=== PATIENT | male | born 1960 | race Caucasian/White ===

== ENCOUNTER 2021-05-15 09:33 | Outpatient (CLI) | payer BC, SELFPAY ==
[2021-05-15 09:47] LABS: Hematocrit 48.8 % (40.0-54.0); Hemoglobin 16.2 g/dL (14.0-18.0); Mean Corpuscular HGB Conc 33.2 g/dL (32.0-36.0); Mean Corpuscular Hemoglobin 30.8 pg (27.0-31.0); Mean Corpuscular Volume 92.8 fL (78.0-102.0); Mean Platelet Volume 10.5 fl (8.7-11.0); Platelet Count Result 157 K/mm3 (150-420); Red Blood Count 5.26 M/mm3 (4.70-6.10); Red Cell Distribution Width 12.6 % (11.6-14.4); White Blood Count 7.4 K/mm3 (4.8-10.8)
[2021-05-15 10:13] LABS: Alanine Aminotransferase 34 U/L (16-63); Albumin Level 3.5 g/dL (3.4-5.0); Alkaline Phosphatase 63 U/L (46-116); Anion Gap 9 mmol/L (8-16); Aspartate Amino Transferase 13 U/L (15-37); Bilirubin,Total 0.5 mg/dL (0.00-1.00); Blood Urea Nitrogen 13 mg/dL (7-18); Calcium 8.9 mg/dL (8.5-10.1); Carbon Dioxide 29 mmol/L (21-32); Chloride 102 mmol/L (98-108); Cholesterol 172 mg/dL (0-200); Estimated Glomerular Filt Rate > 60; Glucose 116 mg/dL (70-99); HDL Direct 32 mg/dL (40-60); LDL Cholesterol Calculated 102 mg/dL (<130); Osmolality Calculated 291 mOsm/kg (285-295); Sodium 140 mmol/L (136-145); Total Protein 6.9 g/dL (6.4-8.2); Triglycerides 190 mg/dL (0-150)
== END 2021-05-15 09:34 | disposition home or self-care (01) ==
LOC: CHSLAB 09:38
PROVIDERS: PCP Family Medicine; Visit Provider Family Medicine
DX: Z00.00 Encounter for general adult medical examination without abnormal findings (principal); W54.0XXA Bitten by dog, initial encounter
CPT/HCPCS: 36415; 80053; 80061; 85027

== ENCOUNTER 2024-02-07 10:18 | Outpatient (CLI) | payer MEDICARE, SELFPAY ==
[2024-02-07 10:30] VITALS: BMI 25.9
[2024-02-07] MEDS: HEPARIN SODIUM LOCK FLUSH 500 UNITS/5 ML SYRINGE IV PUSH (10:44)
[2024-02-07 10:45] VITALS: BP 128/71; PULSE 78; RESP 14; TEMP 36.5; O2SAT 99
== END 2024-02-07 10:19 | disposition home or self-care (01) ==
PROVIDERS: PCP Family Medicine; Visit Provider Internal Medicine Hematology
DX: Z45.2 Encounter for adjustment and management of vascular access device (principal); C20 Malignant neoplasm of rectum
CPT/HCPCS: 96523

== ENCOUNTER 2024-02-22 10:11 | Outpatient (CLI) | payer MEDICARE, SELFPAY ==
[2024-02-22 10:36] LABS: Basophils Absolute Auto 0.03 K/mm3 (0.00-0.10); Basophils Percent Auto 0.6 % (0.0-1.0); Eosinophils Absolute Auto 0.12 K/mm3 (0.02-0.50); Eosinophils Percent Auto 2.4 % (1.0-6.0); Hematocrit 37.4 % (37.0-46.0); Immature Granulocyte Absolute 0.03 K/mm3 (0.00-0.00); Immature Granulocyte Percent A 0.6 % (0.0-0.0); Lymphocytes Absolute Auto 0.87 K/mm3 (1.10-4.50); Lymphocytes Percent Auto 17.8 % (18.0-42.0); Mean Corpuscular HGB Conc 34.8 g/dL (32-36); Mean Corpuscular Hemoglobin 30.7 pg (27.0-31.0); Mean Corpuscular Volume 88.2 fL (78.0-102.0); Mean Platelet Volume 9.1 fl (8.7-11.0); Monocytes Absolute Auto 0.48 K/mm3 (0.10-0.90); Monocytes Percent Auto 9.8 % (2.0-11.0); Neutrophils Absolute Auto 3.37 K/mm3 (1.70-7.20); Neutrophils Percent Auto 68.8 % (50.0-70.0); Platelet Count Result 201 K/mm3 (150-420); Red Blood Count 4.24 M/mm3 (4.70-6.10); Red Cell Distribution Width 13.4 % (11.6-14.4); White Blood Count 4.9 K/mm3 (4.8-10.8)
[2024-02-22 11:02] LABS: Alanine Aminotransferase 25 U/L (16-63); Albumin Level 3.4 g/dL (3.4-5.0); Alkaline Phosphatase 78 U/L (46-116); Anion Gap 8 mmol/L (4-12); Aspartate Amino Transferase 13 U/L (15-37); Bilirubin,Total 0.6 mg/dL (0.00-1.00); Blood Urea Nitrogen 13 mg/dL (7-18); Calcium 9.2 mg/dL (8.5-10.1); Carbon Dioxide 29 mmol/L (21-32); Chloride 98 mmol/L (98-108); Estimated Glomerular Filt Rate > 60; Glucose 88 mg/dL (70-99); Osmolality Calculated 279 mOsm/kg (285-295); Potassium 4.7 mmol/L (3.5-5.1); Sodium 135 mmol/L (136-145); Total Protein 6.7 g/dL (6.4-8.2)
[2024-02-23 06:54] LABS: Carcinoembryonic Antigen 5.4 ng/mL
== END 2024-02-22 10:12 | disposition home or self-care (01) ==
PROVIDERS: PCP Family Medicine; Visit Provider Internal Medicine Hematology
DX: C20 Malignant neoplasm of rectum (principal)
CPT/HCPCS: 36415; 80053; 82378; 85025

== ENCOUNTER 2024-02-28 08:36 | Outpatient (CLI) | payer MEDICARE, MEDICAID, SELFPAY ==
--- NOTE | ~2024-02-28 | CT_ITS ---
EXAMINATION: CT chest abdomen pelvis w con DATE: 02/28/2024 09:17 INDICATION: Colorectal cancer. Prostate cancer. TECHNIQUE: Computed tomography (CT) of the chest, abdomen, and pelvis was performed with 100 mL Omnip aque 350 intravenous contrast. Automated exposure control and iterative reconstruction technique were employed. The dose-length product was 515.42 mGy-cm. COMPARISON: None FINDINGS: CHEST CT: There is mild emphysema. A calcified right lung nodule and calcified right hilar lymph nodes are cons istent with old granulomatous disease. There is mild atelectasis bilaterally. There are mild groundgl ass opacities in left lower lobe with a 4 mm nodule, likely inflammation/infection. No pleural effusi on. There is a right subclavian port with tip at superior cavoatrial junction. The heart size is norm al. There is a small pericardial effusion. There is mild thoracic spondylosis. ABDOMEN/PELVIS CT: The liver and gallbladder are normal. Calcifications in the spleen are consistent with old granulomat ous disease. There are greater than 20 hypodense masses in the spleen measuring up to 9 mm, likely gr anulomatous disease. The pancreas, adrenal glands, and kidneys are normal. The bladder is distended. There is diffuse bladder wall thickening, likely secondary to chronic outlet obstruction from the mil dly enlarged prostate. There is wall thickening of the rectum. There is diverticulosis of the colon w ithout evidence of diverticulitis. The appendix is normal. There are no pathologically enlarged lymph nodes. There is no free intraperitoneal fluid. There is severe lumbar spondylosis. IMPRESSION: 1. Wall thickening of the rectum, consistent with primary malignancy and/or changes of radiation ther apy. Reviewed, dictated and finalized at location A. [employer] I ASSEMBLER IMPRESSION: 1. Wall thickening of the rectum, consistent with primary malignancy and/or mikey nges of radiation therapy.
== END 2024-02-28 08:37 | disposition home or self-care (01) ==
PROVIDERS: PCP Family Medicine; Visit Provider Internal Medicine Hematology
DX: C20 Malignant neoplasm of rectum (principal)
CPT/HCPCS: 71260; 74177; Q9967

== ENCOUNTER 2024-06-05 08:21 | Outpatient (CLI) | payer MEDICARE, MEDICAID, SELFPAY ==
[2024-06-05 08:29] VITALS: BMI 24.6
[2024-06-05 08:44] VITALS: BP 121/64; PULSE 68; RESP 14; TEMP 36.6; O2SAT 97
--- OUTSIDE RECORDS SUMMARY | 2024-06-05 08:46 | XMS_ITS | Encounter Summary ---
Author Organization [facility] Address [facility] [place] [address] Care Team Providers Care Recovery Operator Name Role Phone Flaco Kelly MD Primary Care Provider Encounter Details Date Type Department Care Team (Late st Contact Info) Description 05/29/2024 Orders Only [facility] [address], [place] [id number] Aretha Hubbard, RETREAD BUILDER [address] [place], [place] [id number] Social History Tobacco Use Types Packs/Day Years Used Date Smoking Tobacco: Unknown Sex and Gender Information Value Date Recorded Sex Assigned at Male 04/20/2024 8:37 AM LAN SUPPORT SPECIALIST Legal Sex Male 9:40 AM CDT Gender Identity Not on file Sexual Orientation Not on file documented as of this encounter Plan of Treatment Not on file documented as of this encounter Results * PROSTATE SPECIFIC ANTIGEN, DIAG (05/29/2024 11:11 AM LAN SUPPORT SPECIALIST) PSA <0.13 <4.00 NG/ML 05/29/2024 11:51 AM LAN SUPPORT SPECIALIST [facility] 05/29/2024 11:1 1 AM LAN SUPPORT SPECIALIST Aretha Hubbard NP LABORATORY Final Result [facility] [address] [place] [address], * (ABNORMAL) TESTOSTERONE, FREE & TOTAL (05/29/2024 11:11 AM LAN SUPPORT SPECIALIST) TESTOSTERONE TOTAL 88(L) 250 - 1,100 ng/dL 06/04/2024 3:31 PM LAN SUPPORT SPECIALIST [id number] PEDERSON Comment: Men with clinically significant hypogonadal symptoms and testosterone values repeatedly in the range of the 200-300 ng/dL or less, may benefit from testosterone treatment after adequate risk and benefits counseling. For additional information, please refer to http://education.[employer]/faq/ OmkouZehqubedtnuvMTMVHFIUT734 (This link is being provided for informational/ educational purposes only.) This test was developed and its analytical performance characteristics have been determined by [facility] [place], [place]. It has not been cleared or approved by the U.S. Food and Drug Administration. This assay has been validated pursuant to the CLIA regulations and is used for clinical purposes. TESTOSTERONE FREE 6.1(L) 35.0 - 155.0 pg/mL 06/04/2024 3:31 PM LAN SUPPORT SPECIALIST [employer] ANASTACIA PEDERSON Comment: This test was developed and its analytical performance characteristics have been determined by [employer] [facility] [place], [place]. It has not been cleared or approved by the U.S. Food and Drug Administration. This assay has been validated pursuant to the CLIA regulations and is used for clinical purposes. Test Performed by [facility], [facility] [place], [address] [place] [address] Jean Carlos Carter M.D., Ph.D., Director of Laboratories , CLIA [id number] 05/29/2024 11:1 1 AM LAN SUPPORT SPECIALIST us Aretha Hubbard NP LABORATORY Final Result [facility] [id number] [place], [place] , documented in this encounter Visit Diagnoses Diagnosis Malignant neoplasm of prostate ([facility]/HCC [facility])- Primary Malignant neoplasm of prostate documented in this encounter Care Teams Recovery Operator Relationship Specialty Start Date End Date Flaco Kelly MD [address] [place] [address] PCP - General FAMILY PRACTICE 01/03/23 documented as of this encounter
--- OUTSIDE RECORDS SUMMARY | 2024-06-05 08:46 | XMS_ITS | Encounter Summary ---
Author Organization [facility] Address [address] [place] [address] Care Team Providers Care Manager Cosmetics Name Role Phone Flaco Kelly MD Primary Care Provider [phone] Encounter Details Date Type Department Care Team (Late st Contact Info) Description 05/29/[address] [facility] [address] [place] [address] Ziggy Renee MD [facility] [address] [facility] [address] [facility] [place], [place] [id number] Social History Tobacco Use Types Packs/Day Years Used Date Smoking Tobacco: Unknown Sex and Gender Information Value Date Recorded Sex Assigned at Male 04/20/2024 8:37 AM AUTOMOTIVE PARTS COUNTER ASSOCIATE Legal Sex Male 9:40 AM CDT Gender Identity Not on file Sexual Orientation Not on file documented as of this encounter Plan of Treatment Not on file documented as of this encounter Results * (ABNORMAL) CARCINOEMBRYONIC ANTIGEN (05/29/2024 11:11 AM AUTOMOTIVE PARTS COUNTER ASSOCIATE) CEA 9.9(H) 0.0 - 5.0 NG/ML 05/29/2024 7:14 PM AUTOMOTIVE PARTS COUNTER ASSOCIATE [facility] Comment: ASSAY PERFORMED BY CHEMILUMINESCENCE METHODOLOGY USING [employer] [facility]ENT. PATIENT RESULTS DETERMINED BY ASSAYS USING DIFFERENT MANUFACTURERS FOR METHODS MAY NOT BE COMPARABLE. 05/29/2024 11:1 1 AM AUTOMOTIVE PARTS COUNTER ASSOCIATE Ziggy Renee MD LABORATORY Final Result [facility] [address] [place] [address], [id number] documented in this encounter Visit Diagnoses Diagnosis Prostate cancer (CMS/HCC HHS/HCC)- Primary Malignant neoplasm of prostate documented in this encounter Care Teams Manager Cosmetics Relationship Specialty Start Date End Date Flaco Kelly MD [facility] [facility] [place] [address] PCP - General FAMILY PRACTICE 01/03/23 documented as of this encounter
--- OUTSIDE RECORDS SUMMARY | 2024-06-05 08:46 | XMS_ITS ---
Author Organization Unknown Address [address] [place] [phone] Phone Care Team Providers Care Services Delivery Driver Name Role Phone ALBERT Pinedo Attending Unavailable [facility] Unavailable MANJIT Gould Primary Unavailable Immunization Immunization Date Status Additional Notes Code Code System Tdap 05/12/2021 Completed 115 CVX COVID-19, mRNA, LNP-S, PF, 3 0 mcg/0.3 mL dose 06/06/2020 Completed 208 CVX COVID-19, mRNA, LNP-S, PF, 3 0 mcg/0.3 mL dose 06/26/2020 Completed 208 CVX Social History Type Status Start Date End Date Code Code Syst em Smoking History Current every day smoker 806383936 SNOMED CT Sex Male Vital Signs Vital Sign Value Unit Collin Value Collin Unit Date/Time Recent/Initial? Code Code System Body Mass Index 27.69 kg/m2 03/04/2023 13:59 Initial 64945 -5 LOINC Systolic Blood Pressure 130 mm[Hg] 03/18/2023 07:41 Initial 8480- 6 LOINC Diastolic Blood Pressure 72 mm[Hg] 03/18/2023 07:41 Initial 8462- 4 LOINC Body Surface Area 2.08 m2 03/04/2023 13:59 Initial 3140- 1 LOINC Height 177.800 0 cm 70.00 in 03/04/2023 13:59 Initial 8302- 2 LOINC O2 Saturation 98 % 2022 07:41 Initial 99410 -5 LOINC Pulse 100.0 /min 03/18/2023 07:41 Initial 8867- 4 LOINC Respiration 20 /min 03/18/20 07:41 Initial 9279- 1 LOINC Temperature 36.4 Jenna 97.5 F 12/15/20 23 07:41 Initial 8310- 5 LOINC Weight 87.54 kg 193.00 lbs 03/04/2023 13:59 Initial 15324 -7 LOINC Medications No Active Medications Hospital Discharge Instructions Should you have any questions prior to discharge, please contact a member of your healthcare team. If you have left the hospital and have any questions, please contact your primary care physician. Reason For Referral No Data Found Procedures Procedure Name Date Status Code Code Syste m Inguinal hernia completed [id number] SNOMEDCT Anesthesia for lower intesti nal endoscopic procedures, endoscope introduce 03/18/2023 completed 69197 CPT Colonoscopy, flexible; with removal of tumor(s), polyp(s), or other lesion 03/18/2023 completed 84350 CPT Allergies and Adverse Reactions Allergy Substance Reaction Severity Start Date Concern Status Co de Code System CODEINE Active 4428 RxNorm Plan of Treatment US Prostate Needle Biopsy 04/13/2023 Encounters Encounter Diagnosis Start Date Code Code Sys tem Encounter for screening for malignant neoplasm of colo n 03/18/2023 SNOMED-CT Personal Care Team Section Performer Name Performer Role Active Date Inactive MIGUELANGEL Fuller PCP - Primary care physician 2023-01-12
--- OUTSIDE RECORDS SUMMARY | 2024-06-05 08:46 | XMS_ITS | Clinical Summary ---
Author Organization [facility] Address [facility] [place] [address] Care Team Providers Care Advertising Project Manager Name Role Phone Flaco Kelly MD Primary Care Provider Allergies Active Allergy Reactions Criticality Noted Date Comments Codeine Nausea Only 03/18/2023 Patient states it makes me sick as hell Medications No known medications Encounters Date Type Department Care Team Description 05/29/2024 10:55 AM INTAKE NURSE - 05/29/2024 11:59 PM INTAKE NURSE Hospital Encounter [facility] [address] [place] [address] [address] Travis Ratliff MD Discharge Disposition: Home or Self Care (Routine Discharge) 05/29/2024 10:45 AM INTAKE NURSE - 05/29/2024 10:54 AM INTAKE NURSE Hospital Encounter [facility] [address] [place] [address] [address] Flaco Kelly MD Fisher, Kelli C, JULIANNE Discharge Disposition: Home or Self Care (Routine Discharge) 05/29/2024 Orders Only [facility] [address] [place] [address] [address] Travis Ratliff MD 05/29/[address] [facility] [address] [place] [address] [address] Aretha Hubbard NP 05/29/2024 Travel 04/26/2024 6:33 AM INTAKE NURSE - 04/26/2024 11:59 PM [facility] Hospital Encounter [facility] [address] [place] [address] [address] Teddy Roman Sr., MD Discharge Disposition: Home or Self Care (Routine Discharge) 04/26/2024 Travel 04/20/2024 8:38 AM INTAKE NURSE - 04/20/2024 11:59 PM INTAKE NURSE Hospital Encounter [facility] [address] [place] [address] Teddy Roman Sr., MD Discharge Disposition: Home or Self Care (Routine Discharge) 04/20/2024 Travel 03/14/2024 8:35 AM INTAKE NURSE - 03/14/2024 11:59 PM INTAKE NURSE Hospital Encounter [facility] [address] [place] [address] Travis Raltiff MD Discharge Disposition: Home or Self Care (Routine Discharge) 03/14/2024 Travel from Last 3 Months Social History Tobacco Use Types Packs/Day Years Used Date Smoking Tobacco: Unknown Tobacco Cessation:Counseling Given: Not Answered Sex and Gender Information Value Date Recorded Sex Assigned at Male 04/20/2024 8:37 AM INTAKE NURSE Legal Sex Male 9:40 AM CDT Gender Identity Not on file Sexual Orientation Not on file Last Filed Vital Signs Vital Sign Reading Time Taken Comments Blood Pressure 129/98 03/18/2023 3:56 PM INTAKE NURSE Pulse 98 03/18/2023 3:56 PM INTAKE NURSE Temperature 36.6 C (97.8 F) 03/18/2023 12:49 PM INTAKE NURSE Respiratory Rate 14 03/18/2023 3:56 PM INTAKE NURSE Oxygen Saturation 96% 03/18/2023 3:56 PM INTAKE NURSE Inhaled Oxygen Concentration - - Weight 85 kg (187 lb 8 oz) 03/18/2023 12:[address] Height 180.3 cm (5' 11 ) 03/18/2023 12:49 PM INTAKE NURSE Body Mass Index 26.15 03/18/2023 12:49 PM INTAKE NURSE Plan of Treatment Health Maintenance Due Date Last Done Comments Hepatitis C 1977 Zoster Vaccines (1 of 2) 2009 RSV Immunization or 60+ Years (1 - Risk 60-74 years 1-dose series) 2019 COVID-19 Vaccine (3 - 2023-2 5 season) 2023 06/26/2020, 06/06/2020 Influenza Adult (#1) 2024 Pneumococcal Vaccine: 65+ Years (1 of 1 - PCV) 02/01/2024 DTaP, Tdap and Td Vaccines ( 2 - Td or Tdap) 05/12/2031 05/12/2021 Meningococcal B Vaccine Aged Out No l onger eligible based on patient's age to complete this topic Meningococcal Vaccine Aged Out No alexis michelle eligible based on patient's age to complete this topic Pneumococcal Vaccine: Pediatrics (0 to 5 Years) and At-Risk Patients (6 to 64 Years) Aged Out No longer eligible b ased on patient's age to complete this topic RSV Immunizations Under 20 Months Aged Out No longer eligible b ased on patient's age to complete this topic Procedures Procedure Name Priority Date/Time Associated Diagnosis Comments CARCINOEMBRYONIC ANTIGEN Routine 025 11:11 AM INTAKE NURSE Prostate cancer (CMS/HCC HHS/HCC) PROSTATE SPECIFIC ANTIGEN,TOTAL Routine 05/29/2024 11:11 AM INTAKE NURSE Malignant neoplasm of prostate (CMS/HCC HHS/HCC) HC TESTOSTERONE FREE-90 Routine 05/29/19 25 11:11 AM INTAKE NURSE Malignant neoplasm of prostate (CMS/HCC HHS/HCC) MRI ABD WWO CON STAT 04/26/2024 7:52 AM INTAKE NURSE Hepatic disease CT CHEST+ABD W CON Routine 04/20/2024 9: 15 AM INTAKE NURSE Rectal cancer (CMS/HCC HHS/HCC) MRI PEL WWO CON Routine 03/14/2024 9:56 AM INTAKE NURSE Rectal cancer (CMS/HCC HHS/HCC) from Last 3 Months Results * (ABNORMAL) TESTOSTERONE, FREE & TOTAL (05/29/2024 11:11 AM INTAKE NURSE) TESTOSTERONE TOTAL 88(L) 250 - 1,100 ng/dL 06/04/2024 3:31 PM INTAKE NURSE [employer] Comment: Men with clinically significant hypogonadal symptoms and testosterone values repeatedly in the range of the 200-300 ng/dL or less, may benefit from testosterone treatment after adequate risk and benefits counseling. For additional information, please refer to http://education.Fluther.THEMA/faq/ MflrvXghvvaatcsdaAHLWTQSBC910 (This link is being provided for informational/ educational purposes only.) This test was developed and its analytical performance characteristics have been determined by [facility] [place], [place]. It has not been cleared or approved by the U.S. Food and Drug Administration. This assay has been validated pursuant to the CLIA regulations and is used for clinical purposes. TESTOSTERONE FREE 6.1(L) 35.0 - 155.0 pg/mL 06/04/2024 3:31 PM INTAKE NURSE [facility] Comment: This test was developed and its analytical performance characteristics have been determined by [facility] [place], [place]. It has not been cleared or approved by the U.S. Food and Drug Administration. This assay has been validated pursuant to the CLIA regulations and is used for clinical purposes. Test Performed by [facility], [facility], [address] [place] [address] Jean Carlos Carter M.D., Ph.D., Director of Laboratories , CLIA [id number] 05/29/2024 11:1 1 AM INTAKE NURSE us Aretha Hubbard NP LABORATORY Final Result Performing Organization Address City/[facility]/ZIP Co de Phone Number [employer] [address] , * PROSTATE SPECIFIC ANTIGEN, DIAG (05/29/2024 11:11 AM INTAKE NURSE) PSA <0.13 <4.00 NG/ML 05/29/2024 11:51 AM INTAKE NURSE [facility] 05/29/2024 11:1 1 AM INTAKE NURSE us Aretha Hubbard NP LABORATORY Final Result [facility] [address] [place] [address], [place] [phone] * (ABNORMAL) CARCINOEMBRYONIC ANTIGEN (05/29/2024 11:11 AM INTAKE NURSE) CEA 9.9(H) 0.0 - 5.0 NG/ML 05/29/2024 7:14 PM INTAKE NURSE [facility] Comment: ASSAY PERFORMED BY CHEMILUMINESCENCE METHODOLOGY USING [employer] [facility]. PATIENT RESULTS DETERMINED BY ASSAYS USING DIFFERENT MANUFACTURERS FOR METHODS MAY NOT BE COMPARABLE. 05/29/2024 11:1 1 AM INTAKE NURSE Travis Ratliff MD LABORATORY Final Result [facility] [address] [place] [address], [place] [phone] [id number] * MRI ABD WWO CON (04/26/2024 7:52 AM INTAKE NURSE) Anatomical Region Laterality Modality Abdomen Magnetic Resonan ce 04/26/2024 1:22 PM INTAKE NURSE Impressions 04/26/2024 1:27 PM INTAKE NURSE IMPRESSION: 1. 19 MM IN DIAMETER FOCAL LESION POSTERIOR SEGMENT RIGHT LOBE OF LIVER CORRESPONDS WITH THE ABNORMALITY NOTED ON CT. THIS IS FELT TO BE SUSPICIOUS FOR METASTATIC DISEASE. NO OTHER SIGNIFICANT ABNORMALITY. Signed: Aristeo Plummer MD Referred By: TEDDY ROMAN SR Interpreted By: Aristeo Plummer MD, 04/26/2024 1:22 PM Narrative 04/26/2024 1:27 PM INTAKE NURSE [address] [place] [address] PATIENT NAME: ROBERTO GARCIA EXAM: MRI of the abdomen with and without contrast DATE OF EXAM: 04/26/2024 COMPARISON EXAM: CT abdomen/pelvis 04/20/2024, MRI abdomen 05/18/2023 INDICATION: History of rectal cancer, suspicious right lobe liver lesion noted on CT. TECHNIQUE: Multiplanar/multi sequence MRI abdomen performed with and without intravenous injection of 15 mL Dotarem gadolinium contrast. Electronic subtractions of the postcontrast images were then obtained. FINDINGS: The images are somewhat degraded by respiratory motion as patient had some difficulty with breath holding. The liver is normal in size. There is an approximately 19 mm in diameter lesion in the posterior segment of the right lobe of the liver which demonstrates mild abnormal strictured diffusion. This is of low T1 and intermediate T2 signal. This is seen as hypoenhancing on early postcontrast images becoming more isointense with liver parenchyma on delayed images. This was not present on a previous MRI and is felt to be worrisome for metastatic disease to liver. No other focal liver lesions are demonstrated. No evidence of cholelithiasis or gallbladder wall thickening. No biliary duct dilatation. The spleen is normal in size. There are multiple small splenic lesions demonstrating high T2 signal with delayed enhancement on postcontrast images. These are unchanged from previous studies with an appearance suggesting possible benign hemangiomas or hamartomas. The pancreas and adrenal glands are unremarkable. No focal renal lesions are demonstrated. No hydronephrosis. No acute inflammatory change, abscess or ascites. No significant lymphadenopathy. Procedure Note Aristeo Plummer MD - 04/26/[address] [place] [address] PATIENT NAME: ROBERTO GARCIA EXAM: MRI of the abdomen with and without contrast DATE OF EXAM: 04/26/2024 COMPARISON EXAM: CT abdomen/pelvis 04/20/2024, MRI abdomen 05/18/2023 INDICATION: History of rectal cancer, suspicious right lobe liver lesionnoted on CT. TECHNIQUE: Multiplanar/multi sequence MRI abdomen performed with andwithout intravenous injection of 15 mL Dotarem gadolinium contrast.Electronic subtractions of the postcontrast images were then obtained. FINDINGS: The images are somewhat degraded by respiratory motion aspatient had some difficulty with breath holding. The liver is normal in size. There is an approximately 19 mm in diameterlesion in the posterior segment of the right lobe of the liver whichdemonstrates mild abnormal strictured diffusion. This is of low T1 andintermediate T2 signal. This is seen as hypoenhancing on earlypostcontrast images becoming more isointense with liver parenchyma ondelayed images. This was not present on a previous MRI and is felt to beworrisome for metastatic disease to liver. No other focal liver lesionsare demonstrated. No evidence of cholelithiasis or gallbladder wallthickening. No biliary duct dilatation. The spleen is normal in size. There are multiple small splenic lesionsdemonstrating high T2 signal with delayed enhancement on postcontrastimages. These are unchanged from previous studies with an appearancesuggesting possible benign hemangiomas or hamartomas. The pancreas and adrenal glands are unremarkable. No focal renal lesionsare demonstrated. No hydronephrosis. No acute inflammatory change,abscess or ascites. No significant lymphadenopathy. IMPRESSION: 1. 19 MM IN DIAMETER FOCAL LESION POSTERIOR SEGMENT RIGHT LOBE OF LIVERCORRESPONDS WITH THE ABNORMALITY NOTED ON CT. THIS IS FELT TO BESUSPICIOUS FOR METASTATIC DISEASE. NO OTHER SIGNIFICANT ABNORMALITY. Signed: Aristeo Plummer MD Referred By: TEDDY ROMAN SR Interpreted By: Aristeo Plummer MD, 04/26/2024 1:22 PM us Teddy Roman Sr., MD MRI Final Re sult * CT CHEST+ABD W CON (04/20/2024 9:15 AM INTAKE NURSE) Anatomical Region Laterality Modality Chest, Abdomen Computed Tomogra phy 04/24/2024 5:53 AM INTAKE NURSE Impressions 04/24/2024 6:00 AM INTAKE NURSE Impression: A 15 mm low-density nodule in the right hepatic lobe on series 2 image 117 is new since MRI 05/18/2023. This is worrisome for a rectal cancer metastasis. No other lesion in the abdomen seen. No metastatic nodularity or adenopathy in the chest. Reticulonodular scarring in the left lower lobe is present since lung screening CT 01/11/2023. Attention on follow-up chest CT. Chronic thin to moderate pericardial effusion. Scattering of ill-defined low densities in the spleen is chronic, nonspecific. See the discussion from MRI 05/18/2023. Referred By: TEDDY ROMAN SR Interpreted By: Cleve Etienne MD, 04/24/2024 5:53 AM Narrative 04/24/2024 6:00 AM INTAKE NURSE [address] [place] [address] Examination: CT CHEST+ABD W CON Exam time: 04/20/2024 9:05 AM Clinical Information: Rectal cancer staging. Comparison:CT chest 05/25/2023 and 01/11/2023. MRI abdomen 05/18/2023. CT abdomen 04/21/2023. Technique: IV contrast: 90 mL Isovue 370. Technical comments: Standard technique. Dose reduction: This CT exam was performed using one or more of the following dose reduction techniques: Automated exposure control, adjustment of the mA and/or kV according to patient size, and/or use of iterative reconstruction technique. Findings: Smoking-related changes in the lung cardozo which includes mild COPD and scarring. Old calcified granulomata in the chest. Reticular-nodular scarring in the left lower lobe is present since 2022 without significant interval growth. Attention on follow-up. No suspicious lung nodule or mass. Airways patent. Right chest port catheter present. No aortic aneurysm or dissection in the chest. No PE on this nondedicated study. Thin to moderate pericardial effusion. No esophageal dilation. No thyroid or neck mass. There is a 15 mm low-density nodule in the right hepatic lobe, series 2 image 117 which is not present on the MRI 05/18/2023. This is worrisome for metastatic nodule given the history of rectal cancer. No other nodularity in the liver. Scattering of ill-defined low densities in the spleen is chronic, nonspecific. No mass in the adrenals or kidneys or pancreas. No cholecystitis or pancreatitis. No ductal dilatation. No hydronephrosis. No abdominal aortic aneurysm. No stomach dilation. No intestinal dilation. No active gastritis or enteritis or colitis. Tip of the appendix is normal. No ascites. No adenopathy in the abdomen. No pneumoperitoneum. Degenerative changes in the osseous structures. No destructive bone lesion. Procedure Note Cleve Etienne MD - 04/24/[address] [place] [address] Examination: CT CHEST+ABD W CON Exam time: 04/20/2024 9:05 AM Clinical Information: Rectal cancer staging. Comparison:CT chest 05/25/2023 and 01/11/2023. MRI abdomen 05/18/2023. CTabdomen 04/21/2023. Technique: IV contrast: 90 mL Isovue 370. Technical comments: Standard technique. Dose reduction: This CT exam was performed using one or more of thefollowing dose reduction techniques: Automated exposure control,adjustment of the mA and/or kV according to patient size, and/or use ofiterative reconstruction technique. Findings: Smoking-related changes in the lung cardozo which includes mild COPD andscarring. Old calcified granulomata in the chest. Reticular-nodularscarring in the left lower lobe is present since 2022 without significantinterval growth. Attention on follow- up. No suspicious lung nodule ormass. Airways patent. Right chest port catheter present. No aorticaneurysm or dissection in the chest. No PE on this nondedicated study.Thin to moderate pericardial effusion. No esophageal dilation. Nothyroid or neck mass. There is a 15 mm low-density nodule in the right hepatic lobe, series 2image 117 which is not present on the MRI 05/18/2023. This is worrisomefor metastatic nodule given the history of rectal cancer. No othernodularity in the liver. Scattering of ill-defined low densities in thespleen is chronic, nonspecific. No mass in the adrenals or kidneys orpancreas. No cholecystitis or pancreatitis. No ductal dilatation. Nohydronephrosis. No abdominal aortic aneurysm. No stomach dilation. Nointestinal dilation. No active gastritis or enteritis or colitis. Tip ofthe appendix is normal. No ascites. No adenopathy in the abdomen. Nopneumoperitoneum. Degenerative changes in the osseous structures. Nodestructive bone lesion. Impression: A 15 mm low-density nodule in the right hepatic lobe on series 2 image 117is new since MRI 05/18/2023. This is worrisome for a rectal cancermetastasis. No other lesion in the abdomen seen. No metastatic nodularity or adenopathy in the chest. Reticulonodular scarring in the left lower lobe is present since lungscreening CT 01/11/2023. Attention on follow-up chest CT. Chronic thin to moderate pericardial effusion. Scattering of ill-defined low densities in the spleen is chronic,nonspecific. See the discussion from MRI 05/18/2023. Referred By: TEDDY ROMAN SR Interpreted By: Cleve Etienne MD, 04/24/2024 5:53 AM us Teddy Roman Sr., CT Final Re sult * MRI PEL WWO CON (03/14/2024 9:56 AM INTAKE NURSE) Anatomical Region Laterality Modality Pelvis Magnetic Resonan ce 03/22/2024 10:4 8 AM INTAKE NURSE Impressions 03/22/2024 11:10 AM INTAKE NURSE Impression: 1. Rectal Cancer Staging, as detailed in the text of the report. 2. Persistent circumferential wall thickening of the rectum consistent with residual viable tumor. The multiple areas of tumor extension into the perirectal fat seen previously have improved. Spiculations are seen extending from the rectum into the perirectal fat, possibly representing a desmoplastic reaction and posttreatment changes. Residual viable tumor within the spiculations cannot be definitively excluded. 3. Improved perirectal lymphadenopathy since prior. A single enlarged 6 mm perirectal lymph node is identified, which may represent residual metastasis. 4. Presacral and perirectal fluid signal is favored to represent posttreatment changes. 5. Redemonstrated prostatomegaly. Mild bladder wall trabeculation may represent sequelae of outlet obstruction. Ordered By: TRAVIS RATLIFF Interpreted By: Luther Mathis MD, 03/22/2024 10:48 AM Narrative 03/22/2024 11:10 AM INTAKE NURSE [address] [place] [address] Examination: MR pelvis with/without contrast, per rectal cancer staging protocol. Clinical Information: Rectal cancer, post treatment. Restaging. Comparison: MRI and CT 04/21/2023.. Technique: Sequences: Multiplanar, multisequence magnetic resonance imaging of the pelvis was performed before and after the initiation of contrast. IV contrast: 15 mL dotarem. Findings: Extensive edema like signal throughout the presacral and perirectal regions favored to represent posttreatment changes. There is notable circumferential wall thickening redemonstrated involving the rectum that is presumed to represent residual viable tumor. TUMOR LOCATION Distance of the lowest extent of tumor from anal verge: Approximately approximately 7 cm Distance of lowest extent of tumor from ano-rectal junction: Approximately 3.5 cm. Relationship to anterior peritoneal reflection: The cranial most aspect of the tumor again terminates at the level of the peritoneal reflection (series 4 image 17). This appears similar to prior and again, involvement of the peritoneal reflection is not excluded. TUMOR CHARACTERISTICS Circumferential extent/location (clock face): Circumferential. Cranio-caudal extent (length of tumor): Approximately 5.5 cm. T-CATEGORY Radial extent of disease: The areas of perirectal fat involvement seen on the previous exam from April of this year have notably improved, with no distinct bulky tumor extension into the perirectal fat identified on this exam. There are ill-defined streak-like regions extending from the rectal wall into the perirectal fat, which may represent a desmoplastic reaction as well as posttreatment changes although residual tumor cannot be definitively excluded. The spiculations do not appear to restricted diffusion on DWI or ADC sequences. T-category: Favored T1/T2 DISTANCE TO THE MESORECTAL FACIA (MRF) AND EXTRAMURAL DEPTH OF INVASION (EMD) Shortest distance of the definitive tumor border to the MRF: Approximately 4 mm. Extramural depth of invasion (EMD) at this level: 0 mm. Tumor spiculations close to the MRF: Spiculations approach and a but the MRF, although these are favored to represent a desmoplastic reaction with tumor favored less likely but not excluded. EXTRAMURAL VASCULAR INVASION (EMVI): Absent. LYMPH NODES Mesorectal lymph nodes: There is been mild improvement of the perirectal lymphadenopathy since prior. A few persistently enlarged perirectal lymph nodes are identified, of note and approximately 6 mm lymph node at the 3:00 position (series 7 image 21). Extra-mesorectal lymph nodes: No suspicious lymph nodes. Shortest distance of any suspicious lymph node to the MRF: Approximately 5 mm. OTHER Peritoneum: No nodularity or thickening. Free Fluid: None. Genitourinary system: Redemonstrated prostatomegaly. The urinary bladder demonstrates mild wall trabeculation which could indicate a chronic outlet obstruction. Vasculature: Imaged vascular structures are patent. Bones: No suspicious osseous lesions. Linear peripherally enhancing tract identified extending from the posterior aspect of the anal sphincter towards the cutaneous surface of the right medial gluteal fold (series 12 image is 26 through 29), raising concern for perianal fissure. Procedure Note Luther Mathis MD - 03/22/2024 [facility] [address] [place] [address] Examination: MR pelvis with/without contrast, per rectal cancer stagingprotocol. Clinical Information: Rectal cancer, post treatment. Restaging. Comparison: MRI and CT 04/21/2023.. Technique: Sequences: Multiplanar, multisequence magnetic resonance imaging of thepelvis was performed before and after the initiation of contrast. IV contrast: 15 mL dotarem. Findings: Extensive edema like signal throughout the presacral and perirectalregions favored to represent posttreatment changes. There is notablecircumferential wall thickening redemonstrated involving the rectum thatis presumed to represent residual viable tumor. TUMOR LOCATION Distance of the lowest extent of tumor from anal verge: Approximatelyapproximately 7 cm Distance of lowest extent of tumor from ano-rectal junction: Approximately3.5 cm. Relationship to anterior peritoneal reflection: The cranial most aspect ofthe tumor again terminates at the level of the peritoneal reflection(series 4 image 17). This appears similar to prior and again, involvementof the peritoneal reflection is not excluded. TUMOR CHARACTERISTICS Circumferential extent/location (clock face): Circumferential. Cranio-caudal extent (length of tumor): Approximately 5.5 cm. T-CATEGORY Radial extent of disease: The areas of perirectal fat involvement seen onthe previous exam from April of this year have notably improved, with nodistinct bulky tumor extension into the perirectal fat identified on thisexam. There are ill-defined streak-like regions extending from the rectalwall into the perirectal fat, which may represent a desmoplastic reactionas well as posttreatment changes although residual tumor cannot bedefinitively excluded. The spiculations do not appear to restricteddiffusion on DWI or ADC sequences. T-category: Favored T1/T2 DISTANCE TO THE MESORECTAL FACIA (MRF) AND EXTRAMURAL DEPTH OF INVASION(EMD) Shortest distance of the definitive tumor border to the MRF: Approximately4 mm. Extramural depth of invasion (EMD) at this level: 0 mm. Tumor spiculations close to the MRF: Spiculations approach and a but theMRF, although these are favored to represent a desmoplastic reaction withtumor favored less likely but not excluded. EXTRAMURAL VASCULAR INVASION (EMVI): Absent. LYMPH NODES Mesorectal lymph nodes: There is been mild improvement of the perirectallymphadenopathy since prior. A few persistently enlarged perirectal lymphnodes are identified, of note and approximately 6 mm lymph node at the3:00 position (series 7 image 21). Extra-mesorectal lymph nodes: No suspicious lymph nodes. Shortest distance of any suspicious lymph node to the MRF: Approximately 5mm. OTHER Peritoneum: No nodularity or thickening. Free Fluid: None. Genitourinary system: Redemonstrated prostatomegaly. The urinary bladderdemonstrates mild wall trabeculation which could indicate a chronic outletobstruction. Vasculature: Imaged vascular structures are patent. Bones: No suspicious osseous lesions. Linear peripherally enhancing tract identified extending from theposterior aspect of the anal sphincter towards the cutaneous surface ofthe right medial gluteal fold (series 12 image is 26 through 29), raisingconcern for perianal fissure. Impression: 1. Rectal Cancer Staging, as detailed in the text of the report. 2. Persistent circumferential wall thickening of the rectum consistentwith residual viable tumor. The multiple areas of tumor extension into theperirectal fat seen previously have improved. Spiculations are seenextending from the rectum into the perirectal fat, possibly representing adesmoplastic reaction and posttreatment changes. Residual viable tumorwithin the spiculations cannot be definitively excluded. 3. Improved perirectal lymphadenopathy since prior. A single enlarged 6 mmperirectal lymph node is identified, which may represent residualmetastasis. 4. Presacral and perirectal fluid signal is favored to representposttreatment changes. 5. Redemonstrated prostatomegaly. Mild bladder wall trabeculation mayrepresent sequelae of outlet obstruction. Ordered By: TRAVIS RATLIFF Interpreted By: Luther Mathis MD, 03/22/2024 10:48 AM Travis Ratliff MD MRI Final Result from Last 3 Months Insurance MEDICARE MEDICAID [employer] Care Teams Advertising Project Manager Relationship Specialty Start Date End Date Flaco Kelly MD [address] [place] [id number] PCP - General FAMILY PRACTICE 01/03/23
--- OUTSIDE RECORDS SUMMARY | 2024-06-05 08:46 | XMS_ITS | Data Portability ---
Author Organization [facility], [address] [facility] Neurology (OR) Address [address] [place] [address] Care Team Providers Care Greens Or Grounds Superintendent Name Role Phone TRAVIS RATLIFF Medical Oncologist [phone] TEDDY ROMAN Colorectal Surgeon [phone] TRAVIS JUSTIN Urologist [phone] ABNER CHERRY Radiation Oncologist Assessment Encounter Date Assessment Date Assessment LastModified by Organization Details LastModified Time 11/17/2023 11/17/2023 A: Tolerating we ll P Continue with RT Skin care discussed [email or web address] Not available 11/17/2023 10:15:52 11/24/2023 11/24/2023 Tolerating RT. Continue bowel regimen. Continue RT as planned. [email or web address] Not available 11/24/2023 11:21:00 12/01/2023 12/01/2023 A: Tolerating we ll P: Continue with RT Skin care as discussed F/U form provided and instsructions. 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 Patient completed external beam radiation therapy, now returns for the consideration of boost using high dose rate brachytherapy. We recommend single fraction 12.5-15Gy high dose rate brachytherapy treatment as a boost for the prostate carcinoma. We discussed the procedure thoroughly with the patient. Patient will undergo general anesthesia for this procedure. Patient understands the rationale behind this recommendation and is in agreement. Plan: Patient to undergo MRI of the pelvis and then he is scheduled for his brachytherapy procedure which will be done in surgery under general anesthesia on February 15, 2024. Thanks for referring this patient to us. [email or web address] Education: Patient was provided education on prostate HDR brachytherapy including a timeline for treatment, expectations during procedure, and general side effects. Patient was provided an [facility] radiation therapy folder that includes general information on RT and skin care, contact information, a helpful links worksheet, [facility] Cancer Care support group information and a parking pass. Patient verbalizes understanding of the teaching and declines questions and/or concerns at this time. [email or web address] Not available 02/09/2024 08:57:38 03/13/2024 03/13/2024 Assessment Mr. Garcia has a history of two primary adenocarcinomas rectum and prostate. He returns today for a 4 week follow up upon completion of HDR prostate brachytherapy completed 02/15/2024. Patient completed external beam radiation therapy to the whole pelvis, including prostate and the rectum both Primaries on December 07, 2023. He is currently taking Finasteride. Plan: He will return for a 3 month F/U with Aretha WHITAKER. PSA in 3 months prior to F/U. He prefers to have labs drawn in [place]. Continue f/u with med/onc. I personally spent a total of 15 minutes on the phone with patient on this date of service having a direct medical discussion. [email or web address] Not available 03/26/2024 16:46:27 Plan of Treatment Reminders Order Date Submit Date Provider Last Modified By Organization Details Last Modified Time Details Appointments None record ed. Lab None record ed. Referral None record ed. Procedures None record ed. Surgeries None record ed. Imaging None record ed. Medication Orders None record ed. Patient TargetsNo targets recorded. Patient InstructionsNo instructions recorded. Reason for Referral None Reported. Results Created Date Observation Date Name Description Value Unit Range Abnormal Flag Note LastModifiedBy Organization Detail LastModifiedTime 10/17/19 24 10/14/2023 CT rad thera py pelvi s TP 3mm [facility] [address] [place] [address] [phone] Name: ROBERTO PALM RD Age: 63 : 1959 Exam Date: 2023 ACCESS ION: [id number] ORDERI DREAD MD: ROBIN FOSTER RADIAT ION THERAP Y SIMULA TION SCAN Radiat ion Therap y simula tion scan for treatm ent planni ng. No interp retati on render ed. Final Report Dictat ed: 11:00 Radiol ogist , Inquir y Signed : 15:25 Radiol ogist , Inquir y [email or web address] Ia Only - [facility] Rad [address] [place], [address], 10/20/2023 21:29:17 01/31/20 24 05/25/2023 imagi ng/di agnos tic resul t No observ ation record ed. [email or web address] Not Available 01:01:09 01/31/2006/21/2023 imagi ng/di agnos tic resul t No observ ation record ed. [email or web address] Not Available 01:01:17 02/14/20 24 02/14/2024 MRI, pelvi s, w/wo contr ast [facility] [address] [place] [address] Teleph one [phone] Name: Roberto Palm rd [id number] Exam Date: 2023 Age: 64 Physic kat: Hayden gil MD, [facility] ar : 1959 Examin ation: MRI PELVIS W AND WO CONTRA ST EXAM: Magnet ic Resona nce Imagin g (MRI) of the Pelvis (Prost ate) HISTOR Y: Hx of prosta te cancer 3 plus 4=7, S/p radiat ion done COMPAR ISMAEL: 05/06/23 TECHNI QUE: MRI of the prosta te gland was obtain ed by use of 3T magnet system , prior to and follow ing the uneven tful admini strati on of gadoli nium-b ased intrav enous contra st materi al, Dotare m, 15 mL, throug h the left antecu bital fossa withou t advers e reacti on accord ing to the prosta te protoc ol. The prosta te images were postpr ocesse d on an indepe ndent workst ation by the radiol ogist with 3D volume tric render ing and lesion target ing. FINDIN GS: The prosta te gland measur es 4.7 x 3.7 x 5.7 cm (Vol: 52 mL, PSA Densit y: 0.11 ng/mL/ cc). There are post radiat ion change s of the prosta te Transi tional Zone: The transi tional zone is enlarg ed with multip le T2 varyin g intens ity nodule s with periph eral hypoin tensit y consis tent with prosta tic hyperp lasia. There is a 2.2 x 1.3 cm T2 hypoin tense nodule is seen in the right basila r transi tional zone (07/17) . A 2.3 x 0.8 cm T2 hypoin tense nodule is seen in the anteri or left transi tional zone (07/21) . Periph eral Zone: The periph eral gland is diffus benji thinne d with diffus e hypoin tensit y. Semina l vesicl es: The semina l vesicl es are normal . Neurov ascula r Bundle : The neurov ascula r bundle s are intact . Urinar y Bladde r: The bladde r has an increa sed trabec ular patter n. Vascul ature and Lymph Nodes: No lympha denopa thy is identi fied. GI tract: Scatte red coloni c divert iculi are seen withou t eviden ce of divert iculit is. There is abnorm al wall thicke erlin of the mid rectum . Bones and soft tissue : Degene rative change s are seen in the visual ized lumbar spine. IMPRES VICKI: 1. Change s prosta tic hyperp lasia. PI-RAD S Catego ry 1: Very Low Risk 2. Post radiat ion change s throug hout the prosta te. The previo usly seen lesion s are no longer well-v isuali zed 3. Ill-de fined nodule in the right basila r transi tional zone. PI-RAD S Catego ry 2: Low Risk Electr onical ly signed in Brody cribe by: CARROLL Rueda MD on: 4 11:10 AM cc: Page PAGE 1 of NUMPAG ES 1 [email or web address] Sc Only - [facility] [address] [place] [address], [address], 02/14/2024 12:16:28 02/16/2002/15/2024 CT rad thera py pelvi s TP 3mm [facility] [address] [place] [address] Name: ROBERTO PALM RD Age: 64 : 1959 Exam Date: 2023 ACCESS ION: [id number] JALIL CANADA MD: ELDER TURK. RADIAT ION THERAP Y SIMULA TION SCAN Radiat ion Therap y simula tion scan for treatm ent planni ng. No interp retati on render ed. Final Report Dictat ed: 11:56 Radiol ogist , Inquir y Signed : 15:20 Radiol ogist , Inquir y INTERFACE Sc Only - [facility] [address] [place] [address], [address], 02/16/2024 17:28:27 Result Notes None recorded. Problems Name Problem SNOMED Code Status Onset Date Resolution Date Notes Provider Name and Address Organization Details Recorded Time Adenocarci noma of prostate 848762137 Active 2023 Willow Brown APRN, [facility] [address] [place] [address], [phone], [facility] 4 17:36:47 Carcinoma of prostate 962559543 Active 2023 Kavitha 3+4 BX 06/21/23 Willow Brown APRN, [facility] [address] [place] [address], [phone], [facility] 4 16:37:09 Malignant tumor of rectum 775362974 Active 2023 Oly Medrano [facility] 4 15:20:40 Lesion of spleen 058217616575 101 Active 2023 [facility] 15:20:53 Problem Notes None recorded. Procedures Surgical History Date Name Laterality Status Provider Name and Address Organization Details Recorded Time 09/12/2023 cystoscopy completed Joanne Harvey [facility] 10/14/2023 11:10:48 Imaging Results Imaging Date Name Status LastModified by Organiz ation Details LastModified Time 10/14/2023 CT rad therapy pelvis TP 3mm completed [email or web address] Ia Only - [facility] [address] [place] [address], [address], 10/20/2023 21:29:17 05/25/2023 imaging/diagn ostic result completed Information not available 2024 01:01:09 06/21/2023 imaging/diagn ostic result completed Information not available 2024 01:01:17 02/14/2024 MRI, pelvis, w/wo contrast completed [email or web address] [facility] Only - [facility] [address] [place] [address], [address], 02/14/2024 12:16:28 02/15/2024 CT rad therapy pelvis TP 3mm completed INTERFACE Sc Only - [facility] [address] [place] [address], [address], 02/16/2024 17:28:27 Procedure Notes None recorded. Medical Equipment None Reported. Allergies Allergen ID Allergen Name Allergen Category Reaction Reaction Severity Criticality Documentation Date Start Date Code Code System Note Provider Name and Address Organization Details Recorded Time [id number] codeine medicatio n Not available Not available Not available 10/14/2023 2670 RxNorm Not Available Not Available Not Available Medications Name Sig Start Date Stop Date Status Note LastModified by Organization Details LastModified Time bicalutamid e 50 mg tablet 02/07 completed Not Available Not Available Not Available metoprolol succinate ER 50 mg tablet,exte nded release 24 hr active Not Available Not Available Not Available ondansetron HCl 8 mg tablet active Not Available Not Available Not Available phenazopyri dine 200 mg tablet Take one tablet by mouth every 8 hours for 2 days then as needed for urinary burning and frequency active Not Available Not Available No t Available prochlorper azine maleate 10 mg tablet active Not Available Not Available No t Available ciprofloxac in 500 mg tablet Take 1 tablet every 12 hours by oral route for 3 days. active Not Available Not Available No t Available tamsulosin 0.4 mg capsule active Not Available Not Available Not Available metoprolol succinate ER 25 mg tablet,exte nded release 24 hr 10/13 completed Not Available Not Available Not Available finasteride 5 mg tablet active Not Available Not Available Not Available nitrofurant oin monohydrate /macrocryst als 100 mg capsule 10/13 completed Not Available Not Available Not Available solifenacin 5 mg tablet active Not Available Not Available Not Available Eliquis 5 mg tablet 10/13 completed Not Available Not Available Not Available Vitals Date Recorded Body height Body mass index (BMI) Body weight Body temperature Heart rate Respiratory rate Oxygen saturation Oxygen saturation in Arterial blood by Pulse oximetry Systolic blood pressure Diastolic blood pressure Provider Name and Address Organization Details Last Updated DateTime 4 180.34 cm 25.2 kg/m2 16307.2 2 g 96.7 [degF] 82 /min 20 /min 95 % 95 % 113 mm[Hg] 74 mm[Hg] [facility] 4 10:05:54 Date Recorded Body height Body mass index (BMI) Body weight Body temperature Heart rate Respiratory rate Oxygen saturation Oxygen saturation in Arterial blood by Pulse oximetry Systolic blood pressure Diastolic blood pressure Provider Name and Address Organization Details Last Updated DateTime 4 180.34 cm 25 kg/m2 27571.0 3 g 97 [degF] 98 /min 20 /min 97 % 97 % 117 mm[Hg] 85 mm[Hg] [facility] 4 10:13:17 Date Recorded Body height Body mass index (BMI) Body weight Body temperature Heart rate Oxygen saturation Oxygen saturation in Arterial blood by Pulse oximetry Systolic blood pressure Diastolic blood pressure Provider Name and Address Organization Details Last Updated DateTime 4 180.34 cm 25 kg/m2 66638.6 7 g 97.7 [degF] 63 /min 99 % 99 % 112 mm[Hg] 71 mm[Hg] Elver Calixto [facility] 09:57:56 Date Recorded Body height Body mass index (BMI) Body weight Body temperature Heart rate Respiratory rate Oxygen saturation Oxygen saturation in Arterial blood by Pulse oximetry Systolic blood pressure Diastolic blood pressure Provider Name and Address Organization Details Last Updated DateTime 4 180.34 cm 23.4 kg/m2 80700.5 2 g 97.6 [degF] 66 /min 18 /min 97 % 97 % 104 mm[Hg] 70 mm[Hg] Sallie Holden [facility] 09:56:39 Social History Question Answer Notes LastModified by Organizat ion Details LastModified Time Tobacco Smoking Status Current Every Day Smoker [facility] 02/08/2024 09:57:19 How Many Packs Per Day (PPD)? 1 Information not available 10/14/2023 How Long Have You Smoked? 50 [email or web address] Information not available 10/14/2023 Sex: Unknown Functional Status None recorded. Mental Status None recorded. Family History Nothing Reported. Medical History No medical history recorded. Past Encounters Encounter ID Performer Location Encounter Start Date Encounter Closed Date Diagnosis/Indication Diagnosis SNOMED-CT Code Diagnosis ICD10 Code Diagnosis Note [id number] [facility] [address] [place] [phone] 1 10/14/2023 10:29:35 11/02/2023 09:10:53 Carcinoma of prostate 408367615 C61 Malignant tumor of rectum [id number] [facility] [id number] Eddie reynolds MD [facility] ([place]) [address] [place] [address] 1 11/02/2023 11:55:49 11/02/2023 14:08:15 [id number] MD Sherita Monzontigre [facility] ([place]) [address] [place] [address] 1 11/10/2023 09:36:35 11/10/2023 10:32:15 [id number] MD Sherita Monzontigre [facility] ([place]) [address] [place] [address] 1 11/17/2023 09:29:55 11/17/2023 10:28:06 [id number] MD Sherita Monzontigre [facility] ([place]) [address] [place] [phone] 1 11/24/2023 09:23:05 11/24/2023 12:11:38 [id number] MD Sherita Monzontigre [facility] ([place]) [address] [place] [address] 1 12/01/2023 09:16:20 12/01/2023 10:20:01 [id number] MD Sherita Moscosotigre [facility] ([place]) [address] [place] [phone] 1 02/08/2024 09:21:44 02/09/2024 12:00:56 [id number] MD Sherita Moscosotigre [facility] ([place]) [address] [place] [phone] 1 03/13/2024 15:37:27 03/13/2024 16:06:16 Adenocarcinoma of prostate 885548084 C61 Health Concerns Section Related Observation LastModified by Organization Detai ls LastModified Time None Recorded Concern Status LastModified by Organization Details LastModified Time None Recorded Advance Directives Directive None Recorded Payers Encounter Date Sequence Insurance Name Policy Number Policy Singletary Covered Member ID Singletary Member ID Guarantor Name 11/17/2023 1 [facility] (MEDICAID REPLACEMENT - HMO) [id number] Roberto E Onslow [id number] Roberto E Jose 11/17/2023 3 [place] Roberto Chun Onslow [id number] Roberto E Onslow 11/24/2023 1 [facility] (MEDICAID REPLACEMENT - HMO) [id number] Roberto E Onslow [id number] Roberto E Jose 11/24/2023 3 [place] Roberto E Jose [id number] Roberto Tigre Garcia 12/01/2023 1 [facility] (MEDICAID REPLACEMENT - HMO) [id number] Roberto Garcia [id number] Roberto Garcia 12/01/2023 3 [place] [facility] [facility] Roberto Garcia [id number] Roberto Garcia 02/08/2024 3 [place] [facility] [facility] Roberto Garcia [id number] Roberto Garcia 03/13/2024 1 [place] Roberto Garcia [id number] Roberto Garcia 03/13/2024 2 [facility] (MEDICARE SUPPLEMENT) Roberto Garcia [id number] Roberto Garcia Notes Date Note Type Note Provider Name and Address Organization Details Recorded Time 4 text/html [facility]ifying 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 He initially had a history of adenocarcinoma arising from tubular adenoma in the sigmoid colon, managed with endoscopic resection. For his management of his rectal cancer, he began total neoadjuvant therapy with neoadjuvant FOLFOX and completed 8 cycles. 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 The patient is seen at Dr. Ratliff's request for discussion of radiation therapy in his management. Oncologic HistoryMr. Garcia reports an approximately 2-week long history of obstructive-type urinary symptoms in the fall of 2022. He was seen by his primary care physician for the first time in many years, and a visit with Urology as well as preventative medicine studies were obtained. 01/11/2023. CT chest lung screening protocol at [facility] was performed with radiology interpretation of small pulmonary nodules, likely benign, for which annual screening was recommended. There is scarring in the left lung base and underlying chronic lung changes. There are coronary artery calcifications noted. Lung RADS category 2. 01/12/2023: The patient was seen by Dr. Nails. He noted elevated PSA 19.6 with obstructive voiding symptoms. He recommended a prostate biopsy. 03/18/2023: Colonoscopy at [facility] was performed. Specimen [id number] associated with colon descending polyp biopsy, tubular adenoma. Colon sigmoid polyp biopsy resulted in invasive adenocarcinoma, moderately differentiated, arising from tubular adenoma. Rectal mass biopsy resulted invasive adenocarcinoma moderately differentiated. Mismatch repair protein analysis by immunohistochemistry indicates preserved DNA mismatch repair function. 04/12/2023: The patient was seen by Dr. Roman. He noted imaging findings inclusive of sigmoid biopsy as well as rectal biopsy indicating adenocarcinoma. He recommended staging studies and radiation oncology and medical oncology referral. 04/12/2023: CEA 5.7 ng/mL. 04/21/2023: CT abdomen and pelvis at [facility] resulted circumferential wall thickening of rectum, likely representing known neoplasm. There is prominent rounded perirectal lymph nodes identified raising concern for local metastasis. There are numerous small ill-defined hypodensity seen scattered throughout the spleen, nonspecific, would be unusual for metastatic disease. Further assessment with contrast enhanced MRI may be beneficial. There is a cluster of small nodular densities along with linear band line, atelectasis, or scarring identified in the left lower lobe. Findings my represent sequelae of prior infectious or inflammatory processes. There is mild prostatomegaly. 04/21/2023: MRI pelvis at [facility] was performed with radiology interpretation of a circumferential extent/location of wall thickening in the rectum, most notable involving the 11th of 5:00 positions in the rectum. Cranial caudal extent was approximately 7.5 cm, no definite signal characteristics of mucinous tumor. The radial extent of disease was of multiple areas of enhancing tumor spiculation extending into the rectal fat, appear to extend up to 7 mm into the perirectal fat, T category T3c. Shortest distance of definitive tumor to the MRF was approximately 6 mm. Lymph nodes, mesorectal lymph nodes multiple prominent, rounded, enhancing mesorectal lymph nodes were identified measuring up to 6 mm, favored to represent focal metastatic disease, clinical stage TN2. There is no extra mesorectal lymph nodes. 05/06/2023: MRI pelvis at [facility] was performed with radiology interpretation of PI-RADS 5, 1.9 cm lesion in the anterior left transition zone in the mid prostate. PI-RADS 4, 1.1 cm mild diffusion restriction lesion in the peripheral zone of the prostatic apex with associated enhancement. PI-RADS 4, 9 mm diffusion restriction lesion in the left peripheral zone of the prostatic apex with associated enhancement. There is redemonstrated rectal cancer. Of note, there is rectal cancer in between the prostate and the rectum at the site of PI-RADS 5 lesion, with high risk seeding the prostate with rectal cancer if biopsy attempted. There is indeterminant punctate foci of enhancement in the left seminal vesicle for which follow up surveillance with PSMA PET was recommended. 05/09/2023: Visit with Dr. Smith, assessed clinical stage T3cN2 rectal adenocarcinoma, MSI intact with elevated PSA, PI-RADS 5 lesion concerning for prostate cancer. He recommended additional imaging for staging.05/25/2023: CT chest at [facility] was performed with radiology interpretation of no CT evidence of metastatic disease in the chest, no mediastinal or hilar lymphadenopathy. There is a prominent 8 mm portal caval lymph node, for which continued attention on follow up was recommended.06/21/2023: PSA 15.51 ng/mL.06/21/2023: Truss biopsy with Dr. Nails, specimen [id number] resulted prostate adenocarcinoma, [place] grade 3+4=7, corresponding with grade group 2, involving up to 40% of the prostate, involving the left mid prostate biopsy.06/04/2023: CEA 5.1 ng/mL.06/27/2023: The patient began FOLFOX Chemotherapy.07/08/2023: Cami Shine in genetics visit. No pathogenetic variants detected in the genes analyzed.07/25/2023: The patient was seen by Dr. Ratliff. He was noted to be tolerated FOLFOX chemotherapy, recommended to continue. The patient established care with Dr. Justin in Urology.08/26/2023: PSMA PET CT at [facility] was performed with radiology interpretation of moderate multifocal radiotracer uptake throughout the prostate gland in keeping with prostatic adenocarcinoma. The radiotracer does extend to abut the anterior lower rectal wall. There is extra prostatic disease extension to involve the left more so than right seminal vesicles. There is no other evidence of radiotracer avid metastatic disease. There are prominent perirectal lymph nodes that do not demonstrate radiotracer activit.10/03/2023: The patient was seen by Dr. Ratliff with a plan to proceed with cycle 8 of M-FOLFOX therapy, followed by concurrent chemoradiation and total neoadjuvant therapy after this.At our visit, Mr. Garcia reports bowel function has been improving with the course of neoadjuvant therapy and now having more formed stool. His bladder function has also improved, now with nocturia of 2-3, no hesitancy, incontinence, or dysuria. He has had no blood in rectum or stool. He reports no appreciable sexual function and no interest in activity. He has no hip pain. His last FOLOX was delivered 10/03/2023. He has not begun androgen deprivation therapy. He would like to avoid surgery for both rectal and prostate cancer if possible. He has not previously received radiation therapy, does not have an implanted electronic device, and no history of connective tissue disorder. Interval History Fx: 03/28Dose: 2400 cGy I saw Mr. Garcia for an OTV. My visit was in collaboration with JULIANNE Hubbard. Mr. Garcia reports he is doing well. Tolerating chemo. Eating and drinking well. Bowel movements soft but no diarrhea. Denies any blood in stool . Denies any n/v or cramping. Pj Cherry MD [facility], [address], [facility] 11/17/2023 10:21:48 4 text/html Identifying InformationPark City HospitalMr. 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 He initially had a history of adenocarcinoma arising from tubular adenoma in the sigmoid colon, managed with endoscopic resection. For his management of his rectal cancer, he began total neoadjuvant therapy with neoadjuvant FOLFOX and completed 8 cycles. 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 The patient is seen at Dr. Ratliff's request for discussion of radiation therapy in his management. Oncologic HistoryMr. Garcia reports an approximately 2-week long history of obstructive-type urinary symptoms in the fall of 2022. He was seen by his primary care physician for the first time in many years, and a visit with Urology as well as preventative medicine studies were obtained. 01/11/2023. CT chest lung screening protocol at [facility] was performed with radiology interpretation of small pulmonary nodules, likely benign, for which annual screening was recommended. There is scarring in the left lung base and underlying chronic lung changes. There are coronary artery calcifications noted. Lung RADS category 2. 01/12/2023: The patient was seen by Dr. Nails. He noted elevated PSA 19.6 with obstructive voiding symptoms. He recommended a prostate biopsy. 03/18/2023: Colonoscopy at [facility] was performed. Specimen [id number] associated with colon descending polyp biopsy, tubular adenoma. Colon sigmoid polyp biopsy resulted in invasive adenocarcinoma, moderately differentiated, arising from tubular adenoma. Rectal mass biopsy resulted invasive adenocarcinoma moderately differentiated. Mismatch repair protein analysis by immunohistochemistry indicates preserved DNA mismatch repair function. 04/12/2023: The patient was seen by Dr. Roman. He noted imaging findings inclusive of sigmoid biopsy as well as rectal biopsy indicating adenocarcinoma. He recommended staging studies and radiation oncology and medical oncology referral. 04/12/2023: CEA 5.7 ng/mL. 04/21/2023: CT abdomen and pelvis at [facility] resulted circumferential wall thickening of rectum, likely representing known neoplasm. There is prominent rounded perirectal lymph nodes identified raising concern for local metastasis. There are numerous small ill-defined hypodensity seen scattered throughout the spleen, nonspecific, would be unusual for metastatic disease. Further assessment with contrast enhanced MRI may be beneficial. There is a cluster of small nodular densities along with linear band line, atelectasis, or scarring identified in the left lower lobe. Findings my represent sequelae of prior infectious or inflammatory processes. There is mild prostatomegaly. 04/21/2023: MRI pelvis at [facility] was performed with radiology interpretation of a circumferential extent/location of wall thickening in the rectum, most notable involving the 11th of 5:00 positions in the rectum. Cranial caudal extent was approximately 7.5 cm, no definite signal characteristics of mucinous tumor. The radial extent of disease was of multiple areas of enhancing tumor spiculation extending into the rectal fat, appear to extend up to 7 mm into the perirectal fat, T category T3c. Shortest distance of definitive tumor to the MRF was approximately 6 mm. Lymph nodes, mesorectal lymph nodes multiple prominent, rounded, enhancing mesorectal lymph nodes were identified measuring up to 6 mm, favored to represent focal metastatic disease, clinical stage TN2. There is no extra mesorectal lymph nodes. 05/06/2023: MRI pelvis at [facility] was performed with radiology interpretation of PI-RADS 5, 1.9 cm lesion in the anterior left transition zone in the mid prostate. PI-RADS 4, 1.1 cm mild diffusion restriction lesion in the peripheral zone of the prostatic apex with associated enhancement. PI-RADS 4, 9 mm diffusion restriction lesion in the left peripheral zone of the prostatic apex with associated enhancement. There is redemonstrated rectal cancer. Of note, there is rectal cancer in between the prostate and the rectum at the site of PI-RADS 5 lesion, with high risk seeding the prostate with rectal cancer if biopsy attempted. There is indeterminant punctate foci of enhancement in the left seminal vesicle for which follow up surveillance with PSMA PET was recommended. 05/09/2023: Visit with Dr. Smith, assessed clinical stage T3cN2 rectal adenocarcinoma, MSI intact with elevated PSA, PI-RADS 5 lesion concerning for prostate cancer. He recommended additional imaging for staging.05/25/2023: CT chest at [facility] was performed with radiology interpretation of no CT evidence of metastatic disease in the chest, no mediastinal or hilar lymphadenopathy. There is a prominent 8 mm portal caval lymph node, for which continued attention on follow up was recommended.06/21/2023: PSA 15.51 ng/mL.06/21/2023: Truss biopsy with Dr. Nails, specimen [id number] resulted prostate adenocarcinoma, Kavitha grade 3+4=7, corresponding with grade group 2, involving up to 40% of the prostate, involving the left mid prostate biopsy.06/04/2023: CEA 5.1 ng/mL.06/27/2023: The patient began FOLFOX Chemotherapy.07/08/2023: Cami Shine in genetics visit. No pathogenetic variants detected in the genes analyzed.07/25/2023: The patient was seen by Dr. Ratliff. He was noted to be tolerated FOLFOX chemotherapy, recommended to continue. The patient established care with Dr. Justin in Urology.08/26/2023: PSMA PET CT at [facility] was performed with radiology interpretation of moderate multifocal radiotracer uptake throughout the prostate gland in keeping with prostatic adenocarcinoma. The radiotracer does extend to abut the anterior lower rectal wall. There is extra prostatic disease extension to involve the left more so than right seminal vesicles. There is no other evidence of radiotracer avid metastatic disease. There are prominent perirectal lymph nodes that do not demonstrate radiotracer activit.10/03/2023: The patient was seen by Dr. Ratliff with a plan to proceed with cycle 8 of M-FOLFOX therapy, followed by concurrent chemoradiation and total neoadjuvant therapy after this. Interval History Fx: Dose: 3400 I saw Mr. Garcia for an OTV. He reports no change in bowel or bladder habits. He does not use Imodium regularly. Pj Cherry MD [facility], [phone], [facility] 11/24/2023 11:22:25 4 text/html Identifying [facility] Mr. 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 He initially had a history of adenocarcinoma arising from tubular adenoma in the sigmoid colon, managed with endoscopic resection. For his management of his rectal cancer, he began total neoadjuvant therapy with neoadjuvant FOLFOX and completed 8 cycles. 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 The patient is seen at Dr. Ratliff's request for discussion of radiation therapy in his management. Oncologic HistoryMr. Garcia reports an approximately 2-week long history of obstructive-type urinary symptoms in the fall of 2022. He was seen by his primary care physician for the first time in many years, and a visit with Urology as well as preventative medicine studies were obtained. 01/11/2023. CT chest lung screening protocol at [facility] was performed with radiology interpretation of small pulmonary nodules, likely benign, for which annual screening was recommended. There is scarring in the left lung base and underlying chronic lung changes. There are coronary artery calcifications noted. Lung RADS category 2. 01/12/2023: The patient was seen by Dr. Nails. He noted elevated PSA 19.6 with obstructive voiding symptoms. He recommended a prostate biopsy. 03/18/2023: Colonoscopy at [facility] was performed. Specimen [id number] associated with colon descending polyp biopsy, tubular adenoma. Colon sigmoid polyp biopsy resulted in invasive adenocarcinoma, moderately differentiated, arising from tubular adenoma. Rectal mass biopsy resulted invasive adenocarcinoma moderately differentiated. Mismatch repair protein analysis by immunohistochemistry indicates preserved DNA mismatch repair function. 04/12/2023: The patient was seen by Dr. Roman. He noted imaging findings inclusive of sigmoid biopsy as well as rectal biopsy indicating adenocarcinoma. He recommended staging studies and radiation oncology and medical oncology referral. 04/12/2023: CEA 5.7 ng/mL. 04/21/2023: CT abdomen and pelvis at [facility] resulted circumferential wall thickening of rectum, likely representing known neoplasm. There is prominent rounded perirectal lymph nodes identified raising concern for local metastasis. There are numerous small ill-defined hypodensity seen scattered throughout the spleen, nonspecific, would be unusual for metastatic disease. Further assessment with contrast enhanced MRI may be beneficial. There is a cluster of small nodular densities along with linear band line, atelectasis, or scarring identified in the left lower lobe. Findings my represent sequelae of prior infectious or inflammatory processes. There is mild prostatomegaly. 04/21/2023: MRI pelvis at [facility] was performed with radiology interpretation of a circumferential extent/location of wall thickening in the rectum, most notable involving the 11th of 5:00 positions in the rectum. Cranial caudal extent was approximately 7.5 cm, no definite signal characteristics of mucinous tumor. The radial extent of disease was of multiple areas of enhancing tumor spiculation extending into the rectal fat, appear to extend up to 7 mm into the perirectal fat, T category T3c. Shortest distance of definitive tumor to the MRF was approximately 6 mm. Lymph nodes, mesorectal lymph nodes multiple prominent, rounded, enhancing mesorectal lymph nodes were identified measuring up to 6 mm, favored to represent focal metastatic disease, clinical stage TN2. There is no extra mesorectal lymph nodes. 05/06/2023: MRI pelvis at [facility] was performed with radiology interpretation of PI-RADS 5, 1.9 cm lesion in the anterior left transition zone in the mid prostate. PI-RADS 4, 1.1 cm mild diffusion restriction lesion in the peripheral zone of the prostatic apex with associated enhancement. PI-RADS 4, 9 mm diffusion restriction lesion in the left peripheral zone of the prostatic apex with associated enhancement. There is redemonstrated rectal cancer. Of note, there is rectal cancer in between the prostate and the rectum at the site of PI-RADS 5 lesion, with high risk seeding the prostate with rectal cancer if biopsy attempted. There is indeterminant punctate foci of enhancement in the left seminal vesicle for which follow up surveillance with PSMA PET was recommended. 05/09/2023: Visit with Dr. Smith, assessed clinical stage T3cN2 rectal adenocarcinoma, MSI intact with elevated PSA, PI-RADS 5 lesion concerning for prostate cancer. He recommended additional imaging for staging.05/25/2023: CT chest at [facility] was performed with radiology interpretation of no CT evidence of metastatic disease in the chest, no mediastinal or hilar lymphadenopathy. There is a prominent 8 mm portal caval lymph node, for which continued attention on follow up was recommended.06/21/2023: PSA 15.51 ng/mL.06/21/2023: Truss biopsy with Dr. Nails, specimen [id number] resulted prostate adenocarcinoma, Plains grade 3+4=7, corresponding with grade group 2, involving up to 40% of the prostate, involving the left mid prostate biopsy.06/04/2023: CEA 5.1 ng/mL.06/27/2023: The patient began FOLFOX Chemotherapy.07/08/2023: Cami Shine in genetics visit. No pathogenetic variants detected in the genes analyzed.07/25/2023: The patient was seen by Dr. Ratliff. He was noted to be tolerated FOLFOX chemotherapy, recommended to continue. The patient established care with Dr. Justin in Urology.08/26/2023: PSMA PET CT at [facility] was performed with radiology interpretation of moderate multifocal radiotracer uptake throughout the prostate gland in keeping with prostatic adenocarcinoma. The radiotracer does extend to abut the anterior lower rectal wall. There is extra prostatic disease extension to involve the left more so than right seminal vesicles. There is no other evidence of radiotracer avid metastatic disease. There are prominent perirectal lymph nodes that do not demonstrate radiotracer activit.10/03/2023: The patient was seen by Dr. Ratliff with a plan to proceed with cycle 8 of M-FOLFOX therapy, followed by concurrent chemoradiation and total neoadjuvant therapy after this. Interval History Fx: Dose: 4400 I saw Mr. Garcia for an OTV. My visit was in collaboration with JULIANNE Hubbard. Patient reports his last chemo tuesday12/07/2023 . Eating and drinking well. No N/V. Stools altered with soft/ loose and constipation- no need for immodium. Using RT creams for some moderate irritation to anal region. He recieved ADT this week. 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 Patient completed external beam radiation therapy to the whole pelvis, including prostate and the rectum both Primaries on December 07, 2023. INTERVAL HISTORY:Mr. Garcia returns today for further evaluation and further treatment for his prostate carcinoma. Patient received 4500 cGy in 25 treatments over five week to the prostate, rectum and pelvic lymph nodes followed by boost to the rectal primary with total dose of 5,000 cGy in 25 fractions. He completed this external beam radiation therapy along with chemotherapy on December 07, 2023. Prior to this, patient had received FOLFOX chemotherapy eight cycles. Patient, at that time, was recommended to undergo high dose rate brachytherapy boost for his prostate carcinoma. Patient today is overall doing well. He had a recent PSA which was below 0.13. Patient is on androgen depravation therapy. Patient today has an AUA score of 9.jcb Patients Name: Roberto GarciaDOB: [id number]: 64 Oncologic History: Oncology Radiation History: Prior history of chemotherapy: {{yes* no}} Prior radiation therapy: {{yes* no}} If yes, answer the questions below. [facility]Site: Rectum and Prostate Prior history of connective tissue disorder (i.e. Lupus, Scleroderma) {{yes no*}} Implanted Devices: {{yes no*}} Comments: Can Ge MD [address] [place] [address], [phone], [facility] 02/09/2024 08:58:03 text/html Synchronize primary #1 adenocarcinoma of the prostate clinical stage T3b, N0, M0 with seminal vesicle invasion, Lakshmi 3+4=7, grade group 2, PSA of 19.6. 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 Patient completed external beam radiation therapy to the whole pelvis, including prostate and the rectum both Primaries on December 07, 2023. INTERVAL HISTORY:Mr. Garcia returns today for a 4 week follow up upon completion of HDR prostate brachytherapy completed 02/15/2024. Patient received 4500 cGy in 25 treatments over five week to the prostate, rectum and pelvic lymph nodes followed by boost to the rectal primary with total dose of 5,000 cGy in 25 fractions. He completed this external beam radiation therapy along with chemotherapy on December 07, 2023. Prior to this, patient had received FOLFOX chemotherapy eight cycles. He is currently on Finasteride. Patient today reports he is overall doing well. He had a recent PSA which was below 0.13. He has no significant complaints regarding his urinary function. he feels his bladder is emptying well. He denies dysuria and hematuria. He does not urinate during the day as often and urinates more in the evenings due to increase fluid intake in afternoons and evenings. he gets up about 3 times a night to urinate. He is taking Tamsulosin once daily. He overall is still dealing with fatigue. He has had no changes in bowel function since treatment but does still have some pain in his bottom he says. He has no further concerns today. Willow Brown, POWER PLANT OPERATOR APPRENTICE, SECOND CUTTER [address] [place] [address], [phone], [facility] 03/26/2024 16:47:10
[2024-06-05] MEDS: LEUPROLIDE ACETATE (ELIGARD) 45 MG SYRINGE SUB-Q (08:56)
[2024-06-05] MEDS: HEPARIN SODIUM LOCK FLUSH 500 UNITS/5 ML SYRINGE IV PUSH (08:56)
[2024-06-05 09:05] VITALS: BP 120/64; PULSE 68; RESP 14; O2SAT 97
--- NOTE | 2024-06-05 09:12 | PC.NURSE ---
Patient tolerated Eligard injection and port flush well. See MAR/patient care notes.
== END 2024-06-05 08:22 | disposition home or self-care (01) ==
PROVIDERS: PCP Family Medicine; Visit Provider Internal Medicine Hematology
DX: Z51.11 Encounter for antineoplastic chemotherapy (principal); C61 Malignant neoplasm of prostate
CPT/HCPCS: 96402; 96523; J9217

== ENCOUNTER 2024-06-26 11:16 | Outpatient (CLI) | payer MEDICARE, MEDICAID, SELFPAY ==
[2024-06-26 11:31] VITALS: BMI 25.9
[2024-06-26 11:34] LABS: Basophils Absolute Auto 0.03 K/mm3 (0.00-0.10); Basophils Percent Auto 0.5 % (0.0-1.0); Eosinophils Percent Auto 1.7 % (1.0-6.0); Hematocrit 37.3 % (37.0-46.0); Hemoglobin 12.5 g/dL (12.4-15.3); Immature Granulocyte Absolute 0.03 K/mm3 (0.00-0.00); Immature Granulocyte Percent A 0.5 % (0.0-0.0); Lymphocytes Absolute Auto 0.87 K/mm3 (1.10-4.50); Lymphocytes Percent Auto 14.9 % (18.0-42.0); Mean Corpuscular HGB Conc 33.5 g/dL (32-36); Mean Corpuscular Hemoglobin 29.9 pg (27.0-31.0); Mean Corpuscular Volume 89.2 fL (78.0-102.0); Mean Platelet Volume 9.4 fl (8.7-11.0); Monocytes Absolute Auto 0.49 K/mm3 (0.10-0.90); Monocytes Percent Auto 8.4 % (2.0-11.0); Neutrophils Absolute Auto 4.32 K/mm3 (1.70-7.20); Platelet Count Result 201 K/mm3 (150-420); Red Blood Count 4.18 M/mm3 (4.70-6.10); Red Cell Distribution Width 13.5 % (11.6-14.4); White Blood Count 5.8 K/mm3 (4.8-10.8)
[2024-06-26 11:54] LABS: Alanine Aminotransferase 37 U/L (16-63); Albumin Level 3.2 g/dL (3.4-5.0); Alkaline Phosphatase 253 U/L (46-116); Anion Gap 9 mmol/L (4-12); Aspartate Amino Transferase 22 U/L (15-37); Bilirubin,Total 0.5 mg/dL (0.00-1.00); Blood Urea Nitrogen 11 mg/dL (7-18); Carbon Dioxide 28 mmol/L (21-32); Chloride 96 mmol/L (98-108); Estimated CRCL calculation 78 ml/min; Estimated Glomerular Filt Rate > 60; Glucose 132 mg/dL (70-99); Osmolality Calculated 277 mOsm/kg (285-295); Potassium 3.7 mmol/L (3.5-5.1); Sodium 133 mmol/L (136-145); Total Protein 7.3 g/dL (6.4-8.2)
[2024-06-26 12:00] VITALS: BP 116/70; PULSE 60; RESP 14; TEMP 36.4; O2SAT 97
[2024-06-26] MEDS: SODIUM CHLORIDE 0.9% IV 250 ML 10 ML IVPB (12:05)
[2024-06-26] MEDS: diphenhydrAMINE HCl INJ 50 MG/ML VIAL IV PUSH (12:10)
[2024-06-26] MEDS: FAMOTIDINE 20 MG/2 ML VIAL IV PUSH (12:10)
[2024-06-26] MEDS: ONDANSETRON INJ 16 MG, dexAMETHasone SOD 4 MG/ML INJ 12 MG in SODIUM CHLORIDE 0.9% IV 1... 300 MG IVPB (12:25)
[2024-06-26] MEDS: ATROPINE SULFATE 1 MG/ML VIAL 0.4 MG IV PUSH (13:05)
[2024-06-26] MEDS: LEUCOVORIN CALCIUM IVPB (13:10)
[2024-06-26] MEDS: SODIUM CHLORIDE 0.9% IVPB ×2 (13:10→14:44)
--- OUTSIDE RECORDS SUMMARY | 2024-06-26 13:32 | XMS_ITS ---
Author Organization Unknown Address [address] [place] [phone] Phone Care Team Providers Care Production Control Technologist Name Role Phone ALBERT Pinedo Attending Unavailable [facility]OSPITALD[facility] FREELANCE TRANSLATOR Unavailable MANJIT Gould Primary Unavailable Immunization Immunization Date Status Additional Notes Code Code System Tdap 05/12/2021 Completed 115 CVX COVID-19, mRNA, LNP-S, PF, 3 0 mcg/0.3 mL dose 06/06/2020 Completed 208 CVX COVID-19, mRNA, LNP-S, PF, 3 0 mcg/0.3 mL dose 06/26/2020 Completed 208 CVX Social History Type Status Start Date End Date Code Code Syst em Smoking History Current every day smoker 443010416 SNOMED CT Sex Male Vital Signs Vital Sign Value Unit Grassflat Value Grassflat Unit Date/Time Recent/Initial? Code Code System Body Mass Index 27.69 kg/m2 03/04/2023 13:59 Initial 18541 -5 LOINC Systolic Blood Pressure 130 mm[Hg] 03/18/2023 07:41 Initial 8480- 6 LOINC Diastolic Blood Pressure 72 mm[Hg] 03/18/2023 07:41 Initial 8462- 4 LOINC Body Surface Area 2.08 m2 03/04/2023 13:59 Initial 3140- 1 LOINC Height 177.800 0 cm 70.00 in 03/04/2023 13:59 Initial 8302- 2 LOINC O2 Saturation 98 % 2022 07:41 Initial 17597 -5 LOINC Pulse 100.0 /min 03/18/2023 07:41 Initial 8867- 4 LOINC Respiration 20 /min 03/18/20 07:41 Initial 9279- 1 LOINC Temperature 36.4 Jenna 97.5 F 12/15/20 23 07:41 Initial 8310- 5 LOINC Weight 87.54 kg 193.00 lbs 03/04/2023 13:59 Initial 75025 -7 LOINC Medications No Active Medications Hospital Discharge Instructions Should you have any questions prior to discharge, please contact a member of your healthcare team. If you have left the hospital and have any questions, please contact your primary care physician. Reason For Referral No Data Found Procedures Procedure Name Date Status Code Code Syste m Inguinal hernia completed 862725442 SNOMEDCT Anesthesia for lower intesti nal endoscopic procedures, endoscope introduce 03/18/2023 completed 43246 CPT Colonoscopy, flexible; with removal of tumor(s), polyp(s), or other lesion 03/18/2023 completed 49736 CPT Allergies and Adverse Reactions Allergy Substance Reaction Severity Start Date Concern Status Co de Code System CODEINE Active 2998 RxNorm Plan of Treatment US Prostate Needle Biopsy 04/13/2023 Encounters Encounter Diagnosis Start Date Code Code Sys tem Encounter for screening for malignant neoplasm of colo n 03/18/2023 SNOMED-CT Personal Care Team Section Performer Name Performer Role Active Date Inactive MIGUELANGEL Fuller PCP - Primary care physician 2023-01-12
--- OUTSIDE RECORDS SUMMARY | 2024-06-26 13:32 | XMS_ITS | Clinical Summary ---
Author Organization [facility] Address [facility] [place] [address] Care Team Providers Care Director Operating Name Role Phone Flaco Kelly MD Primary Care Provider [phone] Allergies Active Allergy Reactions Criticality Noted Date Comments Codeine Nausea Only 03/18/2023 Patient states it makes me sick as hell Medications No known medications Encounters Date Type Department Care Team Description 05/29/2024 10:55 AM FLATWORK FINISHER - 05/29/2024 11:59 PM FLATWORK FINISHER Hospital Encounter [facility] [address] [place] [address] [address] Ziggy Renee MD Discharge Disposition: Home or Self Care (Routine Discharge) 05/29/2024 10:45 AM FLATWORK FINISHER - 05/29/2024 10:54 AM FLATWORK FINISHER Hospital Encounter [facility] [address] [place] [address] [address] Flaco Kelly MD Fisher, Kelli C, JULIANNE Discharge Disposition: Home or Self Care (Routine Discharge) 05/29/2024 Orders Only [facility] [address] [place] [address] [address] Ziggy Renee MD 05/29/[address] [facility] [address] [place] [address] [address] Aretha Hubbard NP 05/29/2024 Travel 04/26/2024 6:33 AM FLATWORK FINISHER - 04/26/2024 11:59 PM [facility] Hospital Encounter [facility] [address] [place] [address] [address] Teddy Roman Sr., MD Discharge Disposition: Home or Self Care (Routine Discharge) 04/26/2024 Travel 04/20/2024 8:38 AM FLATWORK FINISHER - 04/20/2024 11:59 PM FLATWORK FINISHER Hospital Encounter [facility] [address] [place] [address] Teddy Roman Sr., MD Discharge Disposition: Home or Self Care (Routine Discharge) 04/20/2024 Travel from Last 3 Months Social History Tobacco Use Types Packs/Day Years Used Date Smoking Tobacco: Unknown Tobacco Cessation:Counseling Given: Not Answered Sex and Gender Information Value Date Recorded Sex Assigned at Male 04/20/2024 8:37 AM FLATWORK FINISHER Legal Sex Male 9:40 AM CDT Gender Identity Not on file Sexual Orientation Not on file Last Filed Vital Signs Vital Sign Reading Time Taken Comments Blood Pressure 129/98 03/18/2023 3:56 PM FLATWORK FINISHER Pulse 98 03/18/2023 3:56 PM FLATWORK FINISHER Temperature 36.6 C (97.8 F) 03/18/2023 12:49 PM FLATWORK FINISHER Respiratory Rate 14 03/18/2023 3:56 PM FLATWORK FINISHER Oxygen Saturation 96% 03/18/2023 3:56 PM FLATWORK FINISHER Inhaled Oxygen Concentration - - Weight 85 kg (187 lb 8 oz) 03/18/2023 12:[address] Height 180.3 cm (5' 11 ) 03/18/2023 12:49 PM FLATWORK FINISHER Body Mass Index 26.15 03/18/2023 12:49 PM FLATWORK FINISHER Plan of Treatment Health Maintenance Due Date [...] Comments CARCINOEMBRYONIC ANTIGEN Routine 025 11:11 AM FLATWORK FINISHER Prostate cancer (CMS/HCC HHS/HCC) PROSTATE SPECIFIC ANTIGEN,TOTAL Routine 05/29/2024 11:11 AM FLATWORK FINISHER Malignant neoplasm of prostate (CMS/HCC HHS/HCC) HC TESTOSTERONE FREE-90 Routine 05/29/19 11:11 AM FLATWORK FINISHER Malignant neoplasm of prostate (CMS/HCC HHS/HCC) MRI ABD WWO CON STAT 04/26/2024 7:52 AM FLATWORK FINISHER Hepatic disease CT CHEST+ABD W CON Routine 04/20/2024 9: 15 AM FLATWORK FINISHER Rectal cancer (CMS/HCC HHS/HCC) from Last 3 Months Results * (ABNORMAL) TESTOSTERONE, FREE & TOTAL (05/29/2024 11:11 AM FLATWORK FINISHER) TESTOSTERONE TOTAL 88(L) 250 - 1,100 ng/dL 06/04/2024 3:31 PM FLATWORK FINISHER [employer] [facility] KONGPAULY PEDERSON Comment: Men with clinically significant hypogonadal symptoms and testosterone values repeatedly in the range of the 200-300 ng/dL or less, may benefit from testosterone treatment after adequate risk and benefits counseling. For additional information, please refer to http://education.[employer].com/faq/ UyewoIqaalcuqglayYDVBXJRHK845 (This link is being provided for informational/ educational purposes only.) This test was developed and its analytical performance characteristics have been determined by [employer], [place]. It has not been cleared or approved by the U.S. Food and Drug Administration. This assay has been validated pursuant to the CLIA regulations and is used for clinical purposes. TESTOSTERONE FREE 6.1(L) 35.0 - 155.0 pg/mL 06/04/2024 3:31 PM FLATWORK FINISHER [employer] Comment: This test was developed and its analytical performance characteristics have been determined by [employer] [place], [place]. It has not been cleared or approved by the U.S. Food and Drug Administration. This assay has been validated pursuant to the CLIA regulations and is used for clinical purposes. Test Performed by [facility], [employer] [facility], [address] [place], [place] Jean Carlos Carter M.D., Ph.D., Director of Laboratories , CLIA [id number] 05/29/2024 11:1 1 AM FLATWORK FINISHER us Aretha Hubbard NP LABORATORY Final Result Performing Organization Address City/[facility]/ZIP Co de Phone Number [employer] [place] [id number] [place], [place] , [place] [phone] * PROSTATE SPECIFIC ANTIGEN, DIAG (05/29/2024 11:11 AM FLATWORK FINISHER) PSA <0.13 <4.00 NG/ML 05/29/2024 11:[address] [facility] 05/29/2024 11:1 1 AM FLATWORK FINISHER us Aretha Hubbard NP LABORATORY Final Result [facility] [address] [place] [address], [place] [phone] * (ABNORMAL) CARCINOEMBRYONIC ANTIGEN (05/29/2024 11:11 AM FLATWORK FINISHER) CEA 9.9(H) 0.0 - 5.0 NG/ML 05/29/2024 7:14 PM FLATWORK FINISHER [facility] Comment: ASSAY PERFORMED BY CHEMILUMINESCENCE METHODOLOGY USING [employer]. PATIENT RESULTS DETERMINED BY ASSAYS USING DIFFERENT MANUFACTURERS FOR METHODS MAY NOT BE COMPARABLE. 05/29/2024 11:1 1 AM FLATWORK FINISHER Ziggy Renee MD LABORATORY Final Result [facility] [address] [place] [address], [id number] * MRI ABD WWO CON (04/26/2024 7:52 AM FLATWORK FINISHER) Anatomical Region Laterality Modality Abdomen Magnetic Resonan ce 04/26/2024 1:22 PM FLATWORK FINISHER Impressions 04/26/2024 1:27 PM FLATWORK FINISHER IMPRESSION: 1. 19 MM IN DIAMETER FOCAL LESION POSTERIOR SEGMENT RIGHT LOBE OF LIVER CORRESPONDS WITH THE ABNORMALITY NOTED ON CT. THIS IS FELT TO BE SUSPICIOUS FOR METASTATIC DISEASE. NO OTHER SIGNIFICANT ABNORMALITY. Signed: Aristeo Plummer MD Referred By: TEDDY ROAMN SR Interpreted By: Aristeo Plummer MD, 04/26/2024 1:22 PM Narrative 04/26/2024 1:27 PM FLATWORK FINISHER [address] [place] [address] PATIENT NAME: ROBERTO GARCIA EXAM: MRI of [...] Procedure Note Aristeo Plummer MD - 04/26/2024 [place] [address] [facility] [place] [address] PATIENT NAME: ROBERTO GARCIA EXAM: MRI of [...] 04/26/2024 1:22 PM us Teddy Roman Sr., MRI Final Re sult * CT CHEST+ABD W CON (04/20/2024 9:15 AM FLATWORK FINISHER) Anatomical Region Laterality Modality Chest, Abdomen Computed Tomogra phy 04/24/2024 5:53 AM FLATWORK FINISHER Impressions 04/24/2024 6:00 AM FLATWORK FINISHER Impression: A 15 mm low-density nodule in [...] 04/24/2024 5:53 AM Narrative 04/24/2024 6:00 AM FLATWORK FINISHER [address] [place] [address] Examination: CT CHEST+ABD W CON Exam time: [...] Procedure Note Cleve Etienne MD - 04/24/2024 [place] [address] [facility] [place] [address] Examination: CT CHEST+ABD W CON Exam time: [...] 04/24/2024 5:53 AM us Teddy Roman Sr., MD CT Final Re sult from Last 3 Months Insurance MEDICARE [place] Care Teams Director Operating Relationship Specialty Start Date End Date Flaco Kelly MD [address] [place] [place] [address] PCP - General FAMILY PRACTICE 01/03/23
--- OUTSIDE RECORDS SUMMARY | 2024-06-26 13:33 | XMS_ITS | Data Portability ---
Author Organization [facility], [address] [facility] ([place]) Address [address] [place] [address] Care Team Providers Care Simonizer Name Role Phone TRAVIS RATLIFF Medical Oncologist [phone] TEDDY ROMAN Colorectal Surgeon TRAVIS JUSTIN Urologist ABNER CHERRY Radiation Oncologist Assessment Encounter Date Assessment Date Assessment LastModified by Organization Details LastModified Time 11/24/2023 11/24/2023 Tolerating RT. Continue bowel regimen. Continue RT as planned. [email or web address] Not available 11/24/2023 11:21:00 12/01/2023 12/01/2023 A: Tolerating we ll P: Continue with RT Skin care as discussed F/U form provided and instsructions. [email or web address] Not available 12/01/2023 10:06:08 02/08/2024 02/08/2024 Impressions: [...] general side effects. Patient was provided an [facility] radiation therapy folder that includes general information on RT and skin care, contact information, a helpful links worksheet, [facility] Cancer Care support group information and [...] He prefers to have labs drawn in [place]. Continue f/u with med/onc. I personally spent [...] Abnormal Flag Note LastModifiedBy Organization Detail LastModifiedTime 01/31/20 24 05/25/2023 imagi ng/di agnos tic resul t No observ ation record ed. [email or web address] Not Available 01:01:09 01/31/20 24 06/21/2023 imagi ng/di agnos tic resul t No observ ation record ed. [email or web address] Not Available 01:01:17 02/14/20 24 02/14/2024 MRI, pelrylan s, w/wo contr ast [address] [address] Teleph one Name: Roberto Palm rd [address] Exam Date: 2023 Age: 64 Physic kat: Hayden gil MD, Elder ar : 1959 Examin ation: MRI PELVIS [...] images were postpr ocesse d on an [email or web address] workst ation by the radiol ogist with [...] Brody cribe by: CARROLL Rueda MD on: 11:10 AM cc: Page PAGE 1 of [facility] 1 [email or web address] Sc Only - [facility] [address] [place] [address], [id number], 02/14/2024 12:16:28 02/16/2002/15/2024 CT rad thera py pelvi s TP 3mm [facility] [address] [place] [address] Name: ROBERTO PALM RD Age: 64 : 1959 Exam Date: 2023 ACCESS ION: [id number] JALIL CANADA MD: ELDER TURK RADIAT ION THERAP Y SIMULA TION SCAN Radiat ion Therap y simula tion scan for treatm ent planni ng. No interp retati on render ed. Final Report Dictat ed: 11:56 Radiol ogist , Inquir y Signed : 15:20 Radiol ogist , Inquir y INTERFACE Sc Only - [facility] Rad [address] [place] [address], [address], 02/16/2024 17:28:27 Result Notes None recorded. Problems Name Problem SNOMED Code Status Onset Date Resolution Date Notes Provider Name and Address Organization Details Recorded Time Adenocarci noma of prostate 691492323 Active 2023 [facility] 5 10:09:16 Adenocarci noma of rectum 862500430 Active 2024 [facility] 5 10:09:50 Carcinoma of prostate 889540372 Active 2023 [place] 3+4 BX 06/21/23 Willow Brown, HEATING TECHNICIAN, TERRAZZO FINISHER HELPER [address] [place] [address], [phone], [facility] 4 16:37:09 Malignant tumor of rectum 594554457 Active 2023 Oly Medrano [facility] 4 15:20:40 Lesion of spleen 271523954359 101 Active 2023 Oly Medrano [facility] 4 15:20:53 Problem Notes None recorded. Procedures Surgical History Date Name Laterality Status Provider Name and Address Organization Details Recorded Time 09/12/2023 cystoscopy completed Joanne Harvey [facility] 10/14/2023 11:10:48 Imaging Results Imaging Date Name Status [facility]Modified by [facility] Details LastModified Time 05/25/2023 imaging/diagn ostic result completed Information not available 2024 01:01:09 06/21/2023 imaging/diagn ostic result completed Information not available 2024 01:01:17 02/14/2024 MRI, pelvis, w/wo contrast completed [email or web address] Sc Only - [facility] [address] [place], [address], 02/14/2024 12:16:28 02/15/2024 CT rad therapy pelvis TP 3mm completed INTERFACE [facility] Only - [facility] [address] [place], [address], 02/16/2024 17:28:27 Procedure Notes None recorded. Medical Equipment None Reported. Allergies Allergen ID Allergen Name Allergen Category Reaction Reaction Severity Criticality Documentation Date Start Date Code Code System Note Provider Name and Address Organization Details Recorded Time [id number] codeine medicatio n Not available Not available [...] Updated DateTime 4 180.34 cm 25 kg/m2 28512.0 3 g 97 [degF] 98 /min 20 /min 97 % 97 % 117 mm[Hg] 85 mm[Hg] Joanne Harvey [facility] 4 10:13:17 Date Recorded Body height Body mass index (BMI) Body weight Body temperature Heart rate Oxygen saturation Oxygen saturation in Arterial blood by Pulse oximetry Systolic blood pressure Diastolic blood pressure Provider Name and Address Organization Details Last Updated DateTime 4 180.34 cm 25 kg/m2 28899.6 7 g 97.7 [degF] 63 /min 99 % 99 % 112 mm[Hg] 71 mm[Hg] Elver Calixto [facility] 4 09:57:56 Date Recorded Body height Body mass index (BMI) Body weight Body temperature Heart rate Respiratory rate Oxygen saturation Oxygen saturation in Arterial blood by Pulse oximetry Systolic blood pressure Diastolic blood pressure Provider Name and Address Organization Details Last Updated DateTime 4 180.34 cm 23.4 kg/m2 91387.5 2 g 97.6 [degF] 66 /min 18 /min 97 % 97 % 104 mm[Hg] 70 mm[Hg] Sallie Holden [facility] 4 09:56:39 Social History Question Answer Notes LastModified by Organizat ion Details LastModified Time Tobacco Smoking Status Current Every Day Smoker Sallie Holden [facility] 02/08/2024 09:57:19 How Many Packs Per Day (PPD)? 1 [email or web address] Information not available 10/14/2023 How Long Have You Smoked? 50 [email or web address] Information not available 10/14/2023 Sex: Unknown Functional Status None recorded. Mental Status None recorded. Family History Nothing Reported. Medical History No medical history recorded. Past Encounters Encounter ID Performer Location Encounter Start Date Encounter Closed Date Diagnosis/Indication Diagnosis SNOMED-CT Code Diagnosis ICD10 Code Diagnosis Note [id number] MD Karissa Monzon [facility] ([place]) [address] [place] [phone] 10/14/2023 10:29:35 11/02/2023 09:10:53 Carcinoma of prostate 499640339 C61 Malignant tumor of rectum [id number] [facility] [id number] MD Karissa Hassan [facility] [place] [address] [place] [phone] 11/02/2023 11:55:49 11/02/2023 14:08:15 [id number] MD Karissa Monzon [facility] [place] [address] [place] [phone] 11/10/2023 09:36:35 11/10/2023 10:32:15 [id number] Pj Cherry MD [facility] ([place]) [address] [place] [address], [place] [address] 11/17/2023 09:29:55 11/17/2023 10:28:06 [id number] MD Sherita Monzontigre [facility] [place] [address] [place] [id number] 11/24/2023 09:23:05 11/24/2023 12:11:38 [id number] MD Sherita Monzontigre [facility] [place] [address] [place] [phone] 1 12/01/2023 09:16:20 12/01/2023 10:20:01 [id number] MD Sherita Moscosotigre [facility] [place] [address] [place] [phone] 02/08/2024 09:21:44 02/09/2024 12:00:[id number] [facility] [place] [address] [place] [phone] 1 03/13/2024 15:37:27 03/13/2024 16:06:16 Adenocarcinoma of prostate 273138253 C61 Health Concerns Section Related Observation LastModified by Organization Detai ls LastModified Time None Recorded Concern Status LastModified by Organization Details LastModified Time None Recorded Advance Directives Directive None Recorded Payers Encounter Date Sequence Insurance Name Policy Number Policy Singletary Covered Member ID Singletary Member ID Guarantor Name 11/24/2023 1 [facility] (MEDICAID REPLACEMENT - HMO) [id number] Roberto Garcia [id number] Roberto Garcia 11/24/2023 3 [place] Roberto Garcia [id number] Roberto Garcia 12/01/2023 1 [facility] (MEDICAID REPLACEMENT - HMO) [id number] Roberto Garcia [id number] Roberto Garcia 12/01/2023 3 [place] Roberto Garcia [id number] Roberto Garcia 02/08/2024 3 [place] [facility] Roberto Garcia [id number] Roberto Garcia 03/13/2024 1 [place] Roberto Garcia [id number] Roberto Garcia 03/13/2024 2 [facility] (MEDICARE SUPPLEMENT) Roberto Garcia [id number] Roberto Garcia Notes Date Note Type Note Provider Name and Address Organization Details Recorded Time 4 text/html Identifying [facility] SSDMr. Garcia is a 63-year-old male with adenocarcinoma [...] adenocarcinoma with seminal vesicle invasion, clinical stage E3oA9V6, [place] 3+4=7, grade group 2, highest PSA 19.6. [...] well as preventative medicine studies were obtained. [address] chest lung screening protocol at [facility] was performed with radiology interpretation of small pulmonary nodules, likely benign, for which annual screening was recommended. There is scarring in the left lung base and underlying chronic lung changes. There are coronary artery calcifications noted. Lung RADS category 2. 1 : The patient was seen by Dr. Nails. He noted elevated PSA 19.6 with obstructive voiding symptoms. He recommended a prostate biopsy. 1 05/19/2022: Colonoscopy at [facility] was performed. Specimen [id number] associated with colon descending polyp biopsy, tubular adenoma. Colon sigmoid polyp biopsy resulted in invasive adenocarcinoma, moderately differentiated, arising from tubular adenoma. Rectal mass biopsy resulted invasive adenocarcinoma moderately differentiated. Mismatch repair protein analysis by immunohistochemistry indicates preserved DNA mismatch repair function. : The patient was seen by Dr. Roman. He noted imaging findings inclusive of sigmoid biopsy as well as rectal biopsy indicating adenocarcinoma. He recommended staging studies and radiation oncology and medical oncology referral. : CEA 5.7 ng/mL. : [facility] [...] or inflammatory processes. There is mild prostatomegaly. : [facility] [...] There is no extra mesorectal lymph nodes. : MRI pelvis at [facility] was performed with radiology interpretation of [...] up surveillance with PSMA PET was recommended. : Visit with Dr. Smith, assessed clinical stage T3cN2 rectal adenocarcinoma, MSI intact with elevated PSA, PI-RADS 5 lesion concerning for prostate cancer. He recommended additional imaging for staging.05/25/2023: CT chest at [facility] was performed with radiology interpretation of no CT evidence of metastatic disease in the chest, no mediastinal or hilar lymphadenopathy. There is a prominent 8 mm portal caval lymph node, for which continued attention on follow up was recommended.06/21/2023: PSA 15.51 ng/mL.06/21/2023: Truss biopsy with Dr. Nails, specimen [id number] resulted prostate adenocarcinoma, Kavitha grade 3+4=7, corresponding [...] Justin in Urology.08/26/2023: PSMA PET CT at [facility] was performed with radiology interpretation of [...] not use Imodium regularly. Pj Cherry MD [address] [place] [address], [phone], [place] [facility] 11/24/2023 11:22:25 4 text/html Identifying [facility] Mr. Garcia is a 63-year-old male with [...] adenocarcinoma with seminal vesicle invasion, clinical stage A9nG0Y4, Kavitha 3+4=7, grade group 2, highest PSA [...] well as preventative medicine studies were obtained. [address] chest lung screening protocol at [facility] was performed with radiology interpretation of small pulmonary nodules, likely benign, for which annual screening was recommended. There is scarring in the left lung base and underlying chronic lung changes. There are coronary artery calcifications noted. Lung RADS category 2. 1 : The patient was seen by Dr. Nails. He noted elevated PSA 19.6 with obstructive voiding symptoms. He recommended a prostate biopsy. 1 05/19/2022: Colonoscopy at [facility] was performed. Specimen [id number] associated with colon descending polyp biopsy, tubular adenoma. Colon sigmoid polyp biopsy resulted in invasive adenocarcinoma, moderately differentiated, arising from tubular adenoma. Rectal mass biopsy resulted invasive adenocarcinoma moderately differentiated. Mismatch repair protein analysis by immunohistochemistry indicates preserved DNA mismatch repair function. : The patient was seen by Dr. Roman. He noted imaging findings inclusive of sigmoid biopsy as well as rectal biopsy indicating adenocarcinoma. He recommended staging studies and radiation oncology and medical oncology referral. : CEA 5.7 ng/mL. : [facility] [...] or inflammatory processes. There is mild prostatomegaly. : [facility] [...] There is no extra mesorectal lymph nodes. : MRI pelvis at [facility] was performed with radiology interpretation of [...] up surveillance with PSMA PET was recommended. : Visit with Dr. Smith, assessed clinical stage T3cN2 rectal adenocarcinoma, MSI intact with elevated PSA, PI-RADS 5 lesion concerning for prostate cancer. He recommended additional imaging for staging.05/25/2023: CT chest at [facility] was performed with radiology interpretation of no CT evidence of metastatic disease in the chest, no mediastinal or hilar lymphadenopathy. There is a prominent 8 mm portal caval lymph node, for which continued attention on follow up was recommended.06/21/2023: PSA 15.51 ng/mL.06/21/2023: Truss biopsy with Dr. Nails, specimen [id number] resulted prostate adenocarcinoma, Monroe grade 3+4=7, corresponding with grade group 2, [...] Justin in Urology.08/26/2023: PSMA PET CT at [facility] was performed with radiology interpretation of [...] recieved ADT this week. Pj Cherry MD [address] [place] [address], [phone], [facility] 12/01/2023 11:01:07 4 text/html Identifying Information:Synchronize primary #1 adenocarcinoma of [...] Patient today has an AUA score of 9.[facility] Patients Name: Roberto GarciaDOB: [id number]: 64 Oncologic History: Oncology Radiation History: Prior history of chemotherapy: {{yes* no}} Prior radiation therapy: {{yes* no}} If yes, answer the questions below. [facility]Site: Rectum and Prostate Prior history of connective tissue disorder (i.e. Lupus, Scleroderma) {{yes no*}} Implanted Devices: {{yes no*}} Comments: Can Ge MD [address] [place] [address], [phone], [facility] 02/09/2024 08:58:03 4 text/html Synchronize primary #1 adenocarcinoma of the [...] has no further concerns today. Willow Brown, HEATING TECHNICIAN, TERRAZZO FINISHER HELPER [address] [place] [address], [phone], [facility] 03/26/2024 16:47:10
[2024-06-26] MEDS: FLUOROURACIL 2,500 MG/50 ML VIAL 800 MG IV PUSH (14:44)
[2024-06-26] MEDS: FLUOROURACIL IVPB (14:44)
[2024-06-26 15:05] VITALS: BP 129/79; PULSE 60; RESP 14; TEMP 36.6; O2SAT 97
--- NOTE | 2024-06-26 15:06 | PC.NURSE ---
Patient here for FOLFIRI cycle 1 treatment. Ongoing education given. All questions answered. Premeds/chemo medication administered SEE MAR/patient care notes. Tolerated well. Patient dc with 5 FU med in Elastomeric infusion pump--education on it given. Spill kit education given and sent home also with patient. Will return 06/28/24 at 1530 pm for removal.
[2024-06-28 15:08] VITALS: BP 128/71; PULSE 62; RESP 16; TEMP 36.6; O2SAT 95
== END 2024-06-26 11:17 | disposition home or self-care (01) ==
PROVIDERS: PCP Family Medicine; Visit Provider Internal Medicine Hematology
DX: Z51.11 Encounter for antineoplastic chemotherapy (principal); C20 Malignant neoplasm of rectum
CPT/HCPCS: 36415; 36591; 80053; 85025; 96367; 96368; 96375; 96411; 96413; 96416; J0461; J1100; J1200; J2405; J7050; J9190; J9206

== ENCOUNTER 2024-07-09 10:55 | Outpatient (CLI) | payer MEDICARE, SELFPAY ==
[2024-07-09 11:16] LABS: Basophils Absolute Auto 0.02 K/mm3 (0.00-0.10); Basophils Percent Auto 0.4 % (0.0-1.0); Eosinophils Absolute Auto 0.13 K/mm3 (0.02-0.50); Eosinophils Percent Auto 2.5 % (1.0-6.0); Hematocrit 38.1 % (37.0-46.0); Hemoglobin 12.7 g/dL (12.4-15.3); Immature Granulocyte Absolute 0.02 K/mm3 (0.00-0.00); Immature Granulocyte Percent A 0.4 % (0.0-0.0); Lymphocytes Absolute Auto 0.98 K/mm3 (1.10-4.50); Lymphocytes Percent Auto 18.7 % (18.0-42.0); Mean Corpuscular HGB Conc 33.3 g/dL (32-36); Mean Corpuscular Hemoglobin 29.7 pg (27.0-31.0); Mean Corpuscular Volume 89.2 fL (78.0-102.0); Mean Platelet Volume 9.4 fl (8.7-11.0); Monocytes Absolute Auto 0.39 K/mm3 (0.10-0.90); Monocytes Percent Auto 7.5 % (2.0-11.0); Neutrophils Absolute Auto 3.69 K/mm3 (1.70-7.20); Neutrophils Percent Auto 70.5 % (50.0-70.0); Platelet Count Result 233 K/mm3 (150-420); Red Blood Count 4.27 M/mm3 (4.70-6.10); Red Cell Distribution Width 13.6 % (11.6-14.4); White Blood Count 5.2 K/mm3 (4.8-10.8)
[2024-07-09 11:55] LABS: Alanine Aminotransferase 38 U/L (16-63); Albumin Level 3.3 g/dL (3.4-5.0); Alkaline Phosphatase 252 U/L (46-116); Anion Gap 4 mmol/L (4-12); Aspartate Amino Transferase 17 U/L (15-37); Bilirubin,Total 0.4 mg/dL (0.00-1.00); Blood Urea Nitrogen 10 mg/dL (7-18); Calcium 8.8 mg/dL (8.5-10.1); Carbon Dioxide 33 mmol/L (21-32); Chloride 100 mmol/L (98-108); Estimated Glomerular Filt Rate > 60; Glucose 118 mg/dL (70-99); Osmolality Calculated 284 mOsm/kg (285-295); Potassium 4.5 mmol/L (3.5-5.1); Sodium 137 mmol/L (136-145); Total Protein 6.7 g/dL (6.4-8.2)
--- OUTSIDE RECORDS SUMMARY | 2024-07-09 12:39 | XMS_ITS | Clinical Summary ---
Author Organization [facility] Address Formerly [facility], [facility] [place] [address] Care Team Providers Care Vehicle Delivery Worker Name Role Phone Flaco Kelly MD Primary Care Provider Allergies Active Allergy Reactions Criticality Noted Date Comments Codeine Nausea Only 03/18/2023 Patient states it makes me sick as hell Medications No known medications Encounters Date Type Department Care Team Description 07/05/2024 Transcribe Orders [facility] Pre Access Team [address] [place] [address] Sabrina Mujica FNP- 07/03/2024 10:52 AM CDT - 07/03/2024 11:59 PM CDT Hospital Encounter [facility] [address] [place] [address] Eder Busby, PA Discharge Disposition: Home or Self Care (Routine Discharge) 07/03/2024 10:52 AM CDT - 07/03/2024 11:59 PM CDT Hospital Encounter [facility] [address] Eder Busby PA Discharge Disposition: Home or Self Care (Routine Discharge) 07/03/2024 10:50 AM CDT - 07/03/2024 10:51 AM CDT Hospital Encounter [facility] [place] [address] Eder Busby PA Discharge Disposition: Home or Self Care (Routine Discharge) 07/03/[address] [place] [place] [address] Eder Busby PA 07/03/2024 Travel 05/29/2024 10:55 AM OTOLARYNGOLOGY REP - 05/29/2024 11:59 PM OTOLARYNGOLOGY REP Hospital Encounter [facility] [address] [place] [address] Ziggy Renee MD Discharge Disposition: Home or Self Care (Routine Discharge) 05/29/2024 10:45 AM OTOLARYNGOLOGY REP - 05/29/2024 10:54 AM OTOLARYNGOLOGY REP Hospital Encounter [facility] [place] [address] Flaco Kelly MD Fisher, Kelli C, JULIANNE Discharge Disposition: Home or Self Care (Routine Discharge) 05/29/2024 Orders Only [facility] [address] [place], [place] [address] [address] Ziggy Renee MD 05/29/2024 Orders Only [facility] [address] [place], [place] [address] [address] Aretha Hubbard NP 05/29/2024 Travel 04/26/2024 6:33 AM OTOLARYNGOLOGY REP - 04/26/2024 11:59 PM OTOLARYNGOLOGY REP Hospital Encounter [facility] [place] [address] Teddy Roman Sr., MD Discharge Disposition: Home or Self Care (Routine Discharge) 04/26/2024 Travel 04/20/2024 8:38 AM OTOLARYNGOLOGY REP - 04/20/2024 11:59 PM OTOLARYNGOLOGY REP Hospital Encounter [facility] [place] [address] Teddy Roman Sr., MD Discharge Disposition: Home or Self Care (Routine Discharge) 04/20/2024 Travel from Last 3 Months Social History Tobacco Use Types Packs/Day Years Used Date Smoking Tobacco: Unknown Tobacco Cessation:Counseling Given: Not Answered Sex and Gender Information Value Date Recorded Sex Assigned at Male 04/20/2024 8:37 AM OTOLARYNGOLOGY REP Legal Sex Male 9:40 AM CDT Gender Identity Not on file Sexual Orientation Not on file Last Filed Vital Signs Vital Sign Reading Time Taken Comments Blood Pressure 129/98 03/18/2023 3:56 PM OTOLARYNGOLOGY REP Pulse 98 03/18/2023 3:56 PM OTOLARYNGOLOGY REP Temperature 36.6 C (97.8 F) 03/18/2023 12:49 PM OTOLARYNGOLOGY REP Respiratory Rate 14 03/18/2023 3:56 PM OTOLARYNGOLOGY REP Oxygen Saturation 96% 03/18/2023 3:56 PM OTOLARYNGOLOGY REP Inhaled Oxygen Concentration - - Weight 85 kg (187 lb 8 oz) 03/18/2023 12:[address] Height 180.3 cm (5' 11 ) 03/18/2023 12:49 PM OTOLARYNGOLOGY REP Body Mass Index 26.15 03/18/2023 12:49 PM OTOLARYNGOLOGY REP Plan of Treatment Upcoming Encounters Date Type Department Care Team (Late st Contact Info) Description 09/03/2024 1:[address] [facility] [address] [address] Sabrina Mujica FNP- [address] [place] [address] Health Maintenance Due Date Last Done Comments Hepatitis C 1977 Zoster Vaccines (1 of 2) 2009 RSV Immunization or 60+ Years (1 - Risk 60-74 years 1-dose series) 2019 COVID-19 Vaccine (3 - 2023-2 5 season) 2023 06/26/2020, 06/06/2020 Pneumococcal Vaccine: 65+ Years (1 of 1 [...] Procedure Name Priority Date/Time Associated Diagnosis Comments ECG 12-LEAD Routine 07/03/2024 11:20 AM CDT Pre-op testing COMPREHENSIVE METABOLIC PANEL Routine 07/03/2024 11:11 AM CDT Pre-op testing CBC W/DIFF AUTOMATED Routine 07/03/2024 11:11 AM CDT Pre-op testing XR CHEST PA+LAT Routine 07/03/2024 11:00 AM CDT Pre-op testing CARCINOEMBRYONIC ANTIGEN Routine 025 11:11 AM OTOLARYNGOLOGY REP Prostate cancer (CMS/HCC HHS/HCC) PROSTATE SPECIFIC ANTIGEN,TOTAL Routine 05/29/2024 11:11 AM OTOLARYNGOLOGY REP Malignant neoplasm of prostate (CMS/HCC HHS/HCC) HC TESTOSTERONE FREE-90 Routine 05/29/19 11:11 AM OTOLARYNGOLOGY REP Malignant neoplasm of prostate (CMS/HCC HHS/HCC) MRI ABD WWO CON STAT 04/26/2024 7:52 AM OTOLARYNGOLOGY REP Hepatic disease CT CHEST+ABD W CON Routine 04/20/2024 9: 15 AM OTOLARYNGOLOGY REP Rectal cancer (CMS/HCC HHS/HCC) from Last 3 Months Results * ECG 12 lead (07/03/2024 11:20 AM CDT) 07/03/2024 11:2 0 AM CDT Narrative [facility] - 07/04/2024 3:28 PM [address]T [address] [place] [address] Test Date: 2024-07-03 Pat Name: ROBERTO GARCIA Department: 3 Room: Gender: Male Mis Manager: : 1960 Requested By: EDER UBSBY Order Number: [id number] Reading MD: Obdulio Cooper Measurements Intervals [place] Rate: 63 P: 64 GA: 160 QRS: 85 QRSD: 103 T: 64 QT: 427 QTc: 439 Interpretive Statements SINUS RHYTHM Poor R Wave Progression Procedure Note Obdulio Cooper MD - 07/04/[address] [place] [address] Test Date: 2024-07-03 Pat Name: ROBERTO GARCIA Department: 3 Room: Gender: Male Mis Manager: : 1960 Requested By: EDER BUSBY Order Number: [id number] Reading MD: Obdulio Cooper Measurements Intervals [place] Rate: 63 P: 64 GA: 160 QRS: 85 QRSD: 103 T: 64 QT: 427 QTc: 439 Interpretive Statements SINUS RHYTHM Poor R Wave Progression us Eder MORIRSON ECG ORDERABLES Final Result [facility] * (ABNORMAL) COMPREHENSIVE METABOLIC PANEL (07/03/2024 11:11 AM CDT) SODIUM S/P/B 137 136 - 145 MMOL/L 07/03/2024 11:52 AM CDT [facility] POTASSIUM S/P/B 3.4(L) 3.5 - 5.1 MMOL/L 07/03/2024 11:52 AM CDT [facility] CHLORIDE S/P/B 98 98 - 107 MMOL/L 07/03/2024 11:52 AM CDT [facility] CO2 33.9(H) 21.0 - 32.0 MMOL/L 07/03/2024 11:52 AM CDT [facility] GLUCOSE 111(H) 70 - 99 MG/DL 07/03/2024 11:52 AM CDT [facility] Comment: FASTING GLUCOSE 100 TO 125 MG/DL IS CONSISTENT WITH IMPAIRED FASTING GLUCOSE. FASTING GLUCOSE >125 MG/DL IS CONSISTENT WITH DIABETES. RANDOM GLUCOSE >200 MG/DL WITH HYPERGLYCEMIC SYMPTOMS IS CONSISTENT WITH DIABETES. PER ADA GUIDELINES BUN 11 6 - 24 MG/DL 07/03/2024 11:[facility] CREATININE S/P/B 0.69(L) 0.70 - 1.30 MG/DL 07/03/2024 11:52 AM [facility] CALCIUM S/P/B 8.6 8.4 - 10.5 MG/DL 07/03/2024 11:52 AM [facility] BILIRUBIN TOTAL S/P/B 0.3 0.2 - 1.0 MG/DL 07/03/2024 11:52 AM [facility] Comment: THIS ASSAY IS NOT RECOMMENDED FOR PATIENTS UNDERGOING TREATMENT WITH ELTROMBOPAG DUE TO THE POTENTIAL FOR FALSELY ELEVATED RESULTS. ALKALINE PHOSPHATASE S/P/B 246(H) 45 - 115 U/L 07/03/2024 11:52 AM [facility] AST 20 15 - 37 U/L 07/03/2024 11:52 AM [facility] ALT 42 16 - 63 U/L 07/03/2024 11:52 AM [facility] TOTAL PROTEIN S/P/B 7.2 6.4 - 8.2 G/DL 07/03/2024 11:52 AM [facility] ALBUMIN S/P/B 3.4 3.4 - 5.0 G/DL 07/03/2024 11:52 AM [facility] ANION GAP 5.1 5.0 - 15.0 MMOL/L 07/03/2024 11:52 AM [facility] OSMOLALITY (CALC) 284 MOSM/KG 025 11:52 AM [facility] Comment:REFERENCE RANGE NOT ESTABLISHED GFR ESTIMATE >90 >89 ML/MIN/1. 73 M2 07/03/2024 11:52 AM [facility] GFR NOTES GFR REFERENCE S: 07/03/2024 11:52 AM [facility] Comment: THE ESTIMATED GFR IS CALCULATED USING THE 2020 CKD-EPI EQUATION. THE FOLLOWING CATEGORIES FOR GRADING RENAL FUNCTION ARE RECOMMENDED BY THE INTERNATIONAL SOCIETY OF NEPHROLOGY (KDIGO 2012 CLINICAL PRACTICE GUIDELINE). G1,NORMAL OR HIGH: >89 ml/min/1.73 m2 G2,MILDLY DECREASED: 60-89 ml/min/1.73 m2 G3A,MILDLY TO MODERATELY DECREASED: 45-59 ml/min/1.73 m2 G3B,MODERATELY TO SEVERELY DECREASED: 30-44 ml/min/1.73 m2 G4,SEVERELY DECREASED: 15-29 ml/min/1.73 m2 G5,KIDNEY FAILURE: <15 ml/min/1.73 m2 07/03/2024 11:1 1 AM CDT [facility] Final Result [facility] [address] [place] [address], * (ABNORMAL) CBC W/DIFF AUTOMATED (07/03/2024 11:11 AM CDT) WBC 4.29 4.00 - 10.80 x10'3/uL 07/03/2024 11:38 AM CDT [facility] RBC 4.18(L) 4.50 - 6.10 x10'6/uL 07/03/2024 11:38 AM CDT [facility] HGB 12.5(L) 13.0 - 18.0 G/DL 07/03/2024 11:38 AM CDT [facility] HCT 36.8(L) 37.0 - 52.0 % 07/03/2024 11:38 AM CDT [facility] MCV 88.0 78.0 - 100.0 FL 07/03/2024 11:38 AM CDT [facility] MCH 29.9 27.0 - 31.0 PG 07/03/2024 11:38 AM CDT [facility] MCHC 34.0 33.0 - 36.0 G/DL 07/03/2024 11:38 AM CDT [facility] RDW 13.1 11.5 - 14.5 % 07/03/2024 11:38 AM CDT [facility] PLT 247 150 - 350 x10'3/uL 07/03/2024 11:38 AM CDT [facility] MPV 9.4 7.4 - 10.4 FL 07/03/2024 11:38 AM CDT [facility] CBC COMMENT NORMAL REFERENCE RANGE NOT ESTABLISHED FOR THE PROPORTIONAL LEUKOCYTE DIFFERENTIAL. 07/03/2024 11:38 AM CDT [facility] NEUTROPHILS % 73.0 % 07/03/2024 11:38 AM CDT [facility] LYMPHOCYTES % 17.2 % 07/03/2024 11:38 AM CDT [facility] MONOCYTES % 6.5 % 07/03/2024 11:38 AM CDT [facility] EOSINOPHILS % 2.1 % 07/03/2024 11:38 AM CDT [facility] BASOPHILS % 0.5 % 07/03/2024 11:38 AM CDT [facility] IMMATURE GRANS % 0.7 % 07/04/19 11:38 AM CDT [facility] NRBC % 0.0 % 07/03/2024 11:38 AM CDT [facility] ABS. NEUTROPHILS 3.13 1.60 - 8.30 x10'3/uL 07/03/2024 11:38 AM CDT [facility] ABS. LYMPHOCYTES 0.74(L) 0.80 - 4.70 x10'3/uL 07/03/2024 11:38 AM CDT [facility] ABS. MONOCYTES 0.28 0.00 - 1.50 x10'3/uL 07/03/2024 11:38 AM CDT [facility] ABS. EOSINOPHILS 0.09 0.00 - 0.40 x10'3/uL 07/03/2024 11:38 AM CDT [facility] ABS. BASOPHILS 0.02 0.00 - 0.20 x10'3/uL 07/03/2024 11:38 AM CDT [facility] ABS. IMMATURE GRANULOCYTES 0.03 0.00 - 0.03 x10'3/uL 07/03/2024 11:38 AM CDT [facility] ABS. NUCLEATED RBC'S 0.00 0.00 - 0.01 x10'3/uL 07/03/2024 11:38 AM CDT [facility] 07/03/2024 11:1 1 AM CDT [facility] Final Result [facility] [address] [place] [address], * XR CHEST PA+LAT (07/03/2024 11:00 AM CDT) Anatomical Region Laterality Modality Chest Radiographic Cyndi ging 07/03/2024 11:2 4 AM CDT Impressions 07/03/2024 11:26 AM CDT IMPRESSION: No significant change. No acute disease. Ordered By: EDER BUSBY Interpreted By: Unruly Allan MD, 07/03/2024 11:24 AM Narrative 07/03/2024 11:26 AM CDT [address] [place] [address] Examination: Two-view chest Exam time: 1038 hours. Clinical history: Metastatic rectal cancer. Pretesting. Comparison: 09/07/2023. Technique: PA and lateral views Findings: The cardiomediastinal silhouette is stable. The heart remains within normal limits for size. Pulmonary vascularity is within normal limits. Right jugular port catheter remains in place with the tip terminating in the SVC. No acute infiltrates or effusions are identified. Granulomatous scarring is noted. The bony thorax is stable. Procedure Note Unruly Allan MD - 07/03/[address] [place] [address] Examination: Two-view chest Exam time: 1038 hours. Clinical history: Metastatic rectal cancer. Pretesting. Comparison: 09/07/2023. Technique: PA and lateral views Findings: The cardiomediastinal silhouette is stable. The heart remainswithin normal limits for size. Pulmonary vascularity is within normallimits. Right jugular port catheter remains in place with the tipterminating in the SVC. No acute infiltrates or effusions are identified.Granulomatous scarring is noted. The bony thorax is stable. IMPRESSION: No significant change. No acute disease. Ordered By: EDER BUSBY Interpreted By: Unruly Allan MD, 07/03/2024 11:24 AM Eder Busby [place] [facility] Final Result * (ABNORMAL) TESTOSTERONE, FREE & TOTAL (05/29/2024 11:11 AM OTOLARYNGOLOGY REP) TESTOSTERONE TOTAL 88(L) 250 - 1,100 ng/dL 06/04/2024 3:31 PM OTOLARYNGOLOGY REP [facility] Comment: Men with clinically significant hypogonadal symptoms and testosterone values repeatedly in the range of the 200-300 ng/dL or less, may benefit from testosterone treatment after adequate risk and benefits counseling. For additional information, please refer to http://education.Vivino/faq/ NtdqjSicoyncrsuluCATBDMKJG938 (This link is being provided for informational/ educational purposes only.) This test was developed and its analytical performance characteristics have been determined by [facility] [place], [place]. It has not been cleared or approved by the U.S. Food and Drug Administration. This assay has been validated pursuant to the CLIA regulations and is used for clinical purposes. TESTOSTERONE FREE 6.1(L) 35.0 - 155.0 pg/mL 06/04/2024 3:31 PM [facility]ARYNGOLOGY REP [facility] Comment: This test was developed and its analytical performance characteristics have been determined by [employer] [place], [place]. It has not been cleared or approved by the U.S. Food and Drug Administration. This assay has been validated pursuant to the CLIA regulations and is used for clinical purposes. Test Performed by [facility], [facility] [place], [address] [place] [address] Jean Carlos Carter M.D., Ph.D., Director of Laboratories , CLIA [id number] 05/29/2024 11:1 1 AM OTOLARYNGOLOGY REP us Aretha Hubbard NP LABORATORY Final Result [facility] [address] [place], [place] , [place] [phone] * PROSTATE SPECIFIC ANTIGEN, DIAG (05/29/2024 11:11 AM OTOLARYNGOLOGY REP) PSA <0.13 <4.00 NG/ML 05/29/2024 11:51 AM OTOLARYNGOLOGY REP [facility] 05/29/2024 11:1 1 AM OTOLARYNGOLOGY REP us Aretha Hubbard NP LABORATORY Final Result Performing Organization Address City/[facility]/ZIP Co de Phone Number [facility] [address] [place] [address], [place] [phone] * (ABNORMAL) CARCINOEMBRYONIC ANTIGEN (05/29/2024 11:11 AM OTOLARYNGOLOGY REP) CEA 9.9(H) 0.0 - 5.0 NG/ML 05/29/2024 7:14 PM OTOLARYNGOLOGY REP [facility] Comment: ASSAY PERFORMED BY CHEMILUMINESCENCE METHODOLOGY USING SIEMENS DIMENSION VISTA REAGENT. PATIENT RESULTS DETERMINED BY ASSAYS USING DIFFERENT MANUFACTURERS FOR METHODS MAY NOT BE COMPARABLE. 05/29/2024 11:1 1 AM OTOLARYNGOLOGY REP us Ziggy Renee MD LABORATORY Final Result [facility] [address] [place] [address], [place] [phone] [id number] * MRI ABD WWO CON (04/26/2024 7:52 AM OTOLARYNGOLOGY REP) Anatomical Region Laterality Modality Abdomen Magnetic Resonan ce 04/26/2024 1:22 PM OTOLARYNGOLOGY REP Impressions 04/26/2024 1:27 PM OTOLARYNGOLOGY REP IMPRESSION: 1. 19 MM IN DIAMETER FOCAL LESION POSTERIOR SEGMENT RIGHT LOBE OF LIVER CORRESPONDS WITH THE ABNORMALITY NOTED ON CT. THIS IS FELT TO BE SUSPICIOUS FOR METASTATIC DISEASE. NO OTHER SIGNIFICANT ABNORMALITY. Signed: Aristeo Plummer MD Referred By: TEDDY ROMAN SR Interpreted By: Aristeo Plummer MD, 04/26/2024 1:22 PM Narrative 04/26/2024 1:27 PM OTOLARYNGOLOGY REP [place] [id number] [facility] [place] [address] PATIENT NAME: ROBERTO GARCIA EXAM: MRI of [...] Procedure Note Aristeo Plummer MD - 04/26/2024 [facility] [address] [facility] [place] [address] PATIENT NAME: ROBERTO GARCIA EXAM: MRI of [...] CT CHEST+ABD W CON (04/20/2024 9:15 AM OTOLARYNGOLOGY REP) Anatomical Region Laterality Modality Chest, Abdomen Computed Tomogra phy 04/24/2024 5:53 AM OTOLARYNGOLOGY REP Impressions 04/24/2024 6:00 AM OTOLARYNGOLOGY REP Impression: A 15 mm low-density nodule in [...] 04/24/2024 5:53 AM Narrative 04/24/2024 6:00 AM OTOLARYNGOLOGY REP [address] [place] [address] Examination: CT CHEST+ABD W [facility] Exam time: 04/20/2024 9:05 AM Clinical Information: [...] Procedure Note Cleve Etienne MD - 04/24/[address] [place] [address] Examination: CT CHEST+ABD W CON Exam time: [...] By: Cleve Etienne MD, 04/24/2024 5:53 AM Teddy Roman Sr., MD CT Final Re sult from Last 3 Months Insurance MEDICARE MEDICAID [place] Care Teams Vehicle Delivery Worker Relationship Specialty Start Date End Date Flaco Kelly MD [facility] [address] PCP - General FAMILY PRACTICE 01/03/23
--- OUTSIDE RECORDS SUMMARY | 2024-07-09 12:39 | XMS_ITS ---
Author Organization Unknown Address [address] [place] [phone] Phone Care Team Providers Care [employer] Instructor Name Role Phone ALBERT Pinedo Attending Unavailable [facility] PROFESSOR OF RELIGIOUS STUDIES Unavailable MANJIT Gould Primary Unavailable Immunization Immunization Date Status Additional Notes Code Code System Tdap 05/12/2021 Completed 115 CVX COVID-19, mRNA, LNP-S, PF, 3 0 mcg/0.3 mL dose 06/06/2020 Completed 208 CVX COVID-19, mRNA, LNP-S, PF, 3 0 mcg/0.3 mL dose 06/26/2020 Completed 208 CVX Social History Type Status Start Date End Date Code Code Syst em Smoking History Current every day smoker [id number] SNOMED CT Sex Male Vital Signs Vital Sign Value Unit Frio Value Frio Unit Date/Time Recent/Initial? Code Code System Body Mass Index 27.69 kg/m2 03/04/2023 13:59 Initial 05972 -5 LOINC Systolic Blood Pressure 130 mm[Hg] 03/18/2023 07:41 Initial 8480- 6 LOINC Diastolic Blood Pressure 72 mm[Hg] 03/18/2023 07:41 Initial 8462- 4 LOINC Body Surface Area 2.08 m2 03/04/2023 13:59 Initial 3140- 1 LOINC Height 177.800 0 cm 70.00 in 03/04/2023 13:59 Initial 8302- 2 LOINC O2 Saturation 98 % 2022 07:41 Initial 45740 -5 LOINC Pulse 100.0 /min 03/18/2023 07:41 Initial 8867- 4 LOINC Respiration 20 /min 03/18/20 07:41 Initial 9279- 1 LOINC Temperature 36.4 Jenna 97.5 F 12/15/20 23 07:41 Initial 8310- 5 LOINC Weight 87.54 kg 193.00 lbs 03/04/2023 13:59 Initial 72820 -7 LOINC Medications No Active Medications Hospital Discharge Instructions Should you have any questions prior to discharge, please contact a member of your healthcare team. If you have left the hospital and have any questions, please contact your primary care physician. Reason For Referral No Data Found Procedures Procedure Name Date Status Code Code Syste m Inguinal hernia completed [id number] SNOMEDCT Anesthesia for lower intesti nal endoscopic procedures, endoscope introduce 03/18/2023 completed 25724 CPT Colonoscopy, flexible; with removal of tumor(s), polyp(s), or other lesion 03/18/2023 completed 01579 CPT Allergies and Adverse Reactions Allergy Substance Reaction Severity Start Date Concern Status Co de Code System CODEINE Active 8690 RxNorm Plan of Treatment US Prostate Needle Biopsy 04/13/2023 Encounters Encounter Diagnosis Start Date Code Code Sys tem Encounter for screening for malignant neoplasm of colo n 03/18/2023 SNOMED-CT Personal Care Team Section Performer Name Performer Role Active Date Inactive MIGUELANGEL Fuller PCP - Primary care physician 2023-01-12
--- OUTSIDE RECORDS SUMMARY | 2024-07-09 12:40 | XMS_ITS | Data Portability ---
Author Organization [facility] [employer], [facility] ([place]) Address [address] [place] [address] Care Team Providers Care Industrial Sales Representative Name Role Phone TRAVIS RATLIFF Medical Oncologist [phone] TEDDY ROMAN Colorectal Surgeon TRAVIS JUSTIN Urologist [phone] ABNER CHERRY Radiation Oncologist Assessment Encounter Date Assessment Date Assessment LastModified by Organization Details LastModified Time 11/17/2023 11/17/2023 A: Tolerating we ll P Continue with RT Skin care discussed [email or web address] Not available 11/17/2023 10:15:52 11/24/2023 11/24/2023 Tolerating RT. Continue bowel regimen. Continue RT as planned. [email or web address] Not available 11/24/2023 11:21:00 12/01/2023 12/01/2023 A: Tolerating we ll P: Continue with RT Skin care as discussed F/U form provided and instsructions. Not available 12/01/2023 10:06:08 02/08/2024 02/08/2024 Impressions: [...] general side effects. Patient was provided an [facility] radiation therapy folder that includes general information on RT and skin care, contact information, a helpful links worksheet, [facility] Cancer Care support group information and a [...] He prefers to have labs drawn in [place]. Continue f/u with med/onc. I personally spent [...] rad thera py pelvi s TP 3mm [facility] [address] [place] [address] Name: ROBERTO PALM RD Age: 63 : 1959 Exam Date: 2023 ACCESS ION: [id number] ORDERI DREAD MD: ROBIN FOSTER RADIAT ION THERAP Y SIMULA TION SCAN Radiat ion Therap y simula tion scan for treatm ent planni ng. No interp retati on render ed. Final Report Dictat ed: 11:00 Radiol ogist , Inquir y Signed : 15:25 Radiol ogist , Inquir y [email or web address] Ny Only - [facility] Rad [address] [place], [address], 10/20/2023 21:29:17 01/31/20 24 05/25/2023 imagi ng/di agnos tic resul t No observ ation record ed. [email or web address] Not Available 01:01:09 01/31/2006/21/2023 imagi ng/di agnos tic resul t No observ ation record ed. [email or web address] Not Available 01:01:17 02/14/20 24 02/14/2024 MRI, pelvi s, w/wo contr ast [facility] [address] [place] [address] Teleph one [phone] Name: Roberto Palm rd [address] Exam Date: 2023 Age: 64 Physic kat: Hayden gil MD, [facility] ar : 1959 Examin ation: MRI PELVIS [...] Sc Only - [facility] [address] [place] [address], [id number], 02/14/2024 12:16:28 02/16/2002/15/2024 CT rad thera py pelvi s TP 3mm [facility] [address] [place] [address] Name: ROBERTO PALM RD Age: 64 : 1959 Exam Date: 2023 ACCESS ION: [id number] JALIL CANADA MD: ELDER TURK. RADIAT ION THERAP Y SIMULA TION SCAN Radiat ion Therap y simula tion scan for treatm ent planni ng. No interp retati on render ed. Final Report Dictat ed: 11:56 Radiol ogist , Inquir y Signed : 15:20 Radiol ogist , Inquir y INTERFACE Sc Only - [facility] Rad [address] [place] [address], [id number], 02/16/2024 17:28:27 06/30/19 25 06/28/2024 ir clini c visit [facility] [address] [place] [address] Name: ROBERTO PALM [address] Age: 64 : 1959 Exam Date: 2024 ACCESS ION: [id number] JALIL CANADA MD: KRISTEN GARCIA Please refer to [facility] for result s. Final Report Dictat ed: 09:25 Radiol ogist , Inquir y Signed : 14:48 Radiol ogist , Inquir y INTERFACE Sc Only - [facility] Rad [address] [place] [address], [id number], 06/29/2024 15:59:52 Result Notes None recorded. Problems Name Problem SNOMED Code Status Onset Date Resolution Date Notes Provider Name and Address Organization Details Recorded Time Adenocarci noma of prostate 467381732 Active 2023 [facility] 5 10:09:16 Adenocarci noma of rectum 538067191 Active 2024 [facility] 5 10:09:50 Carcinoma of prostate 977474432 Active 2023 Kavitha 3+4 BX 06/21/23 Willow Brown, ELECTROMECHANICAL INSPECTOR, SENIOR DATA ANALYST [address] [place] [address], [phone], [facility] 4 16:37:09 Malignant tumor of rectum 754621299 Active 2023 Oly Medrano [facility] 4 15:20:40 Lesion of spleen 304582231679 101 Active 2023 Oly Medrano [facility] 4 15:20:53 Problem Notes None recorded. Procedures Surgical History Date Name Laterality Status Provider Name and Address Organization Details Recorded Time 09/12/2023 cystoscopy completed Joanne Harvey [facility] 10/14/2023 11:10:48 Imaging Results Imaging Date Name Status LastModified by [facility] Details LastModified Time 10/14/2023 CT rad therapy pelvis TP 3mm completed [email or web address] Ny Only - [facility] Rad [address] [place] [address], [id number], 10/20/2023 21:29:17 05/25/2023 imaging/diagn ostic result completed Information not available 2024 01:01:09 06/21/2023 imaging/diagn ostic result completed Information not available 2024 01:01:17 02/14/2024 MRI, pelvis, w/wo contrast completed [email or web address] Ny Only - [facility] [address] [place] [address], [address], 02/14/2024 12:16:28 02/15/2024 CT rad therapy pelvis TP 3mm completed INTERFACE Sc Only - [facility] Rad [address] [place] [address], [id number], 02/16/2024 17:28:27 06/28/2024 ir clinic visit completed INTERFACE Sc Only - [facility] Rad [address] [place] [address], [address], 06/29/2024 15:59:52 Procedure Notes None recorded. Medical Equipment None Reported. Allergies Allergen ID Allergen Name Allergen Category Reaction Reaction Severity Criticality Documentation Date Start Date Code Code System Note Provider Name and Address Organization Details Recorded Time 8631311 codeine medicatio n Not available Not available [...] and Address Organization Details Last Updated DateTime 180.34 cm 25.2 kg/m2 70801.2 2 g 96.7 [degF] 82 /min 20 /min 95 % 95 % 113 mm[Hg] 74 mm[Hg] Joanne Harvey [facility] 4 10:05:54 Date Recorded Body height Body mass index (BMI) Body weight Body temperature Heart rate Respiratory rate Oxygen saturation Oxygen saturation in Arterial blood by Pulse oximetry Systolic blood pressure Diastolic blood pressure Provider Name and Address Organization Details Last Updated DateTime 4 180.34 cm 25 kg/m2 03723.0 3 g 97 [degF] 98 /min 20 /min 97 % 97 % 117 mm[Hg] 85 mm[Hg] Joanne Harvey [facility] 4 10:13:17 Date Recorded Body height Body mass index (BMI) Body weight Body temperature Heart rate Oxygen saturation Oxygen saturation in Arterial blood by Pulse oximetry Systolic blood pressure Diastolic blood pressure Provider Name and Address Organization Details Last Updated DateTime 4 180.34 cm 25 kg/m2 76888.6 7 g 97.7 [degF] 63 /min 99 % 99 % 112 mm[Hg] 71 mm[Hg] Elver Calixto [facility] 4 09:57:56 Date Recorded Body height Body mass index (BMI) Body weight Body temperature Heart rate Respiratory rate Oxygen saturation Oxygen saturation in Arterial blood by Pulse oximetry Systolic blood pressure Diastolic blood pressure Provider Name and Address Organization Details Last Updated DateTime 4 180.34 cm 23.4 kg/m2 23922.5 2 g 97.6 [degF] 66 /min 18 /min 97 % 97 % 104 mm[Hg] 70 mm[Hg] Sallie Patelie [facility] 4 09:56:39 Social History Question Answer Notes LastModified by Organizat ion Details LastModified Time Tobacco Smoking Status Current Every Day Smoker Sallie Patelie [facility] 02/08/2024 09:57:19 How Many Packs Per Day (PPD)? 1 [email or web address] Information not available 10/14/2023 How Long Have You Smoked? 50 [email or web address] Information not available 10/14/2023 Sex: Unknown Functional Status None recorded. Mental Status None recorded. Family History Nothing Reported. Medical History No medical history recorded. Past Encounters Encounter ID Performer Location Encounter Start Date Encounter Closed Date Diagnosis/Indication Diagnosis SNOMED-CT Code Diagnosis ICD10 Code Diagnosis Note [id number] MD Sherita Monzontigre [facility] [place] [address] [place] [address] 1 10/14/2023 10:29:35 11/02/2023 09:10:53 Carcinoma of prostate 382028966 C61 Malignant tumor of rectum 236589513 C20 [id number] Eddie reynolds MD [facility] ([place] [address] [place] [address] 1 11/02/2023 11:55:49 11/02/2023 14:08:15 [id number] Pj Cherry MD [facility] [place] [address] [place] [address] 1 11/10/2023 09:36:35 11/10/2023 10:32:15 [id number] [facility] [address] [place] [address] 1 11/17/2023 09:29:55 11/17/2023 10:28:06 [id number] Pj Cherry MD [facility] [place] [address] [place] [address] 1 11/24/2023 09:23:05 11/24/2023 12:11:38 [id number] [facility] [address] [place] [address] 1 12/01/2023 09:16:20 12/01/2023 10:20:01 [id number] [facility] [address] [place] [address] 1 02/08/2024 09:21:44 02/09/2024 12:00:56 [id number] MD [facility] [address] [place] [address] 03/13/2024 15:37:27 03/13/2024 16:06:16 Adenocarcinoma of prostate 007377512 C61 Health Concerns Section Related Observation LastModified by Organization Detai ls LastModified Time None Recorded Concern Status LastModified by Organization Details LastModified Time None Recorded Advance Directives Directive None Recorded Payers Encounter Date Sequence Insurance Name Policy Number Policy Singletary Covered Member ID Singletary Member ID Guarantor Name 11/17/2023 1 [facility] (MEDICAID REPLACEMENT - HMO) [id number] Roberto E [place] [id number] Roberto E [place] 11/17/2023 3 [place] [facility] [place] Roberot E Jose [id number] Roberto E [place] 11/24/2023 1 [facility] (MEDICAID REPLACEMENT - HMO) [id number] Roberto E Jose [id number] Roberto E Jose 11/24/2023 3 [place] [facility] [place] Roberto E Jose [id number] Roberto E Jose 12/01/2023 1 [facility] (MEDICAID REPLACEMENT - HMO) [id number] Roberto E [place] [id number] Roberto E [place] 12/01/2023 3 [place] [facility] [place] Roberto E Jose [id number] Roberto E [place] 02/08/2024 3 [place] [place] [facility] [place] Roberto E [place] [id number] Roberto E [place] 03/13/2024 1 [place] Roberto Garcia [id number] Roberto Chun [place] 03/13/2024 2 [facility] (MEDICARE SUPPLEMENT) Roberto Garcia [id number] Roberto Garcia Notes Date Note Type Note Provider Name and Address Organization Details Recorded Time 4 text/html Identifying InformationCastleview HospitalMr. 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 [...] 01/11/2023. CT chest lung screening protocol at [facility] was performed with radiology interpretation of small [...] recommended a prostate biopsy. 03/18/2023: Colonoscopy at [facility] was performed. Specimen [id number] associated with colon descending polyp biopsy, tubular [...] ng/mL. 04/21/2023: CT abdomen and pelvis at [facility] resulted circumferential wall thickening of rectum, likely [...] is mild prostatomegaly. 04/21/2023: MRI pelvis at [facility] was performed with radiology interpretation of a [...] mesorectal lymph nodes. 05/06/2023: MRI pelvis at [facility] was performed with radiology interpretation of PI-RADS [...] additional imaging for staging.05/25/2023: CT chest at [facility] was performed with radiology interpretation of no CT evidence of metastatic disease in the chest, no mediastinal or hilar lymphadenopathy. There is a prominent 8 mm portal caval lymph node, for which continued attention on follow up was recommended.06/21/2023: PSA 15.51 ng/mL.06/21/2023: Truss biopsy with Dr. Nails, specimen [id number] resulted prostate adenocarcinoma, Kavitha grade 3+4=7, corresponding [...] Justin in Urology.08/26/2023: PSMA PET [facility] at [facility] was performed with radiology interpretation of [...] any n/v or cramping. Pj Cherry MD [address] [place] [address], [phone], [place] [facility] 11/17/2023 10:21:48 4 text/html Identifying InformationCastleview HospitalMr. Garcia is a 63-year-old male with [...] adenocarcinoma with seminal vesicle invasion, clinical stage [id number], K[place]ith[place] 3+4=7, grade group 2, highest PSA [...] 01/11/2023. CT chest lung screening protocol at [facility] was performed with radiology interpretation of small [...] recommended a prostate biopsy. 03/18/2023: Colonoscopy at [facility] was performed. Specimen [id number] associated with colon descending polyp biopsy, tubular [...] ng/mL. 04/21/2023: CT abdomen and pelvis at [facility] resulted circumferential wall thickening of rectum, likely [...] is mild prostatomegaly. 04/21/2023: MRI pelvis at [facility] was performed with radiology interpretation of a [...] mesorectal lymph nodes. 05/06/2023: MRI pelvis at [facility] was performed with radiology interpretation of PI-RADS [...] additional imaging for staging.05/25/2023: CT chest at [facility] was performed with radiology interpretation of no CT evidence of metastatic disease in the chest, no mediastinal or hilar lymphadenopathy. There is a prominent 8 mm portal caval lymph node, for which continued attention on follow up was recommended.06/21/2023: PSA 15.51 ng/mL.06/21/2023: Truss biopsy with Dr. Nails, specimen [id number] resulted prostate adenocarcinoma, [place] grade 3+4=7, corresponding with grade group 2, [...] [facility] in Urology.08/26/2023: PSMA PET [facility] at [facility] was performed with radiology interpretation of [...] Imodium regularly. Pj Cherry MD [address] [facility], [place], [address], [place] [facility] 11/24/2023 11:22:25 4 text/html [facility] Mr[facility] Garcia is a 63-year-old [...] adenocarcinoma with seminal vesicle invasion, clinical stage E2nJ5A4, Kavith[place] 3+4=7, grade group 2, highest PSA [...] 01/11/2023. CT chest lung screening protocol at [facility] was performed with radiology interpretation of small [...] recommended a prostate biopsy. 03/18/2023: Colonoscopy at [facility] was performed. Specimen [id number] associated with colon descending polyp biopsy, tubular [...] ng/mL. 04/21/2023: CT abdomen and pelvis at [facility] resulted circumferential wall thickening of rectum, likely [...] is mild prostatomegaly. 04/21/2023: MRI pelvis at [facility] was performed with radiology interpretation of a [...] mesorectal lymph nodes. 05/06/2023: MRI pelvis at [facility] was performed with radiology interpretation of PI-RADS [...] additional imaging for staging.05/25/2023: CT chest at [facility] was performed with radiology interpretation of no CT evidence of metastatic disease in the chest, no mediastinal or hilar lymphadenopathy. There is a prominent 8 mm portal caval lymph node, for which continued attention on follow up was recommended.06/21/2023: PSA 15.51 ng/mL.06/21/2023: Truss biopsy with Dr. Nails, specimen [id number] resulted prostate adenocarcinoma, [place] grade 3+4=7, corresponding with grade group 2, [...] [facility] in Urology.08/26/2023: PSMA PET [facility] at [facility] was performed with radiology interpretation of [...] this week. Pj Cherry MD [address] [facility], [place], [address], [place] [facility] 12/01/2023 11:01:07 4 text/html Identifying Information:Synchronize primary [...] score of 9.jcb Patients Name: Roberto GarciaDOB: 79-10-2051Lyn: 64 Oncologic History: Oncology Radiation History: Prior history of chemotherapy: {{yes* no}} Prior radiation therapy: {{yes* no}} If yes, answer the questions below. [facility]23-12/07/23Site: Rectum and Prostate Prior history of connective tissue disorder (i.e. Lupus, Scleroderma) {{yes no*}} Implanted Devices: {{yes no*}} Comments: Can Ge MD [address] [place] [address], [phone], [place] [facility] 02/09/2024 08:58:03 4 text/html Synchronize primary #1 [...] has no further concerns today. Willow Brown, ELECTROMECHANICAL INSPECTOR, SENIOR DATA ANALYST [address] [place] [address], [phone], [facility] 03/26/2024 16:47:10
--- OUTSIDE RECORDS SUMMARY | 2024-07-09 12:40 | XMS_ITS | Encounter Summary ---
Author Organization [facility] Address [facility] [place] [address] Care Team Providers Care Director Institution Name Role Phone Flaco Kelly MD Primary Care Provider [phone] Encounter Details Date Type Department Care Team (Late st Contact Info) Description 07/03/[address] [facility] [address] [place] [address] Eder Busby, PA [address] [place] [address] Social History Tobacco Use Types Packs/Day Years Used Date Smoking Tobacco: Unknown Sex and Gender Information Value Date Recorded Sex Assigned at Male 04/20/2024 8:37 AM ME[employer] Legal Sex Male 9:40 AM CDT Gender Identity Not on file Sexual Orientation Not on file documented as of this encounter Plan of Treatment Upcoming Encounters Date Type Department Care Team (Late st Contact Info) Description 09/03/2024 1:[address] [facility] [address] [place] [address] Sabrina Mujica FNP-BC [address] [place] [address] documented as of this encounter Results * (ABNORMAL) COMPREHENSIVE METABOLIC PANEL (07/03/2024 11:11 AM CDT) SODIUM S/P/B 137 136 - 145 MMOL/L 07/03/2024 11:52 AM CDT [facility] POTASSIUM S/P/B 3.4(L) 3.5 - 5.1 MMOL/L 07/03/2024 11:52 AM CDT [facility] CHLORIDE S/P/B 98 98 - 107 MMOL/L 07/03/2024 11:52 AM T [facility] CO2 33.9(H) 21.0 - 32.0 MMOL/L 07/03/2024 11:52 AM CDT [facility] GLUCOSE 111(H) 70 - 99 MG/DL 07/03/2024 11:52 AM T [facility] Comment: FASTING GLUCOSE 100 TO 125 MG/DL IS CONSISTENT WITH IMPAIRED FASTING GLUCOSE. FASTING GLUCOSE >125 MG/DL IS CONSISTENT WITH DIABETES. RANDOM GLUCOSE >200 MG/DL WITH HYPERGLYCEMIC SYMPTOMS IS CONSISTENT WITH DIABETES. PER ADA GUIDELINES BUN 11 6 - 24 MG/DL 07/03/2024 11:52 AM T [facility] CREATININE S/P/B 0.69(L) 0.70 - 1.30 MG/DL 07/03/2024 11:52 AM T [facility] CALCIUM S/P/B 8.6 8.4 - 10.5 MG/DL 07/03/2024 11:52 AM T [facility] BILIRUBIN TOTAL S/P/B 0.3 0.2 - 1.0 MG/DL 07/03/2024 11:52 AM T [facility] Comment: THIS ASSAY IS NOT RECOMMENDED FOR PATIENTS UNDERGOING TREATMENT WITH ELTROMBOPAG DUE TO THE POTENTIAL FOR FALSELY ELEVATED RESULTS. ALKALINE PHOSPHATASE S/P/B 246(H) 45 - 115 U/L 07/03/2024 11:52 AM T [facility] AST 20 15 - 37 U/L 07/03/2024 11:52 AM T [facility] ALT 42 16 - 63 U/L 07/03/2024 11:52 AM T [facility] TOTAL PROTEIN S/P/B 7.2 6.4 - 8.2 G/DL 07/03/2024 11:52 AM T [facility] ALBUMIN S/P/B 3.4 3.4 - 5.0 G/DL 07/03/2024 11:52 AM CDT [facility] ANION GAP 5.1 5.0 - 15.0 MMOL/L 07/03/2024 11:52 AM CDT [facility] OSMOLALITY (CALC) 284 MOSM/KG 025 11:52 AM CDT [facility] Comment:REFERENCE RANGE NOT ESTABLISHED GFR ESTIMATE >90 >89 ML/MIN/1. 73 M2 07/03/2024 11:52 AM CDT [facility] GFR NOTES GFR REFERENCE S: 07/03/2024 11:52 AM CDT [facility] Comment: THE ESTIMATED GFR IS CALCULATED [...] AM CDT [facility] Final Result [facility] [address] [place] [address], * (ABNORMAL) CBC W/DIFF AUTOMATED (07/03/2024 11:11 AM CDT) WBC 4.29 4.00 - 10.80 x10'3/uL 07/03/2024 11:38 AM CDT [facility] RBC 4.18(L) 4.50 - 6.10 x10'6/uL 07/03/2024 11:38 AM CDT [facility] HGB 12.5(L) 13.0 - 18.0 G/DL 07/03/2024 11:38 AM CDT [facility] HCT 36.8(L) 37.0 - 52.0 % 07/03/2024 11:38 AM CDT [facility] MCV 88.0 78.0 - 100.0 FL 07/03/2024 11:38 AM CDT [facility] MCH 29.9 27.0 - 31.0 PG 07/03/2024 11:38 AM CDT [facility] MCHC 34.0 33.0 - 36.0 G/DL 07/03/2024 11:38 AM CDT [facility] RDW 13.1 11.5 - 14.5 % 07/03/2024 11:38 AM CDT [facility] PLT 247 150 - 350 x10'3/uL 07/03/2024 11:38 AM CDT [facility] MPV 9.4 7.4 - 10.4 FL 07/03/2024 11:38 AM CDT [facility] CBC COMMENT NORMAL REFERENCE RANGE NOT ESTABLISHED FOR THE PROPORTIONAL LEUKOCYTE DIFFERENTIAL. 07/03/2024 11:38 AM CDT [facility] NEUTROPHILS % 73.0 % 07/03/2024 11:38 AM CDT [facility] LYMPHOCYTES % 17.2 % 07/03/2024 11:38 AM CDT [facility] MONOCYTES % 6.5 % 07/03/2024 11:38 AM CDT [facility] EOSINOPHILS % 2.1 % 07/03/2024 11:38 AM CDT [facility] BASOPHILS % 0.5 % 07/03/2024 11:38 AM CDT [facility] IMMATURE GRANS % 0.7 % 07/04/19 11:38 AM CDT [facility] NRBC % 0.0 % 07/03/2024 11:38 AM CDT [facility] ABS. NEUTROPHILS 3.13 1.60 - 8.30 x10'3/uL 07/03/2024 11:38 AM CDT [facility] ABS. LYMPHOCYTES 0.74(L) 0.80 - 4.70 x10'3/uL 07/03/2024 11:38 AM CDT [facility] ABS. MONOCYTES 0.28 0.00 - 1.50 x10'3/uL 07/03/2024 11:38 AM CDT [facility] ABS. EOSINOPHILS 0.09 0.00 - 0.40 x10'3/uL 07/03/2024 11:38 AM CDT [facility] ABS. BASOPHILS 0.02 0.00 - 0.20 x10'3/uL 07/03/2024 11:38 AM CDT [facility] ABS. IMMATURE GRANULOCYTES 0.03 0.00 - 0.03 x10'3/uL 07/03/2024 11:38 AM CDT [facility] ABS. NUCLEATED RBC'S 0.00 0.00 - 0.01 x10'3/uL 07/03/2024 11:38 AM CDT [facility] 07/03/2024 11:1 1 AM CDT [facility] Final Result [place] [id number] [place] [address], documented in this encounter Visit Diagnoses Diagnosis Pre-op testing- Primary Preoperative examination, unspecified documented in this encounter Care Teams Director Institution Relationship Specialty Start Date End Date Flaco Kelly MD [address] [place] [address] [place] [address] PCP - General FAMILY PRACTICE 01/03/23 documented as of this encounter
== END 2024-07-09 10:56 | disposition home or self-care (01) ==
LOC: CHSLAB 10:56
PROVIDERS: PCP Family Medicine; Visit Provider Internal Medicine Hematology
DX: C20 Malignant neoplasm of rectum (principal)
CPT/HCPCS: 36415; 80053; 85025

== ENCOUNTER 2024-07-10 08:53 | Outpatient (CLI) | payer MEDICARE, MEDICAID, SELFPAY ==
[2024-07-10] MEDS: SODIUM CHLORIDE 0.9% IV 250 ML 10 ML IVPB (09:10)
[2024-07-10] MEDS: diphenhydrAMINE HCl INJ 50 MG/ML VIAL 25 MG IV PUSH (09:15)
[2024-07-10] MEDS: FAMOTIDINE 20 MG/2 ML VIAL IV PUSH (09:18)
[2024-07-10 09:19] VITALS: BMI 26.6
[2024-07-10] MEDS: ONDANSETRON INJ 16 MG, dexAMETHasone SOD 4 MG/ML INJ 12 MG in SODIUM CHLORIDE 0.9% IV 8... 300 MG IVPB (09:20)
--- OUTSIDE RECORDS SUMMARY | 2024-07-10 09:20 | XMS_ITS ---
Author Organization Unknown Address [address] [place] [address] [phone] Phone Care Team Providers Care Camera Tuning Engineer Name Role Phone ALBERT Pinedo Attending Unavailable [facility]RECEIVING CLERK Unavailable MANJIT Gould Primary Unavailable Immunization Immunization Date Status Additional Notes Code Code System Tdap 05/12/2021 Completed 115 CVX COVID-19, mRNA, LNP-S, PF, 3 0 mcg/0.3 mL dose 06/06/2020 Completed 208 CVX COVID-19, mRNA, LNP-S, PF, 3 0 mcg/0.3 mL dose 06/26/2020 Completed 208 CVX Social History Type Status Start Date End Date Code Code Syst em Smoking History Current every day smoker [id number] SNOMED CT Sex Male Vital Signs Vital Sign Value Unit [place] Value [place] Unit Date/Time Recent/Initial? Code Code System Body Mass Index 27.69 kg/m2 03/04/2023 13:59 Initial 68339 -5 LOINC Systolic Blood Pressure 130 mm[Hg] 03/18/2023 07:41 Initial 8480- 6 LOINC Diastolic Blood Pressure 72 mm[Hg] 03/18/2023 07:41 Initial 8462- 4 LOINC Body Surface Area 2.08 m2 03/04/2023 13:59 Initial 3140- 1 LOINC Height 177.800 0 cm 70.00 in 03/04/2023 13:59 Initial 8302- 2 LOINC O2 Saturation 98 % 2022 07:41 Initial 62854 -5 LOINC Pulse 100.0 /min 03/18/2023 07:41 Initial 8867- 4 LOINC Respiration 20 /min 03/18/20 07:41 Initial 9279- 1 LOINC Temperature 36.4 Jenna 97.5 F 12/15/20 23 07:41 Initial 8310- 5 LOINC Weight 87.54 kg 193.00 lbs 03/04/2023 13:59 Initial 25108 -7 LOINC Medications No Active Medications Hospital Discharge Instructions Should you have any questions prior to discharge, please contact a member of your healthcare team. If you have left the hospital and have any questions, please contact your primary care physician. Reason For Referral No Data Found Procedures Procedure Name Date Status Code Code Syste m Inguinal hernia completed [id number] SNOMEDCT Anesthesia for lower intesti nal endoscopic procedures, endoscope introduce 03/18/2023 completed 20636 CPT Colonoscopy, flexible; with removal of tumor(s), polyp(s), or other lesion 03/18/2023 completed 62405 CPT Allergies and Adverse Reactions Allergy Substance Reaction Severity Start Date Concern Status Co de Code System CODEINE Active 4869 RxNorm Plan of Treatment US Prostate Needle Biopsy 04/13/2023 Encounters Encounter Diagnosis Start Date Code Code Sys tem Encounter for screening for malignant neoplasm of colo n 03/18/2023 SNOMED-CT Personal Care Team Section Performer Name Performer Role Active Date Inactive MIGUELANGEL Fuller PCP - Primary care physician 2023-01-12
--- OUTSIDE RECORDS SUMMARY | 2024-07-10 09:20 | XMS_ITS | Clinical Summary ---
Author Organization [facility] Address [facility] [place] [address] Care Team Providers Care Radio Antenna Installer Name Role Phone Flaco Kelly MD Primary Care Provider Allergies Active Allergy Reactions Criticality Noted Date Comments Codeine Nausea Only 03/18/2023 Patient states it makes me sick as hell Medications No known medications Encounters Date Type Department Care Team Description 07/05/2024 Transcribe Orders [facility] Pre Access Team [address] [place] [address] Sabrina Mujica FNP- 07/03/2024 10:52 AM CDT - 07/03/2024 11:59 PM CDT Hospital Encounter [facility] [address] [place] [address] Eder Busby, PA Discharge Disposition: Home or Self Care (Routine Discharge) 07/03/2024 10:52 AM CDT - 07/03/2024 11:59 PM CDT Hospital Encounter [facility] [place] [address] Eder Busby PA Discharge Disposition: Home or Self Care (Routine Discharge) 07/03/2024 10:50 AM CDT - 07/03/2024 10:51 AM CDT Hospital Encounter [facility] [place] [address] Eder Busby PA Discharge Disposition: Home or Self Care (Routine Discharge) 07/03/[address] [facility] [place] [address] Eder Busby PA 07/03/2024 Travel 05/29/2024 10:55 AM BUSINESS MANAGEMENT SPECIALIST - 05/29/2024 11:59 PM BUSINESS MANAGEMENT SPECIALIST Hospital Encounter [facility] [address] [place] [address] Ziggy Renee MD Discharge Disposition: Home or Self Care (Routine Discharge) 05/29/2024 10:45 AM BUSINESS MANAGEMENT SPECIALIST - 05/29/2024 10:54 AM BUSINESS MANAGEMENT SPECIALIST Hospital Encounter [facility] [facility] [facility] [place] [address] Flaco Kelly MD Fisher, Kelli C, JULIANNE Discharge Disposition: Home or Self Care (Routine Discharge) 05/29/2024 Orders Only [facility] [address] [place], [place] [address] [address] Ziggy Renee MD 05/29/2024 Orders Only [facility] [address] [place] [address] [address] Aretha Hubbard NP 05/29/2024 Travel 04/26/2024 6:33 AM BUSINESS MANAGEMENT SPECIALIST - 04/26/2024 11:59 PM BUSINESS MANAGEMENT SPECIALIST Hospital Encounter [facility] [place] [address] Teddy Roman Sr., MD Discharge Disposition: Home or Self Care (Routine Discharge) 04/26/2024 Travel 04/20/2024 8:38 AM BUSINESS MANAGEMENT SPECIALIST - 04/20/2024 11:59 PM BUSINESS MANAGEMENT SPECIALIST Hospital Encounter [facility] [place] [address] Teddy Roman Sr., MD Discharge Disposition: Home or Self Care (Routine Discharge) 04/20/2024 Travel from Last 3 Months Social History Tobacco Use Types Packs/Day Years Used Date Smoking Tobacco: Unknown Tobacco Cessation:Counseling Given: Not Answered Sex and Gender Information Value Date Recorded Sex Assigned at Male 04/20/2024 8:37 AM BUSINESS MANAGEMENT SPECIALIST Legal Sex Male 9:40 AM CDT Gender Identity Not on file Sexual Orientation Not on file Last Filed Vital Signs Vital Sign Reading Time Taken Comments Blood Pressure 129/98 03/18/2023 3:56 PM BUSINESS MANAGEMENT SPECIALIST Pulse 98 03/18/2023 3:56 PM BUSINESS MANAGEMENT SPECIALIST Temperature 36.6 C (97.8 F) 03/18/2023 12:49 PM BUSINESS MANAGEMENT SPECIALIST Respiratory Rate 14 03/18/2023 3:56 PM BUSINESS MANAGEMENT SPECIALIST Oxygen Saturation 96% 03/18/2023 3:56 PM BUSINESS MANAGEMENT SPECIALIST Inhaled Oxygen Concentration - - Weight 85 kg (187 lb 8 oz) 03/18/2023 12:[address] Height 180.3 cm (5' 11 ) 03/18/2023 12:49 PM BUSINESS MANAGEMENT SPECIALIST Body Mass Index 26.15 03/18/2023 12:49 PM BUSINESS MANAGEMENT SPECIALIST Plan of Treatment Upcoming Encounters Date Type Department Care Team (Late st Contact Info) Description 09/03/2024 1:[address] [facility] [address] [place] [address] Sabrina Mujica FNP- [address] [place] [address] Health Maintenance Due Date Last [...] testing CARCINOEMBRYONIC ANTIGEN Routine 025 11:11 AM BUSINESS MANAGEMENT SPECIALIST Prostate cancer (CMS/HCC HHS/HCC) PROSTATE SPECIFIC ANTIGEN,TOTAL Routine 05/29/2024 11:11 AM BUSINESS MANAGEMENT SPECIALIST Malignant neoplasm of prostate (CMS/HCC HHS/HCC) HC TESTOSTERONE FREE-90 Routine 05/29/19 11:11 AM BUSINESS MANAGEMENT SPECIALIST Malignant neoplasm of prostate (CMS/HCC HHS/HCC) MRI ABD WWO CON STAT 04/26/2024 7:52 AM BUSINESS MANAGEMENT SPECIALIST Hepatic disease CT CHEST+ABD W CON Routine 04/20/2024 9: 15 AM BUSINESS MANAGEMENT SPECIALIST Rectal cancer (CMS/HCC HHS/HCC) from Last 3 Months Results * ECG 12 lead (07/03/2024 11:20 AM CDT) 07/03/2024 11:2 0 AM CDT Narrative [facility] - 07/04/2024 3:28 PM CDT [address] [place] [address] Test Date: 2024-07-03 Pat Name: ROBERTO GARCIA Department: 3 Room: Gender: Male Hand I Blocker: : 1960 Requested By: EDER BUSBY Order Number: [id number] Reading MD: Obdulio Cooper Measurements Intervals Leonard Rate: 63 P: 64 DE: 160 QRS: 85 QRSD: 103 T: 64 QT: 427 QTc: 439 Interpretive Statements SINUS RHYTHM Poor R Wave Progression Procedure Note Obdulio Cooper MD - 07/04/[address] [place] [address] Test Date: 2024-07-03 Pat Name: ROBERTO GARCIA Department: 3 Room: Gender: Male Hand I Blocker: : 1960 Requested By: EDER BUSBY Order Number: [id number] Reading MD: Obdulio Cooper Measurements Intervals Leonard Rate: 63 P: 64 DE: 160 QRS: 85 QRSD: 103 T: 64 QT: 427 QTc: 439 Interpretive Statements SINUS RHYTHM Poor R Wave Progression us Eder MORRISON ECG ORDERABLES Final Result [facility] * (ABNORMAL) COMPREHENSIVE METABOLIC PANEL (07/03/2024 11:11 AM CDT) SODIUM S/P/B 137 136 - 145 MMOL/L 07/03/2024 11:52 AM CDT [facility] POTASSIUM S/P/B 3.4(L) 3.5 - 5.1 MMOL/L 07/03/2024 11:52 AM CDT [facility] CHLORIDE S/P/B 98 98 - 107 MMOL/L 07/03/2024 11:52 AM CDT [facility] CO2 33.9(H) 21.0 - 32.0 MMOL/L 07/03/2024 11:52 AM CDT [facility] GLUCOSE 111(H) 70 - 99 MG/DL 07/03/2024 11:52 AM CDT [facility] Comment: FASTING GLUCOSE 100 TO 125 MG/DL IS CONSISTENT WITH IMPAIRED FASTING GLUCOSE. FASTING GLUCOSE >125 MG/DL IS CONSISTENT WITH DIABETES. RANDOM GLUCOSE >200 MG/DL WITH HYPERGLYCEMIC SYMPTOMS IS CONSISTENT WITH DIABETES. PER ADA GUIDELINES BUN 11 6 - 24 MG/DL 07/03/2024 11:[facility]AT[facility] S/P/B 0.69(L) 0.70 - 1.30 MG/DL 07/03/2024 11:52 AM [facility] CALCIUM S/P/B 8.6 8.4 - 10.5 MG/DL 07/03/2024 11:52 AM [facility] BILIRUBIN TOTAL S/P/B 0.3 0.2 - 1.0 MG/DL 07/03/2024 11:52 AM [facility] Comment: THIS ASSAY IS NOT RECOMMENDED FOR PATIENTS UNDERGOING TREATMENT WITH ELTROMBOPAG DUE TO THE POTENTIAL FOR FALSELY ELEVATED RESULTS. ALKALINE PHOSPHATASE S/P/B 246(H) 45 - 115 U/L 07/03/2024 11:52 AM [facility] AST 20 15 - 37 U/L 07/03/2024 11:52 AM [facility] ALT 42 16 - 63 U/L 07/03/2024 11:52 AM [facility] TOTAL PROTEIN S/P/B 7.2 6.4 - 8.2 G/DL 07/03/2024 11:52 AM [facility] ALBUMIN S/P/B 3.4 3.4 - 5.0 G/DL 07/03/2024 11:52 AM [facility] ANION GAP 5.1 5.0 - 15.0 MMOL/L 07/03/2024 11:52 AM [facility] OSMOLALITY (CALC) 284 MOSM/KG 025 11:52 AM [facility] Comment:REFERENCE RANGE NOT ESTABLISHED GFR ESTIMATE >90 >89 ML/MIN/1. 73 M2 07/03/2024 11:52 AM [facility] GFR NOTES GFR REFERENCE S: 07/03/2024 11:52 AM [facility] Comment: THE ESTIMATED GFR IS [...] AM CDT Eder MORRISON LABORATORY Final Result [facility] [address] [place] [address], * (ABNORMAL) CBC W/DIFF AUTOMATED (07/03/2024 11:11 AM CDT) WBC 4.29 4.00 - 10.80 x10'3/uL 07/03/2024 11:38 AM CDT [facility] RBC 4.18(L) 4.50 - 6.10 x10'6/uL 07/03/2024 11:38 AM CDT [facility] HGB 12.5(L) 13.0 - 18.0 G/DL 07/03/2024 11:38 AM CDT [facility] HCT 36.8(L) 37.0 - 52.0 % 07/03/2024 11:38 AM CDT [facility] MCV 88.0 78.0 - 100.0 FL 07/03/2024 11:38 AM CDT [facility] MCH 29.9 27.0 - 31.0 PG 07/03/2024 11:38 AM CDT [facility] MCHC 34.0 33.0 - 36.0 G/DL 07/03/2024 11:38 AM CDT [facility] RDW 13.1 11.5 - 14.5 % 07/03/2024 11:38 AM CDT [facility] PLT 247 150 - 350 x10'3/uL 07/03/2024 11:38 AM CDT [facility] MPV 9.4 7.4 - 10.4 FL 07/03/2024 11:38 AM CDT [facility] CBC COMMENT NORMAL REFERENCE RANGE NOT ESTABLISHED FOR THE PROPORTIONAL LEUKOCYTE DIFFERENTIAL. 07/03/2024 11:38 AM CDT [facility] NEUTROPHILS % 73.0 % 07/03/2024 11:38 AM CDT [facility] LYMPHOCYTES % 17.2 % 07/03/2024 11:38 AM CDT [facility] MONOCYTES % 6.5 % 07/03/2024 11:38 AM CDT [facility] EOSINOPHILS % 2.1 % 07/03/2024 11:38 AM CDT [facility] BASOPHILS % 0.5 % 07/03/2024 11:38 AM CDT [facility] IMMATURE GRANS % 0.7 % 07/04/19 11:38 AM CDT [facility] NRBC % 0.0 % 07/03/2024 11:38 AM CDT [facility] ABS. NEUTROPHILS 3.13 1.60 - 8.30 x10'3/uL 07/03/2024 11:38 AM CDT [facility] ABS. LYMPHOCYTES 0.74(L) 0.80 - 4.70 x10'3/uL 07/03/2024 11:38 AM CDT [facility] ABS. MONOCYTES 0.28 0.00 - 1.50 x10'3/uL 07/03/2024 11:38 AM CDT [facility] ABS. EOSINOPHILS 0.09 0.00 - 0.40 x10'3/uL 07/03/2024 11:38 AM CDT [facility] ABS. BASOPHILS 0.02 0.00 - 0.20 x10'3/uL 07/03/2024 11:38 AM CDT [facility] ABS. IMMATURE GRANULOCYTES 0.03 0.00 - 0.03 x10'3/uL 07/03/2024 11:38 AM CDT [facility] ABS. NUCLEATED RBC'S 0.00 0.00 - 0.01 x10'3/uL 07/03/2024 11:38 AM CDT [facility] 07/03/2024 11:1 1 AM CDT Eder MORRISON LABORATORY Final Result [facility] [address] [place] [address], * XR CHEST PA+LAT (07/03/2024 11:00 AM CDT) Anatomical Region Laterality Modality Chest Radiographic Cyndi ging 07/03/2024 11:2 4 AM CDT Impressions 07/03/2024 11:26 AM CDT IMPRESSION: No significant change. No acute disease. Ordered By: EDER BUSBY Interpreted By: Unruly Allan MD, 07/03/2024 11:24 AM Narrative 07/03/2024 11:26 AM CDT [address] [place] [address] Examination: Two-view chest Exam time: 1038 hours. [...] Procedure Note Unruly Allan MD - 07/03/[address] [place] [address] Examination: Two-view chest Exam time: 1038 hours. [...] Allan MD, 07/03/2024 11:24 AM Eder Busby [place] [facility]AL IM[facility] Final Result * (ABNORMAL) TESTOSTERONE, FREE & TOTAL (05/29/2024 11:11 AM BUSINESS MANAGEMENT SPECIALIST) TESTOSTERONE TOTAL 88(L) 250 - 1,100 ng/dL 06/04/2024 3:31 PM BUSINESS MANAGEMENT SPECIALIST [employer] Comment: Men with clinically significant hypogonadal symptoms and testosterone values repeatedly in the range of the 200-300 ng/dL or less, may benefit from testosterone treatment after adequate risk and benefits counseling. For additional information, please refer to http://education.Ameristream/faq/ DvvysDtmehjcvgimlUTWYNCKIR832 (This link is being provided for informational/ educational purposes only.) This test was developed and its analytical performance characteristics have been determined by [employer] [place], [place]. It has not been cleared or approved by the U.S. Food and Drug Administration. This assay has been validated pursuant to the CLIA regulations and is used for clinical purposes. TESTOSTERONE FREE 6.1(L) 35.0 - 155.0 pg/mL 06/04/2024 3:31 PM BUSINESS MANAGEMENT SPECIALIST [facility] Comment: This test was developed and its analytical performance characteristics have been determined by [employer] [place], [place]. It has not been cleared or approved by the U.S. Food and Drug Administration. This assay has been validated pursuant to the CLIA regulations and is used for clinical purposes. Test Performed by [facility], [facility] [place], [address] [place] [address] Jean Carlos Carter M.D., Ph.D., Director of Laboratories , CLIA [id number] 05/29/2024 11:1 1 AM BUSINESS MANAGEMENT SPECIALIST us Aretha Hubbard NP LABORATORY Final Result [facility] [address] [place], [place] , [place] [phone] * PROSTATE SPECIFIC ANTIGEN, DIAG (05/29/2024 11:11 AM BUSINESS MANAGEMENT SPECIALIST) PSA <0.13 <4.00 NG/ML 05/29/2024 11:51 AM BUSINESS MANAGEMENT SPECIALIST [facility] 05/29/2024 11:1 1 AM BUSINESS MANAGEMENT SPECIALIST us Aretha Hubbard NP LABORATORY Final Result Performing Organization Address City/[facility]/ZIP Co de Phone Number [facility] [address] [place] [address], [place] [phone] * (ABNORMAL) CARCINOEMBRYONIC ANTIGEN (05/29/2024 11:11 AM BUSINESS MANAGEMENT SPECIALIST) CEA 9.9(H) 0.0 - 5.0 NG/ML 05/29/2024 7:14 PM BUSINESS MANAGEMENT SPECIALIST [facility] Comment: ASSAY PERFORMED BY CHEMILUMINESCENCE METHODOLOGY USING SIEMENS DIM[employer]ION VISTA REAGENT. PATIENT RESULTS DETERMINED BY ASSAYS USING DIFFERENT MANUFACTURERS FOR METHODS MAY NOT BE COMPARABLE. 05/29/2024 11:1 1 AM BUSINESS MANAGEMENT SPECIALIST us Ziggy Renee MD LABORATORY Final Result [facility] [address] [place] [address], [place] [phone] [id number] * MRI ABD WWO CON (04/26/2024 7:52 AM BUSINESS MANAGEMENT SPECIALIST) Anatomical Region Laterality Modality Abdomen Magnetic Resonan ce 04/26/2024 1:22 PM BUSINESS MANAGEMENT SPECIALIST Impressions 04/26/2024 1:27 PM BUSINESS MANAGEMENT SPECIALIST IMPRESSION: 1. 19 MM IN DIAMETER FOCAL LESION POSTERIOR SEGMENT RIGHT LOBE OF LIVER CORRESPONDS WITH THE ABNORMALITY NOTED ON CT. THIS IS FELT TO BE SUSPICIOUS FOR METASTATIC DISEASE. NO OTHER SIGNIFICANT ABNORMALITY. Signed: Aristeo Plummer MD Referred By: TEDDY ROMAN SR Interpreted By: Aristeo Plummer MD, 04/26/2024 1:22 PM Narrative 04/26/2024 1:27 PM BUSINESS MANAGEMENT SPECIALIST [place] [address] [facility] [place] [address] PATIENT NAME: ROBERTO GARCIA EXAM: MRI of [...] Procedure Note Aristeo Plummer MD - 04/26/2024 [facility] [address] [place] [address] PATIENT NAME: ROBERTO GARCIA EXAM: MRI of [...] CT CHEST+ABD W CON (04/20/2024 9:15 AM BUSINESS MANAGEMENT SPECIALIST) Anatomical Region Laterality Modality Chest, Abdomen Computed Tomogra phy 04/24/2024 5:53 AM BUSINESS MANAGEMENT SPECIALIST Impressions 04/24/2024 6:00 AM BUSINESS MANAGEMENT SPECIALIST Impression: A 15 mm low-density nodule in [...] 04/24/2024 5:53 AM Narrative 04/24/2024 6:00 AM BUSINESS MANAGEMENT SPECIALIST [address] [place] [address] Examination: CT CHEST+ABD W [facility] Exam time: 04/20/2024 9:05 AM Clinical Information: [...] Procedure Note Cleve Etienne MD - 04/24/[address] [place] [address] Examination: CT CHEST+ABD W CON Exam time: [...] Months Insurance MEDICARE MEDICAID ROGERIO Care Teams Radio Antenna Installer Relationship Specialty Start Date End Date Flaco Kelly MD [facility] [place] [address] PCP - General FAMILY PRACTICE 01/03/23
--- OUTSIDE RECORDS SUMMARY | 2024-07-10 09:20 | XMS_ITS | Encounter Summary ---
Author Organization [facility] Address [facility] [place] [address] Care Team Providers Care Business Analyst Manager Name Role Phone Flaco Kelly MD Primary Care Provider Encounter Details Date Type Department Care Team (Late st Contact Info) Description 07/03/[address] [facility] [address] [place] [address] Eder Busby, PA [address] [place] [id number] Social History Tobacco Use Types Packs/Day Years Used Date Smoking Tobacco: Unknown Sex and Gender Information Value Date Recorded Sex Assigned at Male 04/20/2024 8:37 AM [employer] Legal Sex Male 9:40 AM CDT Gender Identity Not on file Sexual Orientation Not on file documented as of this encounter Plan of Treatment Upcoming Encounters Date Type Department Care Team (Late st Contact Info) Description 09/03/2024 1:[address] [facility] [address] [place] [address] Sabrina Mujica FNP-BC [address] [place] [address] documented as of this encounter Results * (ABNORMAL) COMPREHENSIVE METABOLIC PANEL (07/03/2024 11:11 AM CDT) SODIUM S/P/B 137 136 - 145 MMOL/L 07/03/2024 11:52 AM CDT [facility] POTASSIUM S/P/B 3.4(L) 3.5 - 5.1 MMOL/L 07/03/2024 11:52 AM CDT [facility] CHLORIDE S/P/B 98 98 - 107 MMOL/L 07/03/2024 11:52 AM T [facility] CO2 33.9(H) 21.0 - 32.0 MMOL/L 07/03/2024 11:52 AM CDT [facility] GLUCOSE 111(H) 70 - 99 MG/DL 07/03/2024 11:52 AM T [facility] Comment: FASTING GLUCOSE 100 TO 125 MG/DL IS CONSISTENT WITH IMPAIRED FASTING GLUCOSE. FASTING GLUCOSE >125 MG/DL IS CONSISTENT WITH DIABETES. RANDOM GLUCOSE >200 MG/DL WITH HYPERGLYCEMIC SYMPTOMS IS CONSISTENT WITH DIABETES. PER ADA GUIDELINES BUN 11 6 - 24 MG/DL 07/03/2024 11:52 AM T [facility] CREATININE S/P/B 0.69(L) 0.70 - 1.30 MG/DL 07/03/2024 11:52 AM T [facility] CALCIUM S/P/B 8.6 8.4 - 10.5 MG/DL 07/03/2024 11:52 AM T [facility] BILIRUBIN TOTAL S/P/B 0.3 0.2 - 1.0 MG/DL 07/03/2024 11:52 AM T [facility] Comment: THIS ASSAY IS NOT RECOMMENDED FOR PATIENTS UNDERGOING TREATMENT WITH ELTROMBOPAG DUE TO THE POTENTIAL FOR FALSELY ELEVATED RESULTS. ALKALINE PHOSPHATASE S/P/B 246(H) 45 - 115 U/L 07/03/2024 11:52 AM T [facility] AST 20 15 - 37 U/L 07/03/2024 11:52 AM T [facility] ALT 42 16 - 63 U/L 07/03/2024 11:52 AM T [facility] TOTAL PROTEIN S/P/B 7.2 6.4 - 8.2 G/DL 07/03/2024 11:52 AM T [facility] ALBUMIN S/P/B 3.4 3.4 - 5.0 G/DL 07/03/2024 11:52 AM CDT [facility] ANION GAP 5.1 5.0 - 15.0 MMOL/L 07/03/2024 11:52 AM CDT [facility] OSMOLALITY (CALC) 284 MOSM/KG 025 11:52 AM CDT [facility] Comment:REFERENCE RANGE NOT ESTABLISHED GFR ESTIMATE >90 >89 ML/MIN/1. 73 M2 07/03/2024 11:52 AM CDT [facility] GFR NOTES GFR REFERENCE S: 07/03/2024 11:52 AM CDT [facility] Comment: THE ESTIMATED GFR IS CALCULATED [...] AM CDT [facility] Final Result [facility] [address] [employer] [place] [address], * (ABNORMAL) CBC W/DIFF AUTOMATED (07/03/2024 11:11 AM CDT) WBC 4.29 4.00 - 10.80 x10'3/uL 07/03/2024 11:38 AM CDT [facility] RBC 4.18(L) 4.50 - 6.10 x10'6/uL 07/03/2024 11:38 AM CDT [facility] HGB 12.5(L) 13.0 - 18.0 G/DL 07/03/2024 11:38 AM CDT [facility] HCT 36.8(L) 37.0 - 52.0 % 07/03/2024 11:38 AM CDT [facility] MCV 88.0 78.0 - 100.0 FL 07/03/2024 11:38 AM CDT [facility] MCH 29.9 27.0 - 31.0 PG 07/03/2024 11:38 AM CDT [facility] MCHC 34.0 33.0 - 36.0 G/DL 07/03/2024 11:38 AM CDT [facility] RDW 13.1 11.5 - 14.5 % 07/03/2024 11:38 AM CDT [facility] PLT 247 150 - 350 x10'3/uL 07/03/2024 11:38 AM CDT [facility] MPV 9.4 7.4 - 10.4 FL 07/03/2024 11:38 AM CDT [facility] CBC COMMENT NORMAL REFERENCE RANGE NOT ESTABLISHED FOR THE PROPORTIONAL LEUKOCYTE DIFFERENTIAL. 07/03/2024 11:38 AM CDT [facility] NEUTROPHILS % 73.0 % 07/03/2024 11:38 AM CDT [facility] LYMPHOCYTES % 17.2 % 07/03/2024 11:38 AM CDT [facility] MONOCYTES % 6.5 % 07/03/2024 11:38 AM CDT [facility] EOSINOPHILS % 2.1 % 07/03/2024 11:38 AM CDT [facility] BASOPHILS % 0.5 % 07/03/2024 11:38 AM CDT [facility] IMMATURE GRANS % 0.7 % 07/04/19 11:38 AM CDT [facility] NRBC % 0.0 % 07/03/2024 11:38 AM CDT [facility] ABS. NEUTROPHILS 3.13 1.60 - 8.30 x10'3/uL 07/03/2024 11:38 AM CDT [facility] ABS. LYMPHOCYTES 0.74(L) 0.80 - 4.70 x10'3/uL 07/03/2024 11:38 AM CDT [facility] ABS. MONOCYTES 0.28 0.00 - 1.50 x10'3/uL 07/03/2024 11:38 AM CDT [facility] ABS. EOSINOPHILS 0.09 0.00 - 0.40 x10'3/uL 07/03/2024 11:38 AM CDT [facility] ABS. BASOPHILS 0.02 0.00 - 0.20 x10'3/uL 07/03/2024 11:38 AM CDT [facility] ABS. IMMATURE GRANULOCYTES 0.03 0.00 - 0.03 x10'3/uL 07/03/2024 11:38 AM CDT [facility] ABS. NUCLEATED RBC'S 0.00 0.00 - 0.01 x10'3/uL 07/03/2024 11:38 AM CDT [facility] 07/03/2024 11:1 1 AM CDT [facility] Final Result [place] [id number] [place] [address], documented in this encounter Visit Diagnoses Diagnosis Pre-op testing- Primary Preoperative examination, unspecified documented in this encounter Care Teams Business Analyst Manager Relationship Specialty Start Date End Date Flaco Kelly MD [address] [place] [address] [place] [address] PCP - General [facility] 01/03/23 documented as of this encounter
[2024-07-10 09:41] VITALS: BP 120/75; PULSE 70; RESP 14; TEMP 36.6; O2SAT 97
[2024-07-10] MEDS: ATROPINE SULFATE 0.4 MG/ML VIAL IV PUSH (09:50)
[2024-07-10] MEDS: IRINOTECAN HCL IVPB (09:55)
[2024-07-10] MEDS: SODIUM CHLORIDE 0.9% IVPB ×2 (09:55→11:27)
[2024-07-10] MEDS: LEUCOVORIN CALCIUM 800 MG in SODIUM CHLORIDE 0.9% IV 210 ML 166.67 MG IVPB (09:56)
[2024-07-10] MEDS: FLUOROURACIL 2,500 MG/50 ML VIAL 800 MG IV PUSH (11:26)
[2024-07-10] MEDS: FLUOROURACIL IVPB (11:27)
[2024-07-10 12:14] VITALS: BP 120/66; PULSE 78; RESP 14; O2SAT 97
--- NOTE | 2024-07-10 12:16 | PC.NURSE ---
Patient tolerated chemo treatment well. Will go home with 5 Fu infusion pump for next 48 hours. Education given. Chemo spill kit and explained. All concerns voiced answered. SEE MAR and patient care notes.
[2024-07-12] MEDS: HEPARIN SODIUM LOCK FLUSH 500 UNITS/5 ML SYRINGE IV PUSH (11:39)
--- NOTE | 2024-07-12 11:40 | PC.NURSE ---
Back for chemo pump removal. Education given. Tolerated chemo pump removal well.
[2024-07-12 11:41] VITALS: BP 111/63; PULSE 60; RESP 16; O2SAT 97
== END 2024-07-10 08:54 | disposition home or self-care (01) ==
PROVIDERS: PCP Family Medicine; Visit Provider Internal Medicine Hematology
DX: Z51.11 Encounter for antineoplastic chemotherapy (principal); C20 Malignant neoplasm of rectum
CPT/HCPCS: 96367; 96375; 96411; 96413; 96416; 96417; J0461; J1100; J1200; J2405; J7050; J9190; J9206

== ENCOUNTER 2024-08-09 10:56 | Outpatient (CLI) | payer MEDICARE, SELFPAY ==
--- OUTSIDE RECORDS SUMMARY | 2024-08-09 11:14 | XMS_ITS | Data Portability ---
Author Organization [facility], [address] [facility] ([place]) Address [address] [address] Care Team Providers Care Brazer Induction Name Role Phone TRAVIS RATLIFF Medical Oncologist TEDDY ROMAN Colorectal Surgeon TRAVIS JUSTIN Urologist [phone] ABNER CHERRY Radiation Oncologist Assessment Encounter Date Assessment Date Assessment LastModified by Organization Details LastModified Time 12/01/2023 12/01/2023 A: Tolerating we ll P: Continue with RT Skin care as discussed F/U form provided and instsructions. [email or web address] Not available 12/01/2023 10:06:08 02/08/2024 02/08/2024 Impressions: [...] general side effects. Patient was provided an [facility] radiation therapy folder that includes general information on RT and skin care, contact information, a helpful links worksheet, [facility] support group information and a [...] He prefers to have labs drawn in [place]. Continue f/u with med/onc. I personally spent a total of 15 minutes on the phone with patient on this date of service having a direct medical discussion. [email or web address] Not available 03/26/2024 16:46:27 06/12/2024 06/12/2024 Impressions: This is a 64-year-old gentleman with synchronous primary. 1. 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 His PSA now is 0.013. he had been on 6 months Lupron, which he did recently receive again and abiraterone and prednisone which are being held at this time. 2. 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 Plan: 1. Follow up with Radiation Oncology in 3 months. 2. Follow up with Dr. Ratliff as coordinated and directed. 3. Follow up with Dr. Roman. 4. Continue with appointment with Dr. Machado in July. 5. Continue with health lifestyle, proper nutrition and exercise as able. I personally spent a total of 20 minutes on the phone on the patient on this date of service including both zjmw-sz-cndh and rko-xebm-az-face time, excluding any separately reportable services. ADDENDUM: I did talk with Dr. Ratliff who notes that he will present patient on Colorectal Tumor Board on 06/14/2024. Patient is aware. [facility] Education: Not available 06/12/2024 19:10:33 08/06/2024 08/06/2024 ASSESSMENT/PLAN: 1. Stage IV rectal cancer, ARMEN stable. It is KRAS mutated and even the PIK3CA mutation is positive. Patient was originally diagnosed as a stage III (T3N2) ARMEN stable distal rectal cancer. He has been treated with total neoadjuvant chemotherapy followed by long chemoradiation that he completed on December 07, 2023. Followup imaging studies, MRI on April 26, 2024 showed a 19 mm lesion in the right lobe. This was biopsied and this was found to be metastatic rectal cancer. This was done on June 01, 2024. CEA level at that time was 9.9. He was treated with ablative treatment to the liver lesion in July 2024. He has had 2 cycles of FOLFIRI, which he has tolerated rather poorly. We will get a baseline idea of the status of his rectal cancer. We will check CBC, CMP, and CEA. We will check an MRI of the liver as well as MRI of the pelvis. We will refer him to Colorectal Surgery to get a flexible sigmoidoscopy and get an assessment of the rectal cancer. If patient s systemic disease is under control, I would suggest that he would get an LAR for his rectal cancer. Meanwhile, I have suggested giving him FOLFIRI for 2 more cycles until his workup has been completed. Patient at this point expressed an opinion to change his colorectal surgeon. I talked to Dr. Acevedo, and Dr. Acevedo will see him. We will also review this case at the Colorectal Conference. 2. Ripley 7 prostate cancer, PSA 24, grade group 2. His PSMA PET scan did not show any metastatic disease. He was treated with radiation treatment for prostate cancer and has been on androgen deprivation treatment with Zytiga. I would suggest continuing the treatment. Currently Zytiga is on hold. Good discussion with patient and his ex-. I have set him up with Dr. Acevedo. He is going to follow up with Dr. Ratliff as well as his oncologist for continuation of his chemotherapy. I have also talked to Dr. Acevedo today. We will also review this case at the Colorectal Conference. Thank you very much for the consultation. CC: Travis Ratliff MD rja [email or web address] Not available 08/07/2024 17:08:33 Plan of Treatment Reminders Order Date Submit Date Provider Last Modified By Organization Details Last Modified Time Details Appointments New Cancer Patient 30.NEW 2024 08:30A M Dr. Myles Acevedo Not available Not available Not available Lab None recorded . Referral None recorded . Procedures None recorded . Surgeries None recorded . Imaging None recorded . Medication Orders None recorded . Patient TargetsNo targets recorded. Patient InstructionsNo instructions recorded. Reason for Referral None Reported. Results Created Date Observation Date Name Description Value Unit Range Abnormal Flag Note LastModifiedBy Organization Detail LastModifiedTime 08/07/19 25 08/06/2024 CBC w/ auto diff CBC with differential Not Available [facility] [address] [place] [address], [id number], 08/06/2024 13:43:40 08/07/19 25 08/06/2024 CBC w/ auto diff WBC 6.8 K/uL 4.8- 10.8 Not Available [facility] [address] [place] [address], [id number], 08/06/2024 13:43:40 08/07/19 25 08/06/2024 CBC w/ auto diff RBC 4.21 M/uL 4.70-6 .10 low Not Available [facility] [address] [place] [address], 10719, 08/06/2024 13:43:40 08/07/19 25 08/06/2024 CBC w/ auto diff HGB 12.8 g/dL 14.0-1 8.0 low Not Available [facility] [address] [place] [address], [id number], 08/06/2024 13:43:40 08/07/19 25 08/06/2024 CBC w/ auto diff HCT 37.0 % 42.0-5 2.0 low Not Available [facility] [address] [place] [address], 91756, 08/06/2024 13:43:40 08/07/19 25 08/06/2024 CBC w/ auto diff MCV 87.9 fL 80.0-9 4.0 Not Available [facility] [address] [place] [address], [id number], 08/06/2024 13:43:40 08/07/19 25 08/06/2024 CBC w/ auto diff MCH 30.4 pg 27.0- 31.0 Not Available [facility] [address] [place] [address], [id number], 08/06/2024 13:43:40 08/07/19 25 08/06/2024 CBC w/ auto diff MCHC 34.6 g/dL 32.0-3 6.0 Not Available [facility] [address] [place] [address], [id number], 08/06/2024 13:43:40 08/07/19 25 08/06/2024 CBC w/ auto diff RDW-SD 45.4 fL 35.1 - 46.3 Not Available [facility] [address] [place] [address], [id number], 08/06/2024 13:43:40 08/07/19 25 08/06/2024 CBC w/ auto diff plt 215 K/uL 130-40 0 Not Available [facility] [address] [place] [address], 76155, 08/06/2024 13:43:40 08/07/19 25 08/06/2024 CBC w/ auto diff MPV 9.4 fL 7.5- 11.8 Not Available [facility] [address] [place] [address], 77507, 08/06/2024 13:43:40 08/07/19 25 08/06/2024 CBC w/ auto diff stanislaw% 74.7 % not estab Not Available [facility] [address] [place] [address], 71838, 08/06/2024 13:43:40 08/07/19 25 08/06/2024 CBC w/ auto diff lym% 13.9 % not estab Not Available [facility] [address] [place] [address], 08654, 08/06/2024 13:43:40 08/07/19 25 08/06/2024 CBC w/ auto diff mono% 8.9 % not estab Not Available [facility] [address] [place] [address], 12102, 08/06/2024 13:43:40 08/07/19 25 08/06/2024 CBC w/ auto diff eos% 1.8 % not estab Not Available [facility] [address] [place] [address], 09029, 08/06/2024 13:43:40 08/07/19 25 08/06/2024 CBC w/ auto diff baso% 0.4 % not estab Not Available [facility] [address] [place] [address], 68773, 08/06/2024 13:43:40 08/07/19 25 08/06/2024 CBC w/ auto diff abs stanislaw 5.1 K/uL 1.5-7. 5 Not Available [facility] [address] [place] [address], 17382, 08/06/2024 13:43:40 08/07/19 25 08/06/2024 CBC w/ auto diff abs lym 0.9 K/uL 1.2-3. 4 low Not Available [facility] [address] [place] [address], 13194, 08/06/2024 13:43:40 08/07/19 25 08/06/2024 CBC w/ auto diff abs mono 0.6 K/uL 0.1-1. 0 Not Available [facility] [address] [place] [address], 80001, 08/06/2024 13:43:40 08/07/19 25 08/06/2024 CBC w/ auto diff abs eos 0.1 K/uL 0.0-0. 7 Not Available [facility] [address] [place] [address], 55981, 08/06/2024 13:43:40 08/07/19 25 08/06/2024 CBC w/ auto diff abs baso 0.0 K/uL 0.0-0. 2 Not Available [facility] [address] [place] [address], 87367, 08/06/2024 13:43:40 08/07/19 25 08/06/2024 CBC w/ auto diff imm. gran % 0.3 % 0-5 Not Available [facility] [address] [place] [address], [id number], 08/06/2024 13:43:40 08/07/19 25 08/06/2024 CBC w/ auto diff NRBC % 0.0 % 0.0-0. 2 Not Available [facility] [address] [place] [address], [id number], 08/06/2024 13:43:40 08/07/19 25 08/06/2024 carci noemb ryoni c Ag, quant , serum or plasm a cea 7.4 NG/mL <0.5-3 .0 high This test is perfo rmed on a [employer] gino zer. Since there are not exist ing stand maria alejandra refer ence units , users shoul d not make ashly rison s betwe en metho ds. Not Available [facility] [address] [place] [address], 94528, 08/06/2024 16:14:48 08/07/19 25 08/06/2024 CMP, serum or plasm a comp. met. panel Not Available [facility] [address] [place] [address], [id number], 08/06/2024 16:24:03 08/07/19 25 08/06/2024 CMP, serum or plasm a sodium 133 mmol/ L 136-14 6 low Not Available [facility] [address] [place] [address], 86261, 08/06/2024 16:24:03 08/07/19 25 08/06/2024 CMP, serum or plasm a potassium 4.0 mmol/ L 3.5-5. 1 Not Available [facility] [address] [place] [address], 23057, 08/06/2024 16:24:03 08/07/19 25 08/06/2024 CMP, serum or plasm a chloride 100 mmol/ L 98-110 Not Available [facility] [address] [place] [address], 91813, 08/06/2024 16:24:03 08/07/19 25 08/06/2024 CMP, serum or plasm a CO2 29 mEq/L 20-32 Not Available [facility] [address] [place] [address], 45380, 08/06/2024 16:24:03 08/07/19 25 08/06/2024 CMP, serum or plasm a anion gap 8 mmol/ L 10-22 low Not Available [facility] [address] [place] [address], 89124, 08/06/2024 16:24:03 08/07/19 25 08/06/2024 CMP, serum or plasm a glucose 119 mg/dL 70-100 high Not Available [facility] [address] [place] [address], 54969, 08/06/2024 16:24:03 08/07/19 25 08/06/2024 CMP, serum or plasm a calcium 9.2 mg/dL 8.4-10 .4 Not Available [facility] [address] [place] [address], 22234, 08/06/2024 16:24:03 08/07/19 25 08/06/2024 CMP, serum or plasm a total protein 7.0 g/dL 6.4-8. 3 Not Available [facility] [address] [place] [address], 22437, 08/06/2024 16:24:03 08/07/19 25 08/06/2024 CMP, serum or plasm a albumin 4.3 g/dL 3.5-5. 3 Not Available [facility] [address] [place] [address], 78852, 08/06/2024 16:24:03 08/07/19 25 08/06/2024 CMP, serum or plasm a ALP 292 U/L 44 - 127 high Not Available [facility] [address] [place] [address], 23623, 08/06/2024 16:24:03 08/07/19 25 08/06/2024 CMP, serum or plasm a AST (SGOT) 52 U/L 10-40 high Not Available [facility] [address] [place] [address], 91660, 08/06/2024 16:24:03 08/07/19 25 08/06/2024 CMP, serum or plasm a total bilirubin 0.5 mg/dL 0.2-1. 2 Not Available [facility] [address] [place] [address], 50962, 08/06/2024 16:24:03 08/07/19 25 08/06/2024 CMP, serum or plasm a ALT (SGPT) 112 U/L 8-35 high Not Available [facility] [address] [place] [address], 37918, 08/06/2024 16:24:03 08/07/19 25 08/06/2024 CMP, serum or plasm a BUN 11 mg/dL 7-21 Not Available [facility] [address] [place] [address], 93599, 08/06/2024 16:24:03 08/07/19 25 08/06/2024 CMP, serum or plasm a creatinine 0.8 mg/dL 0.7-1. 3 Not Available [facility] [address], [address], 08/06/2024 16:24:03 08/07/19 25 08/06/2024 CMP, serum or plasm a CKD-epi GFR 98 eGFR was calcu lated using the 2020 CKD-E PI equat ion. (Bread Dumper nicolasa Kidne y Disea se has an eGFR less than 60 mL/mi n/1.7 3mm for a perio d of three month s or more. ) This calcu latio n has not been valid ated for patie nt ages <18 or >90 years old. Not Available [facility] [address], [address], 08/06/2024 16:24:03 08/07/19 25 08/06/2024 PSA, serum or plasm a PSA <0.04 NG/mL 0.04-4 .900 This test is perfo rmed on a [employer] gino zer. Since there are not exist ing stand maria alejandra refer ence units , users shoul d not make ashly rison s betwe en metho ds. Not Available [facility] [address] [place] [address], 17948, 08/06/2024 16:55:19 01/31/20 24 05/25/2023 imagi ng/di agnos tic resul t No observ ation record ed. [email or web address] Not Available 01:01:09 01/31/20 24 06/21/2023 imagi ng/di agnos tic resul t No observ ation record ed. [email or web address] Not Available 01:01:17 02/14/20 24 02/14/2024 DARRYL, porter dyer/chai contr ast [facility] [address] [place] [address] Teleph [phone] Name: Roberto [address] Exam Date: 11/12/ 2024 Age: 64 Physic kat: Hayden gil MD, [...] images were postpr ocesse d on an [employer] workst ation by the radiol ogist with [...] 11:10 AM cc: Page PAGE [facility] 1 [email or web address] [facility] [address] [place] [address], [address], 02/14/2024 12:16:28 02/16/20 24 02/15/2024 CT rad thera py pelvi s TP 3mm [facility] [address] [place] [address] Name: ROBERTO PALM RD Age: 64 : 1959 Exam Date: 2023 ACCESS ION: [id number] JALIL CANADA MD: ELDER TURK. RADIAT ION THERAP Y SIMULA TION SCAN Radiat ion Therap y simula tion scan for treatm ent planni ng. No interp retati on render ed. Final Report Dictat ed: 11:56 Radiol ogist , Inquir y Signed : 15:20 Radiol ogist , Inquir y INTERFACE [facility] - [facility] [address] [place] [address], [address], 02/16/2024 17:28:27 06/30/19 25 06/28/2024 ir clini c visit [facility] [address] [place] [address] [phone] Name: ROBERTO PALM RD Age: 64 : 1959 Exam Date: 2024 ACCESS ION: [id number] JALIL CANADA MD: ULISES GARCIA Please refer to [facility] for result s. Final Report Dictat ed: 09:25 Radiol ogist , Inquir y Signed : 14:48 Radiol ogist , Inquir y INTERFACE [facility] - [facility] [address] [place] [address], [address], 06/29/2024 15:59:52 07/21/1907/20/2024 CT ablat ion liver micro wave [facility] [address] [place] [address] [phone] Name: ROBERTO PALM RD Age: 64 : 1959 Exam Date: 2024 ACCESS ION: [id number] JALIL CANADA MD: ULISES GARCIA EXAMIN ATION: CT Guided microw ave ablati on of the right hepati c mass DATE: HISTOR Y: Colon cancer with biopsy proven liver metast ases COMPAR ISMAEL: MRI abdome n TECHNI QUE: The risks and benefi ts of microw ave ablati on were descri bed to patien t and explic it permis vicki was obtain ed to [employer] steril e vanesa r techni que was utiliz ed includ ing the use of a large steril e sheet, the wearin g of caps and masks by all partic ipants , the wearin g of steril e gowns and gloves as well as strict hand hygien e by the physic kat and scrub assist ant. A time out review of the patien t's medica l histor y and the aims and risks of the proced ure was perfor med prior to beginn ing the proced ure. The skin overly ing right lower quadra nt was carefu lly scrubb ed and anesth etized with 1% lidoca ine. With the patien t in the left latera l decubi tus positi on limite d pre-pr ocedur al scan perfor med demons trated right hepati c lesion . This is consis tent with mass seen on prior imagin g. Two 17 G NuWave NM probes were advanc ed throug h the renal lesion which measur ed approx imatel y 2.7 cm under ultras ound and CT fluoro scopic guidan ce. Probe positi on was furthe r confir med with noncon trast CT. Once needle positi on and ablati on zone were confir med, procee ded to microw ave ablati on of the right hepati c lobe lesion using interm ittent ultras ound and CT. Images were obtain ed to confir m positi on and were saved in PACS. Finall y the probe was slowly pulled back to allow cauter izatio n of the intrah epatic probe tract, in order to achiev e hemost asis. Probe was then comple tely withdr awn from the subcut aneous tissue s. Steril e dressi ng applmami d. Compli cation s: None Contra st dose: -No Value- DLP in mGy-cm : 2118 Face to face Modera te sedati on protoc ol was utiliz ed. Patien t was monito red throug hout the case by tahira coleman er. Sedati on meds: see anesth esia notes Sedati on meds 2: see anesth esia notes Sedati on start time: Sedati on start time: see anesth esia notes Sedati on stop time: Sedati on stop time: see anesth esia notes IMPRES VICKI: Succes sful CT guided microw ave ablati on of the right hepati c mass. PLAN: - Bedres t with 4 hours. - Follow -up in IR clinic with MRI scan in 1 month. . Attest ation I, Ulises Garcia MD, attest that I was presen t for the entire proced ure. Final Report Dictat ed: 15:47 Ulises Garcia MD Signed : 15:47 Ulises Garcia MD INTERFACE [facility] - [facility] [address] [place] [address], [address], 07/20/2024 16:50:43 Result Notes None recorded. Problems Name Problem SNOMED Code Status Onset Date Resolution Date Notes Provider Name and Address Organization Details Recorded Time Adenocarci noma of prostate 256088516 Active 2023 [facility] 5 10:09:16 Adenocarci noma of rectum 729591176 Active 2024 [facility] 5 10:09:50 Carcinoma of prostate 187778405 Active 2023 Kavitha 3+4 BX 06/21/23 Willow Brown, DIVING INSTRUCTOR, [employer] [address] [place] [address], [phone] [place] [address] 4 16:37:09 Malignant neoplasm of rectum 459709122 Active 2023 [facility] 5 17:07:58 Lesion of spleen 466888061514 101 Active 2023 Oly Medrano [facility] 4 15:20:53 Malignant neoplasm of prostate 814351779 Active 2024 [facility] 5 17:09:05 Problem Notes None recorded. Procedures Surgical History Date Name Laterality Status Provider Name and Address Organization Details Recorded Time 09/12/19 24 cystoscopy completed Joanne Harvey [facility] 10/14/2023 11:10:48 Colonoscopy with biopsy completed Not Available Health Note 07/30/2024 13:03:42 Imaging Results Imaging Date Name Status LastModified by Organiz ation Details LastModified Time 05/25/2023 imaging/diagno stic result completed Information not available 2024 01:01:09 06/21/2023 imaging/diagno stic result completed Information not available 2024 01:01:17 02/14/2024 MRI, pelvis, w/wo contrast completed [email or web address] [facility] [address] [facility], [address], 02/14/2024 12:16:28 02/15/2024 CT rad therapy pelvis TP 3mm completed INTERFACE [facility] Only - [facility] [address] [place] [address], [address], 02/16/2024 17:28:27 06/28/2024 ir clinic visit completed INTERFACE [facility] Only - [facility] [address] [place] [address], [address], 06/29/2024 15:59:52 07/20/2024 CT ablation liver microwave completed INTERFACE [facility] Only - [facility] [address] [place] [address], [address], 07/20/2024 16:50:43 Procedure Notes None recorded. Medical Equipment None Reported. Allergies Allergen ID Allergen Name Allergen Category Reaction Reaction Severity Criticality Documentation Date Start Date Code Code System Note Provider Name and Address Organization Details Recorded Time [id number] codeine medicatio n vomiting Not available Not available 10/14/2023 2670 RxNorm Joanne Harvey [place], [place] - [facility] 11:08:52 Medications Name Sig Start Date Stop Date [...] hours by oral route for 3 days. 08/06 completed Not Available Not Available Not Available tamsulosin 0.4 mg capsule active Not [...] Updated DateTime 4 180.34 cm 25 kg/m2 63797.6 7 g 97.7 [degF] 63 /min 99 % 99 % 112 mm[Hg] 71 mm[Hg] Elver Calixto [facility] 4 09:57:56 Date Recorded Body height Body mass index (BMI) Body weight Body temperature Heart rate Respiratory rate Oxygen saturation Oxygen saturation in Arterial blood by Pulse oximetry Systolic blood pressure Diastolic blood pressure Provider Name and Address Organization Details Last Updated DateTime 4 180.34 cm 23.4 kg/m2 64730.5 2 g 97.6 [degF] 66 /min 18 /min 97 % 97 % 104 mm[Hg] 70 mm[Hg] Sallie Holden [facility] 4 09:56:39 Date Recorded Body height Oxygen saturation Oxygen saturation in Arterial blood by Pulse oximetry Heart rate Body temperature Body mass index (BMI) Body weight Systolic blood pressure Diastolic blood pressure Provider Name and Address Organization Details Last Updated DateTime 5 176.53 cm 96 % 96 % 72 /min 97.8 [degF] 25 kg/m2 26803.1 7 g 120 mm[Hg] 60 mm[Hg] Corrine Adairley [facility] 5 12:40:47 Social History Question Answer Notes LastModified by Organizat ion Details LastModified Time Tobacco Smoking Status Current Every Day Smoker Not Available Health Note 07/30/2024 13:03:43 Do You Have An Advance Directive? No [email or web address] Information not available 07/30/2024 What Is Your Level Of Alcohol Consumption? Occasional [email or web address] Information not available 07/30/2024 How Many Times Per Week Do You Consume Alcohol? Less Than 1 Time Per Week [email or web address] Information not available 07/30/2024 What Is Your Level Of Caffeine Consumption? Occasional [email or web address] Information not available 07/30/2024 Are You Currently Employed? No [email or web address] Information not available 07/30/2024 Which Illicit Or Recreational Drugs Have You Used? Marijuana [email or web address] Information not available 07/30/2024 What Is Your Occupation? Retired [email or web address] Information not available 07/30/2024 How Many Times Per Week Do You Exercise? 3-4 Times Per Week [email or web address] Information not available 07/30/2024 How Many Packs Per Day (PPD)? 1 [email or web address] Information not available 10/14/2023 How Long Have You Smoked? 50 [email or web address] Information not available 10/14/2023 What Was The Date Of Your Most Recent Tobacco Screening? 08/06/2024 [email or web address] Information not available 07/30/2024 What Is Your Current Pack Years? [email or web address] Information not available 07/30/2024 What Is Your Relationship Status? [email or web address] Information not available 07/30/2024 How Much Tobacco Do You Smoke? 1 PPD [email or web address] Information not available 07/30/2024 Do You Use Any Illicit Or Recreational Drugs? Yes [email or web address] Information not available 07/30/2024 How Many Years Have You Smoked Tobacco? 45 [email or web address] Information not available 07/30/2024 Do You Or Have You Ever Used Any Other Forms Of Tobacco Or Nicotine? No [email or web address] Information not available 07/30/2024 Sex: Unknown Functional Status Question Answer Note LastModified by Organization D etails LastModified Time What is your exercise level? Moderate [email or web address] Information not available 07/30/2024 Mental Status None recorded. Family History Relationship Description Onset Age of this Age Resolved Age Notes LastModified by Organization Details LastModified Time Mother Family history of malignant neoplasm [email or web address] Not available 2024 13:03:42 Father Family history of malignant neoplasm [email or web address] Not available 2024 13:03:42 Medical History Condition Response Anxiety Disorder N Diabetes N Bleeding Disorder N Attention-deficit Hyperactivity Disorder N High Blood Pressure N Arthritis N Hyperlipidemia N Cancer Y Thyroid Problems N Stroke N COPD N Depression N Asthma N Seizures N Anemia N Heart Disease N Fibromyalgia N Osteoporosis N Kidney Disease N Past Encounters Encounter ID Performer Location Encounter Start Date Encounter Closed Date Diagnosis/Indication Diagnosis SNOMED-CT Code Diagnosis ICD10 Code Diagnosis Note [id number] [facility] [address] [place] [address] [id number] 1 10/14/2023 10:29:35 11/02/2023 09:10:53 Carcinoma of prostate [id number] C61 Malignant neoplasm of rectum [id number] [facility] [id number] Eddie reynolds MD [facility] [place] [address] [place] [address] [id number] 1 11/02/2023 11:55:49 11/02/2023 14:08:15 [id number] Pj Cherry MD [facility] [place] [address] [place] [address] [id number] 1 11/10/2023 09:36:35 11/10/2023 10:32:15 [id number] [facility] [address] [place] [address] [id number] 1 11/17/2023 09:29:55 11/17/2023 10:28:06 [id number] Pj Cherry MD [facility] [place] [address] [place] [address] [id number] 1 11/24/2023 09:23:05 11/24/2023 12:11:38 [id number] Pj Chrery MD [facility] [place] [address] [place] [address] [id number] 1 12/01/2023 09:16:20 12/01/2023 10:20:01 [id number] Can Ge MD [facility] [place] [address] [place] [address] [id number] 1 02/08/2024 09:21:44 02/09/2024 12:00:56 [id number] Willow Brown, DIVING INSTRUCTOR, [facility] [place] [address] [place] [address] [id number] 1 03/13/2024 15:37:27 03/13/2024 16:06:16 Adenocarcinoma of prostate [id number] C61 [id number] Aretha Hubbard APRN, [facility] [place] [address] [place] [address] [id number] 1 06/12/2024 17:32:28 06/12/2024 17:57:29 Adenocarcinoma of prostate [id number] C61 Adenocarci noma of rectum [id number] C20 [id number] Angel Vargas MD [address] [facility] ([place]) [address] [place] [address] [id number] 3 08/06/2024 12:16:05 08/07/2024 16:50:42 Malignant neoplasm of rectum [id number] C20 Malignant neoplasm of prostate [id number] C61 Health Concerns Section Related Observation LastModified by Organization Detai ls LastModified Time None Recorded Concern Status LastModified by Organization Details LastModified Time None Recorded Advance Directives Directive N: Payers Insurance Date Sequence Insurance Name Policy Number Policy Singletary Covered Member ID Singletary Member ID Guarantor Name 02/06/2024 1 [facility] (MEDICAID REPLACEMENT - HMO) [id number] Roberto Garcia [id number] Roberto Garcia 08/07/2024 3 [place] [employer] Roberto Garcia [id number] Roberto Garcia 02/14/2024 3 [employer] (MEDICARE SUPPLEMENT) Roberto Garcia [id number] Roberto Garcia 07/30/2024 2 [facility] (MEDICARE SUPPLEMENT) PLAN N Roberto Garcia [id number] Roberto Garcia 08/02/2024 1 [place] Roberto Garcia [id number] Roberto Garcia Notes Date Note Type Note Provider Name and Address Organization Details Recorded Time 4 text[facility]html [facility] is a 63-year-old male with [...] adenocarcinoma with seminal vesicle invasion, clinical stage [id number], Ripley 3+4=7, grade group 2, highest PSA 19.6. [...] CT chest lung screening protocol at [facility] was performed with radiology interpretation [...] recommended a prostate biopsy. 03/18/2023: Colonoscopy at [facility] was performed. Specimen [id number] associated with colon descending polyp biopsy, tubular [...] 04/21/2023: CT abdomen and pelvis at [facility] resulted circumferential wall thickening of [...] mild prostatomegaly. 04/21/2023: MRI pelvis at [facility] was performed with radiology interpretation [...] mesorectal lymph nodes. 05/06/2023: MRI pelvis at [facility] was performed with radiology interpretation of [...] additional imaging for staging.05/25/2023: CT chest at [facility] was performed with radiology interpretation of no CT evidence of metastatic disease in the chest, no mediastinal or hilar lymphadenopathy. There is a prominent 8 mm portal caval lymph node, for which continued attention on follow up was recommended.06/21/2023: PSA 15.51 ng/mL.06/21/2023: Truss biopsy with Dr. Nails, specimen [id number] resulted prostate adenocarcinoma, Ripley grade 3+4=7, corresponding with grade group 2, [...] Justin in Urology.08/26/2023: PSMA PET CT at [facility] was performed with radiology interpretation of [...] this week. Pj Cherry MD [address] [facility], [place], [phone], [place] [facility] 12/01/2023 11:01:07 4 text/html Identifying [...] Patient today has an AUA score of 9.b Patients Name: Roberto GarciaDOB: [id number]: 64 Oncologic History: Oncology Radiation History: Prior history of chemotherapy: {{yes* no}} Prior radiation therapy: {{yes* no}} If yes, answer the questions below. [facility]Site: Rectum and Prostate Prior history of connective tissue disorder (i.e. Lupus, Scleroderma) {{yes no*}} Implanted Devices: {{yes no*}} Comments: Can Ge MD [address] [place] [address], [phone], [place] [facility] 02/09/2024 08:58:03 4 text/html Synchronize [...] has no further concerns today. 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 On 12/07/2023, Mr. Garcia completed external beam radiation therapy to pelvis, encompassing rectum and prostate, with plan for brachytherapy boost to prostate to folow.Oncologic HistoryMr. Garcia reports an approximately 2-week long history of obstructive-type urinary symptoms in the fall of 2022. He was seen by his primary care physician for the first time in many years, and a visit with Urology as well as preventative medicine studies were obtained. 01/11/2023. CT chest lung screening protocol at [facility] was performed with radiology interpretation [...] recommended a prostate biopsy. 03/18/2023: Colonoscopy at [facility] was performed. Specimen [id number] associated with colon descending polyp biopsy, tubular [...] 04/21/2023: CT abdomen and pelvis at [facility] resulted circumferential wall thickening of [...] mild prostatomegaly. 04/21/2023: MRI pelvis at [facility] was performed with radiology interpretation [...] mesorectal lymph nodes. 05/06/2023: MRI pelvis at [facility] was performed with radiology interpretation of [...] additional imaging for staging.05/25/2023: CT chest at [facility] was performed with radiology interpretation of no CT evidence of metastatic disease in the chest, no mediastinal or hilar lymphadenopathy. There is a prominent 8 mm portal caval lymph node, for which continued attention on follow up was recommended.06/21/2023: PSA 15.51 ng/mL.06/21/2023: Truss biopsy with Dr. Nails, specimen [id number] resulted prostate adenocarcinoma, Kavitha grade 3+4=7, corresponding [...] Justin in Urology.08/26/2023: PSMA PET [facility] at [facility] was performed with radiology interpretation of [...] concurrent chemoradiation and total neoadjuvant therapy after this.10/14/2023: The patient was seen by Radiation Oncology11/02/2023: The patient started radiation treatment12/07/2023: The patient completed definitive radiation, 50 Gy over 25 fractions to the rectum and bzrkwoiq77/2024: CT of chest1. No CT evidence of metastatic disease within the chest.2. Prominent 8 mm portacaval lymph node. Continued attention on follow-up is yilpbnrybsz21/2024: CT of pelvis/ abdomenIMPRESSION:Changes prostatic hyperplasia. PI-RADS Category 1: Very LowRisk2. Post radiation changes throughout the prostate. The previouslyseen lesions are no longer well-visualized3. Ill-defined nodule in the right basilar transitional zone.PI-RADS Category 2: Low Risk Per Oncology note:[facility]: MRI pelvis with/without contrast showed persistent circumferential thickening of the rectum consistent with residual viable tumor. Distance of the lowest extent of tumor from anal verge: approximately 7 cm .Distance of lowest extent of tumor from ano-rectal junction: Approximately 3.5 cm. Relationship to anterior peritoneal reflection: The cranial most aspect of the tumor again terminates at the level of the peritoneal reflection . This appears similar to prior and again, involvement of the peritoneal reflection is not excluded. Mesorectal lymph nodes: There is been mild improvement of the perirectal lymphadenopathy since prior. A few persistently enlarged perirectal lymph nodes are identified, of note and approximately 6 mm lymph node at the 3:00 position. Extra-mesorectal lymph nodes: No suspicious lymph nodes. The multiple areas of tumor extension into the perirectal fat seen previously have improved. Spiculations are seen extending from the rectum into the perirectal fat, possibly representing a desmoplastic reaction and posttreatment changes. Residual viable tumor within the spiculations cannot be definitively excluded. Improved perirectal lymphadenopathy since prior. A single enlarged 6 mm perirectal lymph node is identified, which may represent residual metastasis. Presacral and perirectal fluid signal is favored to represent posttreatment changes. Redemonstrated prostatomegaly. Mild bladder wall trabeculation may represent sequelae of outlet obstruction. 04/20/2024: CT chest, abdomen pelvis with contrast showed COPD/scarring. Calcified granulomas in the chest. No suspicious lung nodules or masses. 15 mm low-density nodule in the right hepatic lobe not seen on MRI from 05/18/2023 , worrisome for metastatic disease. no masses in the adrenals, kidneys no ductal dilatation. No pathologic intra-abdominal retroperitoneal adenopathy otherwise no suspicious osseous lesions. 04/26/2024: MRI abdomen with/ without contrast showed normal liver size, approximately 19 mm lesion in the posterior segment of the right hepatic lobe ( hypoenhancing on early post contrast images becoming more intense with liver parenchyma or delayed images ). This was not seen on previous MRI and is felt to be worrisome for hepatic metastasis with history of rectal cancer. Unremarkable spleen with possible benign hemangioma /hamartomas. No pathologic intra-abdominal adenopathy ascites. 05/23/24: Proceed with 6 month Lupron injection . Patient would like to hold off on consideration of abiraterone for now. 06/01/2024; Liver Bx : Liver, needle biopsy: Metastatic adenocarcinoma immunohistochemically consistent with colorectal primary, 06/2024: PSA <0.13 INTERVAL HISTORY:06/12/24: Mr. Garica is a pleasant 64-year-old gentleman who completed definitive radiation 50 Gy over 25 fractions to both the rectum and prostate since he had a synchronized diagnosis of adenocarcinoma of the prostate as well as adenocarcinoma of the mid rectum. Today he does audio telehealth only. He is alert and oriented, pleasant. Speech was clear. He is knowledgeable of his health. He is able to verbalize any concerns and we were able to communicate via audio without any interruptions. In regards to his prostate adenocarcinoma and post radiation, he denies having any changes in his urination. He reports his stream he feels is within normal limits and he does not have to force any urine out. He denies any dysuria, burning or hematuria. He denies having any dribbling or incontinence. Nocturia is 1-2 times a night, depending on how much fluid he drinks. His urgency and frequency is based on fluid, but again, he feels that his frequency and urgency is usually related to fluid or he waits too long to urinate. He is on tamsulosin once a day which is managing his symptoms. Again, he has no concerns. In regards to his adenocarcinoma of the rectum, he since feels that he is back to his baseline. His stools are soft. He does still feel like he has some soreness, tenderness and pressure in the low rectum, but manageable. He denies having any blood in his stool. He denies having any ability or need to force any stool out. He is eating and drinking well. He did have a scan that showed concerns for a lesion on the liver. Therefore, he had a liver biopsy done on 06/01/2024 that noted metastatic adenocarcinoma, immunohistochemically consistent with colorectal primary. Patient verbalized he is not yet sure what the plan is. He has seen Dr. Roman who discussed surgery and then possibly chemo, so patient verbalized feeling very fragmented in his plan. He feels like he has recovered from his previous chemo and radiation and that he is strong enough to undergo surgery and there is discussion that they would be able to do both the liver and the rectum at the same time, but he has not yet heard. I explained to him I would follow up with Dr. Ratliff to determine if I could help coordinate for him and also informed him that there are times when complicated cases are discussed at [facility], but I would follow up to try and give him more information before he meets with Dr. Ratliff next week. But again, he feels that he is having regular bowel movements. He feels like he is managing his bowels without any challenges. His skin he notes is within normal limits. He denies having any irritation or burning sensation at anal or rectal or buttocks region. He notes that he is active and feeling strong. Aretha Hubbard, DIVING INSTRUCTOR, [employer] [address] [place] [address], [phone], [facility] 06/30/2024 19:32:29 5 text/html REASON FOR CONSULTATION:Second opinion regarding metastatic rectal cancer. REFERRING PHYSICIAN:Travis Ratliff MD HISTORY OF PRESENT ILLNESS:Patient is a 64-year-old male who was diagnosed with stage III (T3N2) ARMEN stable rectal adenocarcinoma in June 2023. He was treated with total neoadjuvant treatment. He was treated with 8 cycles of modified FOLFOX-6 from June until October 2023. This was followed by a long course chemoradiation from November 01 until December 06. After that, patient had followup imaging studies done and that unfortunately showed a new 2 cm liver metastasis that has been treated with ablation. He has now been given 2 cycles of FOLFIRI. A followup MRI has shown possibly a new lesion in the liver. His surgery has been placed on hold. Patient is not happy about the delay in surgery and has come here for a second opinion. Patient also has a Kavitha 7 (3+4) grade group 2 prostate cancer with a PSA of 24. He was treated with brachytherapy and also on Zytiga and prednisone, androgen deprivation treatment. The Zytiga and prednisone have been on hold for now. In the interim, patient is doing good. He feels frustrated that his surgery has been delayed and has requested a second opinion. Patient himself is relatively asymptomatic. For past medical history, family history, social history, allergies, and review of systems, please see the attached questionnaire that I have reviewed and signed. PAST MEDICAL HISTORY:1. Hypertension.2. BPH.3. Prostate cancer.4. Rectal cancer. SOCIAL HISTORY/HABITS:Smokes a pack a day. Also smokes marijuana. He is retired. FAMILY HISTORY:Both parents had cancer. Angel Vargas MD [address] [place] [address], [phone], [place] [facility] 08/09/2024 11:38:44
--- OUTSIDE RECORDS SUMMARY | 2024-08-09 11:14 | XMS_ITS | Clinical Summary ---
Author Organization [facility] Address [address] [place] [address] Care Team Providers Care It Audit Manager Name Role Phone Flaco Kelly MD Primary Care Provider [phone] Allergies Active Allergy Reactions Criticality Noted Date Comments Codeine Nausea Only 03/18/2023 Patient states it makes me sick as hell Medications No known medications Encounters Date Type Department Care Team Description 07/24/2024 8:37 AM CDT - 07/24/2024 11:59 PM CDT Hospital Encounter [facility] [address] [place] [address] Teddy Roman Sr., Discharge Disposition: Home or Self Care (Routine Discharge) 07/24/2024 Travel 07/05/2024 Transcribe Orders [facility] Pre Access Team [address] [place] [address] Sabrina uMjica FNP-BC 07/03/2024 10:52 AM CDT - 07/03/2024 11:59 PM CDT Hospital Encounter [facility] [address] [place] [address] Eder Busby PA Discharge Disposition: Home or Self Care (Routine Discharge) 07/03/2024 10:52 AM CDT - 07/03/2024 11:59 PM CDT Hospital Encounter [facility] [address] [place] [address] Eder Busby PA Discharge Disposition: Home or Self Care (Routine Discharge) 07/03/2024 10:50 AM CDT - 07/03/2024 10:51 AM CDT Hospital Encounter [facility] [address] [place] [address] Eder Busby PA Discharge Disposition: Home or Self Care (Routine Discharge) 07/03/2024 Orders Only [place] [address] [place] [address] Eder Busby PA 07/03/2024 Travel 05/29/2024 10:55 AM EMERGENCY MEDICAL TECHNICIAN - 05/29/2024 11:59 PM EMERGENCY MEDICAL TECHNICIAN Hospital Encounter [address] [place] [address] Ziggy Renee MD Discharge Disposition: Home or Self Care (Routine Discharge) 05/29/2024 10:45 AM EMERGENCY MEDICAL TECHNICIAN - 05/29/2024 10:54 AM EMERGENCY MEDICAL TECHNICIAN Hospital Encounter [address] [place] [address] Flaco Kelly MD Fisher, Kelli C, JULIANNE Discharge Disposition: Home or Self Care (Routine Discharge) 05/29/2024 Orders Only [place] [address] [place] [address] Ziggy Renee MD 05/29/2024 Orders Only [place] [address] [place] [address] Aretha Hubbard NP 05/29/2024 Travel from Last 3 Months Social History Tobacco Use Types Packs/Day Years Used Date Smoking Tobacco: Unknown Tobacco Cessation:Counseling Given: Not Answered Sex and Gender Information Value Date Recorded Sex Assigned at Male 04/20/2024 8:37 AM EMERGENCY MEDICAL TECHNICIAN Legal Sex Male 9:40 AM CDT Gender Identity Not on file Sexual Orientation Not on file Last Filed Vital Signs Vital Sign Reading Time Taken Comments Blood Pressure 129/98 03/18/2023 3:56 PM EMERGENCY MEDICAL TECHNICIAN Pulse 98 03/18/2023 3:56 PM EMERGENCY MEDICAL TECHNICIAN Temperature 36.6 C (97.8 F) 03/18/2023 12:49 PM EMERGENCY MEDICAL TECHNICIAN Respiratory Rate 14 03/18/2023 3:56 PM EMERGENCY MEDICAL TECHNICIAN Oxygen Saturation 96% 03/18/2023 3:56 PM EMERGENCY MEDICAL TECHNICIAN Inhaled Oxygen Concentration - - Weight 85 kg (187 lb 8 oz) 03/18/2023 12:[address] Height 180.3 cm (5' 11 ) 03/18/2023 12:49 PM EMERGENCY MEDICAL TECHNICIAN Body Mass Index 26.15 03/18/2023 12:49 PM EMERGENCY MEDICAL TECHNICIAN Plan of Treatment Upcoming Encounters Date Type Department Care Team (Late st Contact Info) Description 08/23/2024 9:[address] [facility] [address] [place] [address] Ulises Moscoso MD [address] [place] [id number] 09/03/2024 1:[address] [facility] [address] [place] [address] Sabrina Mujica FNP-BC [address] [place] [address] Health Maintenance Due Date Last Done Comments Hepatitis C 1977 Pneumococcal Vaccine: 50+ Years (1 of 1 - PCV) 2009 Zoster Vaccines (1 of 2) 2009 RSV Immunization or 60+ Years (1 - Risk 60-74 years 1-dose series) 2019 COVID-19 Vaccine (3 - 2023-2 5 season) 2023 06/26/2020, 06/06/2020 DTaP, Tdap and Td Vaccines ( 2 [...] Procedure Name Priority Date/Time Associated Diagnosis Comments MRI PEL WWO CON Routine 07/24/2024 10:45 AM CDT Rectal cancer ([facility] CT CHEST+ABD W CON VERO 07/24/2024 9: 00 AM CDT Rectal cancer (CMS/HCC HHS/HCC) ECG 12-LEAD Routine 07/03/2024 11:20 AM CDT Pre-op testing COMPREHENSIVE METABOLIC PANEL Routine 07/03/2024 11:11 AM CDT Pre-op testing CBC W/DIFF AUTOMATED Routine 07/03/2024 11:11 AM CDT Pre-op testing XR CHEST PA+LAT Routine 07/03/2024 11:00 AM CDT Pre-op testing CARCINOEMBRYONIC ANTIGEN Routine 025 11:11 AM EMERGENCY MEDICAL TECHNICIAN Prostate cancer (CMS/HCC HHS/HCC) PROSTATE SPECIFIC ANTIGEN,TOTAL Routine 05/29/2024 11:11 AM EMERGENCY MEDICAL TECHNICIAN Malignant neoplasm of prostate (CMS/HCC HHS/HCC) HC TESTOSTERONE FREE-90 Routine 05/29/19 25 11:11 AM EMERGENCY MEDICAL TECHNICIAN Malignant neoplasm of prostate (CMS/HCC HHS/HCC) from Last 3 Months Results * MRI PEL WWO CON (07/24/2024 10:45 AM CDT) Anatomical Region Laterality Modality Pelvis Magnetic Resonan ce 07/25/2024 2:19 PM CDT Impressions 07/25/2024 2:33 PM CDT Impression: 1. Slight interval decrease in size of the mid rectal tumor as described in the report. 2. Further interval improvement in the perirectal lymph nodes, now with no suspicious mesorectal lymphadenopathy noted on this exam. 3. Redemonstrated ill-defined streak-like/spiculated regions extending from the rectal wall into the perirectal fat. As stated previously, findings could represent a desmoplastic reaction and posttreatment changes although residual viable tumor is not definitively excluded. 4. Redemonstrated probable perianal fissure extending to the right gluteal fold, partially imaged on this exam. The tract appears more prominent and fluid-filled on this exam compared to the previous study from March 2024. Ordered By: TEDDY ROMAN SR Interpreted By: Luther Mathis MD, 07/25/2024 2:19 PM Narrative 07/25/2024 2:33 PM CDT [facility] [address] [place] [address] Examination: MR pelvis with/without contrast, per rectal cancer staging protocol. Clinical Information: Rectal cancer restaging. Comparison: MRI 03/14/2024 and 02/20/2024. Technique: Sequences: Multiplanar, multisequence magnetic resonance imaging of the pelvis was performed before and after the initiation of contrast. IV contrast: 15 mL dotarem. Findings: Redemonstrated edema like signal throughout the presacral and perirectal regions, slightly improved from prior and again favored to be sequelae of prior treatment. Mild circumferential wall thickening of the mid rectum is again noted and favored to represent residual tumor. This has slightly decreased in size since the previous exam. TUMOR LOCATION Distance of the lowest extent of tumor from anal verge: Approximately 7.5 cm. Distance of lowest extent of tumor from ano-rectal junction: Approximately 3.6 cm. Relationship to anterior peritoneal reflection: At the level of the peritoneal reflection, similar to prior. No distinct identifiable involvement of the peritoneal reflection is seen. TUMOR CHARACTERISTICS Circumferential extent/location (clock face): Circumferential. Cranio-caudal extent (length of tumor): Approximately 4.4 cm. T-CATEGORY Radial extent of disease: No distinct bulky tumor extension is seen involving the perirectal fat on this exam. Redemonstrated ill-defined streak-like/spiculated regions extending from the rectal wall into the perirectal fat. As stated previously, findings could represent a desmoplastic reaction and posttreatment changes although residual viable tumor is not definitively excluded. No definite abnormal enhancement is seen involving these regions. T-category: T1/T2 DISTANCE TO THE MESORECTAL FACIA (MRF) AND EXTRAMURAL DEPTH OF INVASION (EMD) Shortest distance of the definitive tumor border to the MRF: Approximately 7 mm. EXTRAMURAL VASCULAR INVASION (EMVI): Absent. LYMPH NODES Mesorectal lymph nodes: Further interval improvement in the perirectal lymph nodes, now with no suspicious mesorectal lymphadenopathy noted on this exam. Extra-mesorectal lymph nodes: None. Shortest distance of any suspicious lymph node to the MRF: N/A. OTHER Peritoneum: No nodularity or thickening. Free Fluid: None. Genitourinary system: Normal. Vasculature: Imaged vascular structures are patent. Bones: No suspicious osseous lesions. Redemonstrated probable perianal fissure extending to the right gluteal fold, partially imaged on this exam (series 4 image 18 and series 5 image 39). The tract appears more prominent and fluid-filled on this exam compared to the previous study from March 2024. Procedure Note Luther Mathis MD - 07/25/2024 [place] [id number] [facility] [place] [address] Examination: MR pelvis with/without contrast, per rectal cancer stagingprotocol. Clinical Information: Rectal cancer restaging. Comparison: MRI 03/14/2024 and 02/20/2024. Technique: Sequences: Multiplanar, multisequence magnetic resonance imaging of thepelvis was performed before and after the initiation of contrast. IV contrast: 15 mL dotarem. Findings: Redemonstrated edema like signal throughout the presacral and perirectalregions, slightly improved from prior and again favored to be sequelae ofprior treatment. Mild circumferential wall thickening of the mid rectum isagain noted and favored to represent residual tumor. This has slightlydecreased in size since the previous exam. TUMOR LOCATION Distance of the lowest extent of tumor from anal verge: Approximately 7.5cm. Distance of lowest extent of tumor from ano-rectal junction: Approximately3.6 cm. Relationship to anterior peritoneal reflection: At the level of theperitoneal reflection, similar to prior. No distinct identifiableinvolvement of the peritoneal reflection is seen. TUMOR CHARACTERISTICS Circumferential extent/location (clock face): Circumferential. Cranio-caudal extent (length of tumor): Approximately 4.4 cm. T-CATEGORY Radial extent of disease: No distinct bulky tumor extension is seeninvolving the perirectal fat on this exam. Redemonstrated jdp-yohjlvbndyrnk-sxad/spiculated regions extending from the rectal wall into theperirectal fat. As stated previously, findings could represent adesmoplastic reaction and posttreatment changes although residual viabletumor is not definitively excluded. No definite abnormal enhancement isseen involving these regions. T-category: T1/T2 DISTANCE TO THE MESORECTAL FACIA (MRF) AND EXTRAMURAL DEPTH OF INVASION(EMD) Shortest distance of the definitive tumor border to the MRF: Approximately7 mm. EXTRAMURAL VASCULAR INVASION (EMVI): Absent. LYMPH NODES Mesorectal lymph nodes: Further interval improvement in the perirectallymph nodes, now with no suspicious mesorectal lymphadenopathy noted onthis exam. Extra-mesorectal lymph nodes: None. Shortest distance of any suspicious lymph node to the MRF: N/A. OTHER Peritoneum: No nodularity or thickening. Free Fluid: None. Genitourinary system: Normal. Vasculature: Imaged vascular structures are patent. Bones: No suspicious osseous lesions. Redemonstrated probable perianal fissure extending to the right glutealfold, partially imaged on this exam (series 4 image 18 and series 5 image39). The tract appears more prominent and fluid-filled on this examcompared to the previous study from March 2024. Impression: 1. Slight interval decrease in size of the mid rectal tumor as describedin the report. 2. Further interval improvement in the perirectal lymph nodes, now withno suspicious mesorectal lymphadenopathy noted on this exam. 3. Redemonstrated ill-defined streak-like/spiculated regions extendingfrom the rectal wall into the perirectal fat. As stated previously,findings could represent a desmoplastic reaction and posttreatment changesalthough residual viable tumor is not definitively excluded. 4. Redemonstrated probable perianal fissure extending to the rightgluteal fold, partially imaged on this exam. The tract appears moreprominent and fluid-filled on this exam compared to the previous studyfrom March 2024. Ordered By: TEDDY ROMAN SR Interpreted By: Luther Mathis MD, 07/25/2024 2:19 PM us Teddy Roman Sr., MD MRI Final Re sult * CT CHEST+ABD W CON (07/24/2024 9:00 AM CDT) Anatomical Region Laterality Modality Chest, Abdomen Computed Tomogra phy 07/26/2024 10:1 1 AM CDT Impressions 07/26/2024 10:49 AM CDT IMPRESSION: 1. No acute intrathoracic or intra-abdominal process identified. 2. No evidence of metastatic disease in the chest. 3. Posttreatment changes of the liver as described. 4. New 12 mm hypoenhancing focus near the junction of the right and left lobes of the liver suspicious for metastasis. 5. Coronary artery disease. 6. Centrilobular emphysema. 7. Additional chronic/nonurgent findings as described. Ordered By: TEDDY ROMAN SR Interpreted By: Unruly Allan MD, 07/26/2024 10:11 AM Narrative 07/26/2024 10:49 AM CDT [place] [id number] [facility] [place] [address] Examination: CT of the chest and abdomen with contrast. Exam time: 0859 hours. Clinical history: Restaging of metastatic rectal cancer. Status post microwave ablation of right lobe hepatic metastasis, 07/20/2024. History of prostate cancer. History of smoking. Comparison: 04/20/2024, low-dose screening chest CT, 01/12/2023; MRI of the abdomen, 05/18/2023. Technique: Following the administration of intravenous contrast, spiral scanning was performed through the chest and abdomen. Sagittal and coronal reconstructions were performed from the data set. A dose lowering technique was used for this procedure, which may include, but is not limited to, dose reduction techniques, automated exposure control, the use of iterative reconstruction and ALARA/Image Gently techniques. Findings: CT CHEST: Right jugular port catheter remains in place with the tip terminating in the SVC. Calcific coronary artery disease is again evident. Small pericardial effusion is similar to 04/20/2024. The heart and great vessels are otherwise unremarkable. Calcified right hilar lymph nodes are again evident, compatible with old granulomatous disease. No hilar or mediastinal adenopathy is identified. No endobronchial abnormality is identified. Changes of centrilobular emphysema are again evident. There is redemonstrated left lower lobe scarring. Calcified granuloma in the right lower lobe is again evident. Stable sub-4 mm noncalcified nodules in either upper lobe are considered benign based on current Fleischner Society guidelines, presumably granulomas. These are annotated on the lung window series images. Allowing for minor respiratory motion, the lungs are otherwise clear. There is no pleural effusion. The chest wall structures are unchanged. No suspicious bony lesion is identified. CT ABDOMEN: Incidental splenules are again evident. The gallbladder, pancreas, adrenals and kidneys appear unremarkable. Calcified splenic granulomas are again evident. Scattered splenic hypodensities are similar to previous and are favored benign on MRI, likely hemangiomas or hamartomas. The spleen is otherwise unremarkable. There is now an approximately 3.3 cm ill-defined hypoenhancing focus in the right lobe of the liver at the site of previously demonstrated metastasis compatible with early posttreatment change. Linear zone of hypoenhancement extending from the treatment bed laterally to the capsule reflects the probe tract. Thrombosis of some of the portal veins caudal to the treatment bed is noted. There is a new 12 mm hypoenhancing focus near the junction of the right and left lobes (image 93 for example) suspicious for metastasis. The liver is otherwise unremarkable. There is no ascites, lymphadenopathy or bowel distention. The caliber of the abdominal aorta is normal. No suspicious bony lesion is identified. Procedure Note Unruly Allan MD - 07/26/2024 [place] [id number] [facility] [place] [address] Examination: CT of the chest and abdomen with contrast. Exam time: 0859 hours. Clinical history: Restaging of metastatic rectal cancer. Status postmicrowave ablation of right lobe hepatic metastasis, 07/20/2024. History ofprostate cancer. History of smoking. Comparison: 04/20/2024, low-dose screening chest CT, 01/12/2023; MRI of theabdomen, 05/18/2023. Technique: Following the administration of intravenous contrast, spiralscanning was performed through the chest and abdomen. Sagittal and coronalreconstructions were performed from the data set. A dose loweringtechnique was used for this procedure, which may include, but is notlimited to, dose reduction techniques, automated exposure control, the useof iterative reconstruction and ALARA/Image Gently techniques. Findings: CT CHEST: Right jugular port catheter remains in place with the tipterminating in the SVC. Calcific coronary artery disease is again evident.Small pericardial effusion is similar to 04/20/2024. The heart and greatvessels are otherwise unremarkable. Calcified right hilar lymph nodes areagain evident, compatible with old granulomatous disease. No hilar ormediastinal adenopathy is identified. No endobronchial abnormality isidentified. Changes of centrilobular emphysema are again evident. There isredemonstrated left lower lobe scarring. Calcified granuloma in the rightlower lobe is again evident. Stable sub-4 mm noncalcified nodules ineither upper lobe are considered benign based on current [facility] guidelines, presumably granulomas. These are annotated on the lungwindow series images. Allowing for minor respiratory motion, the lungs areotherwise clear. There is no pleural effusion. The chest wall structuresare unchanged. No suspicious bony lesion is identified. CT ABDOMEN: Incidental splenules are again evident. The gallbladder,pancreas, adrenals and kidneys appear unremarkable. Calcified splenicgranulomas are again evident. Scattered splenic hypodensities are similarto previous and are favored benign on MRI, likely hemangiomas orhamartomas. The spleen is otherwise unremarkable. There is now anapproximately 3.3 cm ill-defined hypoenhancing focus in the right lobe ofthe liver at the site of previously demonstrated metastasis compatiblewith early posttreatment change. Linear zone of hypoenhancement extendingfrom the treatment bed laterally to the capsule reflects the probe tract.Thrombosis of some of the portal veins caudal to the treatment bed isnoted. There is a new 12 mm hypoenhancing focus near the junction of theright and left lobes (image 93 for example) suspicious for metastasis. Theliver is otherwise unremarkable. There is no ascites, lymphadenopathy orbowel distention. The caliber of the abdominal aorta is normal. Nosuspicious bony lesion is identified. IMPRESSION: 1. No acute intrathoracic or intra-abdominal process identified. 2. No evidence of metastatic disease in the chest. 3. Posttreatment changes of the liver as described. 4. New 12 mm hypoenhancing focus near the junction of the right and leftlobes of the liver suspicious for metastasis. 5. Coronary artery disease. 6. Centrilobular emphysema. 7. Additional chronic/nonurgent findings as described. Ordered By: TEDDY ROMAN SR Interpreted By: Unruly Allan MD, 07/26/2024 10:11 AM us Teddy Roman Sr., MD CT Final Re sult * ECG 12 lead (07/03/2024 11:20 AM CDT) 07/03/2024 11:2 0 AM CDT Narrative [facility] - 07/04/2024 3:28 PM CDT [address] [place] [address] Test Date: 2024-07-03 Pat Name: ROBERTO GARCIA Department: 3 Room: Gender: Male Supervisor Nutritional Ye[employer]: : 1960 Requested By: EDER BUSBY Order Number: [id number] Reading MD: Obdulio Cooper Measurements Intervals [place]er Rate: 63 P: 64 NJ: 160 QRS: 85 QRSD: 103 T: 64 QT: 427 QTc: 439 Interpretive Statements SINUS RHYTHM Poor R Wave Progression Procedure Note Obdulio Cooper MD - 07/04/[address] [place] [address] Test Date: 2024-07-03 Pat Name: ROBERTO SAUK CENTRE Department: 3 Room: Gender: Male Supervisor Nutritional Yeast: : 1960 Requested By: EDER BUSBY Order Number: [id number] Reading : Obdulio Cooper Measurements Intervals [place]er Rate: 63 P: 64 NJ: 160 QRS: 85 QRSD: 103 T: 64 QT: 427 QTc: 439 Interpretive Statements SINUS RHYTHM Poor R Wave Progression us Eder [facility] ECG ORDERABLES Final Result [facility] * (ABNORMAL) COMPREHENSIVE METABOLIC PANEL (07/03/2024 11:11 AM CDT) SODIUM S/P/B 137 136 - 145 MMOL/L 07/03/2024 11:52 AM CDT [facility] POTASSIUM S/P/B 3.4(L) 3.5 - 5.1 MMOL/L 07/03/2024 11:52 AM T [facility] CHLORIDE S/P/B 98 98 - 107 MMOL/L 07/03/2024 11:52 AM T [facility] CO2 33.9(H) 21.0 - 32.0 MMOL/L 07/03/2024 11:52 AM CDT [facility] GLUCOSE 111(H) 70 - 99 MG/DL 07/03/2024 11:52 AM T [facility] Comment: FASTING GLUCOSE 100 TO 125 MG/DL IS CONSISTENT WITH IMPAIRED FASTING GLUCOSE. FASTING GLUCOSE >125 MG/DL IS CONSISTENT WITH DIABETES. RANDOM GLUCOSE >200 MG/DL WITH HYPERGLYCEMIC SYMPTOMS IS CONSISTENT WITH DIABETES. PER ADA GUIDELINES BUN 11 6 - 24 MG/DL 07/03/2024 11:52 AM T [facility] CREATININE S/P/B 0.69(L) 0.70 - 1.30 MG/DL 07/03/2024 11:52 AM T [facility] CALCIUM S/P/B 8.6 8.4 - 10.5 MG/DL 07/03/2024 11:52 AM T [facility] BILIRUBIN TOTAL S/P/B 0.3 0.2 - 1.0 MG/DL 07/03/2024 11:52 AM T [facility] Comment: THIS ASSAY IS NOT RECOMMENDED FOR PATIENTS UNDERGOING TREATMENT WITH ELTROMBOPAG DUE TO THE POTENTIAL FOR FALSELY ELEVATED RESULTS. ALKALINE PHOSPHATASE S/P/B 246(H) 45 - 115 U/L 07/03/2024 11:52 AM T [facility] AST 20 15 - 37 U/L 07/03/2024 11:52 AM T [facility] ALT 42 16 - 63 U/L 07/03/2024 11:52 AM CDT [facility] TOTAL PROTEIN S/P/B 7.2 6.4 - 8.2 G/DL 07/03/2024 11:52 AM CDT [facility] ALBUMIN S/P/B 3.4 3.4 - 5.0 G/DL 07/03/2024 11:52 AM CDT [facility] ANION GAP 5.1 5.0 - 15.0 MMOL/L 07/03/2024 11:52 AM CDT [facility] OSMOLALITY (CALC) 284 MOSM/KG 025 11:52 AM CDT [facility] Comment:REFERENCE RANGE NOT ESTABLISHED GFR ESTIMATE >90 >89 ML/MIN/1. 73 M2 07/03/2024 11:52 AM CDT [facility] GFR NOTES GFR REFERENCE S: 07/03/2024 11:52 AM CDT [facility] Comment: THE ESTIMATED GFR IS [...] AM CDT [facility] Final Result [facility] [address] [facility] [place] [address], * (ABNORMAL) CBC W/DIFF AUTOMATED (07/03/2024 11:11 AM CDT) WBC 4.29 4.00 - 10.80 x10'3/uL 07/03/2024 11:38 AM CDT [facility] RBC 4.18(L) 4.50 - 6.10 x10'6/uL 07/03/2024 11:38 AM CDT [facility] HGB 12.5(L) 13.0 - 18.0 G/DL 07/03/2024 11:38 AM CDT [facility] HCT 36.8(L) 37.0 - 52.0 % 07/03/2024 11:38 AM CDT [facility] MCV 88.0 78.0 - 100.0 FL 07/03/2024 11:38 AM CDT [facility] MCH 29.9 27.0 - 31.0 PG 07/03/2024 11:38 AM CDT [facility] MCHC 34.0 33.0 - 36.0 G/DL 07/03/2024 11:38 AM CDT [facility] RDW 13.1 11.5 - 14.5 % 07/03/2024 11:38 AM CDT [facility] PLT 247 150 - 350 x10'3/uL 07/03/2024 11:38 AM CDT [facility] MPV 9.4 7.4 - 10.4 FL 07/03/2024 11:38 AM CDT [facility] CBC COMMENT NORMAL REFERENCE RANGE NOT ESTABLISHED FOR THE PROPORTIONAL LEUKOCYTE DIFFERENTIAL. 07/03/2024 11:38 AM CDT [facility] NEUTROPHILS % 73.0 % 07/03/2024 11:38 AM CDT [facility] LYMPHOCYTES % 17.2 % 07/03/2024 11:38 AM CDT [facility] MONOCYTES % 6.5 % 07/03/2024 11:38 AM CDT [facility] EOSINOPHILS % 2.1 % 07/03/2024 11:38 AM CDT [facility] BASOPHILS % 0.5 % 07/03/2024 11:38 AM CDT [facility] IMMATURE GRANS % 0.7 % 07/04/19 11:38 AM CDT [facility] NRBC % 0.0 % 07/03/2024 11:38 AM CDT [facility] ABS. NEUTROPHILS 3.13 1.60 - 8.30 x10'3/uL 07/03/2024 11:38 AM CDT [facility] ABS. LYMPHOCYTES 0.74(L) 0.80 - 4.70 x10'3/uL 07/03/2024 11:38 AM CDT [facility] ABS. MONOCYTES 0.28 0.00 - 1.50 x10'3/uL 07/03/2024 11:38 AM CDT [facility] ABS. EOSINOPHILS 0.09 0.00 - 0.40 x10'3/uL 07/03/2024 11:38 AM CDT [facility] ABS. BASOPHILS 0.02 0.00 - 0.20 x10'3/uL 07/03/2024 11:38 AM CDT [facility] ABS. IMMATURE GRANULOCYTES 0.03 0.00 - 0.03 x10'3/uL 07/03/2024 11:38 AM CDT [facility] ABS. NUCLEATED RBC'S 0.00 0.00 - 0.01 x10'3/uL 07/03/2024 11:38 AM CDT [facility] 07/03/2024 11:1 1 AM CDT [facility] Final Result [facility] [place] [address], * XR CHEST PA+LAT (07/03/2024 11:00 AM CDT) Anatomical Region Laterality Modality Chest Radiographic Cyndi ging 07/03/2024 11:2 4 AM CDT Impressions 07/03/2024 11:26 AM CDT IMPRESSION: No significant change. No acute disease. Ordered By: EDER BUSBY Interpreted By: Unruly Allan MD, 07/03/2024 11:24 AM Narrative 07/03/2024 11:26 AM CDT [address] [place] [address] Examination: Two-view chest Exam time: 1038 hours. [...] Procedure Note Unruly Allan MD - 07/03/2024 [facility] [address] [place] [address] Examination: Two-view chest Exam time: 1038 hours. [...] Allan MD, 07/03/2024 11:24 AM Eder Busby [facility] Final Result * (ABNORMAL) TESTOSTERONE, FREE & TOTAL (05/29/2024 11:11 AM EMERGENCY MEDICAL TECHNICIAN) TESTOSTERONE TOTAL 88(L) 250 - 1,100 ng/dL 06/04/2024 3:31 PM EMERGENCY MEDICAL TECHNICIAN [email or web address] ANASTACIA PEDERSON Comment: Men with clinically significant hypogonadal symptoms and testosterone values repeatedly in the range of the 200-300 ng/dL or less, may benefit from testosterone treatment after adequate risk and benefits counseling. For additional information, please refer to http://education.eReceipts.[employer]/faq/ HraouZaxemwlzyeizGWTNTZKRZ576 (This link is being provided for informational/ educational purposes only.) This test was developed and its analytical performance characteristics have been determined by [place], [place]. It has not been cleared or approved by the U.S. Food and Drug Administration. This assay has been validated pursuant to the CLIA regulations and is used for clinical purposes. TESTOSTERONE FREE 6.1(L) 35.0 - 155.0 pg/mL 06/04/2024 3:31 PM EMERGENCY MEDICAL TECHNICIAN [email or web address] Comment: This test was developed and its analytical performance characteristics have been determined by [place] [place]. It has not been cleared or approved by the U.S. Food and Drug Administration. This assay has been validated pursuant to the CLIA regulations and is used for clinical purposes. Test Performed by [facility], [facility], [address] [place] [address] Jean Carlos Carter M.D., Ph.D., Director of Laboratories , CLIA [id number] 05/29/2024 11:1 1 AM EMERGENCY MEDICAL TECHNICIAN Aretha Hubbard NP LABORATORY Final Result [email or web address] [address] , [place] [phone] * PROSTATE SPECIFIC ANTIGEN, DIAG (05/29/2024 11:11 AM EMERGENCY MEDICAL TECHNICIAN) PSA <0.13 <4.00 NG/ML 05/29/2024 11:51 AM EMERGENCY MEDICAL TECHNICIAN [facility] 05/29/2024 11:1 1 AM EMERGENCY MEDICAL TECHNICIAN us Aretha Hubbard NP LABORATORY Final Result [facility] [address] [place] [address], [place] [phone] * (ABNORMAL) CARCINOEMBRYONIC ANTIGEN (05/29/2024 11:11 AM EMERGENCY MEDICAL TECHNICIAN) CEA 9.9(H) 0.0 - 5.0 NG/ML 05/29/2024 7:14 PM EMERGENCY MEDICAL TECHNICIAN [facility] Comment: ASSAY PERFORMED BY CHEMILUMINESCENCE METHODOLOGY USING SIEMENS D[employer] [facility]IST[employer] RE[employer]ENT. PATIENT RESULTS DETERMINED BY ASSAYS USING DIFFERENT MANUFACTURERS FOR METHODS MAY NOT BE COMPARABLE. 05/29/2024 11:1 1 AM EMERGENCY MEDICAL TECHNICIAN Ziggy Renee MD LABORATORY Final Result [facility] [address] [place] [address], [id number] from Last 3 Months Insurance MEDICARE MEDICAID [place] Care Teams It Audit Manager Relationship Specialty Start Date End Date Flaco Kelly MD [address] [place] [address] PCP - General FAMILY PRACTICE 01/03/23
--- OUTSIDE RECORDS SUMMARY | 2024-08-09 11:14 | XMS_ITS ---
Author Organization Unknown Address [address] [place] [address] [phone] Phone Care Team Providers Care Dumper Mold Cleaner Name Role Phone ALBERT Pinedo Attending Unavailable [facility] Unavailable MANJIT Gould Primary Unavailable Immunization Immunization Date Status Additional Notes Code Code System Tdap 05/12/2021 Completed 115 CVX COVID-19, mRNA, LNP-S, PF, 3 0 mcg/0.3 mL dose 06/06/2020 Completed 208 CVX COVID-19, mRNA, LNP-S, PF, 3 0 mcg/0.3 mL dose 06/26/2020 Completed 208 CVX Social History Type Status Start Date End Date Code Code Syst em Smoking History Current every day smoker 566556570 SNOMED CT Sex Male Vital Signs Vital Sign Value Unit [place] Value [place] Unit Date/Time Recent/Initial? Code Code System Body Mass Index 27.69 kg/m2 03/04/2023 13:59 Initial 78086 -5 LOINC Systolic Blood Pressure 130 mm[Hg] 03/18/2023 07:41 Initial 8480- 6 LOINC Diastolic Blood Pressure 72 mm[Hg] 03/18/2023 07:41 Initial 8462- 4 LOINC Body Surface Area 2.08 m2 03/04/2023 13:59 Initial 3140- 1 LOINC Height 177.800 0 cm 70.00 in 03/04/2023 13:59 Initial 8302- 2 LOINC O2 Saturation 98 % 2022 07:41 Initial 86771 -5 LOINC Pulse 100.0 /min 03/18/2023 07:41 Initial 8867- 4 LOINC Respiration 20 /min 03/18/20 07:41 Initial 9279- 1 LOINC Temperature 36.4 Jenna 97.5 F 12/15/20 23 07:41 Initial 8310- 5 LOINC Weight 87.54 kg 193.00 lbs 03/04/2023 13:59 Initial 10019 -7 LOINC Medications No Active Medications Hospital Discharge Instructions Should you have any questions prior to discharge, please contact a member of your healthcare team. If you have left the hospital and have any questions, please contact your primary care physician. Reason For Referral No Data Found Procedures Procedure Name Date Status Code Code Syste m Inguinal hernia completed 780326162 SNOMEDCT Anesthesia for lower intesti nal endoscopic procedures, endoscope introduce 03/18/2023 completed 70643 CPT Colonoscopy, flexible; with removal of tumor(s), polyp(s), or other lesion 03/18/2023 completed 79991 CPT Allergies and Adverse Reactions Allergy Substance Reaction Severity Start Date Concern Status Co de Code System CODEINE Active 7139 RxNorm Plan of Treatment US Prostate Needle Biopsy 04/13/2023 Encounters Encounter Diagnosis Start Date Code Code Sys tem Encounter for screening for malignant neoplasm of colo n 03/18/2023 SNOMED-CT Personal Care Team Section Performer Name Performer Role Active Date Inactive MIGUELANGEL Fuller PCP - Primary care physician 2023-01-12
[2024-08-09 11:25] LABS: Basophils Absolute Auto 0.02 K/mm3 (0.00-0.10); Basophils Percent Auto 0.4 % (0.0-1.0); Eosinophils Percent Auto 1.9 % (1.0-6.0); Immature Granulocyte Absolute 0.03 K/mm3 (0.00-0.00); Immature Granulocyte Percent A 0.6 % (0.0-0.0); Lymphocytes Absolute Auto 0.88 K/mm3 (1.10-4.50); Mean Corpuscular HGB Conc 32.4 g/dL (32-36); Mean Corpuscular Hemoglobin 29.3 pg (27.0-31.0); Mean Corpuscular Volume 90.2 fL (78.0-102.0); Mean Platelet Volume 9.4 fl (8.7-11.0); Monocytes Absolute Auto 0.49 K/mm3 (0.10-0.90); Monocytes Percent Auto 9.5 % (2.0-11.0); Neutrophils Absolute Auto 3.66 K/mm3 (1.70-7.20); Neutrophils Percent Auto 70.6 % (50.0-70.0); Platelet Count Result 210 K/mm3 (150-420); Red Cell Distribution Width 13.9 % (11.6-14.4); White Blood Count 5.2 K/mm3 (4.8-10.8)
[2024-08-09 15:42] LABS: Alanine Aminotransferase 83 U/L (6-50); Albumin Level 3.7 g/dL (3.5-5.1); Alkaline Phosphatase 218 U/L (38-126); Anion Gap 5 mmol/L (4-12); Aspartate Amino Transferase 44 U/L (17-59); Bilirubin,Total 0.5 mg/dL (0.2-1.3); Blood Urea Nitrogen 11 mg/dL (9-20); Calcium 8.5 mg/dL (8.4-10.2); Carbon Dioxide 27 mmol/L (22-30); Chloride 100 mmol/L (98-107); Estimated Glomerular Filt Rate > 60; Glucose 123 mg/dL (65-110); Osmolality Calculated 274 mOsm/kg (285-295); Potassium 3.9 mmol/L (3.4-5.0); Sodium 132 mmol/L (137-145); Total Protein 6.3 g/dL (6.3-8.2)
== END 2024-08-09 10:57 | disposition home or self-care (01) ==
LOC: CHSLAB 11:00
PROVIDERS: PCP Family Medicine; Visit Provider Internal Medicine Hematology
DX: C20 Malignant neoplasm of rectum (principal)
CPT/HCPCS: 36415; 80053; 85025

== ENCOUNTER 2024-08-13 08:56 | Outpatient (CLI) | payer MEDICARE, MEDICAID, SELFPAY ==
--- OUTSIDE RECORDS SUMMARY | 2024-08-13 09:07 | XMS_ITS | Clinical Summary ---
Author Organization [facility] System Address [facility] [place] [address] Care Team Providers Care Batting Machine Operator Insulation Name Role Phone Flaco Kelly MD Primary Care Provider Allergies Active Allergy Reactions Criticality Noted Date Comments Codeine Nausea Only 03/18/2023 Patient states it makes me sick as hell Medications No known medications Encounters Date Type Department Care Team Description 07/24/2024 8:37 AM CDT - 07/24/2024 11:59 PM CDT Hospital En[facility] [address] [place] [address] Teddy Roman Sr., Discharge Disposition: Home or Self Care (Routine Discharge) 07/24/2024 Travel 07/05/2024 Transcribe Orders [facility] Pre Access Team [address] [place] [address] Sabrina Mujica FNP-BC 07/03/2024 10:52 AM CDT - 07/03/2024 11:59 PM CDT Hospital Encounter [facility] [address] [place] [address] Eder Busby PA Discharge Disposition: Home or Self Care (Routine Discharge) 07/03/2024 10:52 AM CDT - 07/03/2024 11:59 PM CDT Hospital Encounter [facility] [address] [place] [address] Eder Busby PA Discharge Disposition: Home or Self Care (Routine Discharge) 07/03/2024 10:50 AM CDT - 07/03/2024 10:51 AM CDT Hospital Encounter [facility] [address] [place] [address] Eder Busby PA Discharge Disposition: Home or Self Care (Routine Discharge) 07/03/2024 Orders Only [place] [id number] [place] [address] Eder Busby PA 07/03/2024 Travel 05/29/2024 10:55 AM RN INTERNSHIP - 05/29/2024 11:59 PM RN INTERNSHIP Hospital Encounter [facility] On license of [facility] [facility] [address] [place] [place] [address] Travis Ratliff MD Discharge Disposition: Home or Self Care (Routine Discharge) 05/29/2024 10:45 AM RN INTERNSHIP - 05/29/2024 10:54 AM RN INTERNSHIP Hospital Encounter [place] [id number] [place] [address] Flaco Kelly MD Fisher, Kelli C, JULIANNE Discharge Disposition: Home or Self Care (Routine Discharge) 05/29/2024 Orders Only [place] [id number] [place] [address] Travis Ratliff MD 05/29/2024 Orders Only [place] [id number] [place] [address] Aretha Hubbard NP 05/29/2024 Travel from Last 3 Months Social History Tobacco Use Types Packs/Day Years Used Date Smoking Tobacco: Unknown Tobacco Cessation:Counseling Given: Not Answered Sex and Gender Information Value Date Recorded Sex Assigned at Male 04/20/2024 8:37 AM RN INTERNSHIP Legal Sex Male 9:40 AM CDT Gender Identity Not on file Sexual Orientation Not on file Last Filed Vital Signs Vital Sign Reading Time Taken Comments Blood Pressure 129/98 03/18/2023 3:56 PM RN INTERNSHIP Pulse 98 03/18/2023 3:56 PM RN INTERNSHIP Temperature 36.6 C (97.8 F) 03/18/2023 12:49 PM RN INTERNSHIP Respiratory Rate 14 03/18/2023 3:56 PM RN INTERNSHIP Oxygen Saturation 96% 03/18/2023 3:56 PM RN INTERNSHIP Inhaled Oxygen Concentration - - Weight 85 kg (187 lb 8 oz) 03/18/2023 12:49 PM C Height 180.3 cm (5' 11 ) 03/18/2023 12:49 PM RN INTERNSHIP Body Mass Index 26.15 03/18/2023 12:49 PM RN INTERNSHIP Plan of Treatment Upcoming Encounters Date Type Department Care Team (Late st Contact Info) Description 08/23/2024 9:[address] [facility] [address] [place] [address] Ulises Garcia MD [address] [place] [address] 09/03/2024 1:[address] [facility] [address] [place] [address] Sabrina Mujica FNP-BC [address] [place] [address] Health Maintenance Due Date Last [...] Routine 07/24/2024 10:45 AM CDT Rectal cancer ([facility] CT CHEST+ABD W CON VERO 07/24/2024 9: 00 AM CDT Rectal cancer (CMS/HCC HHS/HCC) ECG 12-LEAD Routine 07/03/2024 11:20 AM CDT Pre-op testing COMPREHENSIVE METABOLIC PANEL Routine 07/03/2024 11:11 AM CDT Pre-op testing CBC W/DIFF AUTOMATED Routine 07/03/2024 11:11 AM CDT Pre-op testing XR CHEST PA+LAT Routine 07/03/2024 11:00 AM CDT Pre-op testing CARCINOEMBRYONIC ANTIGEN Routine 025 11:11 AM RN INTERNSHIP Prostate cancer (CMS/HCC HHS/HCC) PROSTATE SPECIFIC ANTIGEN,TOTAL Routine 05/29/2024 11:11 AM RN INTERNSHIP Malignant neoplasm of prostate (CMS/HCC HHS/HCC) HC TESTOSTERONE FREE-90 Routine 05/29/19 25 11:11 AM RN INTERNSHIP Malignant neoplasm of prostate (CMS/HCC HHS/HCC) from [...] 2:19 PM Narrative 07/25/2024 2:33 PM CDT [facility] [address] [place] [address] Examination: MR pelvis with/without contrast, per rectal [...] Procedure Note Luther Mathis MD - 07/25/2024 [place] [id number] [place] [address] Examination: MR pelvis with/without contrast, per rectal [...] the perirectal fat on this exam. Redemonstrated xuk-clcfvjktwuity-opub/spiculated regions extending from the rectal wall into [...] 10:11 AM Narrative 07/26/2024 10:49 AM CDT [place] [address] [place] [address] Examination: CT of the chest and abdomen [...] Procedure Note Unruly Allan MD - 07/26/[address] [place] [address] Examination: CT of the chest and abdomen [...] lobe are considered benign based on current [facility] guidelines, presumably granulomas. These are annotated [...] CDT) 07/03/2024 11:2 0 AM CDT Narrative [facility] - 07/04/2024 3:[address] PM [address]T [address] 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1960 Requested By: EDER BUSBY Order Number: [id number] Reading : Obdulio Cooper Measurements Intervals [place] Rate: 63 P: 64 AR: 160 QRS: 85 QRSD: 103 T: 64 QT: 427 QTc: 439 Interpretive Statements SINUS RHYTHM Poor R Wave Progression us Eder MORRISON ECG ORDERABLES Final Result [facility] * (ABNORMAL) COMPREHENSIVE METABOLIC PANEL (07/03/2024 11:11 AM CDT) SODIUM S/P/B 137 136 - 145 MMOL/L 07/03/2024 11:52 AM CDT [facility] POTASSIUM S/P/B 3.4(L) 3.5 - 5.1 MMOL/L 07/03/2024 11:52 AM CDT [facility] CHLORIDE S/P/B 98 98 - 107 MMOL/L 07/03/2024 11:52 AM T [facility] CO2 33.9(H) 21.0 - 32.0 MMOL/L 07/03/2024 11:52 AM CDT [facility] GLUCOSE 111(H) 70 - 99 MG/DL 07/03/2024 11:52 AM T [facility] Comment: FASTING GLUCOSE 100 TO 125 MG/DL IS CONSISTENT WITH IMPAIRED FASTING GLUCOSE. FASTING GLUCOSE >125 MG/DL IS CONSISTENT WITH DIABETES. RANDOM GLUCOSE >200 MG/DL WITH HYPERGLYCEMIC SYMPTOMS IS CONSISTENT WITH DIABETES. PER ADA GUIDELINES BUN 11 6 - 24 MG/DL 07/03/2024 11:52 AM T [facility] CREATININE S/P/B 0.69(L) 0.70 - 1.30 MG/DL 07/03/2024 11:52 AM T [facility] CALCIUM S/P/B 8.6 8.4 - 10.5 MG/DL 07/03/2024 11:52 AM T [facility] BILIRUBIN TOTAL S/P/B 0.3 0.2 - 1.0 MG/DL 07/03/2024 11:52 AM T [facility] Comment: THIS ASSAY IS NOT RECOMMENDED FOR PATIENTS UNDERGOING TREATMENT WITH ELTROMBOPAG DUE TO THE POTENTIAL FOR FALSELY ELEVATED RESULTS. ALKALINE PHOSPHATASE S/P/B 246(H) 45 - 115 U/L 07/03/2024 11:52 AM T [facility] AST 20 15 - 37 U/L 07/03/2024 11:52 AM T [facility] ALT 42 16 - 63 U/L 07/03/2024 11:52 AM T [facility] TOTAL PROTEIN S/P/B 7.2 6.4 - 8.2 G/DL 07/03/2024 11:52 AM T [facility] ALBUMIN S/P/B 3.4 3.4 - 5.0 G/DL 07/03/2024 11:52 AM CDT [facility] ANION GAP 5.1 5.0 - 15.0 MMOL/L 07/03/2024 11:52 AM CDT [facility] OSMOLALITY (CALC) 284 MOSM/KG 025 11:52 AM CDT [facility] Comment:REFERENCE RANGE NOT ESTABLISHED GFR ESTIMATE >90 >89 ML/MIN/1. 73 M2 07/03/2024 11:52 AM CDT [facility] GFR NOTES GFR REFERENCE S: 07/03/2024 11:52 AM CDT [facility] Comment: THE ESTIMATED GFR IS CALCULATED [...] AM CDT Eder MORRISON LABORATORY Final Result [facility] [address] [place] [address], * (ABNORMAL) CBC W/DIFF AUTOMATED (07/03/2024 11:11 AM CDT) WBC 4.29 4.00 - 10.80 x10'3/uL 07/03/2024 11:38 AM CDT [facility] RBC 4.18(L) 4.50 - 6.10 x10'6/uL 07/03/2024 11:38 AM CDT [facility] HGB 12.5(L) 13.0 - 18.0 G/DL 07/03/2024 11:38 AM CDT [facility] HCT 36.8(L) 37.0 - 52.0 % 07/03/2024 11:38 AM CDT [facility] MCV 88.0 78.0 - 100.0 FL 07/03/2024 11:38 AM CDT [facility] MCH 29.9 27.0 - 31.0 PG 07/03/2024 11:38 AM CDT [facility] MCHC 34.0 33.0 - 36.0 G/DL 07/03/2024 11:38 AM CDT [facility] RDW 13.1 11.5 - 14.5 % 07/03/2024 11:38 AM CDT [facility] PLT 247 150 - 350 x10'3/uL 07/03/2024 11:38 AM CDT [facility] MPV 9.4 7.4 - 10.4 FL 07/03/2024 11:38 AM CDT [facility] CBC COMMENT NORMAL REFERENCE RANGE NOT ESTABLISHED FOR THE PROPORTIONAL LEUKOCYTE DIFFERENTIAL. 07/03/2024 11:38 AM CDT [facility] NEUTROPHILS % 73.0 % 07/03/2024 11:38 AM CDT [facility] LYMPHOCYTES % 17.2 % 07/03/2024 11:38 AM CDT [facility] MONOCYTES % 6.5 % 07/03/2024 11:38 AM CDT [facility] EOSINOPHILS % 2.1 % 07/03/2024 11:38 AM CDT [facility] BASOPHILS % 0.5 % 07/03/2024 11:38 AM CDT [facility] IMMATURE GRANS % 0.7 % 07/04/19 11:38 AM CDT [facility] NRBC % 0.0 % 07/03/2024 11:38 AM CDT [facility] ABS. NEUTROPHILS 3.13 1.60 - 8.30 x10'3/uL 07/03/2024 11:38 AM CDT [facility] ABS. LYMPHOCYTES 0.74(L) 0.80 - 4.70 x10'3/uL 07/03/2024 11:38 AM CDT [facility] ABS. MONOCYTES 0.28 0.00 - 1.50 x10'3/uL 07/03/2024 11:38 AM CDT [facility] ABS. EOSINOPHILS 0.09 0.00 - 0.40 x10'3/uL 07/03/2024 11:38 AM CDT [facility] ABS. BASOPHILS 0.02 0.00 - 0.20 x10'3/uL 07/03/2024 11:38 AM CDT [facility] ABS. IMMATURE GRANULOCYTES 0.03 0.00 - 0.03 x10'3/uL 07/03/2024 11:38 AM CDT [facility] ABS. NUCLEATED RBC'S 0.00 0.00 - 0.01 x10'3/uL 07/03/2024 11:38 AM CDT [facility] 07/03/2024 11:1 1 AM CDT Eder MORRISON LABORATORY Final Result Performing Organization Address City/State/[facility] Co de Phone Number [facility] [place]24[place] [address], * XR CHEST PA+LAT (07/03/2024 11:00 AM CDT) Anatomical Region Laterality Modality Chest Radiographic Cyndi ging 07/03/2024 11:2 4 AM CDT Impressions 07/03/2024 11:26 AM CDT IMPRESSION: No significant change. No acute disease. Ordered By: EDER BUSBY Interpreted By: Unruly Allan MD, 07/03/2024 11:24 AM Narrative 07/03/2024 11:26 AM CDT [address] [place] [address] Examination: Two-view chest Exam time: 1038 hours. [...] Procedure Note Unruly Allan MD - 07/03/2024 [place] [id number] [place] [address] Examination: Two-view chest Exam time: 1038 hours. [...] Allan MD, 07/03/2024 11:24 AM Eder Busby [facility] Final Result * (ABNORMAL) TESTOSTERONE, FREE & TOTAL (05/29/2024 11:11 AM RN INTERNSHIP) TESTOSTERONE TOTAL 88(L) 250 - 1,100 ng/dL 06/04/2024 3:31 PM RN INTERNSHIP [employer] ANASTACIA PEDERSON Comment: Men with clinically significant hypogonadal symptoms and testosterone values repeatedly in the range of the 200-300 ng/dL or less, may benefit from testosterone treatment after adequate risk and benefits counseling. For additional information, please refer to http://education.[employer] [employer]/faq/ [email or web address] (This link is being provided for informational/ educational purposes only.) This test was developed and its analytical performance characteristics have been determined by [employer] [place], [place]. It has not been cleared or approved by the U.S. Food and Drug Administration. This assay has been validated pursuant to the CLIA regulations and is used for clinical purposes. TESTOSTERONE FREE 6.1(L) 35.0 - 155.0 pg/mL 06/04/2024 3:31 PM RN INTERNSHIP [employer] [facility] Comment: This test was developed and its analytical performance characteristics have been determined by [employer] [place], [place]. It has not been cleared or approved by the U.S. Food and Drug Administration. This assay has been validated pursuant to the CLIA regulations and is used for clinical purposes. Test Performed by [facility], [employer] [facility], [address] [place] [address] Jean Carlos Carter M.D., Ph.D., Director of Laboratories , CLIA [id number] 05/29/2024 11:1 1 AM RN INTERNSHIP Aretha Hubbard NP LABORATORY Final Result [employer] [address] , [place] [phone] * PROSTATE SPECIFIC ANTIGEN, DIAG (05/29/2024 11:11 AM RN INTERNSHIP) PSA <0.13 <4.00 NG/ML 05/29/2024 11:51 AM RN INTERNSHIP [facility] 05/29/2024 11:1 1 AM RN INTERNSHIP us Aretha Hubbard NP LABORATORY Final Result [facility] [address] [place] [address], [place] [phone] * (ABNORMAL) CARCINOEMBRYONIC ANTIGEN (05/29/2024 11:11 AM RN INTERNSHIP) CEA 9.9(H) 0.0 - 5.0 NG/ML 05/29/2024 7:14 PM RN INTERNSHIP [facility] Comment: ASSAY PERFORMED BY CHEMILUMINESCENCE METHODOLOGY USING [employer]. PATIENT RESULTS DETERMINED BY ASSAYS USING DIFFERENT MANUFACTURERS FOR METHODS MAY NOT BE COMPARABLE. 05/29/2024 11:1 1 AM RN INTERNSHIP Travis Ratliff MD LABORATORY Final Result [facility] [address] [place] [address], [id number] from Last 3 Months Insurance MEDICARE MEDICAID ROGERIO |[id number]|2024-08-13 09:07:00|2024-08-13 09:06:00|XMS_ITS|LESLIE MONZON|External Medical Summaries|[id number]|" Data Portability Created on: August 13, 2024 Roberto Garcia .[id number] : 1960 Sex: Male Author Organization [facility], [address] [place] [address] ([place]) Address [address] [place] [id number] Care Team Providers Care Batting Machine Operator Insulation Name Role Phone TRAVIS RATLIFF Medical Oncologist [phone] TEDDY ROMAN Colorectal Surgeon TRAVIS ZAMAN Urologist ABNER CHERRY Radiation Oncologist Assessment Encounter Date Assessment Date Assessment LastModified by Organization Details LastModified Time 02/08/2024 02/08/2024 Impressions: Two synchronized primary adenocarcinoma [...] general side effects. Patient was provided an [facility] radiation therapy folder that includes general information on RT and skin care, contact information, a helpful links worksheet, [facility] Cancer Care support group information and [...] He prefers to have labs drawn in [place]. Continue f/u with med/onc. I personally spent a total of 15 minutes on the phone with patient on this date of service having a direct medical discussion. [email or web address] Not available 03/26/2024 16:46:27 06/12/2024 06/12/2024 Impressions: This is a 64-year-old gentleman with synchronous primary. 1. 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 ADDENDUM: I did talk with Dr. Ratliff who notes that he will present patient on Colorectal Tumor Board on 06/14/2024. Patient is aware. [email or web address] Education: Not available 06/12/2024 19:10:33 08/06/2024 [...] this case at the Colorectal Conference. 2. [place] 7 prostate cancer, PSA 24, grade group [...] the consultation. CC: Travis Ratliff MD rja [email or web address] Not available 08/07/2024 17:08:33 Plan of Treatment Reminders Order Date Submit Date Provider Last Modified By Organization Details Last Modified Time Details Appointments Nurse Surge ry Block 30.DAVE RG 2024 11:00A M Dr. Myles Acevedo Not available Not available Not available [facility] Surge ry.DA[facility] 2024 11:00A M Gastroenterol ogy Not available Not available Not available [facility] Surge ry.DAVE RG 2024 11:00A M Dr. Myles Acevedo Not available Not available Not available Lab None recor ded. Referral None recor ded. Procedures None recor ded. Surgeries None recor ded. Imaging None recor ded. Medication Orders None recor ded. Patient TargetsNo targets recorded. Patient InstructionsNo instructions recorded. Reason for Referral None Reported. Results Created Date Observation Date Name Description Value Unit Range Abnormal Flag Note LastModifiedBy Organization Detail LastModifiedTime 08/07/19 25 08/06/2024 CBC w/ auto diff CBC with differential Not Available [facility] [address] [place] [address], [id number], 08/06/2024 13:43:40 08/07/19 25 08/06/2024 CBC w/ auto diff WBC 6.8 K/uL 4.8- 10.8 Not Available [facility] [address] [place] [address], [id number], 08/06/2024 13:43:40 08/07/19 25 08/06/2024 CBC w/ auto diff RBC 4.21 M/uL 4.70-6 .10 low Not Available [facility] [address] [place] [address], [id number], 08/06/2024 13:43:40 08/07/19 25 08/06/2024 CBC w/ auto diff HGB 12.8 g/dL 14.0-1 8.0 low Not Available [facility] [address] [place] [address], [id number], 08/06/2024 13:43:40 08/07/19 25 08/06/2024 CBC w/ auto diff HCT 37.0 % 42.0-5 2.0 low Not Available [facility] [address] [place] [address], [id number], 08/06/2024 13:43:40 08/07/19 25 08/06/2024 CBC w/ auto diff MCV 87.9 fL 80.0-9 4.0 Not Available [facility] [address] [place] [address], [id number], 08/06/2024 13:43:40 08/07/19 25 08/06/2024 CBC w/ auto diff MCH 30.4 pg 27.0- 31.0 Not Available [facility] [address] [place] [address], [id number], 08/06/2024 13:43:40 08/07/19 25 08/06/2024 CBC w/ auto diff MCHC 34.6 g/dL 32.0-3 6.0 Not Available [facility] [address] [place] [address], [id number], 08/06/2024 13:43:40 08/07/19 25 08/06/2024 CBC w/ auto diff RDW-SD 45.4 fL 35.1 - 46.3 Not Available [facility] [address] [place] [address], [address], 08/06/2024 13:43:40 08/07/19 25 08/06/2024 CBC w/ auto diff plt 215 K/uL 130-40 0 Not Available [facility] [address] [place] [address], [id number], 08/06/2024 13:43:40 08/07/19 25 08/06/2024 CBC w/ auto diff MPV 9.4 fL 7.5- 11.8 Not Available [facility] [address] [place] [address], [address], 08/06/2024 13:43:40 08/07/19 25 08/06/2024 CBC w/ auto diff stanislaw% 74.7 % not estab Not Available [facility] [address] [place] [address], [id number], 08/06/2024 13:43:40 08/07/19 25 08/06/2024 CBC w/ auto diff lym% 13.9 % not estab Not Available [facility] [address] [place] [address], [id number], 08/06/2024 13:43:40 08/07/19 25 08/06/2024 CBC w/ auto diff mono% 8.9 % not estab Not Available [facility] [address] [place] [address], [id number], 08/06/2024 13:43:40 08/07/19 25 08/06/2024 CBC w/ auto diff eos% 1.8 % not estab Not Available [facility] [address] [place] [address], [id number], 08/06/2024 13:43:40 08/07/19 25 08/06/2024 CBC w/ auto diff baso% 0.4 % not estab Not Available [facility] [address] [place] [address], [address], 08/06/2024 13:43:40 08/07/19 25 08/06/2024 CBC w/ auto diff abs stanislaw 5.1 K/uL 1.5-7. 5 Not Available [facility] [address] [place] [address], [id number], 08/06/2024 13:43:40 08/07/19 25 08/06/2024 CBC w/ auto diff abs lym 0.9 K/uL 1.2-3. 4 low Not Available [facility] [address] [place] [address], [id number], 08/06/2024 13:43:40 08/07/19 25 08/06/2024 CBC w/ auto diff abs mono 0.6 K/uL 0.1-1. 0 Not Available [facility] [address] [place] [address], [id number], 08/06/2024 13:43:40 08/07/19 25 08/06/2024 CBC w/ auto diff abs eos 0.1 K/uL 0.0-0. 7 Not Available [facility] [address] [place] [address], [id number], 08/06/2024 13:43:40 08/07/19 25 08/06/2024 CBC w/ auto diff abs baso 0.0 K/uL 0.0-0. 2 Not Available [facility] [address] [place] [address], [id number], 08/06/2024 13:43:40 08/07/19 25 08/06/2024 CBC w/ auto diff imm. gran % 0.3 % 0-5 Not Available [facility] [address] [place] [address], [address], 08/06/2024 13:43:40 08/07/19 25 08/06/2024 CBC w/ auto diff NRBC % 0.0 % 0.0-0. 2 Not Available [facility] [address] [place] [address], [id number], 08/06/2024 13:43:40 08/07/19 25 08/06/2024 carci noemb ryoni c Ag, quant , serum or plasm a cea 7.4 NG/mL <0.5-3 .0 high This test is perfo rmed on a [employer] gino zer. Since there are not exist ing stand maria alejandra refer ence units , users shoul d not make ashly rison s betwe en metho ds. Not Available [facility] [address] [place] [address], [id number], 08/06/2024 16:14:48 08/07/19 25 08/06/2024 CMP, serum or plasm a comp. met. panel Not Available [facility] [address] [place] [address], [id number], 08/06/2024 16:24:03 08/07/19 25 08/06/2024 CMP, serum or plasm a sodium 133 mmol/ L 136-14 6 low Not Available [facility] [address] [place] [address], [id number], 08/06/2024 16:24:03 08/07/19 25 08/06/2024 CMP, serum or plasm a potassium 4.0 mmol/ L 3.5-5. 1 Not Available [facility] [address] [place] [address], [id number], 08/06/2024 16:24:03 08/07/19 25 08/06/2024 CMP, serum or plasm a chloride 100 mmol/ L 98-110 Not Available [facility] [address] [place] [address], 115[address], 08/06/2024 16:24:03 08/07/19 25 08/06/2024 CMP, serum or plasm a CO2 29 mEq/L 20-32 Not Available [facility] [address] [place] [address], [id number], 08/06/2024 16:24:03 08/07/19 25 08/06/2024 CMP, serum or plasm a anion gap 8 mmol/ L 10-22 low Not Available [facility] [address] [place] [address], [address], 08/06/2024 16:24:03 08/07/19 25 08/06/2024 CMP, serum or plasm a glucose 119 mg/dL 70-100 high Not Available [facility] [address] [place] [address], [address], 08/06/2024 16:24:03 08/07/19 25 08/06/2024 CMP, serum or plasm a calcium 9.2 mg/dL 8.4-10 .4 Not Available [facility] [address] [place] [address], [id number], 08/06/2024 16:24:03 08/07/19 25 08/06/2024 CMP, serum or plasm a total protein 7.0 g/dL 6.4-8. 3 Not Available [facility] [address] [place] [address], [id number], 08/06/2024 16:24:03 08/07/19 25 08/06/2024 CMP, serum or plasm a albumin 4.3 g/dL 3.5-5. 3 Not Available [facility] [address] [place] [address], [id number], 08/06/2024 16:24:03 08/07/19 25 08/06/2024 CMP, serum or plasm a ALP 292 U/L 44 - 127 high Not Available [facility] [address] [place] [address], [id number], 08/06/2024 16:24:03 08/07/19 25 08/06/2024 CMP, serum or plasm a AST (SGOT) 52 U/L 10-40 high Not Available [facility] [address] [place] [address], [id number], 08/06/2024 16:24:03 08/07/19 25 08/06/2024 CMP, serum or plasm a total bilirubin 0.5 mg/dL 0.2-1. 2 Not Available [facility] [address] [place] [address], [id number], 08/06/2024 16:24:03 08/07/19 25 08/06/2024 CMP, serum or plasm a ALT (SGPT) 112 U/L 8-35 high Not Available [facility] [address] [place] [address], [id number], 08/06/2024 16:24:03 08/07/19 25 08/06/2024 CMP, serum or plasm a BUN 11 mg/dL 7-21 Not Available [facility] [address] [place] [address], [id number], 08/06/2024 16:24:03 08/07/19 25 08/06/2024 CMP, serum or plasm a creatinine 0.8 mg/dL 0.7-1. 3 Not Available [facility] [address] [place] [address], [id number], 08/06/2024 16:24:03 08/07/19 25 08/06/2024 CMP, serum or plasm a CKD-epi GFR 98 eGFR was calcu lated using the 2020 CKD-E PI equat ion. (Bath Attendant nicolasa Kidne y Disea se has an eGFR less than 60 mL/mi n/1.7 3mm for a perio d of three month s or more. ) This calcu latio n has not been valid ated for patie nt ages <18 or >90 years old. Not Available [facility] [address] [place] [address], [id number], 08/06/2024 16:24:03 08/07/19 25 08/06/2024 PSA, serum or plasm a PSA <0.04 NG/mL 0.04-4 .900 This test is perfo rmed on a Sieme ns Atell ica gino zer. Since there are not exist ing stand maria alejandra refer ence units , users shoul d not make ashly rison s betwe en metho ds. Not Available [facility] [address] [place] [address], [id number], 08/06/2024 16:55:19 01/31/20 24 05/25/2023 imagi ng/di agnos tic resul t No observ ation record ed. [email or web address] Not Available 01:01:09 01/31/20 24 06/21/2023 imagi ng/di agnos tic resul t No observ ation record ed. [email or web address] Not Available 01:01:17 02/14/20 24 02/14/2024 MRI, pelvi s, w/wo contr ast [facility] [address] [place] [address] Teleph one [phone] Name: Roberto [address]45 Exam Date: 2023 Age: 64 Physic kat: [...] images were postpr ocesse d on an [facility] n[facility] workst ation by the radiol ogist [...] 11:10 AM cc: Page PAGE 1 of [facility] 1 [email or web address] [facility] [address] [place] [address], [id number], 02/14/2024 12:16:28 02/16/20 24 02/15/2024 CT rad thera py pelvi s TP 3mm [facility] [address] [place] [address] Name: ROBERTO PALM RD Age: 64 : 1959 Exam Date: 2023 ACCESS ION: [id number] JALIL CANADA MD: ELDER TURK. RADIAT ION THERAP Y SIMULA TION SCAN Radiat ion Therap y simula tion scan for treatm ent planni ng. No interp retati on render ed. Final Report Dictat ed: 11:56 Radiol ogist , Inquir y Signed : 15:20 Radiol ogist , Inquir y INTERFACE Sc Only - [facility] [address] [place] [address], [id number], 02/16/2024 17:28:27 06/30/19 25 06/28/2024 [facility] [address] [place] [address] [phone] Name: ROBERTO PALM RD Age: 64 : 1959 Exam Date: 2024 ACCESS ION: [id number] JALIL CANADA MD: ULISES GARCIA Please refer to Teena [facility] for result s. Final Report Dictat ed: 09:25 Radiol ogist , Inquir y Signed : 14:48 Radiol ogist , Inquir y INTERFACE [facility] - [facility] [address] [place] [address], [id number], 06/29/2024 15:59:52 07/21/19 25 07/20/2024 CT [facility] [address] [place] [address] [phone] Name: ROBERTO PALM RD Age: 64 : 1959 Exam Date: 2024 ACCESS ION: [id number] JALIL CANADA MD: ULISES GARCIA EXAMIN ATION: CT Guided microw ave ablati on of the right hepati c mass DATE: HISTOR Y: Colon cancer with biopsy proven liver metast ases COMPAR ISMAEL: MRI abdome n TECHNI QUE: The risks and benefi ts of microw ave ablati on were descri bed to alyse t and explic it permis vicki was obtain ed to [place] steril e vanesa cohen techni que was utiliz ed includ ing [...] prior imagin g. Two 17 G NuWave AR probes were advanc ed throug h the [...] aneous tissue s. Steril e dressi ng applie d. Compli cation s: None Contra st dose: -No Value- DLP in mGy-cm : 2118 Face to face Modera te sedati on protoc ol was utiliz ed. Patien t was monito red throug hout the case by tahira gratn traine d observ er. Sedati on meds: see anesth esia [...] Ulises Garcia MD INTERFACE [facility] - [facility] [address] [place] [address], [id number], 07/20/2024 16:50:43 Result Notes None recorded. Problems Name Problem SNOMED Code Status Onset Date Resolution Date Notes Provider Name and Address Organization Details Recorded Time Adenocarci noma of prostate 477994238 Active 2023 [facility] 5 10:09:16 Adenocarci noma of rectum 790696400 Active 2024 [facility] 5 10:09:50 Carcinoma of prostate 277027031 Active 2023 Kavitha 3+4 BX 06/21/23 Willow Brown, PARTS MANAGER, PUBLIC HEALTH ADMINISTRATOR [address] [place] [address], [id number] [place] [address] 4 16:37:09 Malignant neoplasm of rectum 949639324 Active 2023 [facility] 5 16:40:46 Lesion of spleen 749199650432 101 Active 2023 Oly Medrano [facility] 4 15:20:53 Malignant neoplasm of prostate 985140497 Active 2024 [facility] 5 17:09:05 Metastatic malignant neoplasm to liver 55972591 Active 2024 Cesar Rider-Ode gerry [facility] 5 16:41:15 Problem Notes None recorded. Procedures Surgical History Date Name Laterality Status Provider Name and Address Organization Details Recorded Time 06/10/20 24 cystoscopy completed Joanne Harvey [facility] 10/14/2023 11:10:48 Colonoscopy with biopsy completed Not Available Health Note 07/30/2024 13:03:42 Imaging Results Imaging Date Name Status LastModified by Organiz ation Details LastModified Time 05/25/2023 imaging/diagno stic result completed Information not available 2024 01:01:09 06/21/2023 imaging/diagno stic result completed Information not available 2024 01:01:17 02/14/2024 MRI, pelvis, w/wo contrast completed [email or web address] [facility] [address] [place] [address], [id number], 02/14/2024 12:16:28 02/15/2024 CT rad therapy pelvis TP 3mm completed INTERFACE [facility] Only - [facility] [address] [place] [address], [address], 02/16/2024 17:28:27 06/28/2024 ir clinic visit completed INTERFACE [facility] Only - [facility] [address] [place] [address], [id number], 06/29/2024 15:59:52 07/20/2024 CT ablation liver microwave completed INTERFACE [facility] - [facility] [address] [place] [address], [id number], 07/20/2024 16:50:43 Procedure Notes None recorded. Medical Equipment None Reported. Allergies Allergen ID Allergen Name Allergen Category Reaction Reaction Severity Criticality Documentation Date Start Date Code Code System Note Provider Name and Address Organization Details Recorded Time 5147709 codeine medicatio n vomiting Not available Not available 10/14/2023 2670 RxNorm Joanne Harvey [facility] 11:08:52 Medications Name Sig Start Date Stop Date Status Note LastModified by Organization Details LastModified Time bicalutamid e 50 mg tablet 02/07 completed Not Available Not Available Not Available metoprolol succinate ER 50 mg tablet,exte nded release 24 hr active Not Available Not Available Not Available ondansetron HCl 8 mg tablet 08/10 completed Not Available Not Available Not Available phenazopyri dine 200 mg tablet Take one tablet by mouth every 8 hours for 2 days then as needed for urinary burning and frequency 08/10 completed Not Available Not Available Not Available prochlorper azine maleate 10 mg tablet 08/10 completed Not Available Not Available Not Available ciprofloxac in 500 mg tablet Take [...] Updated DateTime 4 180.34 cm 23.4 kg/m2 98336.5 2 g 97.6 [degF] 66 /min 18 /min 97 % 97 % 104 mm[Hg] 70 mm[Hg] Sallie Holden [facility] 4 09:56:39 Date Recorded Body height Oxygen saturation Oxygen saturation in Arterial blood by Pulse oximetry Heart rate Body temperature Body mass index (BMI) Body weight Systolic blood pressure Diastolic blood pressure Provider Name and Address Organization Details Last Updated DateTime 5 176.53 cm 96 % 96 % 72 /min 97.8 [degF] 25 kg/m2 81019.1 7 g 120 mm[Hg] 60 mm[Hg] Corrine Colbert [facility] 5 12:40:47 Date Recorded Body height Body mass index (BMI) Body weight Systolic blood pressure Diastolic blood pressure Provider Name and Address Organization Details Last Updated DateTime 08/10/2024 176.53 cm 25.2 kg/m2 35439.48 g 138 mm[Hg] 85 mm[Hg] Hernandotigre Gelytigre gerry [facility] 09:47:59 Social History Question Answer Notes LastModified by Organizat ion Details LastModified Time Tobacco Smoking Status Current Every Day Smoker Not Available Health Note 07/30/2024 13:03:43 Do You Have An Advance Directive? No [email or web address] Information not available 07/30/2024 What Is Your Level Of Caffeine Consumption? Occasional [email or web address] Information not available 07/30/2024 Which Illicit Or Recreational Drugs Have You Used? Marijuana [email or web address] Information not available 07/30/2024 How Many Times Per Week Do You Exercise? 3-4 Times Per Week [email or web address] Information not available 07/30/2024 How Many Packs Per Day (PPD)? 1 Information not available 10/14/2023 How Long Have You Smoked? 50 [email or web address] Information not available 10/14/2023 What Was The Date Of Your Most Recent Tobacco Screening? 08/06/2024 [email or web address] Information not available 07/30/2024 What Is Your Current Pack Years? [email or web address] ars [email or web address] Information not available 07/30/2024 What Is Your Relationship Status? [email or web address] Information not available 07/30/2024 How Much Tobacco Do You Smoke? 1 PPD [email or web address] Information not available 07/30/2024 How Many Years Have You Smoked Tobacco? 45 [email or web address] Information not available 07/30/2024 Sex: Unknown Functional Status Question Answer Note LastModified by Organizat ion Details LastModified Time How many times per week do you consume alcohol? Less than 1 time per week [email or web address] Information not available 07/30/2024 Do you use any illicit or recreational drugs? Yes [email or web address] Information not available 07/30/2024 Do you or have you ever used any other forms of tobacco or nicotine? No [email or web address] Information not available 07/30/2024 What is your level of alcohol consumption? Occasional [email or web address] Information not available 07/30/2024 Are you currently employed? No [email or web address] Information not available 07/30/2024 What is your occupation? Retired [email or web address] Information not available 07/30/2024 What is your exercise level? Moderate [email or web address] Information not available 07/30/2024 Mental Status None recorded. Family History Relationship Description Onset Age of this Age Resolved Age Notes LastModified by Organization Details LastModified Time Mother Family history of malignant neoplasm [email or web address] Not available 2024 13:03:42 Father Family history of malignant neoplasm [email or web address] Not a
--- OUTSIDE RECORDS SUMMARY | 2024-08-13 09:07 | XMS_ITS ---
Author Organization Unknown Address [address] [place] [phone] Phone Care Team Providers Care Shipfitters Supervisor Name Role Phone ALBERT Pinedo Attending Unavailable [facility]OUT WORKER Unavailable MANJIT Gould Primary Unavailable Immunization Immunization Date Status Additional Notes Code Code System Tdap 05/12/2021 Completed 115 CVX COVID-19, mRNA, LNP-S, PF, 3 0 mcg/0.3 mL dose 06/06/2020 Completed 208 CVX COVID-19, mRNA, LNP-S, PF, 3 0 mcg/0.3 mL dose 06/26/2020 Completed 208 CVX Social History Type Status Start Date End Date Code Code Syst em Smoking History Current every day smoker 909785286 SNOMED CT Sex Male Vital Signs Vital Sign Value Unit Gaylord Value Gaylord Unit Date/Time Recent/Initial? Code Code System Body Mass Index 27.69 kg/m2 03/04/2023 13:59 Initial 91236 -5 LOINC Systolic Blood Pressure 130 mm[Hg] 03/18/2023 07:41 Initial 8480- 6 LOINC Diastolic Blood Pressure 72 mm[Hg] 03/18/2023 07:41 Initial 8462- 4 LOINC Body Surface Area 2.08 m2 03/04/2023 13:59 Initial 3140- 1 LOINC Height 177.800 0 cm 70.00 in 03/04/2023 13:59 Initial 8302- 2 LOINC O2 Saturation 98 % 2022 07:41 Initial 33699 -5 LOINC Pulse 100.0 /min 03/18/2023 07:41 Initial 8867- 4 LOINC Respiration 20 /min 03/18/20 07:41 Initial 9279- 1 LOINC Temperature 36.4 Jenna 97.5 F 12/15/20 23 07:41 Initial 8310- 5 LOINC Weight 87.54 kg 193.00 lbs 03/04/2023 13:59 Initial 69888 -7 LOINC Medications No Active Medications Hospital Discharge Instructions Should you have any questions prior to discharge, please contact a member of your healthcare team. If you have left the hospital and have any questions, please contact your primary care physician. Reason For Referral No Data Found Procedures Procedure Name Date Status Code Code Syste m Inguinal hernia completed [id number] SNOMEDCT Anesthesia for lower intesti nal endoscopic procedures, endoscope introduce 03/18/2023 completed 72858 CPT Colonoscopy, flexible; with removal of tumor(s), polyp(s), or other lesion 03/18/2023 completed 90072 CPT Allergies and Adverse Reactions Allergy Substance Reaction Severity Start Date Concern Status Co de Code System CODEINE Active 3072 RxNorm Plan of Treatment US Prostate Needle Biopsy 04/13/2023 Encounters Encounter Diagnosis Start Date Code Code Sys tem Encounter for screening for malignant neoplasm of colo n 03/18/2023 SNOMED-CT Personal Care Team Section Performer Name Performer Role Active Date Inactive MIGUELANGEL Fuller PCP - Primary care physician 2023-01-12
[2024-08-13] MEDS: SODIUM CHLORIDE 0.9% IV 250 ML 10 ML IVPB (09:15)
[2024-08-13] MEDS: FAMOTIDINE 20 MG/2 ML VIAL IV PUSH (09:15)
[2024-08-13] MEDS: diphenhydrAMINE HCl INJ 50 MG/ML VIAL 25 MG IV PUSH (09:18)
[2024-08-13] MEDS: ONDANSETRON INJ 16 MG, dexAMETHasone SOD 4 MG/ML INJ 12 MG in SODIUM CHLORIDE 0.9% IV 1... 300 MG IVPB (09:22)
[2024-08-13 09:47] VITALS: BP 127/67; PULSE 64; RESP 16; TEMP 36.5; O2SAT 97; BMI 26.6
[2024-08-13] MEDS: ATROPINE SULFATE 0.4 MG/ML VIAL IV PUSH (10:05)
[2024-08-13] MEDS: IRINOTECAN HCL IVPB (10:13)
[2024-08-13] MEDS: SODIUM CHLORIDE 0.9% IVPB ×3 (10:13→11:49)
[2024-08-13] MEDS: LEUCOVORIN CALCIUM IVPB (10:14)
[2024-08-13] MEDS: FLUOROURACIL 2,500 MG/50 ML VIAL 800 MG IV PUSH (11:48)
[2024-08-13] MEDS: FLUOROURACIL IVPB (11:49)
[2024-08-13] MEDS: HEPARIN SODIUM LOCK FLUSH 500 UNITS/5 ML SYRINGE IV PUSH (12:07)
[2024-08-13 12:08] VITALS: BP 121/70; PULSE 64; RESP 14; TEMP 36.6; O2SAT 97
--- NOTE | 2024-08-13 12:10 | PC.NURSE ---
Patient tolerated FOLFRI regimen chemo well. Will be going home with 5 FU infusion pump. Spill kit given. Education given on pump/chemo and if spills happens. No concerns voiced. Will return Tuesday at noon for pump removal/port flush.
[2024-08-15 11:00] VITALS: BP 122/67; PULSE 64; RESP 14; TEMP 36.6; O2SAT 98
== END 2024-08-13 08:57 | disposition home or self-care (01) ==
PROVIDERS: PCP Family Medicine; Visit Provider Internal Medicine Hematology
DX: Z51.11 Encounter for antineoplastic chemotherapy (principal); C20 Malignant neoplasm of rectum
CPT/HCPCS: 96367; 96368; 96375; 96409; 96413; 96416; J0461; J0640; J1100; J1200; J2405; J7050; J9190; J9206

== ENCOUNTER 2024-08-24 10:56 | Outpatient (CLI) | payer MEDICARE, MEDICAID, SELFPAY ==
--- OUTSIDE RECORDS SUMMARY | 2024-08-24 11:02 | XMS_ITS ---
Author Organization Unknown Address [address] [place] [phone] Phone Care Team Providers Care Machine Lacer Name Role Phone ALBERT Pinedo Attending Unavailable [facility] END MAN Unavailable MANJIT Gould Primary Unavailable Immunization Immunization Date Status Additional Notes Code Code System Tdap 05/12/2021 Completed 115 CVX COVID-19, mRNA, LNP-S, PF, 3 0 mcg/0.3 mL dose 06/06/2020 Completed 208 CVX COVID-19, mRNA, LNP-S, PF, 3 0 mcg/0.3 mL dose 06/26/2020 Completed 208 CVX Social History Type Status Start Date End Date Code Code Syst em Smoking History Current every day smoker 059467374 SNOMED CT Sex Male Vital Signs Vital Sign Value Unit [place] Value [place] Unit Date/Time Recent/Initial? Code Code System Body Mass Index 27.69 kg/m2 03/04/2023 13:59 Initial 51739 -5 LOINC Systolic Blood Pressure 130 mm[Hg] 03/18/2023 07:41 Initial 8480- 6 LOINC Diastolic Blood Pressure 72 mm[Hg] 03/18/2023 07:41 Initial 8462- 4 LOINC Body Surface Area 2.08 m2 03/04/2023 13:59 Initial 3140- 1 LOINC Height 177.800 0 cm 70.00 in 03/04/2023 13:59 Initial 8302- 2 LOINC O2 Saturation 98 % 2022 07:41 Initial 45656 -5 LOINC Pulse 100.0 /min 03/18/2023 07:41 Initial 8867- 4 LOINC Respiration 20 /min 03/18/20 07:41 Initial 9279- 1 LOINC Temperature 36.4 Jenna 97.5 F 12/15/20 23 07:41 Initial 8310- 5 LOINC Weight 87.54 kg 193.00 lbs 03/04/2023 13:59 Initial 45864 -7 LOINC Medications No Active Medications Hospital Discharge Instructions Should you have any questions prior to discharge, please contact a member of your healthcare team. If you have left the hospital and have any questions, please contact your primary care physician. Reason For Referral No Data Found Procedures Procedure Name Date Status Code Code Syste m Inguinal hernia completed 484782416 SNOMEDCT Anesthesia for lower intesti nal endoscopic procedures, endoscope introduce 03/18/2023 completed 91787 CPT Colonoscopy, flexible; with removal of tumor(s), polyp(s), or other lesion 03/18/2023 completed 23499 CPT Allergies and Adverse Reactions Allergy Substance Reaction Severity Start Date Concern Status Co de Code System CODEINE Active 0875 RxNorm Plan of Treatment US Prostate Needle Biopsy 04/13/2023 Encounters Encounter Diagnosis Start Date Code Code Sys tem Encounter for screening for malignant neoplasm of colo n 03/18/2023 SNOMED-CT Personal Care Team Section Performer Name Performer Role Active Date Inactive MIGUELANGEL Fuller PCP - Primary care physician 2023-01-12 Procedures Notes
--- OUTSIDE RECORDS SUMMARY | 2024-08-24 11:02 | XMS_ITS | Data Portability ---
Author Organization [facility], [address] [facility]rology ([place]) Address [address] [place] [address] Care Team Providers Care Behaviour Support Teacher Name Role Phone TRAVIS RATLIFF Medical Oncologist TEDDY ROMAN Colorectal Surgeon TRAVIS JUSTIN Urologist ABNER CHERRY Radiation Oncologist [phone] Assessment Encounter Date Assessment Date Assessment LastModified by Organization Details LastModified Time 06/12/2024 06/12/2024 Impressions: This is a 64-year-old gentleman with synchronous primary. 1. 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 ADDENDUM: I did talk with Dr. Ratliff who notes that he will present patient on Colorectal Tumor Board on 06/14/2024. Patient is aware. [facility] Education: Not available 06/12/2024 19:10:33 08/06/2024 [...] this case at the Colorectal Conference. 2. Kavitha 7 prostate cancer, PSA 24, grade group [...] the consultation. CC: Travis Ratliff MD rja Not available 08/07/2024 17:08:33 08/10/2024 08/10/2024 Roberto and Mona and his ex- have had a very long healthy discussion today. I have reviewed many records of his including x-rays, and I spoke on the phone with Dr. Vargas about the care. He is planning on not seeing Dr. Roman anymore, but he is going to stick with Dr. Ratliff because he likes Dr. Ratliff. I have told him that I will plan a flexible sigmoidoscopy the week after next during his off week for chemotherapy. I have asked him to continue and complete the 6 cycles of chemotherapy at which point there should be repeat imaging and a repeat presentation at multidisciplinary tumor board. I will make sure that Dr. Torres and I with hepatobiliary review his liver to see if it makes any sense for him to have a low anterior reresection. His liver will have to be stable in order for him to have any benefit from the low anterior reresection. Further recommendations to follow. [email or web address] Not available 08/10/2024 11:27:19 08/22/2024 08/22/2024 Flexible sigmoidoscopy [email or web address] Not available 08/22/2024 12:33:09 Plan of Treatment Reminders Order Date Submit Date Provider Last Modified By Organization Details Last Modified Time Details Appointments Establish ed Patient 30.EST 2024 10:30A M Aretha Hubbard Not available Not available Not available Lab None recorded. Referral None recorded. Procedures None recorded. Surgeries None recorded. Imaging None recorded. Medication Orders None recorded. Patient TargetsNo targets recorded. Patient InstructionsNo instructions recorded. Reason for Referral None Reported. Results Created Date Observation Date Name Description Value Unit Range Abnormal Flag Note LastModifiedBy Organization Detail LastModifiedTime 08/07/1908/06/2024 CBC w/ auto diff CBC with differential Not Available [facility] [address], [address], 08/06/2024 13:43:40 08/07/19 25 08/06/2024 CBC w/ auto diff WBC 6.8 K/uL 4.8- 10.8 Not Available [facility] [address] [place] [address], [id number], 08/06/2024 13:43:40 08/07/19 25 08/06/2024 CBC w/ auto diff RBC 4.21 M/uL 4.70-6 .10 low Not Available [facility] [address] [place] [address], [id number], 08/06/2024 13:43:40 08/07/19 25 08/06/2024 CBC w/ auto diff HGB 12.8 g/dL 14.0-1 8.0 low Not Available [facility] [address] [place] [address], [id number], 08/06/2024 13:43:40 08/07/19 25 08/06/2024 CBC w/ auto diff HCT 37.0 % 42.0-5 2.0 low Not Available [facility] [address] [place] [address], [id number], 08/06/2024 13:43:40 08/07/19 25 08/06/2024 CBC w/ auto diff MCV 87.9 fL 80.0-9 4.0 Not Available [facility] [address] [place] [address], [id number], 08/06/2024 13:43:40 08/07/19 25 08/06/2024 CBC w/ auto diff MCH 30.4 pg 27.0- 31.0 Not Available [facility] [address] [place] [address], [id number], 08/06/2024 13:43:40 08/07/19 25 08/06/2024 CBC w/ auto diff MCHC 34.6 g/dL 32.0-3 6.0 Not Available [facility] [address] [place] [address], [id number], 08/06/2024 13:43:40 08/07/19 25 08/06/2024 CBC w/ auto diff RDW-SD 45.4 fL 35.1 - 46.3 Not Available [facility] [address] [place] [address], [id number], 08/06/2024 13:43:40 08/07/19 25 08/06/2024 CBC w/ auto diff plt 215 K/uL 130-40 0 Not Available [facility] [address] [place] [address], [id number], 08/06/2024 13:43:40 08/07/19 25 08/06/2024 CBC w/ auto diff MPV 9.4 fL 7.5- 11.8 Not Available [facility] [address] [place] [address], [id number], 08/06/2024 13:43:40 08/07/19 25 08/06/2024 CBC w/ auto diff stanislaw% 74.7 % not estab Not Available [facility] [address] [place] [address], [id number], 08/06/2024 13:43:40 08/07/19 25 08/06/2024 CBC w/ auto diff lym% 13.9 % not estab Not Available [facility] [address] [place] [address], [id number], 08/06/2024 13:43:40 08/07/19 25 08/06/2024 CBC w/ auto diff mono% 8.9 % not estab Not Available [facility] [address] [place] [address], [id number], 08/06/2024 13:43:40 08/07/19 25 08/06/2024 CBC w/ auto diff eos% 1.8 % not estab Not Available [facility] [address] [place] [address], [id number], 08/06/2024 13:43:40 08/07/19 25 08/06/2024 CBC w/ auto diff baso% 0.4 % not estab Not Available [facility] [address] [place] [address], [id number], 08/06/2024 13:43:40 08/07/19 25 08/06/2024 CBC w/ auto diff abs stanislaw 5.1 K/uL 1.5-7. 5 Not Available [facility] [address] [place] [address], [id number], 08/06/2024 13:43:40 08/07/19 25 08/06/2024 CBC w/ auto diff abs lym 0.9 K/uL 1.2-3. 4 low Not Available [facility] [address] [place] [address], [id number], 08/06/2024 13:43:40 08/07/19 25 08/06/2024 CBC w/ auto diff abs mono 0.6 K/uL 0.1-1. 0 Not Available [facility] [address] [place] [address], [id number], 08/06/2024 13:43:40 08/07/19 25 08/06/2024 CBC w/ auto diff abs eos 0.1 K/uL 0.0-0. 7 Not Available [facility] - [facility] [address] [place] [address], [id number], 08/06/2024 13:43:40 08/07/19 25 08/06/2024 CBC w/ auto diff abs baso 0.0 K/uL 0.0-0. 2 Not Available [facility] [address] [place] [address], [id number], 08/06/2024 13:43:40 08/07/19 25 08/06/2024 CBC w/ auto diff imm. gran % 0.3 % 0-5 Not Available [facility] - [facility] [address] [place] [address], [id number], 08/06/2024 13:43:40 08/07/19 25 08/06/2024 CBC w/ auto diff NRBC % 0.0 % 0.0-0. 2 Not Available [facility] [address] [place] [address], [id number], 08/06/2024 13:43:40 08/07/19 25 08/06/2024 carci noemb ryoni c Ag, quant , serum or plasm a cea 7.4 NG/mL <0.5-3 .0 high This test is perfo rmed on a Sieme ns Atell ica gino zer. Since there are not exist ing stand maria alejandra refer ence units , users shoul d not make ashly rison s betwe en metho ds. Not Available [facility] [address] [place] [address], [id number], 08/06/2024 16:14:48 08/07/19 25 08/06/2024 CMP, serum or plasm a comp. met. panel Not Available [facility] [address] [place] [address], [id number], 08/06/2024 16:24:03 08/07/19 25 08/06/2024 CMP, serum or plasm a sodium 133 mmol/ L 136-14 6 low Not Available [facility] [address] [place] [address], [id number], 08/06/2024 16:24:03 08/07/19 25 08/06/2024 CMP, serum or plasm a potassium 4.0 mmol/ L 3.5-5. 1 Not Available [facility] [address] [place] [address], [id number], 08/06/2024 16:24:03 08/07/19 25 08/06/2024 CMP, serum or plasm a chloride 100 mmol/ L 98-110 Not Available [facility] [address] [place] [address], [id number], 08/06/2024 16:24:03 08/07/19 25 08/06/2024 CMP, serum or plasm a CO2 29 mEq/L 20-32 Not Available [facility] [address] [place] [address], [id number], 08/06/2024 16:24:03 08/07/19 25 08/06/2024 CMP, serum or plasm a anion gap 8 mmol/ L 10-22 low Not Available [facility] [address] [place] [address], [id number], 08/06/2024 16:24:03 08/07/19 25 08/06/2024 CMP, serum or plasm a glucose 119 mg/dL 70-100 high Not Available [facility] [address] [place] [address], 53201, 08/06/2024 16:24:03 08/07/19 25 08/06/2024 CMP, serum or plasm a calcium 9.2 mg/dL 8.4-10 .4 Not Available [facility] [address] [place] [address], [id number], 08/06/2024 16:24:03 08/07/19 25 08/06/2024 CMP, serum or plasm a total protein 7.0 g/dL 6.4-8. 3 Not Available [facility] [address] [place] [address], [id number], 08/06/2024 16:24:03 08/07/19 25 08/06/2024 CMP, serum or plasm a albumin 4.3 g/dL 3.5-5. 3 Not Available [facility] [address] [place] [address], [id number], 08/06/2024 16:24:03 08/07/19 25 08/06/2024 CMP, serum or plasm a ALP 292 U/L 44 - 127 high Not Available [facility] [address] [place] [address], [id number], 08/06/2024 16:24:03 08/07/19 25 08/06/2024 CMP, serum or plasm a AST (SGOT) 52 U/L 10-40 high Not Available [facility] [address] [place] [address], [id number], 08/06/2024 16:24:03 08/07/19 25 08/06/2024 CMP, serum or plasm a total bilirubin 0.5 mg/dL 0.2-1. 2 Not Available [facility] [address] [place] [address], 23012, 08/06/2024 16:24:03 08/07/19 25 08/06/2024 CMP, serum or plasm a ALT (SGPT) 112 U/L 8-35 high Not Available [facility] [address] [place] [address], [id number], 08/06/2024 16:24:03 08/07/19 25 08/06/2024 CMP, serum or plasm a BUN 11 mg/dL 7-21 Not Available [facility] [address] [place] [address], 51134, 08/06/2024 16:24:03 08/07/19 25 08/06/2024 CMP, serum or plasm a creatinine 0.8 mg/dL 0.7-1. 3 Not Available [facility] [address] [place] [address], [id number], 08/06/2024 16:24:03 08/07/19 25 08/06/2024 CMP, serum or plasm a CKD-epi GFR 98 eGFR was calcu lated using the 2020 CKD-E PI equat ion. (Director Of Flight Operations nicolasa Kidne y Disea se has an eGFR less than 60 mL/mi n/1.7 3mm for a perio d of three month s or more. ) This calcu latio n has not been valid ated for patie nt ages <18 or >90 years old. Not Available [facility] [address] [place] [address], [id number], 08/06/2024 16:24:03 08/07/19 25 08/06/2024 PSA, serum or plasm a PSA <0.04 NG/mL 0.04-4 .900 This test is perfo rmed on a Sieme ns Atell ica gino zer. Since there are not exist ing stand maria alejandra refer ence units , users taqueria d not make ashly rison s betparrish en metho ds. Not Available [facility] [address] [place] [address], [id number], 08/06/2024 16:55:19 06/30/19 25 06/28/2024 [facility] [address] [place] [address] Name: ROBERTO MORRELL RD Age: 64 : 1959 Exam Date: 2024 ACCESS ION: [id number] JALIL CANADA MD: KRISTEN GARCIA Please refer to [facility] for result s. Final Report Dictat ed: 09:25 Radiol ogist , Inquir y Signed : 14:48 Radiol ogist , Inquir y INTERFACE Ms Only - [facility] [address] [place] [address], [id number], 06/29/2024 15:59:52 07/21/1907/20/2024 CT ablat ion liver micro wave [facility] [address] [place] [address] Name: ROBERTO MORRELL RD Age: 64 : 1959 Exam Date: 2024 ACCESS ION: [id number] JALIL CANADA MD: KRISTEN GARCIA EXAMIN ATION: CT Guided microw ave ablati on of the right hepati c mass DATE: HISTOR Y: Colon cancer with biopsy proven liver metast ases COMPAR ISMAEL: MRI abdome n TECHNI QUE: The risks and benefi ts of microw ave ablati on were descri bed to patien t and explic it permis vicki was obtain ed to mango cohen techni que was utiliz ed includ [...] prior imagin g. Two 17 G NuWave MI probes were advanc ed throug h the [...] subcut aneous tissue s. Steril e dressi alejandro lamb Compli cation s: None Contra st dose: -No Value- DLP in mGy-cm : 2118 Face to face Modera te sedati on protoc ol was utiliz ed. Patien t was monito red throug hout the case by tahira grant traine d observ er. Sedati on meds: [...] scan in 1 month. . Attest ation Mona, Kristen Garcia MD, attest that I was presen t for the entire proced ure. Final Report Dictat ed: 15:47 Kristen Garcia MD Signed : 15:47 Kristen Garcia MD INTERFACE Sc Only - [facility] [address] [place] [address], [address], 07/20/2024 16:50:43 Result Notes None recorded. Problems Name Problem SNOMED Code Status Onset Date Resolution Date Notes Provider Name and Address Organization Details Recorded Time Adenocarci noma of prostate 100867326 Active 2023 [facility] 5 10:09:16 Adenocarci noma of rectum 646828222 Active 2024 [facility] 5 10:09:50 Carcinoma of prostate 504168382 Active 2023 [place] 3+4 BX 06/21/23 Willow Brown, LATEX FOAM WORKER, PST SPECIALIST [address] [place] [address], [address] [place] [address] 4 16:37:09 Malignant neoplasm of rectum 209454798 Active 2023 Cesar Rider-Jackson garrett [facility] 5 16:40:46 Lesion of spleen 138184484303 101 Active 2023 Oly Medrano [facility] 4 15:20:53 Malignant neoplasm of prostate 661976984 Active 2024 [facility] 5 17:09:05 Metastatic malignant neoplasm to liver 20423680 Active 2024 Cesar Rider-Ode gerry [facility] 5 16:41:15 Problem Notes None recorded. Procedures Surgical History Date Name Laterality Status Provider Name and Address Organization Details Recorded Time 09/12/19 24 cystoscopy completed Joanne Harvey [facility] 10/14/2023 11:10:48 Colonoscopy with biopsy completed Not Available Health Note 07/30/2024 13:03:42 Imaging Results Imaging Date Name Status LastModified by Organiz ation Details LastModified Time 06/28/2024 ir clinic visit completed INTERFACE Sc Only - [facility] [address] [place] [address], [id number], 06/29/2024 15:59:52 07/20/2024 CT ablation liver microwave completed INTERFACE Sc Only - [facility] [address] [place] [address], [id number], 07/20/2024 16:50:43 Procedure Notes None recorded. Medical Equipment None Reported. Allergies Allergen ID Allergen Name Allergen Category Reaction Reaction Severity Criticality Documentation Date Start Date Code Code System Note Provider Name and Address Organization Details Recorded Time 4430091 codeine medicatio n vomiting Not available Not available 10/14/2023 2670 RxNorm Joanne Harvey [facility] 11:08:52 Medications Name Sig Start Date Stop [...] Not Available Vitals Date Recorded Body height Oxygen saturation Oxygen saturation in Arterial blood by Pulse oximetry Heart rate Body temperature Body mass index (BMI) Body weight Systolic blood pressure Diastolic blood pressure Provider Name and Address Organization Details Last Updated DateTime 176.53 cm 96 % 96 % 72 /min 97.8 [degF] 25 kg/m2 96683.1 7 g 120 mm[Hg] 60 mm[Hg] Corrine Colbert [facility] 12:40:47 Date Recorded Body height Body mass index (BMI) Body weight Systolic blood pressure Diastolic blood pressure Provider Name and Address Organization Details Last Updated DateTime 08/10/2024 176.53 cm 25.2 kg/m2 34661.48 g 138 mm[Hg] 85 mm[Hg] Cesar garrett [facility] 09:47:59 Social History Question Answer Notes LastModified [...] How Many Packs Per Day (PPD)? 1 [email or web address] Information not available 10/14/2023 How Long Have You Smoked? 50 [email or web address] Information not available 10/14/2023 What Was The Date Of Your Most Recent Tobacco Screening? 08/06/2024 [email or web address] Information not available 07/30/2024 What Is Your Current Pack Years? [email or web address] Information not available 07/30/2024 What Is [...] available 07/30/2024 What is your occupation? Retired [email or web address] Information not available 07/30/2024 What is your exercise level? Moderate [email or web address] Information not available 07/30/2024 Mental Status None recorded. Family History Relationship Description Onset Age of this Age Resolved Age Notes LastModified by Organization Details LastModified Time Mother Family history of malignant neoplasm [email or web address] Not available 2024 13:03:42 Father Family history of malignant neoplasm [email or web address] Not available 2024 13:03:42 Medical History Condition Response Diabetes N Anxiety Disorder N Bleeding Disorder N Attention-deficit Hyperactivity Disorder N High Blood Pressure N Arthritis N Hyperlipidemia N Cancer Y Stroke N Thyroid Problems N Asthma N Depression N COPD N Anemia N Seizures N Heart Disease N Fibromyalgia N Osteoporosis N Kidney Disease N Past Encounters Encounter ID Performer Location Encounter Start Date Encounter Closed Date Diagnosis/Indication Diagnosis SNOMED-CT Code Diagnosis ICD10 Code Diagnosis Note [id number] C. MD Karissa C[place] ([place]) [address] [place] [address] 10/14/2023 10:29:35 11/02/2023 09:10:53 Carcinoma of prostate 223340722 C61 Malignant neoplasm of rectum 615611341 C20 [id number] MD Karissa [facility] ([place] [address] [place] [address] 1 11/02/2023 11:55:49 11/02/2023 14:08:15 [id number] Pj Cherry MD [facility] ([place]) [address] [place] [address]17[address] 1 11/10/2023 09:36:35 11/10/2023 10:32:15 [id number] Pj Cherry MD [facility] [place] [address] [place] [address]35[address] 1 11/17/2023 09:29:55 11/17/2023 10:28:06 [id number] Pj Cherry MD [facility] [place] [address] [place] [address] 1 11/24/2023 09:23:05 11/24/2023 12:11:38 [id number] Pj Cherry MD [facility] [place] [address] [place] [address]472-[address] 1 12/01/2023 09:16:20 12/01/2023 10:20:01 [id number] Can Ge MD [facility] [place] [address] [place] [address] 1 02/08/2024 09:21:44 02/09/2024 12:00:56 [id number] Willow Brown APRN, [facility] ([place]) [address] [place] [address] 1 03/13/2024 15:37:27 03/13/2024 16:06:16 Adenocarcinoma of prostate 103561250 C61 [id number] Aretha Hubbard APRN, [facility] ([place] [address] [place] [address] 1 06/12/2024 17:32:28 06/12/2024 17:57:29 Adenocarcinoma of prostate 103690492 C61 Adenocarci noma of rectum 544634368 C20 [id number] Angel Vargas MD [address] Oncology/ Hematolog y ([place]) [address] [place] [address] 08/06/2024 12:16:05 08/07/2024 16:50:42 Malignant neoplasm of rectum 396349330 C20 Malignant neoplasm of prostate 451717691 C61 [id number] Myles Acevedo MD [address] Colorecta l ([place]) [address] [place] [address] 08/10/2024 09:00:53 08/10/2024 10:29:22 Malignant neoplasm of rectum 157616469 C20 [id number] Myles Acevedo MD [facility] ([place]) [address] [place] [address], [address] [place] [address] 08/22/2024 10:32:47 08/22/2024 12:33:16 [id number] Stiven Corrales MD [facility] ASC GI Anesthesi a S [address] [place] [address] 08/22/2024 10:32:45 08/22/2024 11:23:56 Health Concerns Section Related Observation LastModified by Organization Detai ls LastModified Time None Recorded Concern Status LastModified by Organization Details LastModified Time None Recorded Advance Directives Directive N: Payers Insurance Date Sequence Insurance Name Policy Number Policy Singletary Covered Member ID Singletary Member ID Guarantor Name 02/06/2024 1 [facility] (MEDICAID REPLACEMENT - HMO) [id number] Roberto Garcia [id number] Roberto Garcia 08/10/2024 2 [place] [facility] Roberto Garcia [id number] Roberto Garcia 02/14/2024 3 [employer] (MEDICARE SUPPLEMENT) Roberto Garcia [id number] Roberto Garcia 08/10/2024 2 [facility] (MEDICARE SUPPLEMENT) PLAN N Roberto Garcia [id number] Roberto Garcia 08/10/2024 1 [place]) Roberto Garcia [id number] Roberto Garcia Notes Date Note Type Note Provider Name and Address Organization Details Recorded Time 5 text/html Roberto Garcia4 yo Identifying [id number] male with adenocarcinoma of the midrecrum with [...] adenocarcinoma with seminal vesicle invasion, clinical stage R0pF1L0, [place] 3+4=7, grade group 2, highest PSA 19.6. [...] 01/11/2023. CT chest lung screening protocol at [facility] was performed with radiology interpretation of small [...] recommended a prostate biopsy. 03/18/2023: Colonoscopy at [facility] was performed. Specimen [id number] associated with colon descending polyp biopsy, tubular [...] ng/mL. 04/21/2023: CT abdomen and pelvis at [facility] resulted circumferential wall thickening of rectum, likely [...] is mild prostatomegaly. 04/21/2023: MRI pelvis at [facility] was performed with radiology interpretation of a [...] mesorectal lymph nodes. 05/06/2023: MRI pelvis at [facility] was performed with radiology interpretation of [...] additional imaging for staging.05/25/2023: CT chest at [facility] was performed with radiology interpretation of no CT evidence of metastatic disease in the chest, no mediastinal or hilar lymphadenopathy. There is a prominent 8 mm portal caval lymph node, for which continued attention on follow up was recommended.06/21/2023: PSA 15.51 ng/mL.06/21/2023: Truss biopsy with Dr. Nails, specimen [id number] resulted prostate adenocarcinoma, [place] grade 3+4=7, corresponding with grade group 2, [...] Justin in Urology.08/26/2023: PSMA PET CT at [facility] was performed with radiology interpretation of moderate [...] over 25 fractions to the rectum and rnsuppdk44/2024: CT of chest1. No CT evidence of metastatic disease within the chest.2. Prominent 8 mm portacaval lymph node. Continued attention on follow-up is mwovgdwammz50/2024: CT of pelvis/ abdomenIMPRESSION:Changes prostatic hyperplasia. PI-RADS Category 1: Very LowRisk2. Post radiation changes throughout the prostate. The previouslyseen lesions are no longer well-visualized3. Ill-defined nodule in the right basilar transitional zone.PI-RADS Category 2: Low Risk Per Oncology note:MRI done at [facility]: MRI pelvis with/without contrast showed persistent circumferential [...] primary, 06/2024: PSA <0.13 INTERVAL HISTORY:06/12/24: Mr. Garcia is a pleasant 64-year-old gentleman who completed [...] he is active and feeling strong. Aretha Hubbard APRN, PST SPECIALIST [address], [address], [facility] 06/30/2024 19:32:29 5 text/html REASON FOR CONSULTATION:Second [...] had cancer. Angel Vargas MD [address] [place] [address], [phone], [facility] 08/09/2024 11:38:44 5 text/html SUBJECTIVE:A 64-year-old male here to see me for a second opinion for rectal cancer. He has been cared for by Dr. Ratliff with oncology and Dr. Roman with colorectal surgery with [facility]. I am in the process of obtaining all of his records; however, he was diagnosed with prostate cancer, treated with prostate seeds by a combination of Dr. Nails, Dr. Justin and Dr. Ge. He also was diagnosed with rectal cancer, all of the details of which I do not have yet; however, this diagnosis was apparently made in June of 2023. This was listed as stage 3. He was treated with total neoadjuvant treatment which completed, I am told, December 062023. I am told that there was some delay in Dr. Roman planning a low anterior reresection and now a 2 cm liver lesion has shown up that was biopsied with adenocarcinoma consistent with metastasis. This was treated, I am told, by [facility] Interventional Radiology with a liver ablation. The patient has an elevated CEA level and a last flexible sigmoidoscopy about 3 months ago. I was called by Dr. Vargas in the patient s room when he was seeing him for a second opinion to do a flexible sigmoidoscopy which I am happy to do. He is currently doing chemotherapy and has 6 treatments to do at which point there is going to be follow-up imaging. He denies any significant symptoms from a GI standpoint. He is currently a smoker, one-half pack a day. He is a former alcoholic.PAST SURGICAL HISTORY:Hernia repair, right inguinal.FAMILY HISTORY:Father, colon cancer. Myles Acevedo MD [address] [place] [address], [phone], [facility] 08/13/2024 16:07:54 5 text/html Roberto is a 64-year-old male here to see me for a second opinion for rectal cancer. He has been cared for by Dr. Ratliff with oncology and Dr. Roman with colorectal surgery with [facility]. I am in the process of obtaining all of his records; however, he was diagnosed with prostate cancer, treated with prostate seeds by a combination of Dr. Nails, Dr. Justin and Dr. Ge. He also was diagnosed with rectal cancer, all of the details of which I do not have yet; however, this diagnosis was apparently made in June of 2023. This was listed as stage 3. He was treated with total neoadjuvant treatment which completed, I am told, December 062023. I am told that there was some delay in Dr. Roman planning a low anterior reresection and now a 2 cm liver lesion has shown up that was biopsied with adenocarcinoma consistent with metastasis. This was treated, I am told, by [facility] with a liver ablation. The patient has an elevated CEA level and a last flexible sigmoidoscopy about 3 months ago. I was called by Dr. Vargas in the patient s room when he was seeing him for a second opinion to do a flexible sigmoidoscopy which I am happy to do. He is currently doing chemotherapy and has 6 treatments to do at which point there is going to be follow-up imaging. He denies any significant symptoms from a GI standpoint. He is currently a smoker, one-half pack a day. He is a former alcoholic.PAST SURGICAL HISTORY:Hernia repair, right inguinal.FAMILY HISTORY:Father, colon cancer. Myles Acevedo MD [address] [place] [address], [phone], [facility] 08/22/2024 12:33:14 5 text/html [facility] PRE-ANESTHETIC EVALUATIONReported bypatient.Reason for Visit:PROPOSED PROCEDURE: FLEX SIG WITH BX OR POLYPECTOMY; SURGEON: Kristina; PREOP DIAGNOSIS: Malignant neoplasm of rectum General:Exercise tolerance moderate; Denies SOB, AYON, PND; Denies chest pain or chest tightness Cardiac:Denies any cardiopulmonary disease; Hypertension; Paroxysmal Atrial fibrillation ,stable Pulmonary:COPD ; Current every day smoker (down to 1/2 ppd x 50 yrs) Hem/Onc:Prostate cancer hx; Rectal cancer hx; Liver mets Prior Anesthetic Complication:no history of anesthesia complications Family Anesthetic Hx:no history of anesthesia complications Testing/ResultsCBC Date: 08/06/24; HBG results: 12.8; HCT results: 37.0; Platelets results: 215; BMP/CMP Date: 08/06/24; BUN results: 11; Creatine results: 0.8; Potassium results: 4.0 Physical Exam: AirwayMP II TeethDentures NeckFull range of motion CardiovascularIrregular rhythm RespiratoryDimished breath sounds bilaterally, but clear GastrointestinalNPO status >6 hrs solids, >2 hrs clear liquids Vital Signs:Vital signs reviewed. Please refer to nursing preop note for values Assessment:ASA PS: III Plan:MAC Discussion:I have discussed with the patient the anesthetic plan, alternatives, pertinent risks, and complications; including but not limited to PONV, dental injury, sore throat, OR, stroke, etc. All questions were answered. Patient verbalize(s) understanding and agree(s) to proceed. Stiven Corrales MD [address] [facility], [place], [phone], [facility] 08/22/2024 11:23:52
[2024-08-24 11:36] LABS: Hematocrit 33.8 % (37.0-46.0); Hemoglobin 11.4 g/dL (12.4-15.3); Mean Corpuscular HGB Conc 33.7 g/dL (32-36); Mean Corpuscular Volume 88.9 fL (78.0-102.0); Mean Platelet Volume 8.8 fl (8.7-11.0); Platelet Count Result 250 K/mm3 (150-420); Red Cell Distribution Width 13.9 % (11.6-14.4); White Blood Count 4.4 K/mm3 (4.8-10.8)
[2024-08-24 12:06] LABS: Alanine Aminotransferase 60 U/L (6-50); Albumin Level 3.6 g/dL (3.5-5.1); Alkaline Phosphatase 281 U/L (38-126); Anion Gap 3 mmol/L (4-12); Aspartate Amino Transferase 42 U/L (17-59); Bilirubin,Total 0.4 mg/dL (0.2-1.3); Blood Urea Nitrogen 9 mg/dL (9-20); Calcium 8.4 mg/dL (8.4-10.2); Carbon Dioxide 28 mmol/L (22-30); Chloride 101 mmol/L (98-107); Estimated Glomerular Filt Rate > 60; Glucose 115 mg/dL (65-110); Osmolality Calculated 273 mOsm/kg (285-295); Potassium 3.5 mmol/L (3.4-5.0); Sodium 132 mmol/L (137-145); Total Protein 6.1 g/dL (6.3-8.2)
== END 2024-08-24 10:57 | disposition home or self-care (01) ==
LOC: CHSTREATRM 11:01 → CHSLAB 11:04
PROVIDERS: PCP Family Medicine; Visit Provider Internal Medicine Hematology
DX: C20 Malignant neoplasm of rectum (principal)
CPT/HCPCS: 36415; 80053; 85027

== ENCOUNTER 2024-08-28 09:02 | Outpatient (CLI) | payer MEDICARE, MEDICAID, SELFPAY ==
--- OUTSIDE RECORDS SUMMARY | 2024-08-28 09:07 | XMS_ITS | Data Portability ---
Author Organization [facility], [address] [place] ([place]) Address [address] [place] [address] Care Team Providers Care Policy Checker Name Role Phone TRAVIS RATLIFF Medical Oncologist TEDDY ROMAN Colorectal Surgeon TRAVIS JUSTIN Urologist ABNER CHERRY Radiation Oncologist [phone] Assessment Encounter Date Assessment Date Assessment LastModified by Organization Details LastModified Time 06/12/2024 06/12/2024 Impressions: This is a 64-year-old gentleman with synchronous primary. 1. 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 ADDENDUM: I did talk with Dr. Ratliff who notes that he will present patient on Colorectal Tumor Board on 06/14/2024. Patient is aware. [facility] Education: Not available 06/12/2024 19:10:33 08/06/2024 [...] the consultation. CC: Travis Ratliff MD rja [email or web address] Not available 08/07/2024 17:08:33 08/10/2024 08/10/2024 Roberto [...] ed Patient 30.EST 2024 10:30A M Aretha Hubbrad Not available Not available Not available Lab [...] auto diff CBC with differential Not Available [facility] [address], [address], 08/06/2024 13:43:40 08/07/19 25 08/06/2024 CBC w/ auto diff WBC 6.8 K/uL 4.8- 10.8 Not Available [facility] Only - [facility] [address] [place] [address], [id number], 08/06/2024 13:43:40 08/07/19 25 08/06/2024 CBC w/ auto diff RBC 4.21 M/uL 4.70-6 .10 low Not Available [facility] - [facility] [address] [place] [address], [id number], 08/06/2024 13:43:40 08/07/19 25 08/06/2024 CBC w/ auto diff HGB 12.8 g/dL 14.0-1 8.0 low Not Available [facility] Only - [facility] [address] [place] [address], [address], 08/06/2024 13:43:40 08/07/19 25 08/06/2024 CBC w/ auto diff HCT 37.0 % 42.0-5 2.0 low Not Available [facility] - [facility] [address] [place] [address], [address]07, 08/06/2024 13:43:40 08/07/19 25 08/06/2024 CBC w/ auto diff MCV 87.9 fL 80.0-9 4.0 Not Available [facility] - [facility] [address] [place] [address], 0[address], 08/06/2024 13:43:40 08/07/19 25 08/06/2024 CBC w/ auto diff MCH 30.4 pg 27.0- 31.0 Not Available Sc Only - [facility] [address] [place] [address], [address], 08/06/2024 13:43:40 08/07/19 25 08/06/2024 CBC w/ auto diff MCHC 34.6 g/dL 32.0-3 6.0 Not Available [facility] Only - [facility] [address] [place] [address], 7[address], 08/06/2024 13:43:40 08/07/19 25 08/06/2024 CBC w/ auto diff RDW-SD 45.4 fL 35.1 - 46.3 Not Available [facility] [address] [place] [address], [address]71, 08/06/2024 13:43:40 08/07/19 25 08/06/2024 CBC w/ auto diff plt 215 K/uL 130-40 0 Not Available [facility] [address] [place] [address], [address], 08/06/2024 13:43:40 08/07/19 25 08/06/2024 CBC w/ auto diff MPV 9.4 fL 7.5- 11.8 Not Available [facility] [address] [place] [address], 71857, 08/06/2024 13:43:40 08/07/19 25 08/06/2024 CBC w/ auto diff stanislaw% 74.7 % not estab Not Available [facility] [address] [place] [address], [address], 08/06/2024 13:43:40 08/07/19 25 08/06/2024 CBC w/ auto diff lym% 13.9 % not estab Not Available [facility] [address] [place] [address], 05834, 08/06/2024 13:43:40 08/07/19 25 08/06/2024 CBC w/ auto diff mono% 8.9 % not estab Not Available [facility] [address] [place] [address], [id number], 08/06/2024 13:43:40 08/07/19 25 08/06/2024 CBC w/ auto diff eos% 1.8 % not estab Not Available [facility] [address] [place] [address], 839[address], 08/06/2024 13:43:40 08/07/19 25 08/06/2024 CBC w/ auto diff baso% 0.4 % not estab Not Available [facility] - [facility] [address] [place] [address], 93346, 08/06/2024 13:43:40 08/07/19 25 08/06/2024 CBC w/ auto diff abs stanislaw 5.1 K/uL 1.5-7. 5 Not Available [facility] - [facility] [address] [place] [address], 75[address], 08/06/2024 13:43:40 08/07/19 25 08/06/2024 CBC w/ auto diff abs lym 0.9 K/uL 1.2-3. 4 low Not Available [facility] - [facility] [address] [place] [address], 546[address], 08/06/2024 13:43:40 08/07/19 25 08/06/2024 CBC w/ auto diff abs mono 0.6 K/uL 0.1-1. 0 Not Available [facility] - [facility] [address] [place] [address], 545[address], 08/06/2024 13:43:40 08/07/19 25 08/06/2024 CBC w/ auto diff abs eos 0.1 K/uL 0.0-0. 7 Not Available [facility] - [facility] [address] [place] [address], [address], 08/06/2024 13:43:40 08/07/19 25 08/06/2024 CBC w/ auto diff abs baso 0.0 K/uL 0.0-0. 2 Not Available [facility] Only - [facility] [address] [place] [address], 095[address], 08/06/2024 13:43:40 08/07/19 25 08/06/2024 CBC w/ auto diff imm. gran % 0.3 % 0-5 Not Available Sc Onl y - [facility] [address] [place] [address], 8[address], 08/06/2024 13:43:40 08/07/19 25 08/06/2024 CBC w/ auto diff NRBC % 0.0 % 0.0-0. 2 Not Available [facility] Only - [facility] [address] [place] [address], 287[address], 08/06/2024 13:43:40 08/07/19 25 08/06/2024 carci noemb ryoni c Ag, quant , serum or plasm a cea 7.4 NG/mL <0.5-3 .0 high This test is perfo rmed on a Sieme ns Atell ica gino zer. Since there are not exist ing stand maria alejandra refer ence units , users shoul d not make ashly rison s betwe en metho ds. Not Available [facility] - [facility] [address] [place] [address], [address], 08/06/2024 16:14:48 08/07/19 25 08/06/2024 CMP, serum or plasm a comp. met. panel Not Available [facility] On y - [facility] [address] [place] [address], 680[address], 08/06/2024 16:24:03 08/07/19 25 08/06/2024 CMP, serum or plasm a sodium 133 mmol/ L 136-14 6 low Not Available [facility] [address] [place] [address], [address], 08/06/2024 16:24:03 08/07/19 25 08/06/2024 CMP, serum or plasm a potassium 4.0 mmol/ L 3.5-5. 1 Not Available [facility] - [facility] [address] [place] [address], [address], 08/06/2024 16:24:03 08/07/19 25 08/06/2024 CMP, serum or plasm a chloride 100 mmol/ L 98-110 Not Available [facility] - [facility] [address] [place] [address], 217[address], 08/06/2024 16:24:03 08/07/19 25 08/06/2024 CMP, serum or plasm a CO2 29 mEq/L 20-32 Not Available [facility] - [facility] [address] [place] [address], 32040, 08/06/2024 16:24:03 08/07/19 25 08/06/2024 CMP, serum or plasm a anion gap 8 mmol/ L 10-22 low Not Available [facility] - [facility] [address] [place] [address], 14227, 08/06/2024 16:24:03 08/07/19 25 08/06/2024 CMP, serum or plasm a glucose 119 mg/dL 70-100 high Not Available [facility] - [facility] [address] [place] [address], 22427, 08/06/2024 16:24:03 08/07/19 25 08/06/2024 CMP, serum or plasm a calcium 9.2 mg/dL 8.4-10 .4 Not Available [facility] - [facility] [address] [place] [address], 92055, 08/06/2024 16:24:03 08/07/19 25 08/06/2024 CMP, serum or plasm a total protein 7.0 g/dL 6.4-8. 3 Not Available [facility] [address] [place] [address], 584[address], 08/06/2024 16:24:03 08/07/19 25 08/06/2024 CMP, serum or plasm a albumin 4.3 g/dL 3.5-5. 3 Not Available [facility] - [facility] [address] [place] [address], 49546, 08/06/2024 16:24:03 08/07/19 25 08/06/2024 CMP, serum or plasm a ALP 292 U/L 44 - 127 high Not Available [facility] - [facility] [address] [place] [address], 07335, 08/06/2024 16:24:03 08/07/19 25 08/06/2024 CMP, serum or plasm a AST (SGOT) 52 U/L 10-40 high Not Available [facility] - [facility] [address] [place] [address], 86701, 08/06/2024 16:24:03 08/07/19 25 08/06/2024 CMP, serum or plasm a total bilirubin 0.5 mg/dL 0.2-1. 2 Not Available [facility] - [facility] [address] [place] [address], 05076, 08/06/2024 16:24:03 08/07/19 25 08/06/2024 CMP, serum or plasm a ALT (SGPT) 112 U/L 8-35 high Not Available [facility] - [facility] [address] [place] [address], 62872, 08/06/2024 16:24:03 08/07/19 25 08/06/2024 CMP, serum or plasm a BUN 11 mg/dL 7-21 Not Available [facility] - [facility] [address] [place] [address], 448[address], 08/06/2024 16:24:03 08/07/19 25 08/06/2024 CMP, serum or plasm a creatinine 0.8 mg/dL 0.7-1. 3 Not Available [facility] - [facility] [address] [place] [address], 15310, 08/06/2024 16:24:03 08/07/19 25 08/06/2024 CMP, serum or plasm a CKD-epi GFR 98 eGFR was calcu lated using the 2020 CKD-E PI equat ion. ([employer] nicolasa Kidne y Disea se has an eGFR less than 60 mL/mi n/1.7 3mm for a perio d of three month s or more. ) This calcu latio n has not been valid ated for patie nt ages <18 or >90 years old. Not Available [facility] - [facility] [address] [place] [address], 80710, 08/06/2024 16:24:03 08/07/19 25 08/06/2024 PSA, serum or plasm a PSA <0.04 NG/mL 0.04-4 .900 This test is perfo rmed on a Sieme ns Atell ica gino zer. Since there are not exist ing stand maria alejandra refer ence units , users taqueria d not make ashly rison s betparrish en metho ds. Not Available [facility] - [facility] [address] [place] [address], [address], 08/06/2024 16:55:19 06/30/19 25 06/28/2024 [facility] [address] [place] [address] [phone] Name: ROBERTO MORRELL RD Age: 64 : 1959 Exam Date: 2024 ACCESS ION: [id number] JALIL CANADA MD: KRISTEN GARCIA Please refer to [facility] for result s. Final Report Dictat ed: 09:25 Radiol ogist , Inquir y Signed : 14:48 Radiol ogist , Inquir y INTERFACE Il Only - [facility] Rad [address] [place] [address], [address], 06/29/2024 15:59:52 07/21/1907/20/2024 CT ablat ion liver micro wave [facility] [address] [place] [address] [phone] Name: ROBERTO MORRELL RD Age: 64 : 1959 Exam Date: 2024 ACCESS ION: [id number] JALIL CANADA MD: KRISTEN GARCIA EXAMIN ATION: [...] prior imagin g. Two 17 G NuWave VT probes were advanc ed throug h the [...] Kristen Garcia MD INTERFACE Sc Only - [facility] [address] [place] [address], [id number], 07/20/2024 16:50:43 Result Notes None recorded. Problems Name Problem SNOMED Code Status Onset Date Resolution Date Notes Provider Name and Address Organization Details Recorded Time Adenocarci noma of prostate 789596762 Active 2023 [facility] 5 10:09:16 Adenocarci noma of rectum 269363079 Active 2024 [facility] 5 10:09:50 Carcinoma of prostate 699933476 Active 2023 [place] 3+4 BX 06/21/23 Willow Brown, PRODUCTION LABORER, HAND OUTSIDE CUTTER [address] [place] [address], [phone] [place] [address] 4 16:37:09 Malignant neoplasm of rectum 149688343 Active 2023 Cesar Rider-Jackson [facility] 5 16:40:46 Lesion of spleen 004856545931 101 Active 2023 Oly Medrano [facility] 4 15:20:53 Malignant neoplasm of prostate 200000255 Active 2024 [facility] 5 17:09:05 Metastatic malignant neoplasm to liver 47280922 Active 2024 Cesar Rider-Ode [facility] 5 16:41:15 Problem Notes None recorded. Procedures Surgical History Date Name Laterality Status Provider Name and Address Organization Details Recorded Time 09/12/19 24 cystoscopy completed Joanne Harvey [facility] 10/14/2023 11:10:48 Colonoscopy with biopsy completed Not Available Health Note 07/30/2024 13:03:42 Imaging Results None recorded. Procedure Notes None recorded. Medical Equipment None Reported. Allergies Allergen ID Allergen Name Allergen Category Reaction Reaction Severity Criticality Documentation Date Start Date Code Code System Note Provider Name and Address Organization Details Recorded Time 1834131 codeine medicatio n vomiting Not available Not available 10/14/2023 2670 RxNorm Joanne Harvey [facility] 4 11:08:52 Medications Name Sig Start Date Stop [...] Body mass index (BMI) Body weight Systolic And Diastolic Provider Name and Address Organization Details Last Updated DateTime 176.53 cm 96 % 96 % 72 /min 97.8 [degF] 25 kg/m2 18844.1 7 g 120/60 mm[Hg] Corrine Colbert [facility] 12:40:47 Date Recorded Body height Body mass index (BMI) Body weight Systolic And Diastolic Provider Name and Address Organization Details Last Updated DateTime 08/10/2024 176.53 cm 25.2 kg/m2 92985.48 g 138/85 mm[Hg] Cesar Gelywillam catherine [facility] 08/10/2024 09:47:59 Social History Question Answer Notes LastModified [...] How Many Packs Per Day (PPD)? 1 [email or web address] Information not available 10/14/2023 How Long Have You Smoked? 50 [email or web address] Information not available 10/14/2023 What Was The [...] available 07/30/2024 Are you currently employed? No [facility] Information not available 07/30/2024 What is your occupation? Retired [email or web address] Information not available 07/30/2024 What is your exercise level? Moderate [facility] Information not available 07/30/2024 Mental Status None recorded. Family History Relationship Description Onset Age of this Age Resolved Age Notes LastModified by Organization Details LastModified Time Mother Family history of malignant neoplasm [email or web address] Not available 2024 13:03:42 Father Family history of malignant neoplasm [facility] Not available 2024 13:03:42 Medical History Condition Response Diabetes N Anxiety Disorder N Bleeding Disorder N Attention-deficit Hyperactivity Disorder N High Blood Pressure N Arthritis N Hyperlipidemia N Cancer Y Thyroid Problems N Stroke N Asthma N COPD N Depression N Anemia N Seizures N Heart Disease N Fibromyalgia N Osteoporosis N Kidney Disease N Past Encounters Encounter ID Performer Location Encounter Start Date Encounter Closed Date Diagnosis/Indication Diagnosis SNOMED-CT Code Diagnosis ICD10 Code Diagnosis Note [id number] MD Karissa Monzon [facility] [place] [address] [place] [phone] 1 10/14/2023 10:29:35 11/02/2023 09:10:53 Carcinoma of prostate 961977255 C61 Malignant neoplasm of rectum 155060964 C20 [id number] MD Sherita Hassantigre [facility] [place] [address] [place] [address] [phone] 1 11/02/2023 11:55:49 11/02/2023 14:08:15 [id number] MD Karissa Monzon [facility] [place] [address] [place] [address] [phone] 1 11/10/2023 09:36:35 11/10/2023 10:32:15 [id number] MD Karissa Monzon [facility] [place] [address] [place] [address] [phone] 1 11/17/2023 09:29:55 11/17/2023 10:28:06 [id number] Pj Cherry MD [facility] [place] [address] [place] [address] [phone] 1 11/24/2023 09:23:05 11/24/2023 12:11:38 [id number] Pj Cherry MD [facility] [place] [address] [place] [address] [phone] 1 12/01/2023 09:16:20 12/01/2023 10:20:01 [id number] Can Ge MD [facility] [place] [address] [place] [address] [phone] 1 02/08/2024 09:21:44 02/09/2024 12:00:56 [id number] Willow Brown APRN, [facility] [place] [address] [place] [address] [phone] 1 03/13/2024 15:37:27 03/13/2024 16:06:16 Adenocarcinoma of prostate 246502103 C61 [id number] Aretha Hubbard APRN, [facility] [place] [address] [place] [address] [phone] 1 06/12/2024 17:32:28 06/12/2024 17:57:29 Adenocarcinoma of prostate 307894884 C61 Adenocarci noma of rectum 102282111 C20 [id number] Angel Vargas MD [address] Oncology/ Hematolog y ([place]) [address] [place] [address],4t [place] [address] 08/06/2024 12:16:05 08/07/2024 16:50:42 Malignant neoplasm of rectum 492583356 C20 Malignant neoplasm of prostate 798571925 C61 [id number] Myles Acevedo MD [address] Colorect[address] l ([place]) [address] [place] [address],3r [place] [address] 08/10/2024 09:00:53 08/10/2024 10:29:22 Malignant neoplasm of rectum [id number] [facility] [id number] Myles Acevedo MD ASC Colorecta l [place] [address] [place] [address], 2[address] [place] [address] 08/22/2024 10:32:47 08/28/2024 09:29:06 [id number] Stiven Corrales MD [facility] ASC GI Anesthesi a S [address] [place] [address] [phone] 3 08/22/2024 10:32:45 08/22/2024 11:23:56 Health Concerns Section Related Observation LastModified by Organization Detai ls LastModified Time None Recorded Concern Status LastModified by Organization Details LastModified Time None Recorded Advance Directives Directive N: Payers Insurance Date Sequence Insurance Name Policy Number Policy Singletary Covered Member ID Singletary Member ID Guarantor Name 02/06/2024 1 [facility] (MEDICAID REPLACEMENT - HMO) [id number] Roberto Garcia [id number] Roberto Garcia 08/10/2024 2 [place] [facility] Roberto Garcia [id number] Roberto Garcia 02/14/2024 3 [employer] (MEDICARE SUPPLEMENT) Roberto Garcia [id number] Roberto Garcia 08/10/2024 2 [facility] (MEDICARE SUPPLEMENT) PLAN N Roberto Garcia [id number] Roberto Garcia 08/10/2024 1 [place] Roberto Garcia [id number] Roberto Garcia Notes Date Note Type Note Provider Name and Address Organization Details Recorded Time 5 text/html Roberto [id number] yo Identifying Spicxghruhr23-lxne-iig male with adenocarcinoma of the midrecrum with [...] adenocarcinoma with seminal vesicle invasion, clinical stage P7iR3X7, [place] 3+4=7, grade group 2, highest PSA 19.6. [...] 01/11/2023. CT chest lung screening protocol at [facility] was performed with radiology interpretation of small [...] recommended a prostate biopsy. 03/18/2023: Colonoscopy at [facility] was performed. Specimen [id number] associated with colon descending polyp biopsy, tubular [...] ng/mL. 04/21/2023: CT abdomen and pelvis at [facility] resulted circumferential wall thickening of rectum, likely [...] is mild prostatomegaly. 04/21/2023: MRI pelvis at [facility] was performed with radiology interpretation of a [...] mesorectal lymph nodes. 05/06/2023: MRI pelvis at [facility] was performed with radiology interpretation [...] additional imaging for staging.05/25/2023: CT chest at [facility] was performed with radiology interpretation of no CT evidence of metastatic disease in the chest, no mediastinal or hilar lymphadenopathy. There is a prominent 8 mm portal caval lymph node, for which continued attention on follow up was recommended.06/21/2023: PSA 15.51 ng/mL.06/21/2023: Truss biopsy with Dr. Nails, specimen [id number] resulted prostate adenocarcinoma, Kavitha grade 3+4=7, corresponding [...] over 25 fractions to the rectum and ibrmpieq00/2024: CT of chest1. No CT evidence of metastatic disease within the chest.2. Prominent 8 mm portacaval lymph node. Continued attention on follow-up is vbmhxvsuium17/2024: CT of pelvis/ abdomenIMPRESSION:Changes prostatic hyperplasia. PI-RADS Category 1: Very LowRisk2. Post radiation changes throughout the prostate. The previouslyseen lesions are no longer well-visualized3. Ill-defined nodule in the right basilar transitional zone.PI-RADS Category 2: Low Risk Per Oncology note:MRI done at [facility]/19/2024: MRI pelvis with/without contrast showed persistent circumferential [...] active and feeling strong. Aretha Hubbard APRN, HAND OUTSIDE CUTTER [address] [place] [address], [phone], [facility] 06/30/2024 19:32:29 5 text/html REASON FOR [...] a second opinion. Patient also has a [place] 7 (3+4) grade group 2 prostate cancer [...] had cancer. Angel Vargas MD [address] [place] [address], [phone], [facility] 08/09/2024 11:38:44 5 text/html SUBJECTIVE:A 64-year-old male here to see me for a second opinion for rectal cancer. He has been cared for by Dr. Ratliff with oncology and Dr. Roman with colorectal surgery with [facility]. I am in the process of obtaining [...] This was treated, I am told, by [facility] with a liver ablation. [...] inguinal.FAMILY HISTORY:Father, colon cancer. Myles Acevedo MD [facility] [place] [address], [phone], [facility] 08/13/2024 16:07:54 5 text/html Roberto is a 64-year-old male here to see me for a second opinion for rectal cancer. He has been cared for by Dr. Ratliff with oncology and Dr. Roman with colorectal surgery with [facility]. I am in the process of obtaining [...] This was treated, I am told, by [facility]iology with a liver ablation. [...] inguinal.FAMILY HISTORY:Father, colon cancer. Myles Acevedo MD [facility], [phone], [facility] 08/22/2024 12:33:14 5 text/html [facility] PRE-ANESTHETIC EVALUATIONReported bypatient.Reason for Visit:PROPOSED PROCEDURE: [...] to proceed. Stiven Corrales MD [address] [facility], [place], [address], [facility] 08/22/2024 11:23:52
--- OUTSIDE RECORDS SUMMARY | 2024-08-28 09:07 | XMS_ITS ---
Author Organization Unknown Address [address] [place] [address] [phone] Phone Care Team Providers Care Broom Builder Name Role Phone ALBERT Pinedo Attending Unavailable [facility] PET NUTRITION SPECIALIST Unavailable MANJIT Gould Primary Unavailable Immunization Immunization Date Status Additional Notes Code Code System Tdap 05/12/2021 Completed 115 CVX COVID-19, mRNA, LNP-S, PF, 3 0 mcg/0.3 mL dose 06/06/2020 Completed 208 CVX COVID-19, mRNA, LNP-S, PF, 3 0 mcg/0.3 mL dose 06/26/2020 Completed 208 CVX Social History Type Status Start Date End Date Code Code Syst em Smoking History Current every day smoker 151947103 SNOMED CT Sex Male Vital Signs Vital Sign Value Unit Rosalia Value Rosalia Unit Date/Time Recent/Initial? Code Code System Body Mass Index 27.69 kg/m2 03/04/2023 13:59 Initial 14942 -5 LOINC Systolic Blood Pressure 130 mm[Hg] 03/18/2023 07:41 Initial 8480- 6 LOINC Diastolic Blood Pressure 72 mm[Hg] 03/18/2023 07:41 Initial 8462- 4 LOINC Body Surface Area 2.08 m2 03/04/2023 13:59 Initial 3140- 1 LOINC Height 177.800 0 cm 70.00 in 03/04/2023 13:59 Initial 8302- 2 LOINC O2 Saturation 98 % 2022 07:41 Initial 85948 -5 LOINC Pulse 100.0 /min 03/18/2023 07:41 Initial 8867- 4 LOINC Respiration 20 /min 03/18/20 07:41 Initial 9279- 1 LOINC Temperature 36.4 Jenna 97.5 F 12/15/20 23 07:41 Initial 8310- 5 LOINC Weight 87.54 kg 193.00 lbs 03/04/2023 13:59 Initial 48127 -7 LOINC Medications No Active Medications Hospital Discharge Instructions Should you have any questions prior to discharge, please contact a member of your healthcare team. If you have left the hospital and have any questions, please contact your primary care physician. Reason For Referral No Data Found Procedures Procedure Name Date Status Code Code Syste m Inguinal hernia completed 338802221 SNOMEDCT Anesthesia for lower intesti nal endoscopic procedures, endoscope introduce 03/18/2023 completed 32899 CPT Colonoscopy, flexible; with removal of tumor(s), polyp(s), or other lesion 03/18/2023 completed 14929 CPT Allergies and Adverse Reactions Allergy Substance Reaction Severity Start Date Concern Status Co de Code System CODEINE Active 6597 RxNorm Plan of Treatment US Prostate Needle Biopsy 04/13/2023 Encounters Encounter Diagnosis Start Date Code Code Sys tem Encounter for screening for malignant neoplasm of colo n 03/18/2023 SNOMED-CT Personal Care Team Section Performer Name Performer Role Active Date Inactive MIGUELANGEL Fuller PCP - Primary care physician 2023-01-12 Procedures Notes
[2024-08-28] MEDS: FAMOTIDINE 20 MG/2 ML VIAL IV PUSH (09:25)
[2024-08-28] MEDS: SODIUM CHLORIDE 0.9% IV 250 ML 10 ML IVPB (09:25)
[2024-08-28] MEDS: diphenhydrAMINE HCl INJ 50 MG/ML VIAL 25 MG IV PUSH (09:27)
[2024-08-28] MEDS: ONDANSETRON INJ 16 MG, dexAMETHasone SOD 4 MG/ML INJ 12 MG in SODIUM CHLORIDE 0.9% IV 8... 300 MG IVPB (09:28)
[2024-08-28 09:37] VITALS: BP 123/67; PULSE 78; RESP 14; TEMP 36.7; O2SAT 98; BMI 24.6
[2024-08-28] MEDS: ATROPINE SULFATE 0.4 MG/ML VIAL IV PUSH (10:43)
[2024-08-28] MEDS: SODIUM CHLORIDE 0.9% IVPB ×2 (10:47→12:24)
[2024-08-28] MEDS: IRINOTECAN HCL IVPB (10:47)
[2024-08-28] MEDS: LEUCOVORIN CALCIUM 800 MG in SODIUM CHLORIDE 0.9% IV 210 ML 166.67 MG IVPB (10:48)
[2024-08-28] MEDS: FLUOROURACIL 2,500 MG/50 ML VIAL 800 MG IV PUSH (12:23)
[2024-08-28] MEDS: FLUOROURACIL IVPB (12:24)
[2024-08-28 13:00] VITALS: BP 118/69; PULSE 78; RESP 14; TEMP 36.6; O2SAT 97
[2024-08-28] MEDS: HEPARIN SODIUM LOCK FLUSH 500 UNITS/5 ML SYRINGE IV PUSH (13:00)
--- NOTE | 2024-08-28 13:03 | PC.NURSE ---
Patient tolerated chemo infusion well. Now will go home with Chemo pump with 5 FU infusing. Education given verbally and written. Chemo spill kit also given with instructions. Will return at 1200 pm to have it removed.
--- NOTE | 2024-08-30 11:33 | PC.NURSE ---
1024 Patient return with chemo pump-infusion completed. Procedure explained. Pump removed. Port a cath flushed per protocol. Patient reports patient tolerated treatment well.
== END 2024-08-28 09:03 | disposition home or self-care (01) ==
PROVIDERS: PCP Family Medicine; Visit Provider Internal Medicine Hematology
DX: Z51.11 Encounter for antineoplastic chemotherapy (principal); C20 Malignant neoplasm of rectum
CPT/HCPCS: 96367; 96368; 96375; 96411; 96413; 96416; J0461; J0640; J1100; J1200; J2405; J7050; J9190; J9206

== ENCOUNTER 2024-10-19 07:42 | Outpatient (CLI) | payer MEDICARE, MEDICAID, SELFPAY ==
--- OUTSIDE RECORDS SUMMARY | 2024-10-19 07:45 | XMS_ITS ---
Author Organization Unknown Address [address] [place] [address] [phone] Phone Care Team Providers Care Delivery Engineer Name Role Phone ALBERT Pinedo Attending Unavailable [facility] Unavailable MANJIT Gould Primary Unavailable Immunization Immunization Date Status Additional Notes Code Code System Tdap 05/12/2021 Completed 115 CVX COVID-19, mRNA, LNP-S, PF, 3 0 mcg/0.3 mL dose 06/06/2020 Completed 208 CVX COVID-19, mRNA, LNP-S, PF, 3 0 mcg/0.3 mL dose 06/26/2020 Completed 208 CVX Social History Type Status Start Date End Date Code Code Syst em Smoking History Current every day smoker 048874988 SNOMED CT Sex Male Vital Signs Vital Sign Value Unit [place] Value [place] Unit Date/Time Recent/Initial? Code Code System Body Mass Index 27.69 kg/m2 03/04/2023 13:59 Initial 31581 -5 LOINC Systolic Blood Pressure 130 mm[Hg] 03/18/2023 07:41 Initial 8480- 6 LOINC Diastolic Blood Pressure 72 mm[Hg] 03/18/2023 07:41 Initial 8462- 4 LOINC Body Surface Area 2.08 m2 03/04/2023 13:59 Initial 3140- 1 LOINC Height 177.800 0 cm 70.00 in 03/04/2023 13:59 Initial 8302- 2 LOINC O2 Saturation 98 % 2022 07:41 Initial 66713 -5 LOINC Pulse 100.0 /min 03/18/2023 07:41 Initial 8867- 4 LOINC Respiration 20 /min 03/18/20 07:41 Initial 9279- 1 LOINC Temperature 36.4 Jenna 97.5 F 12/15/20 23 07:41 Initial 8310- 5 LOINC Weight 87.54 kg 193.00 lbs 03/04/2023 13:59 Initial 78181 -7 LOINC Medications No Active Medications Hospital Discharge Instructions Should you have any questions prior to discharge, please contact a member of your healthcare team. If you have left the hospital and have any questions, please contact your primary care physician. Reason For Referral No Data Found Procedures Procedure Name Date Status Code Code Syste m Inguinal hernia completed [id number] SNOMEDCT Anesthesia for lower intesti nal endoscopic procedures, endoscope introduce 03/18/2023 completed 96727 CPT Colonoscopy, flexible; with removal of tumor(s), polyp(s), or other lesion 03/18/2023 completed 18973 CPT Allergies and Adverse Reactions Allergy Substance Reaction Severity Start Date Concern Status Co de Code System CODEINE Active 6874 RxNorm Plan of Treatment US Prostate Needle Biopsy 04/13/2023 Encounters Encounter Diagnosis Start Date Code Code Sys tem Encounter for screening for malignant neoplasm of colo n 03/18/2023 SNOMED-CT Personal Care Team Section Performer Name Performer Role Active Date Inactive MIGUELANGEL Fuller PCP - Primary care physician 2023-01-12 Procedures Notes
--- OUTSIDE RECORDS SUMMARY | 2024-10-19 07:45 | XMS_ITS | Clinical Summary ---
Author Organization [facility] Address [facility] [place] [address] Care Team Providers Care Production Worker Name Role Phone Flaco Kelly MD Primary Care Provider Allergies Active Allergy Reactions Criticality Noted Date Comments Codeine Nausea Only 03/18/2023 Patient states it makes me sick as hell Medications No known medications Encounters Date Type Department Care Team Description 10/12/2024 8:14 AM CDT - 10/12/2024 11:59 PM CDT Hospital En[facility] [address] [place] [address] Travis Ratliff MD Discharge Disposition: Home or Self Care (Routine Discharge) 10/12/2024 Travel 09/28/2024 7:07 AM CDT - 09/28/2024 11:59 PM CDT Hospital Encounter [facility] [address] [place] [address] [address] Aretha Hubbard, PROJECT MANAGER/DESIGN MANAGER Discharge Disposition: Home or Self Care (Routine Discharge) 09/28/2024 6:38 AM CDT - 09/28/2024 7:06 AM CDT Hospital Encounter [facility] [address] [place] [address] [address] Sabrina Mujica FNP-BC Discharge Disposition: Home or Self Care (Routine Discharge) 09/28/2024 Orders Only [facility] [address] [place] [address] [address] Aretha Hubbard, JULIANNE 09/28/2024 Travel 09/06/2024 2:13 PM CDT - 09/06/2024 11:59 PM CDT Hospital Encounter [facility] [address] [place] [address] Travis Ratliff MD Discharge Disposition: Home or Self Care (Routine Discharge) 09/06/2024 Travel 08/23/2024 8:52 AM CDT - 08/23/2024 11:59 PM CDT Hospital Encounter [facility] [address] [place] [address] Kristen Garcia MD Discharge Disposition: Home or Self Care (Routine Discharge) 08/23/2024 Travel 07/24/2024 8:37 AM CDT - 07/24/2024 11:59 PM CDT Hospital Encounter [facility] [address] [place] [address] Teddy Roman Sr., MD Discharge Disposition: Home or Self Care (Routine Discharge) 07/24/2024 Travel from Last 3 Months Social History Tobacco Use Types Packs/Day Years Used Date Smoking Tobacco: Unknown Tobacco Cessation:Counseling Given: Not Answered Sex and Gender Information Value Date Recorded Sex Assigned at Male 04/20/2024 8:37 AM CLINICAL SUPPORT ASSOCIATE Legal Sex Male 9:40 AM CDT Gender Identity Not on file Sexual Orientation Not on file Last Filed Vital Signs Vital Sign Reading Time Taken Comments Blood Pressure 129/98 03/18/2023 3:56 PM CLINICAL SUPPORT ASSOCIATE Pulse 98 03/18/2023 3:56 PM CLINICAL SUPPORT ASSOCIATE Temperature 36.6 C (97.8 F) 03/18/2023 12:49 PM CLINICAL SUPPORT ASSOCIATE Respiratory Rate 14 03/18/2023 3:56 PM CLINICAL SUPPORT ASSOCIATE Oxygen Saturation 96% 03/18/2023 3:56 PM CLINICAL SUPPORT ASSOCIATE Inhaled Oxygen Concentration - - Weight 85 kg (187 lb 8 oz) 03/18/2023 12:[address] Height 180.3 cm (5' 11) 03/18/2023 12:49 PM CLINICAL SUPPORT ASSOCIATE Body Mass Index 26.15 03/18/2023 12:49 PM CLINICAL SUPPORT ASSOCIATE Plan of Treatment Upcoming Encounters Date Type Department Care Team (Late st Contact Info) Description 11/26/2024 8:[address] [facility] [address] [place] [address] Kristen Garcia MD [address] [place] [id number] Health Maintenance Due Date Last Done Comments [...] Procedure Name Priority Date/Time Associated Diagnosis Comments CT CHEST W CON Routine 10/12/2024 8:27 AM CDT Rectal cancer (CMS/HCC HHS/HCC) USE ECHOCARDIOGRAM Routine 09/28/2024 7: 52 AM CDT Atrial fibrillation with RVR (CMS/HCC HHS/HCC) TESTOSTERONE, TOTAL Routine 09/28/2024 7 :10 AM CDT Malignant neoplasm of prostate (CMS/HCC HHS/HCC) PROSTATE SPECIFIC ANTIGEN,TOTAL Routine 09/28/2024 7:10 AM CDT Malignant neoplasm of prostate (CMS/HCC HHS/HCC) MRI PEL WWO CON Routine 09/06/2024 3:20 PM CDT Rectal cancer (CMS/HCC HHS/HCC) MRI ABD WWO CON Routine 08/23/2024 9:50 AM CDT Malignant neoplasm of rectum (CMS/HCC HHS/HCC) Secondary malignant neoplasm of liver (CMS/HCC HHS/HCC) MRI PEL WWO CON Routine 07/24/2024 10:45 AM CDT Rectal cancer (CMS/HCC HHS/HCC) CT CHEST+ABD W CON VERO 07/24/2024 9: 00 AM CDT Rectal cancer (CMS/HCC HHS/HCC) from Last 3 Months Results * CT CHEST W CON (10/12/2024 8:27 AM CDT) Anatomical Region Laterality Modality Chest Computed Tomogra phy 10/17/2024 4:28 PM CDT Impressions 10/17/2024 4:38 PM CDT IMPRESSION: 1. No acute intrathoracic process identified. 2. No evidence of intrathoracic metastasis. 3. Progressive hepatic metastasis as described. 4. Additional chronic/nonurgent findings as described. Ordered By: TRAVIS RATLIFF Interpreted By: Unruly Allan MD, 10/17/2024 4:28 PM Narrative 10/17/2024 4:38 PM CDT [address] [place] [address] Examination: CT of the chest with contrast. Exam time: 0823 hours. Clinical history: Metastatic rectal cancer. Status post microwave ablation of right lobe hepatic metastasis, 07/20/2024. Comparison: CT of the chest, abdomen and pelvis, 07/24/2024. Technique: Following the administration of intravenous contrast, spiral scanning was performed through the chest. Sagittal and coronal reconstructions were performed from the data set. A dose lowering technique was used for this procedure, which may include, but is not limited to, dose reduction techniques, automated exposure control, the use of iterative reconstruction and ALARA/Image Gently techniques. Findings: Right jugular port catheter remains in place with the tip terminating in the SVC. Calcific coronary artery disease is again noted. Small pericardial effusion is similar to previous. The heart and great vessels are otherwise unremarkable. Calcified right hilar lymph nodes are again evident, compatible with old granulomatous disease. No hilar or mediastinal adenopathy is identified. No endobronchial abnormality is identified. Changes of centrilobular emphysema, calcified granuloma in the right lower lobe and minor scarring in the left lower lobe again evident. Stable sub-4 mm noncalcified nodules in either upper lobe have been chronically present and are considered benign, presumably granulomas. These are annotated on the lung window series images. Allowing for minor respiratory motion, the lungs are otherwise clear. There is a new trace right pleural effusion. There is no left pleural effusion. The chest wall structures are unchanged. No suspicious bony lesion is identified. The included sections through the upper abdomen show no acute process. There has been typical evolution of the findings related to the previous ablation. 12 mm hypoenhancing focus near the junction of the right and left lobes has enlarged, currently 2.2 cm, compatible with progressive metastasis. There is a new 11 mm subcapsular focus anteriorly compatible with disease progression as well. Findings in the upper abdomen are otherwise stable as detailed in the prior report. Procedure Note Unruly Allan MD - 10/17/2024 [place] [id number] [facility] [place] [address] Examination: CT of the chest with contrast. Exam time: 0823 hours. Clinical history: Metastatic rectal cancer. Status post microwave ablationof right lobe hepatic metastasis, 07/20/2024. Comparison: CT of the chest, abdomen and pelvis, 07/24/2024. Technique: Following the administration of intravenous contrast, spiralscanning was performed through the chest. Sagittal and coronalreconstructions were performed from the data set. A dose loweringtechnique was used for this procedure, which may include, but is notlimited to, dose reduction techniques, automated exposure control, the useof iterative reconstruction and ALARA/Image Gently techniques. Findings: Right jugular port catheter remains in place with the tipterminating in the SVC. Calcific coronary artery disease is again noted.Small pericardial effusion is similar to previous. The heart and greatvessels are otherwise unremarkable. Calcified right hilar lymph nodes areagain evident, compatible with old granulomatous disease. No hilar ormediastinal adenopathy is identified. No endobronchial abnormality isidentified. Changes of centrilobular emphysema, calcified granuloma in theright lower lobe and minor scarring in the left lower lobe again evident.Stable sub-4 mm noncalcified nodules in either upper lobe have beenchronically present and are considered benign, presumably granulomas.These are annotated on the lung window series images. Allowing for minorrespiratory motion, the lungs are otherwise clear. There is a new traceright pleural effusion. There is no left pleural effusion. The chest wallstructures are unchanged. No suspicious bony lesion is identified. Theincluded sections through the upper abdomen show no acute process. Therehas been typical evolution of the findings related to the previousablation. 12 mm hypoenhancing focus near the junction of the right andleft lobes has enlarged, currently 2.2 cm, compatible with progressivemetastasis. There is a new 11 mm subcapsular focus anteriorly compatiblewith disease progression as well. Findings in the upper abdomen areotherwise stable as detailed in the prior report. IMPRESSION: 1. No acute intrathoracic process identified. 2. No evidence of intrathoracic metastasis. 3. Progressive hepatic metastasis as described. 4. Additional chronic/nonurgent findings as described. Ordered By: TRAVIS RATLIFF Interpreted By: Unruly Allan MD, 10/17/2024 4:28 PM us Travis Ratliff MD CT Final Result * USE ECHOCARDIOGRAM (09/28/2024 7:52 AM CDT) Anatomical Region Laterality Modality Cardiac Ultrasound 09/28/2024 6:43 AM CDT Narrative 09/30/2024 12:47 PM CDT Echocardiography Report Pat.Name: Aubrey Garcia Pat.ID: [id number] .Date: 09/28/2024 Refer.MD: Boo, [facility] Exam Time: 6:43:00 AM Study Type:BOO Height: 70 in Weight: 170 lb BSA: 1.95 m2 Age: 10 1960,64Y Sex: M Sonogrphr: Sf Pat. Stat.:Outpatient Reason for Study:Atrial fibrillation with RVR Procedures: 2D, M-mode, Doppler, Color Flow, Study performed at [facility], [place], [place] and interpreted by [facility]. ++++++++++++++++++++++++++++++++++++ SUMMARY: ++++++++++++++++++++++++++++++++++++ The left ventricular size is normal. Estimated left ventricular ejection fraction is 55-60%. Left ventricular diastolic function is abnormal (grade 1 - impaired relaxation). The right ventricle size is normal. The right ventricular function is normal. There is trace mitral regurgitation. There is trace tricuspid regurgitation. ++++++++++++++++++++++++++++++++++++ FINDINGS: ++++++++++++++++++++++++++++++++++++ LV: The left ventricular size is normal. The left ventricular systolic function is normal. Estimated left ventricular ejection fraction is 55-60%. Left ventricular diastolic function is abnormal (grade 1 - impaired relaxation). RV: The right ventricle size is normal. The right ventricular function is normal. LA: Left atrial size is normal. RA: The right atrial size is normal. SUDHAKAR: No evidence of pericardial effusion. AO: Aorta is normal. SVn: Inferior vena cava is normal. AV: The aortic valve is trileaflet. There is no aortic stenosis. There is no evidence of aortic regurgitation. MV: The mitral valve is structurally normal. There is trace mitral regurgitation. PV: The pulmonic valve is normal There is trace pulmonic regurgitation TV: The tricuspid valve appears structurally normal. There is trace tricuspid regurgitation. <Electronic Signature> 09/30/2024 12:47 PM Alejandrina Young M.D. Procedure Note Alejandrina Young MD - 09/30/2024 Echocardiography Report Pat.Name: Aubrey Garcia Torri.ID: [id number] .Date: 09/28/2024 Refer.MD: Boo, [facility] Exam Time: 6:43:00 AM Study Type:OUTREACH Height: 70 in Weight: 170 lb BSA: 1.95 m2 Age: 10 1960,64Y Sex: M Sonogrphr: Sf Pat. Stat.:Outpatient Reason for Study:Atrial fibrillation with RVR Procedures: 2D, M-mode, Doppler, Color Flow, Study performed at [place], [place] and interpreted by [facility]. ++++++++++++++++++++++++++++++++++++ SUMMARY: ++++++++++++++++++++++++++++++++++++ The left ventricular size is normal. Estimated left ventricular ejection fraction is 55-60%. Left ventricular diastolic function is abnormal (grade 1 - impaired relaxation). The right ventricle size is normal. The right ventricular function is normal. There is trace mitral regurgitation. There is trace tricuspid regurgitation. ++++++++++++++++++++++++++++++++++++ FINDINGS: ++++++++++++++++++++++++++++++++++++ LV: The left ventricular size is normal. The left ventricular systolic function is normal. Estimated left ventricular ejection fraction is 55-60%. Left ventricular diastolic function is abnormal (grade 1 - impaired relaxation). RV: The right ventricle size is normal. The right ventricular function is normal. LA: Left atrial size is normal. RA: The right atrial size is normal. SUDHAKAR: No evidence of pericardial effusion. AO: Aorta is normal. SVn: Inferior vena cava is normal. AV: The aortic valve is trileaflet. There is no aortic stenosis. There is no evidence of aortic regurgitation. MV: The mitral valve is structurally normal. There is trace mitral regurgitation. PV: The pulmonic valve is normal There is trace pulmonic regurgitation TV: The tricuspid valve appears structurally normal. There is trace tricuspid regurgitation. <Electronic Signature> 09/30/2024 12:47 PM Alejandrina Young M.D. Sabrina Mujica HEADER SETUP OPERATOR-BC ECHO Final Re sult * PROSTATE SPECIFIC ANTIGEN, DIAG (09/28/2024 7:10 AM CDT) PSA <0.13 <4.00 NG/ML 09/28/2024 7:42 AM CDT [facility] 09/28/2024 7:10 AM CDT us Aretha Hubbard NP LABORATORY Final Result [facility] [address] [place] [address], [place] [phone] * TESTOSTERONE, TOTAL (09/28/2024 7:10 AM CDT) TESTOSTERONE 493.3 187.7 - 684.2 NG/DL 09/28/2024 12:33 PM CDT [facility] Comment: ASSAY PERFORMED BY CHEMILUMINESCENCE METHODOLOGY USING [employer]EM[employer] Language Logistics[employer] XPT REAGENT. PATIENT RESULTS DETERMINED BY ASSAYS USING DIFFERENT MANUFACTURERS FOR METHODS MAY NOT BE COMPARABLE. 09/28/2024 7:10 AM CDT us Aretha Hubbard NP LABORATORY Final Result [facility] [address] [place] [address], [place] [phone] [id number] * MRI PEL WWO CON (09/06/2024 3:20 PM CDT) Only the most recent of2 resultswithin the time period is included. Anatomical Region Laterality Modality Pelvis Magnetic Resonan ce 09/15/2024 11:5 2 AM CDT Impressions 09/15/2024 12:04 PM CDT Impression: 1. Redemonstrated circumferential wall thickening of the mid rectum, which may represent residual tumor. This overall appears similar to the comparison exam from July 24 of this year. 2. Redemonstrated ill-defined streak-like/spiculated regions extending from the rectal wall into the perirectal fat. As stated previously, findings could represent a desmoplastic reaction and posttreatment changes although residual viable tumor is not definitively excluded. 3. No suspicious lymph nodes are identified. 4. The probable perianal fissure seen on prior studies is not included on this exam. Referred By: TRAVIS RATLIFF Interpreted By: Luther Mathis MD, 09/15/2024 11:52 AM Narrative 09/15/2024 12:04 PM CDT [place] [id number] [facility] [place] [address] Examination: MR pelvis with/without contrast, per rectal cancer staging protocol. Clinical Information: Rectal cancer. Follow-up imaging. Restaging. Comparison: MRI 07/24/2024 and 03/14/2024. Technique: Sequences: Multiplanar, multisequence MR images were obtained according to rectal cancer staging protocol. 15 mL of Dotarem administered without adverse event. Findings: Redemonstrated edema like signal throughout the presacral perirectal space, further improved from prior and again favored to represent posttreatment changes. Persistent circumferential wall thickening of the mid rectum again identified and again as previously, which may represent residual tumor. This overall appears similar to the comparison exam from July 24 of this year. TUMOR LOCATION Distance of the lowest extent of tumor from anal verge: The anal verge is not totally included on the provided sagittal sequences and therefore cannot be adequately assessed. Distance of lowest extent of tumor from ano-rectal junction: Approximately 3.5 cm, similar to prior. Relationship to anterior peritoneal reflection: At the level of the peritoneal reflection without distinct involvement, similar to prior. TUMOR CHARACTERISTICS Circumferential extent/location (clock face): Circumferential. Cranio-caudal extent (length of tumor): Approximately 4.5 cm, similar to prior T-CATEGORY Radial extent of disease: No distinct [...] tumor border to the MRF: Approximately 7 mm, similar to prior. EXTRAMURAL VASCULAR INVASION (EMVI): Absent. LYMPH NODES Mesorectal lymph nodes: No suspicious lymph nodes. Extra-mesorectal lymph nodes: No suspicious lymph nodes. Shortest distance of any suspicious lymph node to the MRF: N/A. OTHER Peritoneum: No nodularity or thickening. Free Fluid: None. Genitourinary system: Normal. Vasculature: Imaged vascular structures are patent. Bones: No suspicious osseous lesions. The probable perianal fissure seen on prior studies is not included on this exam. Procedure Note Luther Mathis MD - 09/15/2024 [facility] [address] [place] [address] Examination: MR pelvis with/without contrast, per rectal cancer stagingprotocol. Clinical Information: Rectal cancer. Follow-up imaging. Restaging. Comparison: MRI 07/24/2024 and 03/14/2024. Technique: Sequences: Multiplanar, multisequence MR images were obtained according torectal cancer staging protocol. 15 mL of Dotarem administered withoutadverse event. Findings: Redemonstrated edema like signal throughout the presacral perirectalspace, further improved from prior and again favored to representposttreatment changes. Persistent circumferential wall thickening of themid rectum again identified and again as previously, which may representresidual tumor. This overall appears similar to the comparison exam fromApr 22 of this year. TUMOR LOCATION Distance of the lowest extent of tumor from anal verge: The anal verge isnot totally included on the provided sagittal sequences and thereforecannot be adequately assessed. Distance of lowest extent of tumor from ano-rectal junction: Approximately3.5 cm, similar to prior. Relationship to anterior peritoneal reflection: At the level of theperitoneal reflection without distinct involvement, similar to prior. TUMOR CHARACTERISTICS Circumferential extent/location (clock face): Circumferential. Cranio-caudal extent (length of tumor): Approximately 4.5 cm, similar toprior T-CATEGORY Radial extent of disease: No distinct bulky tumor extension is seeninvolving the perirectal fat on this exam. Redemonstrated bzh-tfqkhonfeldoy-hmhv/spiculated regions extending from the rectal wall into theperirectal fat. As stated previously, findings could represent adesmoplastic reaction and posttreatment changes although residual viabletumor is not definitively excluded. No definite abnormal enhancement isseen involving these regions. T-category: T1/T2 DISTANCE TO THE MESORECTAL FACIA (MRF) AND EXTRAMURAL DEPTH OF INVASION(EMD) Shortest distance of the definitive tumor border to the MRF: Approximately7 mm, similar to prior. EXTRAMURAL VASCULAR INVASION (EMVI): Absent. LYMPH NODES Mesorectal lymph nodes: No suspicious lymph nodes. Extra-mesorectal lymph nodes: No suspicious lymph nodes. Shortest distance of any suspicious lymph node to the MRF: N/A. OTHER Peritoneum: No nodularity or thickening. Free Fluid: None. Genitourinary system: Normal. Vasculature: Imaged vascular structures are patent. Bones: No suspicious osseous lesions. The probable perianal fissure seen on prior studies is not included onthis exam. Impression: 1. Redemonstrated circumferential wall thickening of the mid rectum,which may represent residual tumor. This overall appears similar to thecomparison exam from July 24 of this year. 2. Redemonstrated ill-defined streak-like/spiculated regions extendingfrom the rectal wall into the perirectal fat. As stated previously,findings could represent a desmoplastic reaction and posttreatment changesalthough residual viable tumor is not definitively excluded. 3. No suspicious lymph nodes are identified. 4. The probable perianal fissure seen on prior studies is not included onthis exam. Referred By: TRAVIS RATLIFF Interpreted By: Luther Mathis MD, 09/15/2024 11:52 AM us Travis Ratliff MD MRI Final Result * MRI ABD WWO CON (08/23/2024 9:50 AM CDT) Anatomical Region Laterality Modality Abdomen Magnetic Resonan ce 09/03/2024 11:4 8 PM CDT Impressions 09/03/2024 11:52 PM CDT Impression: A couple of new metastatic lesions in the liver, largest 2 cm. Post ablation change in the liver without residual nodular tumor. Referred By: KRISTEN GARCIA Interpreted By: Cleve Etienne MD, 09/03/2024 11:48 PM Narrative 09/03/2024 11:52 PM CDT [address] [place] [address] Examination: MRI ABD WWO CON Exam time: 08/23/2024 9:28 AM Clinical Information:DX MALIGNANT NEOPLASM OF RECTUM, SECONDARY MALIGNANT NEOPLASM OF LIVER, POST MICROWAVE ABLATION OF LIVER MASS, Comparison: 07/24/2024, 04/26/2024 Technique: Sequences: Multiplanar, multisequence MR images of the abdomen were obtained before and after the administration of 14 mL of Dotarem. Findings: LIVER: Post microwave ablation change in the right hepatic lobe with no focal nodular enhancement in the territory; there is delayed nonmasslike enhancement at the margin of the ablation zone. A new 2 x 1.4 cm nodule in the junction of the right and left hepatic lobe as seen on series 11 image 20. A second nodule in the anterior liver measuring 4 mm on image 22. These are new compared to 04/26/2024 MRI. Hepatic vasculature: Hepatic and portal veins are normally patent. GALLBLADDER AND BILIARY TREE: Unremarkable. PANCREAS: Normal. No pancreatic ductal dilatation. SPLEEN: Heterogeneous, nodularity, similar to prior study. Small splenule. ADRENAL GLANDS: Normal. KIDNEYS: Normal. GASTROINTESTINAL: Imaged large and small bowel are normal in caliber and wall thickness. FREE FLUID: None. VASCULATURE: The abdominal aorta is normal in caliber. LYMPH NODES: No abdominal retroperitoneal or mesenteric lymphadenopathy. LOWER CHEST: Thin pericardial effusion. BONES: No suspicious osseous lesions. Procedure Note Cleve Etienne MD - 09/03/[address] [place] [address] Examination: MRI ABD WWO CON Exam time: 08/23/2024 9:28 AM Clinical Information:DX MALIGNANT NEOPLASM OF RECTUM, SECONDARY MALIGNANTNEOPLASM OF LIVER, POST MICROWAVE ABLATION OF LIVER MASS, Comparison: 07/24/2024, 04/26/2024 Technique: Sequences: Multiplanar, multisequence MR images of the abdomen wereobtained before and after the administration of 14 mL of Dotarem. Findings: LIVER: Post microwave ablation change in the right hepatic lobe with no focalnodular enhancement in the territory; there is delayed nonmasslikeenhancement at the margin of the ablation zone. A new 2 x 1.4 cm nodule in the junction of the right and left hepatic lobeas seen on series 11 image 20. A second nodule in the anterior livermeasuring 4 mm on image 22. These are new compared to 04/26/2024 MRI. Hepatic vasculature: Hepatic and portal veins are normally patent. GALLBLADDER AND BILIARY TREE: Unremarkable. PANCREAS: Normal. No pancreatic ductal dilatation. SPLEEN: Heterogeneous, nodularity, similar to prior study. Smallsplenule. ADRENAL GLANDS: Normal. KIDNEYS: Normal. GASTROINTESTINAL: Imaged large and small bowel are normal in caliber andwall thickness. FREE FLUID: None. VASCULATURE: The abdominal aorta is normal in caliber. LYMPH NODES: No abdominal retroperitoneal or mesenteric lymphadenopathy. LOWER CHEST: Thin pericardial effusion. BONES: No suspicious osseous lesions. Impression: A couple of new metastatic lesions in the liver, largest 2 cm. Post ablation change in the liver without residual nodular tumor. Referred By: KRISTEN GARCIA Interpreted By: Cleve Etienne MD, 09/03/2024 11:48 PM Kristen Garcia MD MRI Final Result * CT CHEST+ABD W CON (07/24/2024 9:00 [...] 10:11 AM Narrative 07/26/2024 10:49 AM CDT [facility] [address] [place] [address] Examination: CT of the chest and abdomen [...] Procedure Note Unruly Allan MD - 07/26/2024 [facility] [address] [place] [address] Examination: CT of the chest and abdomen [...] lobe are considered benign based on current [facility] guidelines, presumably granulomas. These are annotated on [...] By: Unruly Allan MD, 07/26/2024 10:11 AM Teddy Roman Sr., MD CT Final Re sult from Last 3 Months Insurance MEDICAID [facility] Care Teams Production Worker Relationship Specialty Start Date End Date Flaco Kelly MD [address] [place] [address] PCP - General FAMILY PRACTICE 01/03/23
--- OUTSIDE RECORDS SUMMARY | 2024-10-19 07:45 | XMS_ITS | Data Portability ---
Author Organization [facility], [address] Neurology (MD) Address [address] [place] [address] Care Team Providers Care Home Demonstration Agent Name Role Phone TRAVIS RATLIFF Medical Oncologist TEDDY ROMAN Colorectal Surgeon [phone] TRAVIS JUSTIN Urologist [phone] ANGEL HERNANDEZ Hematology/Oncology JACQUELIN GE Radiation Oncologist Assessment Encounter Date Assessment Date Assessment LastModified by Organization Details LastModified Time 08/06/2024 08/06/2024 ASSESSMENT/PLAN: 1. Stage IV rectal [...] this case at the Colorectal Conference. 2. Lacombe 7 prostate cancer, PSA 24, grade group [...] the consultation. CC: Travis Ratliff MD rja [email or web address] Not available 08/07/2024 17:08:33 08/10/2024 08/10/2024 Roebrto and I and his ex- have had a very long healthy discussion today. I have reviewed many records of his including x-rays, and I spoke on the phone with Dr. Hernandez about the care. He is planning on [...] Flexible sigmoidoscopy [email or web address] Not available 08/22/2024 12:33:09 10/02/2024 10/02/2024 Labs; PSA <0.4 f or which we discussed and reviewed Impressions: Diagnosis of prostate adenocarcinoma with seminal vesicle invasion, clinical stage [id number], Lacombe 3+4=7, grade group 2, highest PSA 19.6. On 12/07/2023, Mr. Garcia completed external beam radiation therapy to pelvis, encompassing rectum and prostate, with plan for brachytherapy boost to prostate for which he completed completed definitive radiation, 50 Gy over 25 fractions to the prostate 12/07/2023 Plan: F/U in 3 months with PSA Follow up with PCP for general health Continue with modified exercise as able and proper nutrition Follow-up with Dr. Ratliff as coordinated and directed Vannesa in november Follow-up with Dr. Acevedo Education: Not available 10/08/2024 22:42:06 Plan of Treatment Reminders Order Date Submit Date Provider Last Modified By Organization Details Last Modified Time Details Appointments New Patient Visit 15.NEW 2024 10:00A M Dr. Myles Acevedo Not available Not [...] auto diff CBC with differential Not Available [facility] [address] [place] [address], [address], 08/06/2024 13:43:40 08/07/1908/06/2024 CBC w/ auto diff WBC 6.8 K/uL 4.8- 10.8 Not Available [facility] [address] [place] [address], [id number], 08/06/2024 13:43:40 08/07/19 25 08/06/2024 CBC w/ auto diff RBC 4.21 M/uL 4.70-6 .10 low Not Available [facility] [address] [place] [address], [id number], 08/06/2024 13:43:40 08/07/19 25 08/06/2024 CBC w/ auto diff HGB 12.8 g/dL 14.0-1 8.0 low Not Available [facility] [address] [place] [address], [address], 08/06/2024 13:43:40 08/07/19 25 08/06/2024 CBC w/ auto diff HCT 37.0 % 42.0-5 2.0 low Not Available [facility] [address] [place] [address], [address], 08/06/2024 13:43:40 08/07/19 25 08/06/2024 CBC w/ auto diff MCV 87.9 fL 80.0-9 4.0 Not Available [facility] [address] [place] [address], [address], 08/06/2024 13:43:40 08/07/19 25 08/06/2024 CBC w/ auto diff MCH 30.4 pg 27.0- 31.0 Not Available [facility] [address] [place] [address], [address], 08/06/2024 13:43:40 08/07/19 25 08/06/2024 CBC w/ auto diff MCHC 34.6 g/dL 32.0-3 6.0 Not Available [facility] [address] [place] [address], [address]31, 08/06/2024 13:43:40 08/07/19 25 08/06/2024 CBC w/ auto diff RDW-SD 45.4 fL 35.1 - 46.3 Not Available [facility] [address] [place] [address], 85407, 08/06/2024 13:43:40 08/07/19 25 08/06/2024 CBC w/ auto diff plt 215 K/uL 130-40 0 Not Available [facility] [address] [place] [address], [address], 08/06/2024 13:43:40 08/07/19 25 08/06/2024 CBC w/ auto diff MPV 9.4 fL 7.5- 11.8 Not Available [facility] [address] [place] [address], 26627, 08/06/2024 13:43:40 08/07/19 25 08/06/2024 CBC w/ auto diff stanislaw% 74.7 % not estab Not Available [facility] [address] [place] [address], [id number], 08/06/2024 13:43:40 08/07/19 25 08/06/2024 CBC w/ auto diff lym% 13.9 % not estab Not Available [facility] [address] [place] [address], 00547, 08/06/2024 13:43:40 08/07/19 25 08/06/2024 CBC w/ auto diff mono% 8.9 % not estab Not Available [facility] [address] [place] [address], 31459, 08/06/2024 13:43:40 08/07/19 25 08/06/2024 CBC w/ auto diff eos% 1.8 % not estab Not Available [facility] [address] [place] [address], 839[address], 08/06/2024 13:43:40 08/07/19 25 08/06/2024 CBC w/ auto diff baso% 0.4 % not estab Not Available [facility] [address] [place] [address], [id number], 08/06/2024 13:43:40 08/07/19 25 08/06/2024 CBC w/ auto diff abs stanislaw 5.1 K/uL 1.5-7. 5 Not Available [facility] [address] [place] [address], 064[address], 08/06/2024 13:43:40 08/07/19 25 08/06/2024 CBC w/ auto diff abs lym 0.9 K/uL 1.2-3. 4 low Not Available [facility] [address] [place] [address], 21682, 08/06/2024 13:43:40 08/07/19 25 08/06/2024 CBC w/ auto diff abs mono 0.6 K/uL 0.1-1. 0 Not Available [facility] [address] [place] [address], 49604, 08/06/2024 13:43:40 08/07/19 25 08/06/2024 CBC w/ auto diff abs eos 0.1 K/uL 0.0-0. 7 Not Available [facility] [address] [place] [address], 41031, 08/06/2024 13:43:40 08/07/19 25 08/06/2024 CBC w/ auto diff abs baso 0.0 K/uL 0.0-0. 2 Not Available [facility] [address] [place] [address], 58645, 08/06/2024 13:43:40 08/07/19 25 08/06/2024 CBC w/ auto diff imm. gran % 0.3 % 0-5 Not Available [facility] [address] [place] [address], 33982, 08/06/2024 13:43:40 08/07/19 25 08/06/2024 CBC w/ auto diff NRBC % 0.0 % 0.0-0. 2 Not Available [facility] [address] [place] [address], 85742, 08/06/2024 13:43:40 08/07/19 25 08/06/2024 carci noemb ryoni c Ag, quant , serum or plasm a cea 7.4 NG/mL <0.5-3 .0 high This test is perfo rmed on a Sieme ns Atell ica gino zer. Since there are not exist ing stand maria alejandra refer ence units , users shoul d not make ashly rison s betwe en metho ds. Not Available [facility] [address] [place] [address], 24860, 08/06/2024 16:14:48 08/07/19 25 08/06/2024 CMP, serum or plasm a comp. met. panel Not Available [facility] [address] [place] [address], 73300, 08/06/2024 16:24:03 08/07/19 25 08/06/2024 CMP, serum or plasm a sodium 133 mmol/ L 136-14 6 low Not Available [facility] [address] [place] [address], 55199, 08/06/2024 16:24:03 08/07/19 25 08/06/2024 CMP, serum or plasm a potassium 4.0 mmol/ L 3.5-5. 1 Not Available [facility] [address] [place] [address], 57088, 08/06/2024 16:24:03 08/07/19 25 08/06/2024 CMP, serum or plasm a chloride 100 mmol/ L 98-110 Not Available [facility] [address] [place] [address], 10075, 08/06/2024 16:24:03 08/07/19 25 08/06/2024 CMP, serum or plasm a CO2 29 mEq/L 20-32 Not Available [facility] [address] [place] [address], 97341, 08/06/2024 16:24:03 08/07/19 25 08/06/2024 CMP, serum or plasm a anion gap 8 mmol/ L 10-22 low Not Available [facility] [address] [place] [address], 46690, 08/06/2024 16:24:03 08/07/19 25 08/06/2024 CMP, serum or plasm a glucose 119 mg/dL 70-100 high Not Available [facility] [address] [place] [address], 37042, 08/06/2024 16:24:03 08/07/19 25 08/06/2024 CMP, serum or plasm a calcium 9.2 mg/dL 8.4-10 .4 Not Available [facility] [address] [place] [address], 92567, 08/06/2024 16:24:03 08/07/19 25 08/06/2024 CMP, serum or plasm a total protein 7.0 g/dL 6.4-8. 3 Not Available [facility] [address] [place] [address], 37715, 08/06/2024 16:24:03 08/07/19 25 08/06/2024 CMP, serum or plasm a albumin 4.3 g/dL 3.5-5. 3 Not Available [facility] [address] [place] [address], 09414, 08/06/2024 16:24:03 08/07/19 25 08/06/2024 CMP, serum or plasm a ALP 292 U/L 44 - 127 high Not Available [facility] [address] [place] [address], 20714, 08/06/2024 16:24:03 08/07/19 25 08/06/2024 CMP, serum or plasm a AST (SGOT) 52 U/L 10-40 high Not Available [facility] [address] [place] [address], 33967, 08/06/2024 16:24:03 08/07/19 25 08/06/2024 CMP, serum or plasm a total bilirubin 0.5 mg/dL 0.2-1. 2 Not Available [facility] [address] [place] [address], 72967, 08/06/2024 16:24:03 08/07/19 25 08/06/2024 CMP, serum or plasm a ALT (SGPT) 112 U/L 8-35 high Not Available [facility] [address] [place] [address], 95044, 08/06/2024 16:24:03 08/07/19 25 08/06/2024 CMP, serum or plasm a BUN 11 mg/dL 7-21 Not Available [facility] [address] [place] [address], 15575, 08/06/2024 16:24:03 08/07/19 25 08/06/2024 CMP, serum or plasm a creatinine 0.8 mg/dL 0.7-1. 3 Not Available [facility] [address] [place] [address], 22264, 08/06/2024 16:24:03 08/07/19 25 08/06/2024 CMP, serum or plasm a CKD-epi GFR 98 eGFR was calcu lated using the 2020 CKD-E PI equat ion. (Security Consultant nicolasa Kidne y Disea se has an eGFR less than 60 mL/mi n/1.7 3mm for a perio d of three month s or more. ) This calcu latio n has not been valid ated for patie nt ages <18 or >90 years old. Not Available [facility] [address] [place] [address], 56017, 08/06/2024 16:24:03 08/07/1908/06/2024 PSA, serum or plasm a PSA <0.04 NG/mL 0.04-4 .900 This test is perfo rmed on a Sieme ns Atell ica gino zer. Since there are not exist ing stand maria alejandra refer ence units , users shoul d not make ashly rison s betwe en metho ds. Not Available [facility] [address] [place] [address], 70087, 08/06/2024 16:55:19 04/1807/20/2024 CT ablat ion liver micro wave [facility] [address] [place] [address] [phone] Name: ROBERTO MORRELL RD Age: 64 : 1959 Exam Date: 2024 ACCESS ION: [id number] JALIL CANADA MD: KRISTEN GARCIA EXAMIN ATION: CT Guided microw ave ablati on of the right hepati c mass DATE: HISTOR Y: Colon cancer with biopsy proven liver metast ases COMPAR ISAMEL: MRI abdome n TECHNI QUE: The risks and benefi ts of microw ave ablati on were descri bed to patien t and explic it permis vicki was obtain ed to procee d. La Nena l steril e vanesa r techni que [...] prior imagin g. Two 17 G NuWave HI probes were advanc ed throug h the renal lesion which measur ed approx imatel y 2.7 cm under ultras ound and CT fluoro scopwagner rushing ce. Probe positi on was furthe r [...] the subcut aneous tissue s. Steril e bradley marroquin. Compli cation s: None Contra st dose: [...] Kristen Garcia MD INTERFACE Sc Only - [facility] [address] [place] [address], [address], 07/20/2024 16:50:43 09/06/19 25 08/31/2024 ir clini c visit [facility] [address] [place] [address] Name: ROBERTO MORRELL RD Age: 64 : 1959 Exam Date: 2024 ACCESS ION: [id number] JALIL CANADA MD: KRISTEN GARCIA Please refer to Teena bryant [facility] shea for result s. Final Report Dictat ed: 12:52 Radiol ogist , Inquir y Signed : 14:43 Radiol ogist , Inquir y INTERFACE Sc Only - [facility] [address] [place] [address], [address], 09/05/2024 16:45:16 Result Notes None recorded. Problems Name Problem SNOMED Code Status Onset Date Resolution Date Notes Provider Name and Address Organization Details Recorded Time Carcinoma of prostate 251204901 Active 2023 Kavitha 3+4 BX 06/21/23 Willow Brown, HUMAN SERVICES INSTRUCTOR, RAILROAD SUPERVISOR OF ENGINES [address] [place] [address], [phone], [facility] 4 16:37:09 Malignant neoplasm of rectum 976985244 Active 2023 [facility] Adabrittani garrett [facility] 5 16:40:46 Lesion of spleen 752138884204 101 Active 2023 Oly Medrano [facility] 4 15:20:53 Adenocarci noma of prostate 005847341 Active 2023 [facility] 5 10:09:16 Adenocarci noma of rectum 367241781 Active 2024 [facility] 5 10:09:50 Malignant neoplasm of prostate 672486170 Active 2024 [facility] 5 17:09:05 Metastatic malignant neoplasm to liver 64844218 Active 2024 Cesar garrett [facility] 5 16:41:15 Problem Notes None recorded. Procedures Surgical History Date Name Laterality Status Provider Name and Address Organization Details Recorded Time 09/12/19 cystoscopy completed Joanne Harvey [facility] 10/14/2023 11:10:48 Colonoscopy with biopsy completed Not Available Health Note 07/30/2024 13:03:42 Imaging Results None recorded. Procedure Notes None recorded. Medical Equipment None Reported. Allergies Allergen ID Allergen Name Allergen Category Reaction Reaction Severity Criticality Documentation Date Start Date Code Code System Note Provider Name and Address Organization Details Recorded Time 7629055 codeine medicatio n vomiting Not available Not available 10/14/2023 2670 RxNorm Joanne Harvey [facility] 4 11:08:52 Medications Name Sig [...] % 72 /min 97.8 [degF] 25 kg/m2 31779.1 7 g 120/60 mm[Hg] Corrine Colbert [facility] 12:40:47 Date Recorded Body height Body mass index (BMI) Body weight Systolic And Diastolic Provider Name and Address Organization Details Last Updated DateTime 08/10/2024 176.53 cm 25.2 kg/m2 26616.48 g 138/85 mm[Hg] Cesar RiderBrianYakov catherine [facility] 08/10/2024 09:47:59 Social History Question Answer Notes [...] How Many Packs Per Day (PPD)? 1 [email or web address] Information not available 10/14/2023 How Long Have You Smoked? 50 [email or web address] Information not available 10/14/2023 What Was The [...] SNOMED-CT Code Diagnosis ICD10 Code Diagnosis Note [id number] MD Karissa Monzon [facility] ([place]) [address] [place] [phone] 10/14/2023 10:29:35 11/02/2023 09:10:53 Carcinoma of prostate 387651999 C61 Malignant neoplasm of rectum 888160071 C20 [id number] MD Sherita Hassantigre [facility] ([place]) [address] [place] [address] 1 11/02/2023 11:55:49 11/02/2023 14:08:15 [id number] MD Sherita Monzontigre [facility] ([place]) [address] [place] [address] 1 11/10/2023 09:36:35 11/10/2023 10:32:15 [id number] MD Karissa Monzon [facility] ([place]) [address] [place] [phone] 1 11/17/2023 09:29:55 11/17/2023 10:28:06 [id number] MD Karissa Monzon [facility] ([place]) [address] [place] [phone] 1 11/24/2023 09:23:05 11/24/2023 12:11:38 [id number] Pj Humphrey MD [facility] ([place]) [address] [place] [address], [place] [address] 12/01/2023 09:16:20 12/01/2023 10:20:01 [id number] Jacquelin Ge MD [facility] ([place]) [address] [place] [address], [place] [address] 02/08/2024 09:21:44 02/09/2024 12:00:56 [id number] Willow Brown, HUMAN SERVICES INSTRUCTOR, RAILROAD SUPERVISOR OF ENGINES [facility] ([place]) [address] [place] [address], [place] [address] 03/13/2024 15:37:27 03/13/2024 16:06:16 Adenocarcinoma of prostate 227558127 C61 [id number] Aretha Hubbard, HUMAN SERVICES INSTRUCTOR, [facility] ([place]) [address] [place] [address], [place] [address] 06/12/2024 17:32:28 06/12/2024 17:57:29 Adenocarcinoma of prostate 820640295 C61 Adenocarci noma of rectum 587686905 C20 [id number] Angel Hernandez MD [address] Oncology/ Hematolog y (MD) [address] [place] [address],4t [place] [address] 08/06/2024 12:16:05 08/07/2024 16:50:42 Malignant neoplasm of rectum 778515770 C20 Malignant neoplasm of prostate 851982234 C61 [id number] Myles Acevedo MD [address] Colorecta l (MD) [address] [place] [address] 08/10/2024 09:00:53 08/10/2024 10:29:22 Malignant neoplasm of rectum 268941721 C20 [id number] Myles Acevedo MD [facility] Colorecta l (MD) [address] [place] [address], 2nd [place] [address] 08/22/2024 10:32:47 08/28/2024 09:29:06 [id number] Stiven Corrales MD [facility] GI Anesthesi a [address] [place] [address] 08/22/2024 10:32:45 09/01/2024 08:06:43 [id number] Aretha Hubbard, HUMAN SERVICES INSTRUCTOR, RAILROAD SUPERVISOR OF ENGINES [facility] Onc ([place]) [address] [place] [address] 10/03/2024 13:38:12 10/04/2024 12:54:31 Adenocarcinoma of rectum 805358168 C20 Metastatic malignant neoplasm to liver 41814341 C78.7 Health Concerns Section Related Observation LastModified by Organization Detai ls LastModified Time None Recorded Concern Status LastModified by Organization Details LastModified Time None Recorded Advance Directives Directive N: Payers Insurance Date Sequence Insurance Name Policy Number Policy Singletary Covered Member ID Singletary Member ID Guarantor Name 02/06/2024 1 [facility] (MEDICAID REPLACEMENT - HMO) [id number] Roberto E Sunflower [id number] Roberto E Sunflower 10/03/2024 2 [place] [facility] PUBLIC [facility] Roberto E Jose [id number] Roberto E Sunflower 02/14/2024 3 [facility] (MEDICARE SUPPLEMENT) Roberto E Jose [id number] Roberto E Sunflower 08/10/2024 2 [facility] (MEDICARE SUPPLEMENT) PLAN N Roberto E Jose [id number] Roberto E Sunflower 10/03/2024 1 [place] Roberto E Sunflower [id number] Roberto E Jose 10/03/2024 1 [facility] (MEDICARE REPLACEMENT/A DVANTAGE - HMO) [id number] Roberto E Sunflower [id number] Roberto E Sunflower Notes Date Note Type Note Provider Name and Address Organization Details Recorded Time 5 text/html REASON FOR CONSULTATION:Second opinion regarding [...] a second opinion. Patient also has a Lacombe 7 (3+4) grade group 2 prostate cancer [...] retired. FAMILY HISTORY:Both parents had cancer. Angel Hernandez MD [address] [place] [address], [phone], [facility] 08/09/2024 11:38:44 5 text/html SUBJECTIVE:A 64-year-old male here to see me for a second opinion for rectal cancer. He has been cared for by Dr. Ratliff with oncology and Dr. Roman with colorectal surgery with [facility]. I am in the process of obtaining [...] This was treated, I am told, by [facility] with a liver ablation. The patient has an elevated CEA level and a last flexible sigmoidoscopy about 3 months ago. I was called by Dr. Hernandez in the patient s room when he [...] inguinal.FAMILY HISTORY:Father, colon cancer. Myles Acevedo MD [address] [place] [address], [phone], [facility] 08/13/2024 16:07:54 5 text/html Roberto is a 64-year-old male here to see me for a second opinion for rectal cancer. He has been cared for by Dr. Ratliff with oncology and Dr. Roman with colorectal surgery with [facility]. I am in the process of obtaining [...] This was treated, I am told, by [facility] with a liver ablation. The patient has an elevated CEA level and a last flexible sigmoidoscopy about 3 months ago. I was called by Dr. Hernandez in the patient s room when he [...] colon cancer. Myles Acevedo MD [address] [place] [address], [phone], [facility] 08/22/2024 12:33:14 5 text/html [facility] [...] limited to PONV, dental injury, sore throat, PA, stroke, etc. All questions were answered. Patient verbalize(s) understanding and agree(s) to proceed. 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 On 12/07/2023, Mr. Garcia completed external beam radiation therapy to pelvis, encompassing rectum and prostate, with plan for brachytherapy boost to prostate to follow.Oncologic HistoryMr. Garcia reports an approximately 2-week long history of obstructive-type urinary symptoms in the fall of 2022. He was seen by his primary care physician for the first time in many years, and a visit with Urology as well as preventative medicine studies were obtained. 01/11/2023. CT chest lung screening protocol at [facility] was performed with radiology interpretation [...] recommended a prostate biopsy. 03/18/2023: Colonoscopy at [facility] was performed. Specimen [id number] associated with colon descending polyp biopsy, tubular [...] ng/mL. 04/21/2023: CT abdomen and pelvis at [facility] resulted circumferential wall thickening of [...] is mild prostatomegaly. 04/21/2023: MRI pelvis at [facility] was performed with radiology interpretation [...] mesorectal lymph nodes. 05/06/2023: MRI pelvis at [facility] was performed with radiology interpretation [...] additional imaging for staging.05/25/2023: CT chest at [facility] was performed with radiology interpretation of no CT evidence of metastatic disease in the chest, no mediastinal or hilar lymphadenopathy. There is a prominent 8 mm portal caval lymph node, for which continued attention on follow up was recommended.06/21/2023: PSA 15.51 ng/mL.06/21/2023: Truss biopsy with Dr. Nails, specimen [id number] resulted prostate adenocarcinoma, Lacombe grade 3+4=7, corresponding with grade group 2, [...] Justin in Urology.08/26/2023: PSMA PET CT at [facility] was performed with radiology interpretation of [...] over 25 fractions to the rectum and prost02/2024: cateT of chest1. No CT evidence of metastatic disease within the chest.2. Prominent 8 mm portacaval lymph node. Continued attention on follow-up is eeakieksisg30/2024: CT of pelvis/ abdomenIMPRESSION:Changes prostatic hyperplasia. PI-RADS Category 1: Very LowRisk2. Post radiation changes throughout the prostate. The previouslyseen lesions are no longer well-visualized3. Ill-defined nodule in the right basilar transitional zone.PI-RADS Category 2: Low Risk Per Oncology note:MRI done at [facility]/2024: MRI pelvis with/without contrast showed persistent circumferential [...] consistent with colorectal primary, 06/2024: PSA <0.13 08/22/2024: Flexible sigmoidoscopy 08/2024; PSA ,0.04 liver- IR ablasion 10/26/2024Rectal mass- chemo/ surgery ( Dr. Acevedo) If no surgery is being planned, add Avastin to FOLFIRIContinue Lupron q.6 months, next due on 11/07/2024 .Patient would like to hold off on adding abiraterone 1000 mg + prednisone 5 mg daily x 2 years for now Interval HistoryMrGwen Garcia is a pleasant 64-year-old gentleman who [...] He is able to verbalize any concerns as well as discuss and update the plan of care. In regards to his prostate adenocarcinoma and [...] once a day which is managing his symptoms.His next Lupron is in November. He is not currently on prednisone nor abiraterone at this time. In regards to his rectal cancer he sees Dr. Acevedo on 10/26/2024 to discuss further options.Patient is now on tramadol for increased pain rectally primarily pressure when he sits. He does have to change positions frequently and have support. His bowels are irregular but no blood in his stool at this time. Plan of care for rectal cancer is yet to be determined Aretha Hubbard APRN, RAILROAD SUPERVISOR OF ENGINES [address] [place] [address], [phone], [facility] 10/08/2024 22:52:06
[2024-10-19 07:58] VITALS: BP 125/69; PULSE 64; RESP 14; TEMP 36.4; O2SAT 98; BMI 25.2
[2024-10-19] MEDS: HEPARIN SODIUM LOCK FLUSH 500 UNITS/5 ML SYRINGE IV PUSH (08:03)
--- NOTE | 2024-10-19 08:04 | PC.NURSE ---
Tolerated monthly port flush well.
== END 2024-10-19 07:43 | disposition home or self-care (01) ==
PROVIDERS: PCP Family Medicine; Visit Provider Internal Medicine Hematology
DX: Z45.2 Encounter for adjustment and management of vascular access device (principal); C20 Malignant neoplasm of rectum
CPT/HCPCS: 96523

== ENCOUNTER 2024-12-07 09:31 | Outpatient (CLI) | payer MEDICARE, MEDICAID, SELFPAY ==
[2024-12-07 09:56] LABS: Hematocrit 34.9 % (37.0-46.0); Hemoglobin 11.6 g/dL (12.4-15.3); Mean Corpuscular HGB Conc 33.2 g/dL (32-36); Mean Corpuscular Hemoglobin 29.1 pg (27.0-31.0); Mean Corpuscular Volume 87.5 fL (78.0-102.0); Platelet Count Result 293 K/mm3 (150-420); Red Blood Count 3.99 M/mm3 (4.70-6.10); White Blood Count 7.9 K/mm3 (4.8-10.8)
[2024-12-07 10:45] LABS: Alanine Aminotransferase 71 U/L (6-50); Albumin Level 3.9 g/dL (3.5-5.1); Alkaline Phosphatase 846 U/L (38-126); Anion Gap 9 mmol/L (4-12); Aspartate Amino Transferase 55 U/L (17-59); Bilirubin,Total 1.5 mg/dL (0.2-1.3); Blood Urea Nitrogen 9 mg/dL (9-20); Calcium 9.5 mg/dL (8.4-10.2); Carbon Dioxide 30 mmol/L (22-30); Chloride 96 mmol/L (98-107); Estimated Glomerular Filt Rate > 60; Glucose 123 mg/dL (65-110); Osmolality Calculated 279 mOsm/kg (285-295); Potassium 3.9 mmol/L (3.4-5.0); Sodium 135 mmol/L (137-145); Total Protein 6.8 g/dL (6.3-8.2)
== END 2024-12-07 09:32 | disposition home or self-care (01) ==
LOC: CHSLAB 09:37
PROVIDERS: PCP Family Medicine; Visit Provider Internal Medicine Hematology
DX: C20 Malignant neoplasm of rectum (principal)
CPT/HCPCS: 36415; 80053; 85027

== ENCOUNTER 2024-12-10 08:32 | Outpatient (CLI) | payer MEDICARE, MEDICAID, SELFPAY ==
[2024-12-10 08:35] VITALS: BP 124/73; PULSE 92; RESP 16; TEMP 36.6; O2SAT 95; BMI 25.2
[2024-12-10] MEDS: SODIUM CHLORIDE 0.9% IV 250 ML 10 ML IVPB (08:59)
[2024-12-10] MEDS: ONDANSETRON INJ 16 MG, dexAMETHasone SOD 4 MG/ML INJ 12 MG in SODIUM CHLORIDE 0.9% IV 8... 300 MG IVPB (09:00)
[2024-12-10] MEDS: FAMOTIDINE 20 MG/2 ML VIAL IV PUSH (09:00)
[2024-12-10] MEDS: ATROPINE SULFATE 0.4 MG/ML VIAL IV PUSH (09:42)
[2024-12-10] MEDS: SODIUM CHLORIDE 0.9% IVPB ×3 (09:49→11:22)
[2024-12-10] MEDS: LEUCOVORIN CALCIUM IVPB (09:49)
[2024-12-10] MEDS: IRINOTECAN HCL IVPB (09:49)
[2024-12-10] MEDS: FLUOROURACIL 2,500 MG/50 ML VIAL 780 MG IV PUSH (11:22)
[2024-12-10] MEDS: FLUOROURACIL IVPB (11:22)
[2024-12-10] MEDS: HEPARIN SODIUM LOCK FLUSH 500 UNITS/5 ML SYRINGE IV PUSH (11:24)
[2024-12-10 11:28] VITALS: BP 126/79; PULSE 88; RESP 14; TEMP 36.6; O2SAT 96
--- NOTE | 2024-12-10 11:34 | PC.NURSE ---
Tolerated FOLFIRI TREATMENT WELL. see MAR and patient care notes. Patient has chemo spill kit at home and has been educated on it. Patient is going home on continues 5FU chemo pump. Patient is familiar with this. Ongoing education continues.
--- NOTE | 2024-12-12 10:42 | PC.NURSE ---
Patient here for Chemo pump of 5 FU to be removed and port flush. Education given. No concerns voiced. Tolerated well.
== END 2024-12-10 08:33 | disposition home or self-care (01) ==
PROVIDERS: PCP Family Medicine; Visit Provider Internal Medicine Hematology
DX: Z51.11 Encounter for antineoplastic chemotherapy (principal); C20 Malignant neoplasm of rectum
CPT/HCPCS: 96367; 96375; 96411; 96413; 96416; 96417; J0461; J0640; J1100; J1200; J2405; J7050; J9190; J9206

== ENCOUNTER 2024-12-21 09:27 | Outpatient (CLI) | payer MEDICARE, MEDICAID, SELFPAY ==
[2024-12-21 09:40] LABS: Hematocrit 32.7 % (37.0-46.0); Hemoglobin 10.6 g/dL (12.4-15.3); Mean Corpuscular HGB Conc 32.4 g/dL (32-36); Mean Corpuscular Hemoglobin 28.4 pg (27.0-31.0); Mean Corpuscular Volume 87.7 fL (78.0-102.0); Platelet Count Result 282 K/mm3 (150-420); Red Blood Count 3.73 M/mm3 (4.70-6.10); White Blood Count 4.4 K/mm3 (4.8-10.8)
[2024-12-21 10:07] LABS: Alanine Aminotransferase 65 U/L (6-50); Albumin Level 3.8 g/dL (3.5-5.1); Alkaline Phosphatase 713 U/L (38-126); Anion Gap 8 mmol/L (4-12); Aspartate Amino Transferase 47 U/L (17-59); Bilirubin,Total 1.2 mg/dL (0.2-1.3); Blood Urea Nitrogen 10 mg/dL (9-20); Calcium 9.4 mg/dL (8.4-10.2); Carbon Dioxide 29 mmol/L (22-30); Chloride 96 mmol/L (98-107); Estimated Glomerular Filt Rate > 60; Glucose 182 mg/dL (65-110); Osmolality Calculated 280 mOsm/kg (285-295); Potassium 3.8 mmol/L (3.4-5.0); Sodium 133 mmol/L (137-145); Total Protein 6.8 g/dL (6.3-8.2)
[2024-12-21 11:04] LABS: Immature Granulocyte Percent A 0.2 % (0.0-0.0); Lymphocytes Absolute Auto 0.56 K/mm3 (1.10-4.50); Nucleated Red Blood Cells Absolute Auto 0.00 K/mm3 (0.00-0.00); Nucleated Red Blood Cells Perc 0.0 % (0-0.0)
== END 2024-12-21 09:28 | disposition home or self-care (01) ==
PROVIDERS: PCP Family Medicine; Visit Provider Internal Medicine Hematology
DX: C20 Malignant neoplasm of rectum (principal)
CPT/HCPCS: 36415; 80053; 85025; 85027

== ENCOUNTER 2024-12-24 08:36 | Outpatient (CLI) | payer MEDICARE, MEDICAID, SELFPAY ==
[2024-12-24] MEDS: SODIUM CHLORIDE 0.9% IV 250 ML 10 ML IVPB (08:45)
[2024-12-24] MEDS: FAMOTIDINE 20 MG/2 ML VIAL IV PUSH (08:53)
[2024-12-24 08:57] VITALS: BMI 24.5
[2024-12-24] MEDS: ONDANSETRON INJ 16 MG, dexAMETHasone SOD 4 MG/ML INJ 12 MG in SODIUM CHLORIDE 0.9% IV 8... 300 MG IVPB (09:00)
[2024-12-24 09:10] VITALS: BP 117/70; PULSE 76; RESP 14; TEMP 36.8; O2SAT 96
--- OUTSIDE RECORDS SUMMARY | 2024-12-24 09:14 | XMS_ITS | Clinical Summary ---
Author Organization [facility] Address Formerly [facility] [place] [address] Care Team Providers Care Picture Copyist Name Role Phone Flaco Kelly MD Primary Care Provider Allergies Active Allergy Reactions Criticality Noted Date Comments Codeine Nausea Only 03/18/2023 Patient states it makes me sick as hell Medications polyethylene glycol (MIRALAX) packet 2 (two) times daily. Active finasteride (PROSCAR) 5 MG tablet Active ATIVAN 1 MG tablet Take 1 tablet every day by oral route at bedtime. Active metoprolol succinate ER (TOPROL-XL) 50 MG 24 hr tablet Acti ve solifenacin (VESICARE) 5 MG tablet Active tamsulosin (FLOMAX) 0.4 MG Cap Active Active Problems No known active problems Encounters Date Type Department Care Team Description 11/28/2024 9:00 AM CDT Office Visit [facility] [address] [place] [address] Dipesh Torres MD Lesion ([employer]ARD [employer], Discuss surgery for liver lesion) 11/28/2024 Travel 11/26/2024 7:57 AM CDT - 11/26/2024 11:59 PM T Hospital Encounter [facility] [address] [place] [address] [place] [address] Kristen Moscoso MD Discharge Disposition: Home or Self Care (Routine Discharge) 11/26/2024 Travel 10/12/2024 8:14 AM CDT - 10/12/2024 11:59 PM CDT Hospital Encounter [facility] [address] [place] [address] Travis Ratliff MD Discharge Disposition: Home or Self Care (Routine Discharge) 10/12/2024 Travel 09/28/2024 7:07 AM CDT - 09/28/2024 11:59 PM CDT Hospital Encounter [facility] [address] [place] [address] Aretha Hubbard, [employer] Discharge Disposition: Home or Self Care (Routine Discharge) 09/28/2024 6:38 AM CDT - 09/28/2024 7:06 AM CDT Hospital Encounter [facility] [address] [place] [address] Sabrina Mujica FNP-BC Discharge Disposition: Home or Self Care (Routine Discharge) 09/28/2024 Orders Only [facility] [address] [place] [address] Aretha Hubbard, [employer] 09/28/2024 Travel from Last 3 Months Social History Tobacco Use Types Packs/Day Years Used Date Smoking Tobacco: Former Cigarettes S tarted: 2024 Smokeless Tobacco: Never Tobacco Cessation:Counseling Given: Not Answered Alcohol Use Standard Drinks/Week Comments Not Currently 0 (1 standard drink = 0.6 oz pur e alcohol) Sex and Gender Information Value Date Recorded Sex Assigned at Male 04/20/2024 8:37 AM STENOCAPTIONER Legal Sex Male 9:40 AM CDT Gender Identity Not on file Sexual Orientation Not on file Last Filed Vital Signs Vital Sign Reading Time Taken Comments Blood Pressure 126/75 11/28/2024 8:59 AM CDT Pulse 71 11/28/2024 8:59 AM CDT Temperature 36.6 C (97.8 F) 03/18/2023 12:49 PM STENOCAPTIONER Respiratory Rate 14 11/28/2024 8:59 AM CDT Oxygen Saturation 100% 11/28/2024 8:59 AM CDT Inhaled Oxygen Concentration - - Weight 73.6 kg (162 lb 3.2 oz) 11/28/2024 8:59 A M CDT Height 177.8 cm (5' 10) 11/28/2024 8:59 AM CDT Body Mass Index 23.27 11/28/2024 8:59 AM CDT Plan of Treatment Health Maintenance Due Date Last Done Comments Hepatitis C 1977 Pneumococcal Vaccine: 50+ Years (1 of 1 - PCV) 2009 Zoster Vaccines (1 of 2) 2009 RSV Immunization or 60+ Years (1 - Risk 60-74 years 1-dose series) 2019 PHQ-2 (Physician [place]) 04/04/2024 COVID-19 Vaccine (3 - season) 2024 06/26/2020, 06/06/2020 DTaP, Tdap and Td Vaccines (2 - Td or Tdap) 05/12/2031 05/12/2021 AAA SCREENING Completed 10/12/2024, 07/04, 04/20/2024, Additional history exists Meningococcal B Vaccine Aged Out No l onger eligible based on patient's age to complete this topic Meningococcal Vaccine Aged Out No alexis michelle eligible based on patient's age to complete this topic RSV Immunizations Under 20 Months Aged Out No longer eligible based on patient's age to complete this topic Procedures Procedure Name Priority Date/Time Associated Diagnosis Comments MRI ABD WWO CON STAT 11/26/2024 8:57 AM CDT Malignant neoplasm of rectum (CMS/HCC HHS/HCC) 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) CT CHEST W CON Routine 10/12/2024 8:27 AM CDT Rectal cancer (CMS/HCC HHS/HCC) USE ECHOCARDIOGRAM Routine 09/28/2024 7: 52 AM CDT Atrial fibrillation with RVR (CMS/HCC HHS/HCC) TESTOSTERONE, TOTAL Routine 09/28/2024 7 :10 AM CDT Malignant neoplasm of prostate (CMS/HCC HHS/HCC) PROSTATE SPECIFIC ANTIGEN,TOTAL Routine 09/28/2024 7:10 AM CDT Malignant neoplasm of prostate (CMS/HCC HHS/HCC) from Last 3 Months Results * MRI ABD WWO CON (11/26/2024 8:57 AM CDT) Anatomical Region Laterality Modality Abdomen Magnetic Resonan ce 11/26/2024 9:15 AM CDT Impressions 11/26/2024 9:24 AM CDT Impression: Progression of metastatic disease in the liver and upper abdominal nodes. Heterogeneous, nodular spleen is similar to prior study. Ordered By: KRISTEN MOSCOSO Interpreted By: Cleve Etienne MD, 11/26/2024 9:15 AM Narrative 11/26/2024 9:24 AM CDT [place] [id number] [place] [address] Examination: MRI ABD WWO CON 11/26/2024 Clinical Information:DX MALIGNANT NEOPLASM OF RECTUM, SECONDARY MALIGNANT NEOPLASM OF LIVER, POST MICROWAVE ABLATION OF LIVER MASS, Comparison: 08/23/2024 07/24/2024, 04/26/2024 Technique: Sequences: Multiplanar, multisequence MR images of the abdomen were obtained before and after the administration of 15 mL of MultiHance. Findings: LIVER: Post microwave ablation change in the right hepatic lobe. Progression of multifocal metastatic liver tumors since prior MRI. This includes mass and infiltrative type tumor at the ablation zone of the right hepatic lobe, with masslike component measuring 5 cm and infiltrative component extending along the vascular-ductal bundle in the right hepatic lobe. Previous 2 lesions in the junction of the right-left hepatic lobe show increase, with now largest 6 cm, and also with loss of the middle hepatic vein. Also with new small foci in the dome, posterior medial liver, and left hepatic lobe. There is mass effect on vascular-ductal bundle, including hepatic veins, IVC, and right portal vein. With, mild intrahepatic bile ductal dilatation. Development of adenopathy in the perihepatic/periportal/gastrohepatic region. For example, largest node measuring 2 cm. The main portal vein at the hilum is patent. The splenic vein is patent. Parts of the right portal vein are patent. Left portal veins patent. Parts of the right hepatic vein patent. Middle hepatic vein not seen. Left hepatic vein patent. GALLBLADDER: Unremarkable. PANCREAS: Normal. No pancreatic ductal dilatation. SPLEEN: Heterogeneous, nodularity, similar to prior study. Small splenule. ADRENAL GLANDS: Normal. KIDNEYS: Normal. GASTROINTESTINAL: Imaged large and small bowel are normal in caliber and wall thickness. FREE FLUID: None. AORTA: No aneurysm. LOWER CHEST: Thin right pleural effusion. Pericardial effusion. BONES: No suspicious osseous lesions. Procedure Note Cleve Etienne MD - 11/26/2024 [facility] [address] [place] [address] Examination: MRI ABD WWO CON 11/26/2024 Clinical Information:DX MALIGNANT NEOPLASM OF RECTUM, SECONDARY MALIGNANTNEOPLASM OF LIVER, POST MICROWAVE ABLATION OF LIVER MASS, Comparison: 08/23/2024 07/24/2024, 04/26/2024 Technique: Sequences: Multiplanar, multisequence MR images of the abdomen wereobtained before and after the administration of 15 mL of MultiHance. Findings: LIVER: Post microwave ablation change in the right hepatic lobe. Progression ofmultifocal metastatic liver tumors since prior MRI. This includes mass andinfiltrative type tumor at the ablation zone of the right hepatic lobe,with masslike component measuring 5 cm and infiltrative componentextending along the vascular-ductal bundle in the right hepatic lobe.Previous 2 lesions in the junction of the right-left hepatic lobe showincrease, with now largest 6 cm, and also with loss of the middle hepaticvein. Also with new small foci in the dome, posterior medial liver, andleft hepatic lobe. There is mass effect on vascular-ductal bundle,including hepatic veins, IVC, and right portal vein. With, mildintrahepatic bile ductal dilatation. Development of adenopathy in the perihepatic/periportal/gastrohepaticregion. For example, largest node measuring 2 cm. The main portal vein atthe hilum is patent. The splenic vein is patent. Parts of the right portalvein are patent. Left portal veins patent. Parts of the right hepatic veinpatent. Middle hepatic vein not seen. Left hepatic vein patent. GALLBLADDER: Unremarkable. PANCREAS: Normal. No pancreatic ductal dilatation. SPLEEN: Heterogeneous, nodularity, similar to prior study. Smallsplenule. ADRENAL GLANDS: Normal. KIDNEYS: Normal. GASTROINTESTINAL: Imaged large and small bowel are normal in caliber andwall thickness. FREE FLUID: None. AORTA: No aneurysm. LOWER CHEST: Thin right pleural effusion. Pericardial effusion. BONES: No suspicious osseous lesions. Impression: Progression of metastatic disease in the liver and upper abdominalnodes. Heterogeneous, nodular spleen is similar to prior study. Ordered By: KRISTEN MOSCOSO Interpreted By: Cleve Etienne MD, 11/26/2024 9:15 AM Kristen Moscoso MD MRI Final Result * CT CHEST W CON (10/12/2024 8:27 [...] 4:28 PM Narrative 10/17/2024 4:38 PM CDT [address] [place] [address] Examination: CT of the chest with contrast. [...] Procedure Note Unruly Allan MD - 10/17/2024 [facility] [address] [place] [address] Examination: CT of the chest with contrast. [...] CDT Echocardiography Report Pat.Name: Aubrey Garcia Pat.ID: [id number] .Date: 09/28/2024 Refer.MD: Boo, [facility] Exam Time: 6:43:00 AM Study Type:BOO Height: 70 in Weight: 170 lb BSA: 1.95 m2 Age: 10 1960,64Y Sex: M Sonogrphr: Sf Pat. Stat.:Outpatient Reason for Study:Atrial fibrillation with RVR Procedures: 2D, M-mode, Doppler, Color Flow, Study performed at [place], [place] and interpreted by [facility]. ++++++++++++++++++++++++++++++++++++ SUMMARY: ++++++++++++++++++++++++++++++++++++ The left [...] 09/30/2024 Echocardiography Report Pat.Name: Aubrey Garcia Torri.ID: [id number] .Date: 09/28/2024 Refer.MD: Boo, [facility] Exam Time: 6:43:00 AM Study Type:OUTREACH Height: 70 in Weight: 170 lb BSA: 1.95 m2 Age: 10 1960,64Y Sex: M Sonogrphr: Sf Pat. Stat.:Outpatient Reason for Study:Atrial fibrillation with RVR Procedures: 2D, M-mode, Doppler, Color Flow, Study performed at [place], [place] and interpreted by [facility]. ++++++++++++++++++++++++++++++++++++ SUMMARY: ++++++++++++++++++++++++++++++++++++ The left [...] Signature> 09/30/2024 12:47 PM Alejandrina Young M.D. us Sabrina Mujica STAFF RN-BC ECHO Final Re sult * PROSTATE SPECIFIC ANTIGEN, DIAG (09/28/2024 7:10 AM CDT) PSA <0.13 <4.00 NG/ML 09/28/2024 7:42 AM CDT [facility] 09/28/2024 7:10 AM CDT us Aretha Hubbard NP LABORATORY Final Result Performing Organization Address City/State/[facility] Co de Phone Number [facility] [address] [place] [address], [place] [phone] * TESTOSTERONE, TOTAL (09/28/2024 7:10 AM CDT) TESTOSTERONE 493.3 187.7 - 684.2 NG/DL 09/28/2024 12:33 PM CDT [facility] Comment: ASSAY PERFORMED BY CHEMILUMINESCENCE METHODOLOGY USING SIEMENS CompBlueAUR XPT REAGENT. PATIENT RESULTS DETERMINED BY ASSAYS USING DIFFERENT MANUFACTURERS FOR METHODS MAY NOT BE COMPARABLE. 09/28/2024 7:10 AM CDT us Aretha Hubbard NP LABORATORY Final Result Performing Organization Address City/[facility] Co de Phone Number [facility] [address] [place] [address], [place] [phone] [id number] from Last 3 Months Insurance MEDICAID U[employer] Care Teams Picture Copyist Relationship Specialty Start Date End Date Flaco Kelly MD [address] [address] PCP - General FAMILY PRACTICE 01/03/23
[2024-12-24] MEDS: ATROPINE SULFATE 0.4 MG/ML VIAL IV PUSH (09:33)
[2024-12-24] MEDS: IRINOTECAN HCL IVPB (09:47)
[2024-12-24] MEDS: SODIUM CHLORIDE 0.9% IVPB ×3 (09:47→11:23)
[2024-12-24] MEDS: LEUCOVORIN CALCIUM IVPB (09:48)
[2024-12-24] MEDS: FLUOROURACIL 2,500 MG/50 ML VIAL 780 MG IV PUSH (11:23)
[2024-12-24] MEDS: FLUOROURACIL IVPB (11:23)
[2024-12-24] MEDS: HEPARIN SODIUM LOCK FLUSH 500 UNITS/5 ML SYRINGE IV PUSH (11:24)
[2024-12-24 11:48] VITALS: BP 123/70; PULSE 72; RESP 14; TEMP 36.6; O2SAT 97
--- NOTE | 2024-12-24 11:50 | PC.NURSE ---
Patient tolerated FOLFIRI treatment regimen well. Education on chemo take home pump (5FU med) for next 46 hr. Patient has chemo spill kit at home. This is 6 cycle and patient is familiar with pump.
--- NOTE | 2024-12-26 09:48 | PC.NURSE ---
Patient return to have chemo pump (5FU) removed. Chemo infused in total. No concerns voiced. Tolerated chemo well. Port a cath flushed per protocol and chemo pump/chemo disposed per protocol. Port site asystomatic of s/sx. Safe exit of hospital.
== END 2024-12-24 08:37 | disposition home or self-care (01) ==
PROVIDERS: PCP Family Medicine; Visit Provider Internal Medicine Hematology
DX: Z51.11 Encounter for antineoplastic chemotherapy (principal); C20 Malignant neoplasm of rectum
CPT/HCPCS: 96367; 96368; 96375; 96413; 96415; 96416; 96417; J0461; J0640; J1100; J1200; J2405; J7050; J9190; J9206

== ENCOUNTER 2025-01-04 08:50 | Outpatient (CLI) | payer MEDICARE, MEDICAID, SELFPAY ==
--- OUTSIDE RECORDS SUMMARY | 2025-01-04 09:03 | XMS_ITS | Data Portability ---
Author Organization [facility] [employer], [address] [facility] ([place]) Address [address] [place] [address] Care Team Providers Care Clam Digger Name Role Phone TRAVIS RATLIFF Medical Oncologist [phone] TEDDY ROMAN Colorectal Surgeon TRAVIS JUSTIN Urologist [phone] ANGEL HERNANDEZ Hematology/Oncology JACQUELIN GE Radiation Oncologist [phone] MIGUELANGEL SARAVIA Primary Care Provider [phone] Assessment Encounter Date Assessment Date Assessment LastModified by Organization Details LastModified Time 08/10/2024 08/10/2024 Roberto and Mona and his [...] anterior reresection. Further recommendations to follow. [email or web address] Not available 08/10/2024 11:27:19 08/22/2024 08/22/2024 Flexible sigmoidoscopy [email or web address] Not available 08/22/2024 12:33:09 10/02/2024 10/02/2024 Labs; PSA <0.4 f or which we discussed and reviewed Impressions: Diagnosis of prostate adenocarcinoma with seminal vesicle invasion, clinical stage C0kL4T4, Kavitha 3+4=7, grade group 2, highest PSA [...] Dr. Acevedo Education: Not available 10/08/2024 22:42:06 10/26/2024 10/26/2024 Roberto is in a b it of a difficult situation between a rock and a hard place given his stage IV disease and his very now symptomatic primary tumor. He has already had both radiation to his rectal cancer, external beam, as well as prostate radiation. All things considered, I have spoken with Dr. Ratliff on the phone today at length and we agreed to get a repeat liver MRI to evaluate the status of his liver and I may ask Dr. Torres to evaluate him since I am potentially going to be offering him a robotic low anterior re-resection with diverting ileostomy. He will need to go back on chemotherapy as soon as possible. It is possible that Dr. Torres could do some type of minimally invasive ablation to his residual liver lesions if amenable. Roberto understands as does his ex- that surgery is not necessarily going to increase his survival but will definitely affect and improve his disease-free survival given how symptomatic his primary tumor is. I have discussed the options at length. I discussed the operative details, including the risks, benefits and alternatives of the surgery. This also included a detailed discussion of the expected postoperative recovery. We discussed a 2 percent risk of bleeding requiring blood transfusion, longer surgery, longer hospitalization, and possibly reoperation. 2 percent risk of infection which could be intra-abdominal abscess or wound infection. There is understanding that this could necessitate an abdominal drain placement or opening of the surgical wound with packing. 5 percent risk of anastomotic leakage requiring reoperation and possible temporary or permanent stoma should this happen. I have discussed the risks of general anesthesia including, but not limited to, heart attack, stroke, pneumonia, venous thromboembolism. I have said some of these can be life-threatening. There is also understanding of the risks of injury to oral structures including teeth, tongue, lips, gums, voice hoarseness, sore throat. There is understanding that there is risk of injury to other abdominal or pelvic structures including the ureter and duodenum. Risks of converting to an open operation with a larger incision are clear. On occasion there are unexpected intraoperative findings and also a potential for temporary or permanent stoma should anastomosis not be feasible for whatever reason. Understanding was verbalized, all questions were answered to their satisfaction. They would like to proceed with surgery and have no further questions. Roberto understands that he will need a diverting loop ileostomy because of the pelvic radiation and low anastomosis. We talked a long time about the post-procedure changes in bowel function after his ileostomy takedown which are associated potentially with clustering of bowel movements, frequency, urgency of bowel movements, low anterior reresection-type symptoms. He also understands the changes to bladder and sexual function. These have already happened to him because of the radiation to his prostate I am told. Roberto understands the expected hospital stay of about 4 to 5 days and the fact that he has to be nicotine free for a total of 3 to 4 weeks minimum, which he understands. Roberto knows why we keep him in the hospital which is to monitor for complications and to make sure he is not getting dehydrated with the ileostomy and for pain control. He understands the need for a long operation due to deep pelvic dissection and also identify and avoid injury to critical structures of blood vessels, nerves, solid organs such as spleen and liver, and small intestine. This includes kidney, ureter, and bladder. He also understands the complicated nature of pelvic surgery after multiple episodes of radiation. Safe anastomosis may or may not be feasible. Once I get his MRI and discuss with Dr. Torres we will plan surgery. [email or web address] Not available 10/26/2024 13:27:59 Plan of Treatment Reminders Order Date Submit Date Provider Last Modified By Organization Details Last Modified Time Details Appointments TeleHealt h 15.TELE 2024 02:45P M Aretha Hubbard Not available Not available [...] Not Available [facility] [address] [place] [address], [id number], 08/06/2024 13:43:40 08/07/19 25 08/06/2024 CBC w/ auto diff WBC 6.8 K/uL 4.8- 10.8 Not Available [facility] [address] [place] [address], [id number], 08/06/2024 13:43:40 08/07/19 25 08/06/2024 CBC w/ auto diff RBC 4.21 M/uL 4.70-6 .10 low Not Available [facility] [address] [place] [address], [id number], 08/06/2024 13:43:40 08/07/19 25 08/06/2024 CBC w/ auto diff HGB 12.8 g/dL 14.0-1 8.0 low Not Available [facility] [address] [place] [address], [id number], 08/06/2024 13:43:40 08/07/19 25 08/06/2024 CBC w/ auto diff HCT 37.0 % 42.0-5 2.0 low Not Available [facility] [address] [place] [address], [id number], 08/06/2024 13:43:40 08/07/19 25 08/06/2024 CBC w/ auto diff MCV 87.9 fL 80.0-9 4.0 Not Available [facility] [address] [place] [address], [id number], 08/06/2024 13:43:40 08/07/19 25 08/06/2024 CBC w/ auto diff MCH 30.4 pg 27.0- 31.0 Not Available [facility] [address] [place] [address], [id number], 08/06/2024 13:43:40 08/07/19 25 08/06/2024 CBC w/ auto diff MCHC 34.6 g/dL 32.0-3 6.0 Not Available [facility] [address] [place] [address], [id number], 08/06/2024 13:43:40 08/07/19 25 08/06/2024 CBC w/ auto diff RDW-SD 45.4 fL 35.1 - 46.3 Not Available [facility] [address] [place] [address], [id number], 08/06/2024 13:43:40 08/07/19 25 08/06/2024 CBC w/ auto diff plt 215 K/uL 130-40 0 Not Available [facility] [address] [place] [address], 70626, 08/06/2024 13:43:40 08/07/19 25 08/06/2024 CBC w/ auto diff MPV 9.4 fL 7.5- 11.8 Not Available [facility] [address] [place] [address], [id number], 08/06/2024 13:43:40 08/07/19 25 08/06/2024 CBC w/ auto diff stanislaw% 74.7 % not estab Not Available [facility] [address] [place] [address], [id number], 08/06/2024 13:43:40 08/07/19 25 08/06/2024 CBC w/ auto diff lym% 13.9 % not estab Not Available [facility] [address] [place] [address], [id number], 08/06/2024 13:43:40 08/07/19 25 08/06/2024 CBC w/ auto diff mono% 8.9 % not estab Not Available [facility] [address] [place] [address], [id number], 08/06/2024 13:43:40 08/07/19 25 08/06/2024 CBC w/ auto diff eos% 1.8 % not estab Not Available [facility] [address] [place] [address], [id number], 08/06/2024 13:43:40 08/07/19 25 08/06/2024 CBC w/ auto diff baso% 0.4 % not estab Not Available [facility] [address] [place] [address], [id number], 08/06/2024 13:43:40 08/07/19 25 08/06/2024 CBC w/ auto diff abs [email or web address] 5.1 K/uL 1.5-7. 5 Not Available [facility] [address] [place] [address], [id number], 08/06/2024 13:43:40 08/07/19 25 08/06/2024 CBC w/ auto diff abs lym 0.9 K/uL 1.2-3. 4 low Not Available [facility] [address] [place] [address], [id number], 08/06/2024 13:43:40 08/07/19 25 08/06/2024 CBC w/ auto diff abs mono 0.6 K/uL 0.1-1. 0 Not Available [facility] [address] [place] [address], [id number], 08/06/2024 13:43:40 08/07/19 25 08/06/2024 CBC w/ auto diff abs eos 0.1 K/uL 0.0-0. 7 Not Available [facility] [address] [place] [address], [id number], 08/06/2024 13:43:40 08/07/19 25 08/06/2024 CBC w/ auto diff abs baso 0.0 K/uL 0.0-0. 2 Not Available [facility] [address] [place] [address], [id number], 08/06/2024 13:43:40 08/07/19 25 08/06/2024 CBC w/ auto diff imm. gran % 0.3 % 0-5 Not Available [facility] [address] [place] [address], [id number], 08/06/2024 13:43:40 08/07/19 25 08/06/2024 CBC w/ auto diff NRBC % 0.0 % 0.0-0. 2 Not Available [facility] [address] [place] [address], [id number], 08/06/2024 13:43:40 08/07/19 25 08/06/2024 carci noemb ryoni c Ag, quant , serum or plasm a cea 7.4 NG/mL <0.5-3 .0 high This test is perfo rmed on a [employer] Atell ica gino zer. Since there are not exist ing stand maria alejandra refer ence units , users shoul d not make ashly rison s betwe en metho ds. Not Available [facility] [address] [place] [address], [id number], 08/06/2024 16:14:48 08/07/19 25 08/06/2024 CMP, serum or plasm a comp. met. panel Not Available [facility] [address] [place] [address], [id number], 08/06/2024 16:24:03 08/07/19 25 08/06/2024 CMP, serum or plasm a sodium 133 mmol/ L 136-14 6 low Not Available [facility] [address] [place] [address], 13029, 08/06/2024 16:24:03 08/07/19 25 08/06/2024 CMP, serum or plasm a potassium 4.0 mmol/ L 3.5-5. 1 Not Available [facility] [address] [place] [address], 70084, 08/06/2024 16:24:03 08/07/19 25 08/06/2024 CMP, serum or plasm a chloride 100 mmol/ L 98-110 Not Available [facility] [address] [place] [address], 04689, 08/06/2024 16:24:03 08/07/19 25 08/06/2024 CMP, serum or plasm a CO2 29 mEq/L 20-32 Not Available [facility] [address] [place] [address], 33941, 08/06/2024 16:24:03 08/07/19 25 08/06/2024 CMP, serum or plasm a anion gap 8 mmol/ L 10-22 low Not Available [facility] [address] [place] [address], [id number], 08/06/2024 16:24:03 08/07/19 25 08/06/2024 CMP, serum or plasm a glucose 119 mg/dL 70-100 high Not Available [facility] [address] [place] [address], [id number], 08/06/2024 16:24:03 08/07/19 25 08/06/2024 CMP, serum or plasm a calcium 9.2 mg/dL 8.4-10 .4 Not Available [facility] [address] [place] [address], [id number], 08/06/2024 16:24:03 08/07/19 25 08/06/2024 CMP, serum or plasm a total protein 7.0 g/dL 6.4-8. 3 Not Available [facility] [address] [place] [address], 73600, 08/06/2024 16:24:03 08/07/19 25 08/06/2024 CMP, serum or plasm a albumin 4.3 g/dL 3.5-5. 3 Not Available [facility] [address] [place] [address], [id number], 08/06/2024 16:24:03 08/07/19 25 08/06/2024 CMP, serum or plasm a ALP 292 U/L 44 - 127 high Not Available [facility] [address] [place] [address], 97586, 08/06/2024 16:24:03 08/07/19 25 08/06/2024 CMP, serum or plasm a AST (SGOT) 52 U/L 10-40 high Not Available [facility] [address] [place] [address], 27423, 08/06/2024 16:24:03 08/07/19 25 08/06/2024 CMP, serum or plasm a total bilirubin 0.5 mg/dL 0.2-1. 2 Not Available [facility] [address] [place] [address], 18426, 08/06/2024 16:24:03 08/07/19 25 08/06/2024 CMP, serum or plasm a ALT (SGPT) 112 U/L 8-35 high Not Available [facility] [address] [place] [address], [id number], 08/06/2024 16:24:03 08/07/19 25 08/06/2024 CMP, serum or plasm a BUN 11 mg/dL 7-21 Not Available [facility] [address] [place] [address], 14134, 08/06/2024 16:24:03 08/07/19 25 08/06/2024 CMP, serum or plasm a creatinine 0.8 mg/dL 0.7-1. 3 Not Available [facility] [address] [place] [address], [id number], 08/06/2024 16:24:03 08/07/19 25 08/06/2024 CMP, serum or plasm a CKD-epi GFR 98 eGFR was calcu lated using the 2020 CKD-E PI equat ion. (Spring Coverer nicolasa Kidne y Disea se has an eGFR less than 60 mL/mi n/1.7 3mm for a perio d of three month s or more. ) This calcu latio n has not been valid ated for patie nt ages <18 or >90 years old. Not Available [facility] [address] [place] [address], 82521, 08/06/2024 16:24:03 08/07/19 25 08/06/2024 PSA, serum or plasm a PSA <0.04 NG/mL 0.04-4 .900 This test is perfo rmed on a Sieme ns Atell ica gino zer. Since there are not exist ing stand maria alejandra refer ence units , users shoul d not make ashly rison s betwe en metho ds. Not Available [facility] [address] [place] [address], [id number], 08/06/2024 16:55:19 07/21/1907/20/2024 CT ablat ion liver micro wave [facility] [address] [place] [address] Name: ROBERTO MORRELL RD Age: 64 : 1959 Exam Date: 2024 ACCESS ION: [id number] JALIL CANADA MD: KRISTEN GARCIA EXAMIN ATION: [...] prior imagin g. Two 17 G NuWave TN probes were advanc ed throug h the [...] aneous tissue s. Steril e dressi ng theron d. Compli cation s: None Contra st [...] Kristen Garcia MD INTERFACE [facility] Only - [facility] [address] [place] [address], [id number], 07/20/2024 16:50:43 09/06/19 25 08/31/2024 ir clini c visit [facility] [address] [place] [address] [phone] Name: ROBERTO MORRELL RD Age: 64 : 1959 Exam Date: 2024 ACCESS ION: [id number] JALIL CANADA MD: KRISTEN GARCIA Please refer to [facility] for result s. Final Report Dictat ed: 12:52 Radiol ogist , Inquir y Signed : 14:43 Radiol ogist , Inquir y INTERFACE [facility] - [facility] [address] [place] [address], [id number], 09/05/2024 16:45:16 11/06/19 25 08/26/2023 PET-C T, skull base to mid-t high scan No observ ation record ed. [email or web address] Not Available 2024 15:12:10 11/07/19 25 03/14/2024 MRI, pelvi s, w/wo contr ast No observ ation record ed. Not Available 2024 15:12:11 11/07/19 25 07/14/2022 MRI, pelvi s, w/wo contr ast No observ ation record ed. Not Available 2024 15:12:11 11/07/19 25 07/24/2024 CT, chest + abdom en + pelvi s, w/ contr ast No observ ation record ed. [email or web address] Not Available 2024 15:12:11 11/07/19 25 07/03/2024 XR, chest , 2 view No observ ation record ed. [email or web address] Not Available 2024 15:12:11 12/28/19 25 11/26/2024 MRI, abdom en, w/wo contr ast No observ ation record ed. [email or web address] Not Available 12/27 14:31:12 Result Notes None recorded. Problems Name Problem SNOMED Code Status Onset Date Resolution Date Notes Provider Name and Address Organization Details Recorded Time Carcinoma of prostate 660663363 Active 2023 [place] 3+4 BX 06/21/23 Willow Brown, AUTOMATION DEVELOPER, [employer] [address] [place] [address], [id number] [place] [address] 4 16:37:09 Malignant neoplasm of rectum 249791229 Active 2023 Cesar Rider-Ode gerry [facility] 5 16:40:46 Lesion of spleen 950973939406 101 Active 2023 Oly Medrano [facility] 4 15:20:53 Adenocarci noma of prostate 446969643 Active 2023 [facility] 5 10:09:16 Adenocarci noma of rectum 092591930 Active 2024 [facility] 5 10:09:50 Malignant neoplasm of prostate 755852825 Active 2024 [facility] 5 17:09:05 Metastatic malignant neoplasm to liver 26215766 Active 2024 Cesar Diazola-Ode gerry [facility] 5 16:41:15 Primary malignant neoplasm of rectum 26686151 Active 2024 Myles Acevedo MD [address] [place] [address], [phone], [facility] 5 12:05:19 Problem Notes None recorded. Procedures Surgical History Date Name Laterality Status Provider Name and Address Organization Details Recorded Time 09/12/19 24 cystoscopy completed Joanne Harvey [facility] 10/14/2023 11:10:48 Colonoscopy with biopsy completed Not Available Health Note 07/30/2024 13:03:42 Imaging Results None recorded. Procedure Notes None recorded. Medical Equipment None Reported. Allergies Allergen ID Allergen Name Allergen Category Reaction Reaction Severity Criticality Documentation Date Start Date Code Code System Note Provider Name and Address Organization Details Recorded Time 6140448 codeine medicatio n vomiting Not available Not available 10/14/2023 2670 RxNorm Joanne Harvey [facility] 4 11:08:52 Medications Name Sig Start Date Stop Date Status Note LastModified by Organization Details LastModified Time bicalutamid e 50 mg tablet 02/07 completed Not Available Not Available Not Available metoprolol succinate ER 50 mg tablet,exte nded release 24 hr active Not Available Not Available Not Available Ativan 1 mg tablet Take 1 tablet every day by oral route at bedtime. active Not Available Not Available No t Available ondansetron HCl 8 mg tablet 08/10 [...] active Not Available Not Available Not Available Miralax BID active Not Available Not Avail able Not Available Eliquis 5 mg tablet 10/13 completed Not Available Not Available Not Available Vitals Date Recorded Body height Body mass index (BMI) Body weight Systolic And Diastolic Provider Name and Address Organization Details Last Updated DateTime 08/10/2024 176.53 cm 25.2 kg/m2 47987.48 g 138/85 mm[Hg] Cesar Brittney alexander [facility] 08/10/2024 09:47:59 Date Recorded Body height Body mass index (BMI) Body weight Heart rate Systolic And Diastolic Provider Name and Address Organization Details Last Updated DateTime 10/26/2024 176.53 cm 23.7 kg/m2 83866.56 g 75 /min 128/79 mm[Hg] Hawaconstantino Cook [facility] 10:59:29 Social History Question Answer Notes LastModified by [...] How Many Packs Per Day (PPD)? 1 [email or web address] Information not available 10/14/2023 How Long Have You Smoked? 50 [email or web address] Information not available 10/14/2023 What Was The [...] LastModified by Organizat ion Details LastModified Time Do you use any illicit or recreational drugs? Yes [email or web address] Information not available 07/30/2024 Do you or have you ever used any other forms of tobacco or nicotine? No [email or web address] Information not available 07/30/2024 What is your level of alcohol consumption? None [email or web address] Information not available 10/26/2024 Are you currently employed? No [email or web address] Information [...] 13:03:42 Father Family history of malignant neoplasm [email or web address] Not available 2024 13:03:42 Medical History Condition Response Diabetes N Anxiety Disorder N Bleeding Disorder N Attention-deficit Hyperactivity Disorder N High Blood Pressure N Arthritis N Hyperlipidemia N Cancer Y Thyroid Problems N Stroke N Asthma N COPD N Depression N Anemia N Seizures N Heart Disease N Fibromyalgia N Osteoporosis N Kidney Disease N Immunizations Vaccine Type Date Status Note Provider Nam e and Address Organization Details Recorded Time COVID-19, mRNA, LNP-S, PF, 30 mcg/0.3 mL dose 06/06/2020 completed Not Available [facility] 5 10:42:45 COVID-19, mRNA, LNP-S, PF, 30 mcg/0.3 mL dose 06/26/2020 completed Not Available [facility] 10:42:45 Tdap 05/12/2021 completed Not Available [facility] 10/26/2024 10:42:45 Past Encounters Encounter ID Performer Location Encounter Start Date Encounter Closed Date Diagnosis/Indication Diagnosis SNOMED-CT Code Diagnosis ICD10 Code Diagnosis IMO Codes Diagnosis Note [id number] C. MD Karissa Covington [facility] ([place]) [address] [facility] [place] [address] 10/14/2023 10:29:35 11/02/2023 09:10:53 Carcinoma of prostate 548896342 C61 Malignant neoplasm of rectum 741966147 [facility] [id number] Eddie reynolds MD [facility] ([place]) [address] [place] [address] 1 11/02/2023 11:55:49 11/02/2023 14:08:15 [id number] Pj Humphrey MD [facility] ([place]) [address] [place] [address] 8[address]89-[address] 1 11/10/2023 09:36:35 11/10/2023 10:32:15 [id number] Pj Humphrey MD [facility] ([place]) [address] [place] [address] 91398-939 1 11/17/2023 09:29:55 11/17/2023 10:28:06 [id number] Pj Humphrey MD [facility] ([place]) [address] [place] [address] 49591-[address] 1 11/24/2023 09:23:05 11/24/2023 12:11:38 [id number] Pj Humphrey MD [facility] ([place]) [address] [place] [address]253-[address] 1 12/01/2023 09:16:20 12/01/2023 10:20:01 [id number] Jacquelin Ge MD [facility] ([place]) [address] [place] [address] 69534-894 1 02/08/2024 09:21:44 02/09/2024 12:00:56 [id number] Willow Brown APRN, [employer] [facility] ([place]) [address] [place] [address] 45434-810 1 03/13/2024 15:37:27 03/13/2024 16:06:16 Adenocarcinoma of prostate 592498587 C61 [id number] Aretha Hubbard APRN, [facility] ([place]) [address] [place] [address], [place] [address] 06/12/2024 17:32:28 06/12/2024 17:57:29 Adenocarcinoma of prostate 256373282 C61 [id number] Adenocarci noma of rectum 990168713 C20 [id number] Angel Hernandez MD [address] Oncology/ Hematolog y ([place]) [address],4[address] [place] [facility] [address] 08/06/2024 12:16:05 08/07/2024 16:50:42 Malignant neoplasm of rectum 523701042 C20 80059 Malignant neoplasm of prostate 756149626 C61 [id number] Myles Acevedo MD [address] Colorecta l ([place]) [address] [place] [address],[address]r [place] [facility] [address] 08/10/2024 09:00:53 08/10/2024 10:29:22 Malignant neoplasm of rectum 975986115 C20 [id number] Myles Acevedo MD [facility] ([place]) [address] [place] [address], 2nd [place] [address] 08/22/2024 10:32:47 08/28/2024 09:29:06 [id number] Stiven Corrales MD [facility] GI Anesthesi a S [address] [place] [address], [place] [address] 08/22/2024 10:32:45 09/01/2024 08:06:43 [id number] Aretha Hubbard APRN, [facility] ([place]) [address] [place] [address], [place] [address] 10/03/2024 13:38:12 10/04/2024 12:54:31 Adenocarcinoma of rectum 618772990 C20 [id number] Metastatic malignant neoplasm to liver 15039655 C78.7 [id number] Myles Acevedo MD [address] [facility] ([place]) [address] [facility] [address] 10/26/2024 10:42:22 10/26/2024 12:15:27 Primary malignant neoplasm of rectum 06455783 C79.9 C20 [id number] Health Concerns Section Related Observation LastModified by Organization Detai ls LastModified Time None Recorded Concern Status LastModified by Organization Details LastModified Time None Recorded Advance Directives Directive N: Payers Insurance Date Sequence Insurance Name Policy Number Policy Singletary Covered Member ID Singletary Member ID Guarantor Name 02/06/2024 1 [facility] PRIOR TO 11/02/2024 (MEDICAID REPLACEMENT - HMO) [id number] Roberto E Yachats [id number] Roberto E Yachats 12/20/2024 2 [place] [facility] PUBLIC AID Roberto E Jose [id number] Roberto E Yachats 02/14/2024 3 [facility] (MEDICARE SUPPLEMENT) Roberto E Jose [id number] Roberto E Yachats 08/10/2024 2 [facility] (MEDICARE SUPPLEMENT) PLAN N Roberto E Jose [id number] Roberto E Yachats 12/20/2024 1 [place] Roberto E Jose [id number] Roberto E Yachats 12/20/2024 1 [facility] (MEDICARE REPLACEMENT/A DVANTAGE - HMO) [id number] Roberto E Yachats [id number] Roberto Chun Jose Notes Date Note Type Note Provider Name and Address Organization Details Recorded Time 5 text/html SUBJECTIVE:A 64-year-old male here to see me for a second opinion for rectal cancer. He has been cared for by Dr. Ratliff with oncology and Dr. Roman with colorectal surgery with [facility]. I am in the process of obtaining [...] This was treated, I am told, by [facility] Interventional Radiology with a liver ablation. [...] inguinal.FAMILY HISTORY:Father, colon cancer. Myles Acevedo MD [address] [place] [address], [phone], [facility] 08/13/2024 16:07:54 5 text/html Roberto is a 64-year-old male here to see me for a second opinion for rectal cancer. He has been cared for by Dr. Ratliff with oncology and Dr. Roman with colorectal surgery with [facility]. I am in the process [...] This was treated, I am told, by [facility] Interventional Radiology with a liver ablation. [...] colon cancer. Myles Acevedo MD [address] [place] [address], [phone], [facility] 08/22/2024 12:33:14 5 text/html [facility] PRE-ANESTHETIC EVALUATIONReported by PatientReason for VisitFor reason for visit, patient reportsproposed procedure: flex sig with bx or polypectomy,surgeon: sandie, andpreop diagnosis: malignant neoplasm of rectum.Review of SystemsFor general, patient reportsexercise tolerance moderate,denies sob, macdonald, pnd, anddenies chest pain or chest tightness. For cardiac, patient reportsdenies any cardiopulmonary disease,hypertension, andparoxysmal atrial fibrillation ,stable. For pulmonary, patient reports__ copd __ __ __andcurrent every day smoker (down to 1/2 ppd x 50 yrs). For hem/onc, patient reportsprostate cancer hxandrectal cancer hx(liver mets).PSH-Complication/FM HXFor prior anesthetic complication, patient reportsno history of anesthesia complications. For family anesthetic hx, patient reportsno history of anesthesia complications.Testing/Resu ltsFor testing/results, patient reportscbc date: 08/06/24,hbg results: 12.8,hct results: 37.0,platelets results: 215,bmp/cmp date: 08/06/24,bun results: 11,creatine results: 0.8, andpotassium results: 4.0.Physical ExamFor physical exam: airway, patient reportsmp ii. For teeth, patient reportsdentures __. For neck, patient reportsfull range of motion. For cardiovascular, patient reportsirregular rhythm. For respiratory, patient reportsdimished breath sounds bilaterally, but clear. For gastrointestinal, patient reportsnpo status >6 hrs solids, >2 hrs clear liquids. For vital signs, patient reportsvital signs reviewed. please refer to nursing preop note for values.Assessment and PlanFor assessment, patient reportsasa ps: iii. For plan, patient reportsmac.DiscussionFor discussion, patient reportsi have discussed with the patient the anesthetic plan, alternatives, pertinent risks, and complications; including but not limited to ponv, dental injury, sore throat, mi, stroke, etc. all questions were answered. patient verbalize(s) understanding and agree(s) to proceed.. 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 [...] . CT chest lung screening protocol at [facility] was performed with radiology interpretation [...] a prostate biopsy. 1 05/19/2022: Colonoscopy at [facility] was performed. Specimen [id number] associated with colon descending polyp biopsy, tubular [...] ng/mL. : CT abdomen and pelvis at [facility] resulted circumferential wall thickening of rectum, [...] is mild prostatomegaly. : MRI pelvis at [facility] was performed with radiology interpretation [...] mesorectal lymph nodes. : MRI pelvis at [facility] was performed with radiology interpretation [...] additional imaging for staging.05/25/2023: CT chest at [facility] was performed with radiology interpretation of no CT evidence of metastatic disease in the chest, no mediastinal or hilar lymphadenopathy. There is a prominent 8 mm portal caval lymph node, for which continued attention on follow up was recommended.06/21/2023: PSA 15.51 ng/mL.06/21/2023: Truss biopsy with Dr. Nails, specimen [id number] resulted prostate adenocarcinoma, Kavitha grade 3+4=7, corresponding [...] Justin in Urology.08/26/2023: PSMA PET CT at [facility] was performed with radiology interpretation of [...] lymph node. Continued attention on follow-up is sllsfcyeobr36/2024: CT of pelvis/ abdomenIMPRESSION:Changes prostatic hyperplasia. PI-RADS Category 1: Very LowRisk2. Post radiation changes throughout the prostate. The previouslyseen lesions are no longer well-visualized3. Ill-defined nodule in the right basilar transitional zone.PI-RADS Category 2: Low Risk Per Oncology note:MRI done at [facility]/19/2024: MRI pelvis with/without contrast showed persistent circumferential [...] cancer is yet to be determined Aretha Hubbard, AUTOMATION DEVELOPER, WARP SPINNER [address] [place], [phone], [facility] 10/08/2024 22:52:06 5 text/html Here to discuss cancer surgery.taking Miralax BID now for constipationRoberto Cameron a 64 year oldmalepresenting for care. SUBJECTIVE:Roberto is a 64-year-old male here to see me for potential preoperative discussion. Roberto is extremely complicated and has been dealing with rectal cancer for now 2 years. His initial colorectal surgeon was Dr. Teddy Roman. To make a very long story short, Roberto has stage IV disease in his liver which was initially a single lesion treated with ablation by intervention radiology. In the meantime, he was supposed to have a low anterior reresection by Dr. Roman and there was some delay. After a number of months delay, he had a couple of new spots in his liver show up for which he has been getting systemic chemotherapy. He now, however, has become very symptomatic from his primary rectal tumor which is in the midrectum. He has pelvic pain, bleeding, and difficulty with bowel movements requiring multiple doses of MiraLAX daily. Roberto also does not tolerate chemotherapy all that well per Dr. Ratliff. Dr. Ratliff and I have been presenting him initially at tumor board which consensus has always been more chemotherapy given the stage IV disease. Myles Acevedo MD [address] [place], [phone], [facility] 10/31/2024 15:09:49
[2025-01-04 09:06] LABS: Hematocrit 33.0 % (37.0-46.0); Hemoglobin 10.8 g/dL (12.4-15.3); Mean Corpuscular HGB Conc 32.7 g/dL (32-36); Mean Corpuscular Hemoglobin 28.7 pg (27.0-31.0); Mean Corpuscular Volume 87.8 fL (78.0-102.0); Platelet Count Result 280 K/mm3 (150-420); Red Blood Count 3.76 M/mm3 (4.70-6.10); White Blood Count 4.8 K/mm3 (4.8-10.8)
[2025-01-04 09:43] LABS: Alanine Aminotransferase 71 U/L (6-50); Albumin Level 3.8 g/dL (3.5-5.1); Alkaline Phosphatase 683 U/L (38-126); Anion Gap 10 mmol/L (4-12); Aspartate Amino Transferase 54 U/L (17-59); Bilirubin,Total 1.3 mg/dL (0.2-1.3); Blood Urea Nitrogen 12 mg/dL (9-20); Calcium 9.4 mg/dL (8.4-10.2); Carbon Dioxide 27 mmol/L (22-30); Chloride 95 mmol/L (98-107); Estimated Glomerular Filt Rate > 60; Glucose 136 mg/dL (65-110); Osmolality Calculated 275 mOsm/kg (285-295); Potassium 4.0 mmol/L (3.4-5.0); Sodium 132 mmol/L (137-145); Total Protein 7.0 g/dL (6.3-8.2)
[2025-01-04 13:01] LABS: Immature Granulocyte Percent A 0.2 % (0.0-0.0); Lymphocytes Absolute Auto 0.80 K/mm3 (1.10-4.50); Nucleated Red Blood Cells Absolute Auto 0.00 K/mm3 (0.00-0.00); Nucleated Red Blood Cells Perc 0.0 % (0-0.0)
== END 2025-01-04 08:51 | disposition home or self-care (01) ==
LOC: CHSLAB 08:53
PROVIDERS: PCP Family Medicine; Visit Provider Internal Medicine Hematology
DX: C20 Malignant neoplasm of rectum (principal)
CPT/HCPCS: 36415; 80053; 85025; 85027

== ENCOUNTER 2025-01-07 08:47 | Outpatient (CLI) | payer MEDICARE, MEDICAID, SELFPAY ==
[2025-01-07 08:58] VITALS: BMI 23.3
[2025-01-07 09:08] VITALS: BP 114/69; PULSE 78; RESP 14; TEMP 36.4; O2SAT 95
[2025-01-07] MEDS: FAMOTIDINE 20 MG/2 ML VIAL IV PUSH (09:10)
[2025-01-07] MEDS: SODIUM CHLORIDE 0.9% IV 250 ML 10 ML IVPB (09:10)
[2025-01-07] MEDS: ONDANSETRON INJ 16 MG, dexAMETHasone SOD 4 MG/ML INJ 12 MG in SODIUM CHLORIDE 0.9% IV 8... 300 MG IVPB (09:20)
[2025-01-07] MEDS: SODIUM CHLORIDE 0.9% IVPB ×3 (09:40→11:14)
[2025-01-07] MEDS: IRINOTECAN HCL IVPB (09:40)
[2025-01-07] MEDS: ATROPINE SULFATE 0.4 MG/ML VIAL IV PUSH (09:40)
[2025-01-07] MEDS: LEUCOVORIN CALCIUM IVPB (09:41)
[2025-01-07] MEDS: HEPARIN SODIUM LOCK FLUSH 500 UNITS/5 ML SYRINGE IV PUSH (11:14)
[2025-01-07] MEDS: FLUOROURACIL 2,500 MG/50 ML VIAL 780 MG IV PUSH (11:14)
[2025-01-07] MEDS: FLUOROURACIL IVPB (11:14)
[2025-01-07 11:42] VITALS: BP 111/73; PULSE 78; RESP 14; TEMP 36.4; O2SAT 96
--- NOTE | 2025-01-07 11:45 | PC.NURSE ---
Patient tolerated chemo regimen well today. SEE MAR/patient care notes.
--- NOTE | 2025-01-07 12:41 | PC.NURSE ---
1140 Patient going home on Chemo pump. Education given. Has spill kit with understanding on it at home already. This is his 7 th treatment. No concerns voiced.
[2025-01-09 09:46] VITALS: BP 125/76; PULSE 68; RESP 14; TEMP 36.6; O2SAT 96
--- NOTE | 2025-01-09 09:49 | PC.NURSE ---
01/09/2025 0910 Patient here for chemo pump removal - refer to vascular access notes. Tolerated treatment well.
== END 2025-01-07 08:48 | disposition home or self-care (01) ==
PROVIDERS: PCP Family Medicine; Visit Provider Internal Medicine Hematology
DX: Z51.11 Encounter for antineoplastic chemotherapy (principal); C20 Malignant neoplasm of rectum
CPT/HCPCS: 96367; 96375; 96411; 96413; 96416; 96417; J0461; J0640; J1100; J1200; J2405; J7050; J9190; J9206

== ENCOUNTER 2025-01-18 09:02 | Outpatient (CLI) | payer MEDICARE, MEDICAID, SELFPAY ==
[2025-01-18 09:18] LABS: Hematocrit 36.8 % (37.0-46.0); Hemoglobin 12.0 g/dL (12.4-15.3); Immature Granulocyte Percent A 0.4 % (0.0-0.0); Lymphocytes Absolute Auto 0.80 K/mm3 (1.10-4.50); Mean Corpuscular HGB Conc 32.6 g/dL (32-36); Mean Corpuscular Hemoglobin 28.8 pg (27.0-31.0); Mean Corpuscular Volume 88.2 fL (78.0-102.0); Nucleated Red Blood Cells Absolute Auto 0.00 K/mm3 (0.00-0.00); Nucleated Red Blood Cells Perc 0.0 % (0-0.0); Platelet Count Result 317 K/mm3 (150-420); Red Blood Count 4.17 M/mm3 (4.70-6.10); White Blood Count 4.6 K/mm3 (4.8-10.8)
--- OUTSIDE RECORDS SUMMARY | 2025-01-18 09:31 | XMS_ITS | Clinical Summary ---
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) 11/28/2024 Travel 11/26/2024 7:57 AM CDT - 11/26/2024 11:59 PM T Hospital Encounter [facility] [address] [place] [address] Kristen Moscoso MD Discharge Disposition: Home or Self Care (Routine Discharge) 11/26/2024 Travel from Last 3 Months Social History Tobacco Use Types Packs/Day Years Used Date Smoking Tobacco: Former Cigarettes S tarted: 2024 Smokeless Tobacco: Never Tobacco Cessation:Counseling Given: Not Answered Alcohol Use Standard Drinks/Week Comments Not Currently 0 (1 standard drink = 0.6 oz pur e alcohol) Sex and Gender Information Value Date Recorded Sex Assigned at Male 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 Legal Sex Male 9:40 AM CDT Gender Identity Not on file Sexual Orientation Not on file Last Filed Vital Signs Vital Sign Reading Time Taken Comments Blood Pressure 126/75 11/28/2024 8:59 AM CDT Pulse 71 11/28/2024 8:59 AM CDT Temperature 36.6 C (97.8 F) 03/18/2023 12:49 PM PRESCHOOL HEAD 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 Respiratory Rate 14 11/28/2024 8:59 AM CDT Oxygen Saturation 100% 11/28/2024 8:59 AM CDT Inhaled Oxygen Concentration - - Weight 73.6 kg (162 lb 3.2 oz) 11/28/2024 8:59 A M CDT Height 177.8 cm (5' 10) 11/28/2024 8:59 AM CDT Body Mass Index 23.27 11/28/2024 8:59 AM CDT Plan of Treatment Health Maintenance Due Date Last Done Comments Hepatitis C 1978 Hepatitis A Vaccines (1 of 2 - Risk 2-dose series) 1978 Pneumococcal Vaccine: 50+ Years (1 of 1 - PCV) 2009 Zoster Vaccines (1 of 2) 2009 RSV Immunization or 60+ Years (1 - Risk 60-74 years 1-dose series) 2019 PHQ-2 (Physician [place]) 04/04/2024 COVID-19 Vaccine ( - 2024- season) 2024 06/26/2020, 06/06/2020 Influenza Adult (#1) 2025 DTaP, Tdap and Td Vaccines (2 - [...] 8:27 AM CDT Rectal cancer (CMS/HCC HHS/HCC) from Last 3 Months or Most Recently Relevant to Health Maintenance Results * MRI ABD WWO CON (11/26/2024 [...] 9:15 AM Narrative 11/26/2024 9:24 AM CDT [address] [place] [address] Examination: MRI ABD WWO CON 11/26/2024 Clinical [...] Cleve Etienne MD - 11/26/2024 [facility] [address] [place] [address] Examination: MRI ABD WWO CON 11/26/2024 Clinical [...] By: Cleve Etienne MD, 11/26/2024 9:15 AM us Kristen Moscoso MD MRI Final Result * CT CHEST W CON (10/12/2024 8:27 AM CDT) Anatomical Region Laterality Modality Chest Computed Tomogra phy 10/17/2024 4:28 PM CDT Impressions 10/17/2024 4:38 PM CDT IMPRESSION: 1. No acute intrathoracic process identified. 2. No evidence of intrathoracic metastasis. 3. Progressive hepatic metastasis as described. 4. Additional chronic/nonurgent findings as described. Ordered By: TRAVIS RENEE Interpreted By: Unruly Allan MD, 10/17/2024 4:28 PM Narrative 10/17/2024 4:38 PM CDT [address] [place] [address] Examination: CT of the chest with contrast. [...] Procedure Note Unruly Allan MD - 10/17/2024 [place] [id number] [place] [address] Examination: CT of the chest with contrast. [...] chronic/nonurgent findings as described. Ordered By: TRAVIS RENEE Interpreted By: Unruly Allan MD, 10/17/2024 4:28 PM Travis Renee MD CT Final Result from Last 3 Months or Most Recently Relevant to Health Maintenance Insurance MEDICAID [facility] MEDICARE Care Teams Safety Aide Relationship Specialty Start Date End Date Flaco Kelly MD [address] [place] [address] PCP - General FAMILY PRACTICE 01/03/23
[2025-01-18 09:58] LABS: Alanine Aminotransferase 54 U/L (6-50); Albumin Level 4.1 g/dL (3.5-5.1); Alkaline Phosphatase 620 U/L (38-126); Anion Gap 8 mmol/L (4-12); Aspartate Amino Transferase 45 U/L (17-59); Bilirubin,Total 1.4 mg/dL (0.2-1.3); Blood Urea Nitrogen 10 mg/dL (9-20); Calcium 9.7 mg/dL (8.4-10.2); Carbon Dioxide 29 mmol/L (22-30); Chloride 98 mmol/L (98-107); Estimated Glomerular Filt Rate > 60; Glucose 115 mg/dL (65-110); Osmolality Calculated 280 mOsm/kg (285-295); Potassium 4.5 mmol/L (3.4-5.0); Sodium 135 mmol/L (137-145); Total Protein 7.6 g/dL (6.3-8.2)
[2025-01-18 10:29] LABS: Prostate Specific Antigen < 0.1 ng/mL (< OR = 4.0)
[2025-01-18 10:33] LABS: Ferritin 243.00 ng/mL (11.1-264)
[2025-01-18 11:02] LABS: Iron 47 ug/dL (49-181)
[2025-01-18 11:05] LABS: Vitamin B12 965.0 pg/mL (239-931)
[2025-01-18 11:12] LABS: Percent Iron Saturation 16 % (20-50)
[2025-01-24 18:08] LABS: Testosterone, Total, LC/MS 450 ng/dL (.)
== END 2025-01-18 09:03 | disposition home or self-care (01) ==
PROVIDERS: PCP Family Medicine; Visit Provider Internal Medicine Hematology
DX: C20 Malignant neoplasm of rectum (principal); C61 Malignant neoplasm of prostate; Z12.5 Encounter for screening for malignant neoplasm of prostate
CPT/HCPCS: 36415; 80053; 82607; 82728; 82746; 83540; 83550; 84153; 84403; 85025; G0103

== ENCOUNTER 2025-01-21 08:50 | Outpatient (CLI) | payer MEDICARE, MEDICAID, SELFPAY ==
[2025-01-21 09:05] VITALS: BMI 22.8
[2025-01-21] MEDS: SODIUM CHLORIDE 0.9% IV 250 ML 10 ML IVPB (09:05)
[2025-01-21] MEDS: FAMOTIDINE 20 MG/2 ML VIAL IV PUSH (09:07)
[2025-01-21] MEDS: ONDANSETRON INJ 16 MG, dexAMETHasone SOD 4 MG/ML INJ 12 MG in SODIUM CHLORIDE 0.9% IV 1... 300 MG IVPB (09:15)
[2025-01-21 09:34] VITALS: BP 109/63; PULSE 78; RESP 16; TEMP 36.6; O2SAT 96
[2025-01-21] MEDS: IRINOTECAN HCL IVPB (10:00)
[2025-01-21] MEDS: LEUCOVORIN CALCIUM IV PUSH (10:00)
[2025-01-21] MEDS: SODIUM CHLORIDE 0.9% IVPB ×2 (10:00→11:40)
[2025-01-21] MEDS: SODIUM CHLORIDE 0.9% IV PUSH (10:00)
[2025-01-21] MEDS: ATROPINE SULFATE 0.4 MG/ML VIAL IV PUSH (10:02)
[2025-01-21] MEDS: FLUOROURACIL 2,500 MG/50 ML VIAL 750 MG IV PUSH (11:40)
[2025-01-21] MEDS: FLUOROURACIL IVPB (11:40)
[2025-01-21] MEDS: HEPARIN SODIUM LOCK FLUSH 500 UNITS/5 ML SYRINGE IV PUSH (12:06)
[2025-01-21 12:12] VITALS: BP 121/70; PULSE 80; RESP 14; TEMP 36.5; O2SAT 96
--- NOTE | 2025-01-21 12:14 | PC.NURSE ---
Patient tolerated chemo treatment well today. Will be going home on chemo pump of med 5 FU continuous for 46 hours. This is patient's 7 cycle and reports understanding of med/pump/chemo spill kit if needed after education.
[2025-01-23 09:50] VITALS: BP 111/69; PULSE 80; RESP 14; TEMP 36.5; O2SAT 96
--- NOTE | 2025-01-23 10:18 | PC.NURSE ---
01/23/25 0940 Patient here for chemo pump removal and port flush. Reports tolerated chemo infusion ok. Also reports just has no energy. Chemo pump removed and port flushed per protocol. No other concerns voiced. Safe exit of hospital ambulatory with daughter.
== END 2025-01-21 08:51 | disposition home or self-care (01) ==
PROVIDERS: PCP Family Medicine; Visit Provider Internal Medicine Hematology
DX: Z51.11 Encounter for antineoplastic chemotherapy (principal); C20 Malignant neoplasm of rectum
CPT/HCPCS: 96367; 96375; 96411; 96413; 96416; 96417; J0461; J0640; J1100; J1200; J2405; J7050; J9190; J9206

== ENCOUNTER 2025-02-01 08:54 | Outpatient (CLI) | payer MEDICARE, MEDICAID, SELFPAY ==
--- OUTSIDE RECORDS SUMMARY | 2025-02-01 09:18 | XMS_ITS | Clinical Summary ---
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) 11/28/2024 Travel 11/26/2024 7:57 AM CDT - 11/26/2024 11:59 PM T Hospital Encounter [facility] [address] [address] Kristen Moscoso MD Discharge Disposition: Home or [...] Sex Assigned at Male 04/20/2024 8:37 AM DIRECTOR RISK Legal Sex Male 9:40 AM CDT Gender Identity Not on file Sexual Orientation Not on file Last Filed Vital Signs Vital Sign Reading Time Taken Comments Blood Pressure 126/75 11/28/2024 8:59 AM CDT Pulse 71 11/28/2024 8:59 AM CDT Temperature 36.6 C (97.8 F) 03/18/2023 12:49 PM DIRECTOR RISK Respiratory Rate 14 11/28/2024 8:59 AM CDT Oxygen Saturation 100% 11/28/2024 8:59 AM CDT Inhaled Oxygen Concentration - - Weight 73.6 kg (162 lb 3.2 oz) 11/28/2024 8:59 A M CDT Height 177.8 cm (5' 10) 11/28/2024 8:59 AM CDT Body Mass Index 23.27 11/28/2024 8:59 AM CDT Plan of Treatment Upcoming Encounters Date Type Department Care Team (Late st Contact Info) Description 02/04/2025 12:30 PM [address] RIS[address] [facility] [address] [place] [address] Travis Ratliff MD [address] [address] 02/04/2025 1:30 [address] [facility] [place] [place] [address] Travis Ratliff MD [address] [id number] Health Maintenance Due Date Last Done Comments Hepatitis C 1978 Hepatitis A Vaccines (1 of 2 - Risk 2-dose series) 1978 Pneumococcal Vaccine: 50+ Years (1 of 1 - PCV) 2009 Zoster Vaccines (1 of 2) 2009 RSV Immunization or 60+ Years (1 - Risk 60-74 years 1-dose series) 2019 Annual Medicare Wellness Visit 02/01/2024 PHQ-2 (Physician [place]) 04/04/2024 COVID-19 Vaccine (3 - season) 2024 06/26/2020, 06/06/2020 Influenza Adult (#1) [...] 9:15 AM Narrative 11/26/2024 9:24 AM CDT [facility] [address] [place] [address] Examination: MRI ABD WWO CON 11/26/2024 Clinical [...] Procedure Note Cleve Etienne MD - 11/26/[address] [place] [address] Examination: MRI ABD WWO CON 11/26/2024 Clinical [...] 4:28 PM Narrative 10/17/2024 4:38 PM CDT [address] [place] [address] Examination: CT of the chest with contrast. [...] Procedure Note Unruly Allan MD - 10/17/2024 [facility] [address] [place] [address] Examination: CT of the chest with contrast. [...] Unruly Allan MD, 10/17/2024 4:28 PM Travis Ratliff MD CT Final Result from Last 3 Months or Most Recently Relevant to Health Maintenance Insurance MEDICAID [facility] MEDICARE Care Teams Brand Ambassadors Promotional Sales Relationship Specialty Start Date End Date Flaco Kelly MD [address] [place] [address] PCP - General FAMILY PRACTICE 01/03/23
[2025-02-01 09:27] LABS: Hematocrit 34.7 % (37.0-46.0); Hemoglobin 11.3 g/dL (12.4-15.3); Mean Corpuscular HGB Conc 32.6 g/dL (32-36); Mean Corpuscular Hemoglobin 29.2 pg (27.0-31.0); Mean Corpuscular Volume 89.7 fL (78.0-102.0); Platelet Count Result 320 K/mm3 (150-420); Red Blood Count 3.87 M/mm3 (4.70-6.10); White Blood Count 4.1 K/mm3 (4.8-10.8)
[2025-02-01 10:09] LABS: Alanine Aminotransferase 35 U/L (6-50); Albumin Level 3.8 g/dL (3.5-5.1); Alkaline Phosphatase 554 U/L (38-126); Anion Gap 8 mmol/L (4-12); Aspartate Amino Transferase 37 U/L (17-59); Bilirubin,Total 1.2 mg/dL (0.2-1.3); Blood Urea Nitrogen 10 mg/dL (9-20); Calcium 9.0 mg/dL (8.4-10.2); Carbon Dioxide 28 mmol/L (22-30); Chloride 98 mmol/L (98-107); Estimated Glomerular Filt Rate > 60; Glucose 119 mg/dL (65-110); Osmolality Calculated 278 mOsm/kg (285-295); Potassium 4.3 mmol/L (3.4-5.0); Sodium 134 mmol/L (137-145); Total Protein 6.5 g/dL (6.3-8.2)
[2025-02-05 09:33] LABS: Band Neutrophils Percent 3 % (0-6); Lymphocytes Absolute Manual 0.94 K/mm3 (1.1-4.5); Lymphocytes Percent Manual 23 % (18-44); Metamyelocytes Percent 2 %; Monocytes Absolute Manual 0.41 K/mm3 (0.1-0.90); Monocytes Percent Manual 10 % (3-9); Myelocytes Percent 2 %; Neutrophils Absolute Manual 2.58 K/mm3 (1.3-6.7); Neutrophils Percent Manual 60 % (46-73); Total Cells Counted 100
== END 2025-02-01 08:55 | disposition home or self-care (01) ==
PROVIDERS: PCP Family Medicine; Visit Provider Internal Medicine Hematology
DX: C20 Malignant neoplasm of rectum (principal)
CPT/HCPCS: 36415; 80053; 85025; 85027

== ENCOUNTER 2025-02-05 08:57 | Outpatient (CLI) | payer MEDICARE, MEDICAID, SELFPAY ==
[2025-02-05 09:05] VITALS: BP 112/64; PULSE 84; RESP 14; TEMP 36.6; O2SAT 98; BMI 21.2
[2025-02-05] MEDS: SODIUM CHLORIDE 0.9% IV 250 ML 10 ML IVPB (09:30)
[2025-02-05] MEDS: FAMOTIDINE 20 MG/2 ML VIAL IV PUSH (09:35)
[2025-02-05] MEDS: ONDANSETRON INJ 16 MG, dexAMETHasone SOD 4 MG/ML INJ 12 MG in SODIUM CHLORIDE 0.9% IV 8... 300 MG IVPB (09:37)
[2025-02-05] MEDS: ATROPINE SULFATE 0.4 MG/ML VIAL IV PUSH (09:58)
[2025-02-05] MEDS: IRINOTECAN HCL IVPB (10:01)
[2025-02-05] MEDS: SODIUM CHLORIDE 0.9% IVPB ×3 (10:01→11:37)
[2025-02-05] MEDS: LEUCOVORIN CALCIUM IVPB (10:02)
[2025-02-05] MEDS: FLUOROURACIL IVPB (11:37)
[2025-02-05] MEDS: FLUOROURACIL 2,500 MG/50 ML VIAL 750 MG IV PUSH (11:37)
[2025-02-05] MEDS: HEPARIN SODIUM LOCK FLUSH 500 UNITS/5 ML SYRINGE IV PUSH (11:38)
[2025-02-05 12:13] VITALS: BP 111/64; PULSE 80; RESP 14; TEMP 36.6; O2SAT 98
--- NOTE | 2025-02-05 12:16 | PC.NURSE ---
Tolerated chemo today well. Will be going home on chemo pump for next 46 hours. This is cycle 9. Patient has chemo spill kit at home. Reinforced education to patient. Patient has understanding of chemo pump and spill kit if needed.
[2025-02-07 10:10] VITALS: BP 115/74; PULSE 88; RESP 14; TEMP 36.6; O2SAT 97
--- NOTE | 2025-02-07 10:13 | PC.NURSE ---
Patient back to get chemo pump removed and port needle removed and port flush per protocol. Patient reports, Treatment went well.
== END 2025-02-05 08:58 | disposition home or self-care (01) ==
PROVIDERS: PCP Family Medicine; Visit Provider Internal Medicine Hematology
DX: Z51.11 Encounter for antineoplastic chemotherapy (principal); C20 Malignant neoplasm of rectum
CPT/HCPCS: 96367; 96368; 96375; 96411; 96413; 96416; 96417; J0461; J0640; J1100; J1200; J2405; J7050; J9190; J9206

== ENCOUNTER 2025-03-18 21:50 | Observation (INO) | payer MEDICARE, MEDICAID, SELFPAY ==
[2025-03-18] VITALS (9 sets, daily range): BP systolic 92–150; BP diastolic 71–131; PULSE 102–120; RESP 15–28; TEMP 36.2; O2SAT 94–96
--- OUTSIDE RECORDS SUMMARY | 2025-03-18 21:58 | XMS_ITS | Continuity of Care Document ---
Author Organization [facility], [facility] Address [address] [place] [address] Care Team Providers Care Industrial Commercial Groundskeeper Name Role Phone TRAVIS RATLIFF Medical Oncologist TEDDY ROMAN Colorectal Surgeon TRAVIS JUSTIN Urologist [phone] KIRSTIN HERNANDEZ Hematology/Oncology JACQUELIN DYE Radiation Oncologist MIGUELANGEL SARAVIA Primary Care Provider [phone] Assessment Encounter Date Assessment Date Assessment LastModified by Organization Details LastModified Time 01/22/2025 01/22/2025 Impressions: 64-year-old gentleman with 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 His PSA now is 0.013. he had been on 6 months Lupron, which he did recently receive again and abiraterone and prednisone which are being held at this time. 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 Plan: Continue with f/u with hem/onc for ongoing treatment symptoms,and imaging/ labs D/C from Radiation oncology Follow up with PCP for general health Continue with modified exercise as able and proper nutrition Education: [email or web address] Not available 01/23/2025 15:18:12 Plan of Treatment Reminders Order Date Submit [...] Abnormal Flag Note LastModifiedBy Organization Detail LastModifiedTime 12/28/19 25 11/26/2024 MRI, abdom en, w/wo contr ast No observ ation record ed. [email or web address] Not Available 12/27 14:31:12 Result Notes None recorded. Problems Name Problem SNOMED Code Status Onset Date Resolution Date Notes Provider Name and Address Organization Details Recorded Time Carcinoma of prostate 952356844 Active 2023 [place] 3+4 BX 06/21/23 Willow Brown, LAND COMMISSIONER, CHANGE MANAGEMENT CONSULTANT [address] [place] [address], [phone] [place] [address] 4 16:37:09 Malignant neoplasm of rectum 084252318 Active 2023 Cesar Rider-Jackson garrett [facility] 5 16:40:46 Lesion of spleen 006599462086 101 Active 2023 Oly Medrano [facility] 4 15:20:53 Adenocarci noma of prostate 390966361 Active 2023 [facility] 5 10:09:16 Adenocarci noma of rectum 336623707 Active 2024 [facility] 5 10:09:50 Malignant neoplasm of prostate 449990962 Active 2024 [facility] 5 17:09:05 Metastatic malignant neoplasm to liver 83407312 Active 2024 Cesar Rider-Jackson garrett [facility] 5 16:41:15 Primary malignant neoplasm of rectum 31511133 Active 2024 Myles Acevedo MD [address] [place] [address], [phone], [facility] 5 12:05:19 Primary carcinoma of prostate [facility] 2024 [email or web address] 5 09:32:34 Problem Notes None recorded. Procedures Surgical History Date Name Laterality Status Provider Name and Address Organization Details Recorded Time 09/12/19 24 cystoscopy completed Joanne Harvey [facility] 10/14/2023 11:10:48 Colonoscopy with biopsy completed Not Available Health Note 07/30/2024 13:03:42 Imaging Results None recorded. Procedure Notes None recorded. Medical Equipment None Reported. Allergies Allergen ID Allergen Name Allergen Category Reaction Reaction Severity Criticality Documentation Date Start Date Code Code System Note Provider Name and Address Organization Details Recorded Time [id number] codeine medicatio n vomiting Not available Not available 10/14/2023 2670 [email or web address] 4 11:08:52 Medications Name Sig Start Date [...] Not Available Not Available Not Available Vitals None Recorded Social History Question Answer Notes LastModified by [...] How Many Packs Per Day (PPD)? 1 [email or web address] Information not available 10/14/2023 How Long Have You Smoked? 50 [email or web address] Information not available 10/14/2023 What Was The [...] mcg/0.3 mL dose 06/06/2020 completed Not Available [facility] 10:42:45 COVID-19, mRNA, LNP-S, PF, 30 mcg/0.3 mL dose 06/26/2020 completed Not Available [facility] 10:42:45 Tdap 05/12/2021 completed Not Available [facility] 10/26/2024 10:42:45 Past Encounters Encounter ID Performer Location Encounter Start Date Encounter Closed Date Diagnosis/Indication Diagnosis SNOMED-CT Code Diagnosis ICD10 Code Diagnosis IMO Codes Diagnosis Note [id number] Aretha Hubbard, LAND COMMISSIONER, [facility] [address] [place] [id number] 01/22/2025 16:37:36 01/22/2025 17:45:16 Primary carcinoma of prostate [id number] C61 Health Concerns Section Related Observation LastModified by Organization Detai ls LastModified Time None Recorded Concern Status LastModified by Organization Details LastModified Time None Recorded Payers Encounter Date Sequence Insurance Name Policy Number Policy Singletary Covered Member ID Singletary Member ID Guarantor Name 01/22/2025 2 [place]: [place] [employer] Aubrey Garcia [id number] Aubrey Garcia 01/22/2025 1 [facility] (MEDICARE REPLACEMENT/A DVANTAGE - HMO) [id number] Aubrey Garcia [id number] Aubrey Garcia Notes Date Note Type Note Provider Name and Address Organization Details Recorded Time 5 text/html ROS as noted in the HPI Aubrey Garcia4 yo Identifying [id number] 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 CT chest lung screening protocol at [facility] was performed with radiology interpretation of [...] a prostate biopsy. 1 05/19/2022: Colonoscopy at [facility] was performed. Specimen [id number] associated with colon descending polyp biopsy, tubular [...] ng/mL. : CT abdomen and pelvis at [facility] resulted circumferential wall thickening of rectum, [...] is mild prostatomegaly. : MRI pelvis at [facility] was performed with radiology interpretation of [...] mesorectal lymph nodes. : MRI pelvis at [facility] was performed with radiology interpretation of [...] additional imaging for staging.05/25/2023: CT chest at [facility] was performed with radiology interpretation of no CT evidence of metastatic disease in the chest, no mediastinal or hilar lymphadenopathy. There is a prominent 8 mm portal caval lymph node, for which continued attention on follow up was recommended.06/21/2023: PSA 15.51 ng/mL.06/21/2023: Truss biopsy with Dr. Nails, specimen [id number] resulted prostate adenocarcinoma, [place] grade 3+4=7, corresponding with grade group 2, [...] Justin in Urology.08/26/2023: PSMA PET CT at [facility] was performed with radiology interpretation of [...] lymph node. Continued attention on follow-up is nztyszcgsgi49/2024: CT of pelvis/ abdomenIMPRESSION:Changes prostatic hyperplasia. PI-RADS Category 1: Very LowRisk2. Post radiation changes throughout the prostate. The previouslyseen lesions are no longer well-visualized3. Ill-defined nodule in the right basilar transitional zone.PI-RADS Category 2: Low Risk Per Oncology note:MRI done at [facility]/19/2024: MRI pelvis with/without contrast showed persistent circumferential [...] surgery is being planned, add Avastin to FOLFIRINo surgical option per Kristina due to liver lesions Continue Lupron q.6 months, next due on 11/07/2024 .Patient would like to hold off on adding abiraterone 1000 mg + prednisone 5 mg daily x 2 years for now 01/2025: PSA <0.1 Continue with FOLFIRI Lupron in April 2025 Re staging per oncology CT of chest/ MRI of liver Interval History I communicated with the patient on this date of service . 10 minutes using [id number]-cz-face methods, including telephone or secure portal messaging. This encounter did not include real-time video interaction. The clinical decision making and patient management were based on the information exchange during the communication. Mr Garcia is a pleasant 64 year old gentleman who completes a T/C secondary to completing RT for adenocarcinoma of prostate. He also has adenocarcinoma of colorectal and liver mets. He is currently at the infusion clinic having his chemo> he reports he is doing fairly well with the exception of weight loss. He does report he is eating and drinking but it was not recommended to utilize the nutritional shakes due to his liver mets. In regards to his urinary system, he denies any dysuria, burning or hematuria. Does have some urgency and frequency but manageable at this time. No dribbling or incontinence. He does have some nocturia 4-5x so we discussed increasing the tamsulosin at hs along with am dose. He agreed. I have discussed watching for light headedness. Some bowel change but related to chemo. Aretha Hubbard, LAND COMMISSIONER, CHANGE MANAGEMENT CONSULTANT [address] [facility], [place], [address], [facility] 01/23/2025 15:18:47
--- OUTSIDE RECORDS SUMMARY | 2025-03-18 21:58 | XMS_ITS | Data Portability ---
Author Organization [facility], [address] [place] ([place]) Address [address] [place] [address] Care Team Providers Care Order Dispatcher Name Role Phone TRAVIS RATLIFF Medical Oncologist [phone] TEDDY ROMAN Colorectal Surgeon [phone] TRAVIS JUSTIN Urologist ANGEL HERNANDEZ Hematology/Oncology [phone] JACQUELIN GE Radiation Oncologist MIGUELANGEL SARAVIA Primary Care Provider [phone] Assessment Encounter Date Assessment Date Assessment LastModified by Organization Details LastModified Time 08/22/2024 08/22/2024 Flexible sigmoidoscopy [email or web address] Not available 08/22/2024 12:33:09 10/02/2024 10/02/2024 Labs; PSA <0.4 for which we discussed and reviewed Impressions: Diagnosis of prostate adenocarcinoma with seminal vesicle invasion, clinical stage [id number], Kavitha 3+4=7, grade group 2, highest PSA [...] 22:42:06 10/26/2024 10/26/2024 Roberto is in a bit of a difficult situation between a rock [...] surgery. [email or web address] Not available 10/26/2024 13:27:59 01/22/2025 01/22/2025 Impressions: 64-year-old gentleman with synchronous primary of Adenocarcinoma of the prostate, clinical stage W6wO1T1 with seminal vesicle invasion, [place] 3+4=7, grade group 2, PSA of 19.6. [...] exercise as able and proper nutrition Education: [email or web address] Not available 01/23/2025 15:18:12 Plan of Treatment [...] auto diff CBC with differential Not Available [facility] - [facility] [address] [place] [address], [id number], 08/06/2024 13:43:40 08/07/19 25 08/06/2024 CBC w/ auto diff WBC 6.8 K/uL 4.8- 10.8 Not Available [facility] - [facility] [address] [place] [address], 38598, 08/06/2024 13:43:40 08/07/19 25 08/06/2024 CBC w/ auto diff RBC 4.21 M/uL 4.70-6 .10 low Not Available [facility] - [facility] [address] [place] [address], 17884, 08/06/2024 13:43:40 08/07/19 25 08/06/2024 CBC w/ auto diff HGB 12.8 g/dL 14.0-1 8.0 low Not Available [facility] [address] [place] [address], [id number], 08/06/2024 13:43:40 08/07/19 25 08/06/2024 CBC w/ auto diff HCT 37.0 % 42.0-5 2.0 low Not Available [facility] [address] [place] [address], 47022, 08/06/2024 13:43:40 08/07/19 25 08/06/2024 CBC w/ auto diff MCV 87.9 fL 80.0-9 4.0 Not Available [facility] [address] [place] [address], 69005, 08/06/2024 13:43:40 08/07/19 25 08/06/2024 CBC w/ auto diff MCH 30.4 pg 27.0- 31.0 Not Available [facility] Only - [facility] [address] [place] [address], 32701, 08/06/2024 13:43:40 08/07/19 25 08/06/2024 CBC w/ auto diff MCHC 34.6 g/dL 32.0-3 6.0 Not Available [facility] - [facility] [address] [place] [address], 26383, 08/06/2024 13:43:40 08/07/19 25 08/06/2024 CBC w/ auto diff RDW-SD 45.4 fL 35.1 - 46.3 Not Available [facility] - [facility] [address] [place] [address], 26696, 08/06/2024 13:43:40 08/07/19 25 08/06/2024 CBC w/ auto diff plt 215 K/uL 130-40 0 Not Available [facility] [address] [place] [address], 22044, 08/06/2024 13:43:40 08/07/19 25 08/06/2024 CBC w/ auto diff MPV 9.4 fL 7.5- 11.8 Not Available [facility] [address] [place] [address], 06437, 08/06/2024 13:43:40 08/07/19 25 08/06/2024 CBC w/ auto diff stanislaw% 74.7 % not estab Not Available [facility] [address] [place] [address], 01268, 08/06/2024 13:43:40 08/07/19 25 08/06/2024 CBC w/ auto diff lym% 13.9 % not estab Not Available [facility] [address] [place] [address], 88599, 08/06/2024 13:43:40 08/07/19 25 08/06/2024 CBC w/ auto diff mono% 8.9 % not estab Not Available [facility] [address] [place] [address], 57973, 08/06/2024 13:43:40 08/07/19 25 08/06/2024 CBC w/ auto diff eos% 1.8 % not estab Not Available [facility] [address] [place] [address], 14834, 08/06/2024 13:43:40 08/07/19 25 08/06/2024 CBC w/ auto diff baso% 0.4 % not estab Not Available [facility] [address] [place] [address], 11492, 08/06/2024 13:43:40 08/07/19 25 08/06/2024 CBC w/ auto diff abs stanislaw 5.1 K/uL 1.5-7. 5 Not Available [facility] [address] [place] [address], 68789, 08/06/2024 13:43:40 08/07/19 25 08/06/2024 CBC w/ auto diff abs lym 0.9 K/uL 1.2-3. 4 low Not Available [facility] [address] [place] [address], 06722, 08/06/2024 13:43:40 08/07/19 25 08/06/2024 CBC w/ auto diff abs mono 0.6 K/uL 0.1-1. 0 Not Available [facility] [address] [place] [address], 39872, 08/06/2024 13:43:40 08/07/19 25 08/06/2024 CBC w/ auto diff abs eos 0.1 K/uL 0.0-0. 7 Not Available [facility] [address] [place] [address], 24167, 08/06/2024 13:43:40 08/07/19 25 08/06/2024 CBC w/ auto diff abs baso 0.0 K/uL 0.0-0. 2 Not Available [facility] - [facility] [address] [place] [address], 10976, 08/06/2024 13:43:40 08/07/19 25 08/06/2024 CBC w/ auto diff imm. gran % 0.3 % 0-5 Not Available Ca On y - [facility] [address] [place] [address], 52740, 08/06/2024 13:43:40 08/07/19 25 08/06/2024 CBC w/ auto diff NRBC % 0.0 % 0.0-0. 2 Not Available [facility] - [facility] [address] [place] [address], 21482, 08/06/2024 13:43:40 08/07/19 25 08/06/2024 carci noemb ryoni c Ag, quant , serum or plasm a cea 7.4 NG/mL <0.5-3 .0 high This test is perfo rmed on a [employer] ns At[employer] ica gino zer. Since there are not exist ing stand maria alejandra refer ence units , users robbieul d not make ashly rison s betwe en metho ds. Not Available [facility] - [facility] [address] [place] [address], 38542, 08/06/2024 16:14:48 08/07/1908/06/2024 CMP, serum or plasm a comp. met. panel Not Available [facility] [address] [place] [address], 05288, 08/06/2024 16:24:03 08/07/19 25 08/06/2024 CMP, serum or plasm a sodium 133 mmol/ L 136-14 6 low Not Available [facility] [address] [place] [address], 14605, 08/06/2024 16:24:03 08/07/19 25 08/06/2024 CMP, serum or plasm a potassium 4.0 mmol/ L 3.5-5. 1 Not Available [facility] [address] [place] [address], 47772, 08/06/2024 16:24:03 08/07/19 25 08/06/2024 CMP, serum or plasm a chloride 100 mmol/ L 98-110 Not Available [facility] [address] [place] [address], 53834, 08/06/2024 16:24:03 08/07/19 25 08/06/2024 CMP, serum or plasm a CO2 29 mEq/L 20-32 Not Available [facility] [address] [place] [address], 12397, 08/06/2024 16:24:03 08/07/19 25 08/06/2024 CMP, serum or plasm a anion gap 8 mmol/ L 10-22 low Not Available [facility] [address] [place] [address], 54050, 08/06/2024 16:24:03 08/07/19 25 08/06/2024 CMP, serum or plasm a glucose 119 mg/dL 70-100 high Not Available [facility] [address] [place] [address], 04685, 08/06/2024 16:24:03 08/07/19 25 08/06/2024 CMP, serum or plasm a calcium 9.2 mg/dL 8.4-10 .4 Not Available [facility] [address] [place] [address], 92876, 08/06/2024 16:24:03 08/07/19 25 08/06/2024 CMP, serum or plasm a total protein 7.0 g/dL 6.4-8. 3 Not Available [facility] [address] [place] [address], 61079, 08/06/2024 16:24:03 08/07/19 25 08/06/2024 CMP, serum or plasm a albumin 4.3 g/dL 3.5-5. 3 Not Available [facility] [address] [place] [address], 95127, 08/06/2024 16:24:03 08/07/19 25 08/06/2024 CMP, serum or plasm a ALP 292 U/L 44 - 127 high Not Available [facility] [address] [place] [address], 80469, 08/06/2024 16:24:03 08/07/19 25 08/06/2024 CMP, serum or plasm a AST (SGOT) 52 U/L 10-40 high Not Available [facility] [address] [place] [address], 79957, 08/06/2024 16:24:03 08/07/19 25 08/06/2024 CMP, serum or plasm a total bilirubin 0.5 mg/dL 0.2-1. 2 Not Available [facility] [address] [place] [address], 73916, 08/06/2024 16:24:03 08/07/19 25 08/06/2024 CMP, serum or plasm a ALT (SGPT) 112 U/L 8-35 high Not Available [facility] [address] [place] [address], 95127, 08/06/2024 16:24:03 08/07/19 25 08/06/2024 CMP, serum or plasm a BUN 11 mg/dL 7-21 Not Available [facility] [address] [place] [address], 65996, 08/06/2024 16:24:03 08/07/19 25 08/06/2024 CMP, serum or plasm a creatinine 0.8 mg/dL 0.7-1. 3 Not Available [facility] [address] [place] [address], 58381, 08/06/2024 16:24:03 08/07/19 25 08/06/2024 CMP, serum or plasm a CKD-epi GFR 98 eGFR was calcu lated using the 2020 CKD-E PI equat ion. ([employer] Watcher nicolasa Fredy y Marilee se has an eGFR less than 60 mL/mi n/1.7 3mm for a perio d of three month s or more. ) This calcu latio n has not been valid ated for patie nt ages <18 or >90 years old. Not Available [facility] [address] [place] [address], 89976, 08/06/2024 16:24:03 08/07/19 25 08/06/2024 PSA, serum or plasm a PSA <0.04 NG/mL 0.04-4 .900 This test is perfo rmed on a [employer] ns Atell ica gino zer. Since there are not exist ing stand maria alejandra refer ence units , users shoul d not make ashly rison s betwe en metho ds. Not Available [facility] [address] [place] [address], 97338, 08/06/2024 16:55:19 08/23/19 25 08/24/2024 surgi abimbola patho logy study tissue exam biopsy [facility] [address],[place] [address] Ph. [phone] Chinmay Chambers MD, PhD, Medic al [facility] , DAVID Waters MD Patie nt: JOSELYN ALEXIS e ID: [id number] Repor t Statu s: Final :1 1959 Case #: [id number] Age: 64 Y Gende r: M Date Colle cted: 08/22 MRN # : [id number] Date Recei kike: 08/22 Repor sally Date: 08/24 FINAL DIAGN OSIS: Rectu m, mass, biops y: - Invas vaibhav moder ately diffe renti ated adeno carci noma [facility] repai r prote in by immun ohist ochem istry (bloc k A1): hMLH- 1: Expre ssed hMSH- 2: Expre ssed hMSH- 6: Expre ssed PMS2: Expre ssed Inter preta tion: Nikki l, these resul ts indic ate prese rved DNA misma tch repai r funct ion. Intra depar tment al consu ltati on was obtai norah for quali ty assur ance purpo ses. Elect shira roca Verif ied by Miguel Weaver MD Elect shira head 08/24 09:53 SPECI MEN SOURC E: Rectu m, mass, biops y GROSS DESCR IPTIO N: The speci men conta iner( s) and requi sitio n have the same patie nt name. Recei kike in 10% neutr al buffe red forma miguel for forma miguel-f ixed paraf fin-e mbedd ed secti ons label ed A, recta l mass biops y are three fragm ents of pale yello w soft tissu e that are 0.4-0 .5 cm in great est dimen leida. The speci men is entir benji submi tted for histo logic study in one casse tte. CLINI ABIMBOLA INFOR MATIO N: Recta l cance r. Not Available [facility] - [facility] [address] [place] [address], 75936, 08/24/2024 10:59:22 09/06/19 25 08/31/2024 ir clini c visit [facility] [address] [place], [place] [address] [phone] Name: ROBERTO MORRELL RD Age: 64 : 1959 Exam Date: 2024 ACCESS ION: [id number] JALIL CANADA MD: KRISTEN GARCIA Please refer to Teena byrant [facility] for result s. Final Report Dictat ed: 12:52 Radiol ogist , Inquir y Signed : 14:43 Radiol ogist , Inquir y INTERFACE Sc Only - [facility] [address] [place] [address], 67144, 09/05/2024 16:45:16 11/06/19 25 08/26/2023 PET-C T, skull base to mid-t high scan No observ ation record ed. [email or web address] Not Available 2024 15:12:10 11/07/19 25 03/14/2024 MRI, pelvi s, w/wo contr ast No observ ation record ed. [email or web address] Not Available 2024 15:12:11 11/07/19 25 07/14/2022 MRI, pelvi s, w/wo contr ast No observ ation record ed. [email or web address] Not Available 2024 15:12:11 11/07/19 25 07/24/2024 CT, chest + abdom en + pelvi s, w/ contr ast No observ ation record ed. Not Available 2024 15:12:11 11/07/19 25 07/03/2024 XR, chest , 2 view No observ ation record ed. [email or web address] Not Available 2024 15:12:11 12/28/19 25 11/26/2024 MRI, abdom en, w/wo contr ast No observ ation record ed. [email or web address] Not Available 12/27 14:31:12 Result Notes None recorded. Problems Name Problem SNOMED Code Status Onset Date Resolution Date Notes Provider Name and Address Organization Details Recorded Time Carcinoma of prostate 336257299 Active 2023 [place] 3+4 BX 06/21/23 Willow Brown, TEMPORARY HELP AGENCY REFERRAL CLERK, FUNDRAISING MANAGER [address] [place] [address], [address]16[address], [facility] 4 16:37:09 Malignant neoplasm of rectum 099818704 Active 2023 Cesar garrett [facility] 5 16:40:46 Lesion of spleen 585833348935 101 Active 2023 Oly Medrano [facility] 4 15:20:53 Adenocarci noma of prostate 421369176 Active 2023 [facility] 5 10:09:16 Adenocarci noma of rectum 218750300 Active 2024 [facility] 5 10:09:50 Malignant neoplasm of prostate 594998825 Active 2024 [facility] 5 17:09:05 Metastatic malignant neoplasm to liver 46750540 Active 2024 Cesar garrett [facility] 5 16:41:15 Primary malignant neoplasm of rectum 41854021 Active 2024 David Acevedo MD [address] [place] [address], 65[address] 3[facility] 5 12:05:19 Primary carcinoma of prostate Active 2024 Lucypeyton Harvey [facility] 5 09:32:34 Problem Notes None recorded. Procedures Surgical History Date Name Laterality Status Provider Name and Address Organization Details Recorded Time 09/12/19 24 cystoscopy completed Joanne Wes [facility] 10/14/2023 11:10:48 Colonoscopy with biopsy completed Not Available Health Note 07/30/2024 13:03:42 Imaging Results None recorded. Procedure Notes None recorded. Medical Equipment None Reported. Allergies Allergen ID Allergen Name Allergen Category Reaction Reaction Severity Criticality Documentation Date Start Date Code Code System Note Provider Name and Address Organization Details Recorded Time 1069816 codeine medicatio n vomiting Not available Not available 10/14/2023 2670 RxNorm Joanne Harvey [facility] 4 11:08:52 Medications Name Sig Start Date [...] Updated DateTime 10/26/2024 176.53 cm 23.7 kg/m2 60675.56 g 75 /min 128/79 mm[Hg] Hawa Cook [facility] 10:59:29 Social History Question Answer Notes [...] How Many Packs Per Day (PPD)? 1 [email or web address] Information not available 10/14/2023 How Long Have You Smoked? 50 [email or web address] Information not available 10/14/2023 What Was The Date Of Your Most Recent Tobacco Screening? 08/06/2024 [email or web address] Information not available 07/30/2024 What Is Your Current Pack Years? [email or web address] Information not available 07/30/2024 What [...] mcg/0.3 mL dose 06/06/2020 completed Not Available [employer] 10:42:45 COVID-19, mRNA, LNP-S, PF, 30 mcg/0.3 mL dose 06/26/2020 completed Not Available [facility] 10:42:45 Tdap 05/12/2021 completed Not Available [facility] 10/26/2024 10:42:45 Past Encounters Encounter ID Performer Location Encounter Start Date Encounter Closed Date Diagnosis/Indication Diagnosis SNOMED-CT Code Diagnosis ICD10 Code Diagnosis IMO Codes Diagnosis Note [id number] Pj Humphrey MD [facility] ([place] [address] [place] [address] 03389-238 1 10/14/2023 10:29:35 11/02/2023 09:10:53 Carcinoma of prostate 846171526 C61 Malignant neoplasm of rectum [id number] [facility] [id number] Eddie reynolds MD [facility] [place] [address] [place] [address] 54395-464 1 11/02/2023 11:55:49 11/02/2023 14:08:15 [id number] Pj Humphrey MD [facility] [place] [address] [place] [address] 73937-185 1 11/10/2023 09:36:35 11/10/2023 10:32:15 [id number] [facility] [address] [place] [address] 08389-179 1 11/17/2023 09:29:55 11/17/2023 10:28:06 [id number] [facility] [address] [place] [address] 29984-837 1 11/24/2023 09:23:05 11/24/2023 12:11:38 [id number] Pj Humphrey MD [facility] [place] [address] [place] [address] 57383-708 1 12/01/2023 09:16:20 12/01/2023 10:20:01 [id number] Jacquelin Ge MD [facility] [place] [address] [place] [address] 64587-191 1 02/08/2024 09:21:44 02/09/2024 12:00:56 [id number] Willow Brown APRN, [facility] [place] [address] [place] [address] 47542-551 1 03/13/2024 15:37:27 03/13/2024 16:06:16 Adenocarcinoma of prostate 170331192 C61 [id number] Aretha Hubbard APRN, [facility] [place] [address] [place] [address] 65968-265 1 06/12/2024 17:32:28 06/12/2024 17:57:29 Adenocarcinoma of prostate 292743295 C61 [id number] Adenocarci noma of rectum 365816756 C20 [id number] Angel Hernandez MD [address] Oncology/ Hematolog y ([place]) [address] [place] [address] 08/06/2024 12:16:05 08/07/2024 16:50:42 Malignant neoplasm of rectum 665348446 C20 72975 Malignant neoplasm of prostate 056426950 C61 [id number] David Acevedo MD [address] Colorecta l ([place]) [address] [place] [address] 08/10/2024 09:00:53 08/10/2024 10:29:22 Malignant neoplasm of rectum 632615928 C20 [id number] David Acevedo MD [facility] Colorect[facility] l ([place]) [address] [place] [address], [address] [place] [address] 65571-[address] 3 08/22/2024 10:32:47 08/28/2024 09:29:06 [id number] Stiven Corrales MD [facility] GI Anesthesi a S [address] [place] [address] 36156-8[address] 3 08/22/2024 10:32:45 09/01/2024 08:06:43 [id number] Aretha Hubbard APRN, [facility] [place] [address] [place] [address] 13544-935 1 10/03/2024 13:38:12 10/04/2024 12:54:31 Adenocarcinoma of rectum 567696865 C20 [id number] Metastatic malignant neoplasm to liver 71812018 C78.7 [id number] David Acevedo MD [address] ([place] [address] [place] [address] 10/26/2024 10:42:22 10/26/2024 12:15:27 Primary malignant neoplasm of rectum 21186086 C79.9 C20 [id number] Aretha Hubbard, TRACY, FUNDRAISING MANAGER [facility] ([place]) [address] [place] [address] 22764-040 1 01/22/2025 16:37:36 01/22/2025 17:45:16 Primary carcinoma of prostate 7729285039 C61 Health Concerns Section Related Observation LastModified by Organization Detai ls LastModified Time None Recorded Concern Status LastModified by Organization Details LastModified Time None Recorded Advance Directives Directive N: Payers Insurance Date Sequence Insurance Name Policy Number Policy Singletary Covered Member ID Singletary Member ID Guarantor Name 02/06/2024 1 [facility] PRIOR TO 11/02/2024 (MEDICAID REPLACEMENT - HMO) [id number] Roberto Garcia [id number] Roberto Garcia 02/22/2025 2 [place] Roberto Garcia [id number] Roberto Garcia 02/14/2024 3 [employer] (MEDICARE SUPPLEMENT) Roberto Garcia [id number] Roberto Garcia 08/10/2024 2 [facility] (MEDICARE SUPPLEMENT) PLAN N Roberto Garcia [id number] Roberto Garcia 12/20/2024 1 [place] Roberto Garcia [id number] Roberto Garcia 02/07/2025 1 [facility] (MEDICARE REPLACEMENT/A DVANTAGE - HMO) [id number] Roberto Garcia [id number] Roberto Garcia Notes Date Note Type Note Provider Name and Address Organization Details Recorded Time 5 text/html Roberto is a 64-year-old male here to see me for a second opinion for rectal cancer. He has been cared for by Dr. Ratliff with oncology and Dr. Roman with colorectal surgery with [facility]. I am in the process [...] This was treated, I am told, by [facility] with a liver ablation. The [...] HISTORY:Hernia repair, right inguinal.FAMILY HISTORY:Father, colon cancer. David Acevedo MD [address] [place] [address], [phone], [facility] 08/22/2024 12:33:14 5 text/html [facility] PRE-ANESTHETIC EVALUATIONReported by PatientReason for VisitFor reason for visit, patient reportsproposed procedure: flex sig with bx or polypectomy,surgeon: sandie, andpreop diagnosis: malignant neoplasm of rectum.Review of SystemsFor general, patient reportsexercise tolerance moderate,denies sob, mcadonald, pnd, anddenies chest pain or chest tightness. [...] to proceed.. 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 [...] . CT chest lung screening protocol at [facility] was performed with radiology interpretation of [...] a prostate biopsy. 1 05/19/2022: Colonoscopy at [facility] was performed. Specimen [id number] associated with colon descending polyp biopsy, tubular [...] ng/mL. : CT abdomen and pelvis at [facility] resulted circumferential wall thickening of rectum, [...] or inflammatory processes. There is mild prostatomegaly. 1 /: MRI pelvis at [facility] was performed with radiology interpretation of [...] mesorectal lymph nodes. : MRI pelvis at [facility] was performed with radiology interpretation of [...] ng/mL.06/21/2023: Truss biopsy with Dr. Nails, specimen [id number] resulted prostate adenocarcinoma, [place] grade 3+4=7, corresponding [...] Justin in Urology.08/26/2023: PSMA PET CT at [facility] was performed with radiology interpretation of [...] lymph node. Continued attention on follow-up is ldtdylhwgfl64/2024: CT of pelvis/ abdomenIMPRESSION:Changes prostatic hyperplasia. PI-RADS Category 1: Very LowRisk2. Post radiation changes throughout the prostate. The previouslyseen lesions are no longer well-visualized3. Ill-defined nodule in the right basilar transitional zone.PI-RADS Category 2: Low Risk Per Oncology note:MRI done at Dsmlgwqmoj81/19/2024: MRI pelvis with/without contrast showed persistent circumferential [...] is yet to be determined Aretha Hubbard, TRACY, FUNDRAISING MANAGER [address] [place] [address], [phone], [facility] 10/08/2024 22:52:06 5 text/html Here to discuss cancer surgery.taking Miralax BID now for constipationRoberto Costas a 64 year oldmalepresenting for care. SUBJECTIVE:Roberto [...] more chemotherapy given the stage IV disease. David Acevedo MD [facility], [phone], [facility] 10/31/2024 15:09:49 5 text/html ROS as noted in the HPI Roberto Garcia yo Identifying [id number]-sabx-zkw male with adenocarcinoma of the midrecrum with [...] adenocarcinoma with seminal vesicle invasion, clinical stage [id number], [place] 3+4=7, grade group 2, highest PSA 19.6. [...] . CT chest lung screening protocol at [facility] was performed with radiology interpretation of [...] a prostate biopsy. 1 05/19/2022: Colonoscopy at [facility] was performed. Specimen [id number] associated with colon descending polyp biopsy, tubular [...] ng/mL. : CT abdomen and pelvis at [facility] resulted circumferential wall thickening of rectum, [...] is mild prostatomegaly. : MRI pelvis at [facility] was performed with radiology interpretation of [...] mesorectal lymph nodes. : MRI pelvis at [facility] was performed with radiology interpretation of [...] ng/mL.06/21/2023: Truss biopsy with Dr. Nails, specimen [id number] resulted prostate adenocarcinoma, [place] grade 3+4=7, corresponding with grade group 2, [...] Justin in Urology.08/26/2023: PSMA PET CT at [facility] was performed with radiology interpretation of [...] lymph node. Continued attention on follow-up is tqatutryuec69/2024: CT of pelvis/ abdomenIMPRESSION:Changes prostatic hyperplasia. PI-RADS Category 1: Very LowRisk2. Post radiation changes throughout the prostate. The previouslyseen lesions are no longer well-visualized3. Ill-defined nodule in the right basilar transitional zone.PI-RADS Category 2: Low Risk Per Oncology note:MRI done at [facility]2024: MRI pelvis with/without contrast showed persistent circumferential [...] add Avastin to FOLFIRINo surgical option per Sandie due to liver lesions Continue Lupron q.6 [...] date of service . 10 minutes using svx-sgdx-pe-face methods, including telephone or secure portal messaging. [...] change but related to chemo. Aretha Hubbard, TEMPORARY HELP AGENCY REFERRAL CLERK, FUNDRAISING MANAGER [address], [place], [address], [place] [facility] 01/23/2025 15:18:47
--- OUTSIDE RECORDS SUMMARY | 2025-03-18 21:58 | XMS_ITS | Clinical Summary ---
Author Organization [facility] Address [facility] [place] [address] Care Team Providers Care Registered Representative Name Role Phone Flaco Kelly MD Primary Care Provider [phone] Allergies Active Allergy Reactions Criticality Noted Date [...] Encounters Date Type Department Care Team Description 02/04/2025 12:30 PM PACKAGE DYEING MACHINE OPERATOR - 02/04/2025 11:59 PM [facility] Hospital Encounter [facility] [address] [facility] [address] [place] [address] Travis Ratliff MD Discharge Disposition: Home or Self Care (Routine Discharge) 02/04/2025 Travel from Last 3 Months Social History Tobacco Use Types Packs/Day Years Used Date Smoking Tobacco: Former Cigarettes S tarted: 2024 Smokeless Tobacco: Never Tobacco Cessation:Counseling Given: Not Answered Alcohol Use Standard Drinks/Week Comments Not Currently 0 (1 standard drink = 0.6 oz pur e alcohol) Sex and Gender Information Value Date Recorded Sex Assigned at Male 04/20/2024 8:37 AM PACKAGE DYEING MACHINE OPERATOR Legal Sex Male 9:40 AM CDT Gender Identity Not on file Sexual Orientation Not on file Last Filed Vital Signs Vital Sign Reading Time Taken Comments Blood Pressure 126/75 11/28/2024 8:59 AM CDT Pulse 71 11/28/2024 8:59 AM CDT Temperature 36.6 C (97.8 F) 03/18/2023 12:49 PM PACKAGE DYEING MACHINE OPERATOR Respiratory Rate 14 11/28/2024 8:59 AM CDT [...] Annual Medicare Wellness Visit 02/01/2024 PHQ-2 (Physician [place]) 04/04/2024 COVID-19 Vaccine (3 - season) 2024 06/26/2020, 06/06/2020 Influenza Adult (#1) 2025 DTaP, Tdap and Td Vaccines (2 - Td or Tdap) 05/12/2031 05/12/2021 AAA SCREENING Completed 02/04/2025, 10/02, 07/24/2024, Additional history exists Meningococcal B Vaccine Aged [...] Associated Diagnosis Comments MRI ABD WWO CON Routine 02/04/2025 1:47 PM PACKAGE DYEING MACHINE OPERATOR Prostate cancer (CMS/HCC HHS/HCC) Rectal cancer metastasized to liver (CMS/HCC HHS/HCC) CT CHEST W CON Routine 02/04/2025 1:03 PM PACKAGE DYEING MACHINE OPERATOR Prostate cancer (CMS/HCC HHS/HCC) Rectal cancer metastasized to liver (CMS/HCC HHS/HCC) from Last 3 Months Results * MRI ABD WWO CON (02/04/2025 1:47 PM PACKAGE DYEING MACHINE OPERATOR) Anatomical Region Laterality Modality Abdomen Magnetic Resonan ce 02/05/2025 9:24 AM PACKAGE DYEING MACHINE OPERATOR Impressions 02/05/2025 9:59 AM PACKAGE DYEING MACHINE OPERATOR Impression: 1. Interval increase in size of the metastatic lesions within the liver as described in the report. There are several other small micrometastasis throughout both lobes of the liver that are new from the recent exam from November this year. 2. Redemonstrated infiltrative metastasis involving segments 5 and 6 of the liver with regional intrahepatic biliary dilation. 3. Nonocclusive thrombus is seen within the right hepatic vein and right intrahepatic portal vein. The nonocclusive thrombus in the right hepatic vein likely extends into the IVC. 4. Upper abdominal lymphadenopathy is similar to prior. 5. New mild right-sided hydronephrosis. 6. The urinary bladder is significantly distended, partially included on this exam. 7. Trace right pleural effusion. A Significant message has been sent initially to TRAVIS MCKEONvia the [employer] system on 02/05/2025 9:59 AM, Message ID [id number]. Receipt of this communication by the appropriate provider/service will be electronically recorded and documented by [employer] upon receiving acknowledgement. Ordered By: TRAVIS RATLIFF Interpreted By: Luther Mathis MD, 02/05/2025 9:24 AM Narrative 02/05/2025 9:59 AM PACKAGE DYEING MACHINE OPERATOR [address] [place] [address] Examination: MR abdomen without and with contrast. Clinical Information: RECTAL CANCER METASTASIZED TO LIVER Comparison: MRI 11/26/2024 and 08/23/2024. CT 07/24/2024. Technique: Sequences: Multiplanar, multisequence MR images of the abdomen and pelvis were obtained before and after the administration of 14 mL of dotarem. Findings: LIVER: Morphology: Normal. Hepatic steatosis: Absent. Iron overload: Absent. Focal liver lesion(s): Redemonstrated metastatic lesion involving the junction of segments 4A and 8 measuring 7.2 x 4.8 cm on this exam (series 11 image 29), increased since prior. An adjacent smaller metastasis is again noted in the right dome of the liver, now measuring 1.5 cm (series 11 image 20), previously 0.5 cm. Redemonstrated metastatic lesion involving the medial segment of the left hepatic lobe within segment IVb (series 11 image 26), measuring 2.9 x 2.2 cm on today's exam, increased from prior. Relatively ill-defined appearance of the lesion previously underwent microwave ablation involving segments 5 and 6 (series 11 image 39). This finding is difficult to accurately measure on this exam due to its ill-defined nature but is approximately 5.1 x 4.5 cm (series 11 image 41), similar to slightly increased in size since prior. Redemonstrated infiltrative extension along the regional vascular and biliary structures towards the liver capsule. Regional intrahepatic biliary dilation is redemonstrated. There appear to be several other small micrometastasis throughout both lobes of the liver that are new from the recent exam from November this year. Hepatic vasculature: There is a linear filling defect within the right hepatic veins suggestive of nonocclusive thrombus. The middle hepatic vein is ill-defined due to the large regional metastasis but appears to be patent. The left hepatic vein is normally patent. The main portal vein is patent. The left intrahepatic portal vein is normally patent. There appears to be nonocclusive thrombus within the right intrahepatic portal vein. GALLBLADDER AND BILIARY TREE: There is gallbladder wall thickening, nonspecific. No definite stones are present within the gallbladder. No findings of acute biliary obstruction. PANCREAS: Unremarkable. No pancreatic ductal dilatation. SPLEEN: Normal in size and contour. Accessory splenic tissue is present. Multiple splenic lesions are redemonstrated and similar to prior studies. ADRENAL GLANDS: No distinct adrenal mass identified. KIDNEYS: Enhance symmetrically with no distinct solid mass. There is new mild right-sided hydronephrosis. GASTROINTESTINAL: Imaged large and small bowel are normal in caliber and wall thickness. FREE FLUID: None. VASCULATURE: The abdominal aorta is normal in caliber. LYMPH NODES: Upper abdominal lymphadenopathy is similar to prior. The coronal T2-weighted sequence demonstrates significant distention of the urinary bladder, partially included. LOWER CHEST: Heart is normal in size. Trace right pleural effusion. BONES: No suspicious osseous lesions. Procedure Note Luther Mathis MD - 02/05/2025 [facility] [address] [place] [address] Examination: MR abdomen without and with contrast. Clinical Information: RECTAL CANCER METASTASIZED TO LIVER Comparison: MRI 11/26/2024 and 08/23/2024. CT 07/24/2024. Technique: Sequences: Multiplanar, multisequence MR images of the abdomen and pelviswere obtained before and after the administration of 14 mL of dotarem. Findings: LIVER: Morphology: Normal. Hepatic steatosis: Absent. Iron overload: Absent. Focal liver lesion(s): Redemonstrated metastatic lesion involving thejunction of segments 4A and 8 measuring 7.2 x 4.8 cm on this exam ([id number] image 29), increased since prior. An adjacent smaller metastasis isagain noted in the right dome of the liver, now measuring 1.5 cm ([id number] image 20), previously 0.5 cm. Redemonstrated metastatic lesion involving the medial segment of the lefthepatic lobe within segment IVb (series 11 image 26), measuring 2.9 x 2.2cm on today's exam, increased from prior. Relatively ill-defined appearance of the lesion previously underwentmicrowave ablation involving segments 5 and 6 (series 11 image 39). Thisfinding is difficult to accurately measure on this exam due to itsill-defined nature but is approximately 5.1 x 4.5 cm (series 11 image 41),similar to slightly increased in size since prior. Redemonstratedinfiltrative extension along the regional vascular and biliary structurestowards the liver capsule. Regional intrahepatic biliary dilation isredemonstrated. There appear to be several other small micrometastasis throughout bothlobes of the liver that are new from the recent exam from November thisyear. Hepatic vasculature: There is a linear filling defect within the righthepatic veins suggestive of nonocclusive thrombus. The middle hepatic veinis ill-defined due to the large regional metastasis but appears to bepatent. The left hepatic vein is normally patent. The main portal vein ispatent. The left intrahepatic portal vein is normally patent. Thereappears to be nonocclusive thrombus within the right intrahepatic portalvein. GALLBLADDER AND BILIARY TREE: There is gallbladder wall thickening,nonspecific. No definite stones are present within the gallbladder. Nofindings of acute biliary obstruction. PANCREAS: Unremarkable. No pancreatic ductal dilatation. SPLEEN: Normal in size and contour. Accessory splenic tissue is present.Multiple splenic lesions are redemonstrated and similar to priorstudies. ADRENAL GLANDS: No distinct adrenal mass identified. KIDNEYS: Enhance symmetrically with no distinct solid mass. There is newmild right-sided hydronephrosis. GASTROINTESTINAL: Imaged large and small bowel are normal in caliber andwall thickness. FREE FLUID: None. VASCULATURE: The abdominal aorta is normal in caliber. LYMPH NODES: Upper abdominal lymphadenopathy is similar to prior. The coronal T2-weighted sequence demonstrates significant distention ofthe urinary bladder, partially included. LOWER CHEST: Heart is normal in size. Trace right pleural effusion. BONES: No suspicious osseous lesions. Impression: 1. Interval increase in size of the metastatic lesions within the liveras described in the report. There are several other small micrometastasisthroughout both lobes of the liver [place] 2. Redemonstrated infiltrative metastasis involving segments 5 and 6 ofthe liver with regional intrahepatic biliary dilation. 3. Nonocclusive thrombus is seen within the right hepatic vein and rightintrahepatic portal vein. The nonocclusive thrombus in the right hepaticvein likely extends into the IVC. 4. Upper abdominal lymphadenopathy is similar to prior. 5. New mild right-sided hydronephrosis. 6. The urinary bladder is significantly distended, partially included onthis exam. 7. Trace right pleural effusion. A Significant message has been sent initially to TRAVIS WILLIAMSONvia the [employer] system on02/05/2025 9:59 AM, Message ID [id number]. Receipt of this communication bythe appropriate provider/service will be electronically recorded anddocumented by [employer] Actionable Findings upon receivingacknowledgement. Ordered By: TRAVIS RATLIFF Interpreted By: Luther Mathis MD, 02/05/2025 9:24 AM Travis Ratliff MD MRI Final Result * CT CHEST W CON (02/04/2025 1:03 PM PACKAGE DYEING MACHINE OPERATOR) Anatomical Region Laterality Modality Chest Computed Tomogra phy 02/05/2025 8:41 AM PACKAGE DYEING MACHINE OPERATOR Impressions 02/05/2025 9:04 AM PACKAGE DYEING MACHINE OPERATOR IMPRESSION: 1. Findings compatible with disease progression as described. See text. 2. Incompletely imaged new mild obstructive uropathy on the right. Consider follow-up CT of the abdomen and pelvis. 3. Additional chronic/nonurgent findings as described. Ordered By: TRAVIS RATLIFF Interpreted By: Unruly Allan MD, 02/05/2025 8:41 AM Narrative 02/05/2025 9:04 AM PACKAGE DYEING MACHINE OPERATOR [address] [place] [address] Examination: CT of the chest with contrast. Exam time: 1351 hours. Clinical history: Restaging of metastatic rectal cancer. Comparison: 10/12/2024. Technique: Following the administration of intravenous contrast, [...] in the SVC. Calcific coronary artery disease again evident. Small pericardial effusion is similar to previous. The heart and great vessels are otherwise unremarkable. Calcified right hilar lymph nodes are again noted, compatible with old granulomatous disease. There is new mild subcarinal adenopathy raising the question of metastasis. No hilar adenopathy is identified. There is a minimal amount of retained secretions in the bronchus intermedius. No other endobronchial abnormality is identified. Changes of centrilobular emphysema, calcified granuloma in the right lower lobe and minor scarring in the left lower lobe again evident. Chronically present and stable sub-4 mm noncalcified nodules in the upper lobes are again presumed benign and annotated on the lung window series images. There is a new 5 mm noncalcified nodule in the right lower lobe (lung window series image 88) raising the question of metastasis. There is also new mild thickening and nodularity along the minor fissure which may reflect disease involvement as well. No other unequivocally new nodules are identified. There is no focal airspace opacity. Minimal right pleural effusion persists. There is no left pleural effusion. The chest wall structures are unchanged. No suspicious bony lesion is identified. The included sections through the upper abdomen demonstrate increase in the size and number of the multiple hypoenhancing hepatic masses, compatible with disease progression. The largest now measures approximately 6.5 cm in greatest dimension. There are new areas of stranding and nodularity along the peritoneal surfaces compatible with carcinomatosis (image 124 for example). Enlarging and hypoenhancing upper abdominal lymph nodes (image 98 for example) are suspicious for necrotic amna metastasis. There is new incompletely imaged mild right hydronephrosis and hydroureter. Procedure Note Unruly Allan MD - 02/05/[address] [place] [address] Examination: CT of the chest with contrast. Exam time: 1351 hours. Clinical history: Restaging of metastatic rectal cancer. Comparison: 10/12/2024. Technique: Following the administration of intravenous contrast, [...] in the SVC. Calcific coronary artery disease again evident.Small pericardial effusion is similar to previous. The heart and greatvessels are otherwise unremarkable. Calcified right hilar lymph nodes areagain noted, compatible with old granulomatous disease. There is new mildsubcarinal adenopathy raising the question of metastasis. No hilaradenopathy is identified. There is a minimal amount of retained secretionsin the bronchus intermedius. No other endobronchial abnormality isidentified. Changes of centrilobular emphysema, calcified granuloma in theright lower lobe and minor scarring in the left lower lobe again evident.Chronically present and stable sub-4 mm noncalcified nodules in the upperlobes are again presumed benign and annotated on the lung window seriesimages. There is a new 5 mm noncalcified nodule in the right lower lobe(lung window series image 88) raising the question of metastasis. There isalso new mild thickening and nodularity along the minor fissure which mayreflect disease involvement as well. No other unequivocally new nodulesare identified. There is no focal airspace opacity. Minimal right pleuraleffusion persists. There is no left pleural effusion. The chest wallstructures are unchanged. No suspicious bony lesion is identified. Theincluded sections through the upper abdomen demonstrate increase in thesize and number of the multiple hypoenhancing hepatic masses, compatiblewith disease progression. The largest now measures approximately 6.5 cm ingreatest dimension. There are new areas of stranding and nodularity alongthe peritoneal surfaces compatible with carcinomatosis (image 124 forexample). Enlarging and hypoenhancing upper abdominal lymph nodes (image98 for example) are suspicious for necrotic amna metastasis. There is newincompletely imaged mild right hydronephrosis and hydroureter. IMPRESSION: 1. Findings compatible with disease progression as described. See text. 2. Incompletely imaged new mild obstructive uropathy on the right.Consider follow-up CT of the abdomen and pelvis. 3. Additional chronic/nonurgent findings as described. Ordered By: TRAVIS RATLIFF Interpreted By: Unruly Allan MD, 02/05/2025 8:41 AM Travis Ratilff MD CT Final Result from Last 3 Months Insurance [place]ID [facility] [place] [id number] [place] [address] [place] [address] Care Teams Registered Representative Relationship Specialty Start Date End Date Flaco Kelly MD [address] [facility] [place] [address] PCP - General FAMILY PRACTICE 01/03/23
--- OUTSIDE RECORDS SUMMARY | 2025-03-18 21:58 | XMS_ITS ---
Author Organization Unknown Address [address] [place] [phone] Phone Care Team Providers Care Medical Donation Professional Name Role Phone ALBERT Pinedo Attending Unavailable [facility] GLASS ROLLING MACHINE OPERATOR Unavailable MANJIT Gould Primary Unavailable Immunization Immunization Date Status Additional Notes Code Code System Tdap 05/12/2021 Completed 115 CVX COVID-19, mRNA, LNP-S, PF, 3 0 mcg/0.3 mL dose 06/06/2020 Completed 208 CVX COVID-19, mRNA, LNP-S, PF, 3 0 mcg/0.3 mL dose 06/26/2020 Completed 208 CVX Social History Type Status Start Date End Date Code Code Syst em Smoking History Current every day smoker 702887276 SNOMED CT Sex Male Vital Signs Vital Sign Value Unit Lincoln Value Lincoln Unit Date/Time Recent/Initial? Code Code System Body Mass Index 27.69 kg/m2 03/04/2023 13:59 Initial 52836 -5 LOINC Systolic Blood Pressure 130 mm[Hg] 03/18/2023 07:41 Initial 8480- 6 LOINC Diastolic Blood Pressure 72 mm[Hg] 03/18/2023 07:41 Initial 8462- 4 LOINC Body Surface Area 2.08 m2 03/04/2023 13:59 Initial 3140- 1 LOINC Height 177.800 0 cm 70.00 in 03/04/2023 13:59 Initial 8302- 2 LOINC O2 Saturation 98 % 2022 07:41 Initial 13753 -5 LOINC Pulse 100.0 /min 03/18/2023 07:41 Initial 8867- 4 LOINC Respiration 20 /min 03/18/20 07:41 Initial 9279- 1 LOINC Temperature 36.4 Jenna 97.5 F 12/15/20 23 07:41 Initial 8310- 5 LOINC Weight 87.54 kg 193.00 lbs 03/04/2023 13:59 Initial 36334 -7 LOINC Medications No Active Medications Hospital Discharge Instructions Should you have any questions prior to discharge, please contact a member of your healthcare team. If you have left the hospital and have any questions, please contact your primary care physician. Reason For Referral No Data Found Procedures Procedure Name Date Status Code Code Syste m Inguinal hernia completed 948699311 SNOMEDCT Anesthesia for lower intesti nal endoscopic procedures, endoscope introduce 03/18/2023 completed 38336 CPT Colonoscopy, flexible; with removal of tumor(s), polyp(s), or other lesion 03/18/2023 completed 27950 CPT Allergies and Adverse Reactions Allergy Substance Reaction Severity Start Date Concern Status Co de Code System CODEINE Active 5845 RxNorm Plan of Treatment US Prostate Needle Biopsy 04/13/2023 Encounters Encounter Diagnosis Start Date Code Code Sys tem Encounter for screening for malignant neoplasm of colo n 03/18/2023 SNOMED-CT Personal Care Team Section Performer Name Performer Role Active Date Inactive MIGUELANGEL Fuller PCP - Primary care physician 2023-01-12 Procedures Notes
--- NOTE | 2025-03-18 22:14 | ED.GIBLEED ---
HPI - GI Bleed General Chief complaint: GI Bleed Stated complaint: rectal bleeding. Time Seen by Provider: 03/18/25 22:13 Source: patient History of Present Illness HPI Narrative: 65 years old white male, history of colorectal cancer stage IV, not a candidate for chemotherapy anymore, came to the ED by ambulance from home with his daughter is telling me that patient had blood in his depend within 1 hour prior to arrival to the emergency room. Patient denies any fever, chills, nausea, vomiting or abdominal pain. Patient is DNR. Related Data Home Medications ?Medication ?Instructions ?Recorded ?Confirmed ?Last Taken ?Type metoprolol succinate 50 mg 50 mg PO DAILY 06/05/24 02/05/25 Unknown History tablet,extended release 24 hr tamsulosin 0.4 mg capsule 0.4 mg PO DAILY 06/05/24 02/05/25 Unknown History ondansetron 8 mg disintegrating 8 mg translingual Q8H PRN nausea 08/13/24 02/05/25 Unknown History tablet and vomiting lorazepam 1 mg tablet 1 mg PO Q8H PRN anxiety 01/21/25 03/18/25 Unknown History mirtazapine 15 mg tablet 15 mg PO QHS 01/21/25 02/05/25 Unknown History Allergies Allergy/AdvReac Type Severity Reaction Status Date / Time codeine AdvReac Vomiting Verified 03/18/25 22:25 Review of Systems Review of Systems: All systems reviewed & are unremarkable except as noted in HPI and below PMFSH Surgical History Surgical History History of hernia repair Social History Social History Smoking packs per day: 1 Smoking cigarettes per day: 20.0 Years smoked: 50 Smoking pack-years: 50.00 Smoking status: Current every day smoker Tobacco type: cigarettes Exam Narrative: General appearance: Well-developed, malnourished Skin: uribe, pale Head: Normocephalic, nontraumatic Eyes: Clear conjunctiva ENT: Dry oral cavity Neck: Supple, nontender Chest and respiratory: Airway patent, no respiratory distress, no accessory muscle use Heart: Regular rate/rhythm Abdomen: Soft, nontender, no organomegaly, quiet bowel sounds, rectal exam showing gross blood with blood clots Neurologic: Alert and oriented ?3, ELECTRIC METER TESTER is normal as tested, no gross motor deficit Course Vital Signs Vital signs: Vital Signs Temperature 36.2 C L 03/18/25 21:55 Pulse Rate 119 H 03/18/25 21:55 Respiratory Rate 15 03/18/25 21:55 Blood Pressure 150/131 H 03/18/25 21:55 Pulse Oximetry 94 03/18/25 21:55 Oxygen Delivery Room Air 03/18/25 21:55 Temperature 36.2 C L 03/18/25 21:55 Pulse Rate 104 H 03/18/25 22:45 Respiratory Rate 25 H 03/18/25 22:45 Blood Pressure 101/72 03/18/25 22:45 Pulse Oximetry 96 03/18/25 22:45 Oxygen Delivery Room Air 03/18/25 21:55 MDM MDM Narrative Medical decision making narrative: Patient presents with rectal bleed within 1 hour prior to arrival, history of colorectal cancer stage IV Vital signs showing blood pressure 150 over 131, heart rate 119 otherwise within normal limit Physical examination showing debilitated patient pale uribe skin, malnourished Differential diagnosis include progression of colorectal cancer, anemia, rectal bleed, dehydration, electrolyte imbalance Blood workup includes CBC, CMP, coags showed WBC 14.3, hemoglobin 11.6, sodium 132, BUN 31, creatinine 1.1, total bilirubin 2.7, AST 93, ALT 77, alkaline phosphatase a 32 otherwise within normal limit The patient and his family decided to change the code status to comfort measures only. Admit to hospital, for hospice evaluation and comfort measures only. Differential Diagnosis Differential Diagnosis: As above Lab Data 03/18/25 22:29 03/18/25 22:29 Labs: Lab Results 03/18/25 Range/Units 22:29 WBC 14.3 H (4.8-10.8) K/mm3 RBC 4.21 L (4.70-6.10) M/mm3 Hgb 11.6 L (12.4-15.3) g/dL Hct 36.3 L (37.0-46.0) % MCV 86.2 (78.0-102.0) fL MCH 27.6 (27.0-31.0) pg MCHC 32.0 (32-36) g/dL RDW 16.6 H (11.6-14.4) % Plt Count 375 (150-420) K/mm3 MPV 9.3 (8.7-11.0) fl Immature Gran % (Auto) 0.8 H (0.0-0.0) % Neut % (Auto) 88.0 H (50.0-70.0) % Lymph % (Auto) 4.7 L (18.0-42.0) % [place] % (Auto) 6.2 (2.0-11.0) % Eos % (Auto) 0.1 L (1.0-6.0) % Baso % (Auto) 0.2 (0.0-1.0) % Lymph # (Auto) 0.67 L (1.10-4.50) K/mm3 [place] # (Auto) 0.88 (0.10-0.90) K/mm3 Eos # (Auto) 0.02 (0.02-0.50) K/mm3 Baso # (Auto) 0.03 (0.00-0.10) K/mm3 Abs Immat Gran (auto) 0.12 H (0.00-0.00) K/mm3 Absolute Neuts (auto) 12.54 H (1.70-7.20) K/mm3 Absolute Nucleated RBC 0.00 (0.00-0.00) K/mm3 Nucleated RBC % 0.0 (0-0.0) % PT 14.1 H (9.50-12.1) Seconds INR 1.3 APTT 28.7 (23.9-30.70) Sec Sodium 132 L (137-145) mmol/L Potassium 3.8 (3.4-5.0) mmol/L Chloride 97 L (98-107) mmol/L Carbon Dioxide 25 (22-30) mmol/L Anion Gap 10 (4-12) mmol/L BUN 31 H D (9-20) mg/dL Creatinine 1.11 (0.7-1.3) mg/dL Estim Creat Clear Calc 52 ml/min Estimated GFR > 60 (59 - ) Glucose 151 H (65-110) mg/dL Calculated Osmolality 283 L (285-295) mOsm/kg Calcium 8.3 L (8.4-10.2) mg/dL Total Bilirubin 2.7 H (0.2-1.3) mg/dL AST 93 H (17-59) U/L ALT 77 H (6-50) U/L Alkaline Phosphatase 832 H (38-126) U/L Total Protein 6.3 (6.3-8.2) g/dL Albumin 3.2 L (3.5-5.1) g/dL Critical Care Time Critical Care Time Critical Care Time: No Discharge Plan Discharge Clinical Impression: Colorectal cancer, stage IV, Weakness, Admission for hospice care Patient Disposition: Still a Patient Condition: Stable
[2025-03-18 22:34] LABS: Hematocrit 36.3 % (37.0-46.0); Hemoglobin 11.6 g/dL (12.4-15.3); Immature Granulocyte Percent A 0.8 % (0.0-0.0); Lymphocytes Absolute Auto 0.67 K/mm3 (1.10-4.50); Mean Corpuscular HGB Conc 32.0 g/dL (32-36); Mean Corpuscular Hemoglobin 27.6 pg (27.0-31.0); Mean Corpuscular Volume 86.2 fL (78.0-102.0); Nucleated Red Blood Cells Absolute Auto 0.00 K/mm3 (0.00-0.00); Nucleated Red Blood Cells Perc 0.0 % (0-0.0); Platelet Count Result 375 K/mm3 (150-420); Red Blood Count 4.21 M/mm3 (4.70-6.10); White Blood Count 14.3 K/mm3 (4.8-10.8)
--- OUTSIDE RECORDS SUMMARY | 2025-03-18 22:41 | XMS_ITS | Clinical Summary ---
Author Organization [facility] Address [facility] [place] [address] Care Team Providers Care Buffet Server Name Role Phone Flaco Kelly MD Primary [...] Department Care Team Description 02/04/2025 12:30 PM HOST COORDINATOR - 02/04/2025 11:59 PM [facility] Hospital Encounter [facility] [address] [place] [address] Travis Ratliff MD Discharge Disposition: Home or [...] Sex Assigned at Male 04/20/2024 8:37 AM HOST COORDINATOR Legal Sex Male 9:40 AM CDT Gender Identity Not on file Sexual Orientation Not on file Last Filed Vital Signs Vital Sign Reading Time Taken Comments Blood Pressure 126/75 11/28/2024 8:59 AM CDT Pulse 71 11/28/2024 8:59 AM CDT Temperature 36.6 C (97.8 F) 03/18/2023 12:49 PM HOST COORDINATOR Respiratory Rate 14 11/28/2024 8:59 AM CDT [...] Annual Medicare Wellness Visit 02/01/2024 PHQ-2 (Physician [place]) 04/04/2024 COVID-19 Vaccine (3 - season) 2024 [...] ABD WWO CON Routine 02/04/2025 1:47 PM HOST COORDINATOR Prostate cancer (CMS/HCC HHS/HCC) Rectal cancer metastasized to liver (CMS/HCC HHS/HCC) CT CHEST W CON Routine 02/04/2025 1:03 PM HOST COORDINATOR Prostate cancer (CMS/HCC HHS/HCC) Rectal cancer metastasized to liver (CMS/HCC HHS/HCC) from Last 3 Months Results * MRI ABD WWO CON (02/04/2025 1:47 PM HOST COORDINATOR) Anatomical Region Laterality Modality Abdomen Magnetic Resonan ce 02/05/2025 9:24 AM HOST COORDINATOR Impressions 02/05/2025 9:59 AM HOST COORDINATOR Impression: 1. Interval increase in size of [...] been sent initially to TRAVIS MCKEONvia the Egenera system on 02/05/2025 9:59 AM, Message ID [id number]. Receipt of this communication by the appropriate provider/service will be electronically recorded and documented by Egenera upon receiving acknowledgement. Ordered By: TRAVIS RATLIFF Interpreted By: Luther Mathis MD, 02/05/2025 9:24 AM Narrative 02/05/2025 9:59 AM HOST COORDINATOR [address] [place] [address] Examination: MR abdomen without and with contrast. [...] Procedure Note Luther Mathis MD - 02/05/2025 [facility] [address] [place] [address] Examination: MR abdomen without and with contrast. [...] 7.2 x 4.8 cm on this exam ([id number] image 29), increased since prior. An adjacent smaller metastasis isagain noted in the right dome of the liver, now measuring 1.5 cm ([id number] image 20), previously 0.5 cm. Redemonstrated metastatic [...] [place] 2. Redemonstrated infiltrative metastasis involving [...] been sent initially to TRAVIS WILLIAMSONvia the Egenera system on02/05/2025 9:59 AM, Message ID [id number]. Receipt of this communication bythe appropriate provider/service will be electronically recorded anddocumented by Nuance PowerConnect Actionable Findings upon receivingacknowledgement. Ordered By: TRAVIS RATLIFF Interpreted By: Luther Mathis MD, 02/05/2025 9:24 AM Travis Ratliff MD MRI Final Result * CT CHEST W CON (02/04/2025 1:03 PM HOST COORDINATOR) Anatomical Region Laterality Modality Chest Computed Tomogra phy 02/05/2025 8:41 AM HOST COORDINATOR Impressions 02/05/2025 9:04 AM HOST COORDINATOR IMPRESSION: 1. Findings compatible with disease progression as described. See text. 2. Incompletely imaged new mild obstructive uropathy on the right. Consider follow-up CT of the abdomen and pelvis. 3. Additional chronic/nonurgent findings as described. Ordered By: TRAVIS RATLIFF Interpreted By: Unruly Allan MD, 02/05/2025 8:41 AM Narrative 02/05/2025 9:04 AM HOST COORDINATOR [address] [place] [address] Examination: CT of the chest with contrast. [...] Procedure Note Unruly Allan MD - 02/05/[address] [place] [address] Examination: CT of the chest with contrast. [...] Unruly Allan MD, 02/05/2025 8:41 AM Travis Ratliff MD CT Final Result from Last 3 Months Insurance [place] [address] [address] MEDICARE Care Teams Buffet Server Relationship Specialty Start Date End Date Flaco Kelly MD [address] [place] [address] PCP - General FAMILY PRACTICE 01/03/23
--- OUTSIDE RECORDS SUMMARY | 2025-03-18 22:41 | XMS_ITS ---
Author Organization Unknown Address [address] [place] [phone] Phone Care Team Providers Care Profiler Hand Name Role Phone ALBERT Pinedo Attending Unavailable [facility] OPERATOR Unavailable MANJIT Gould Primary Unavailable Immunization [...] em Smoking History Current every day smoker 590834452 SNOMED CT Sex Male Vital Signs Vital Sign Value Unit [place] Value [place] Unit Date/Time Recent/Initial? Code Code System Body Mass Index 27.69 kg/m2 03/04/2023 13:59 Initial 49156 -5 LOINC Systolic Blood Pressure 130 mm[Hg] 03/18/2023 07:41 Initial 8480- 6 LOINC Diastolic Blood Pressure 72 mm[Hg] 03/18/2023 07:41 Initial 8462- 4 LOINC Body Surface Area 2.08 m2 03/04/2023 13:59 Initial 3140- 1 LOINC Height 177.800 0 cm 70.00 in 03/04/2023 13:59 Initial 8302- 2 LOINC O2 Saturation 98 % 2022 07:41 Initial 31259 -5 LOINC Pulse 100.0 /min 03/18/2023 07:41 Initial 8867- 4 LOINC Respiration 20 /min 03/18/20 07:41 Initial 9279- 1 LOINC Temperature 36.4 Jenna 97.5 F 12/15/20 23 07:41 Initial 8310- 5 LOINC Weight 87.54 kg 193.00 lbs 03/04/2023 13:59 Initial 63979 -7 LOINC Medications No Active Medications Hospital Discharge Instructions Should you have any questions prior to discharge, please contact a member of your healthcare team. If you have left the hospital and have any questions, please contact your primary care physician. Reason For Referral No Data Found Procedures Procedure Name Date Status Code Code Syste m Inguinal hernia completed 139050143 SNOMEDCT Anesthesia for lower intesti nal endoscopic procedures, endoscope introduce 03/18/2023 completed 11621 CPT Colonoscopy, flexible; with removal of tumor(s), polyp(s), or other lesion 03/18/2023 completed 42820 CPT Allergies and Adverse Reactions Allergy Substance Reaction Severity Start Date Concern Status Co de Code System CODEINE Active 1504 RxNorm Plan of Treatment US Prostate Needle Biopsy 04/13/2023 Encounters Encounter Diagnosis Start Date Code Code Sys tem Encounter for screening for malignant neoplasm of colo n 03/18/2023 SNOMED-CT Personal Care Team Section Performer Name Performer Role Active Date Inactive MIGUELANGEL Fuller PCP - Primary care physician 2023-01-12 Procedures Notes
[2025-03-18 22:45] LABS: Alanine Aminotransferase 77 U/L (6-50); Albumin Level 3.2 g/dL (3.5-5.1); Alkaline Phosphatase 832 U/L (38-126); Anion Gap 10 mmol/L (4-12); Aspartate Amino Transferase 93 U/L (17-59); Bilirubin,Total 2.7 mg/dL (0.2-1.3); Blood Urea Nitrogen 31 mg/dL (9-20); Calcium 8.3 mg/dL (8.4-10.2); Carbon Dioxide 25 mmol/L (22-30); Chloride 97 mmol/L (98-107); Estimated CRCL calculation 52 ml/min; Estimated Glomerular Filt Rate > 60; Glucose 151 mg/dL (65-110); Osmolality Calculated 283 mOsm/kg (285-295); Potassium 3.8 mmol/L (3.4-5.0); Sodium 132 mmol/L (137-145); Total Protein 6.3 g/dL (6.3-8.2)
[2025-03-18 22:48] LABS: INR 1.3; Partial Thromboplastin Time 28.7 Sec (23.9-30.70); Prothrombin Time 14.1 Seconds (9.50-12.1)
[2025-03-18] MEDS: SODIUM CHLORIDE 0.9% IV 1,000 ML 999 ML IV CONT (23:01)
--- NOTE | 2025-03-18 23:44 | PC.NURSE ---
ERP Dr Bravo in to discuss lab and POC w/ pt and family. Decision made for comfort measures only and end of life care. Family/daughter wanting to discuss hospice care and options for pt at home. POC to admit for obs and have care coordination talk w/ family tomorrow. Pt sleeping, RR even and nonlabored at this time.
--- NOTE | 2025-03-18 23:57 | PC.NURSE ---
Call to [facility] 2nd floor for pt admit. Report given.
--- NOTE | 2025-03-19 00:04 | PC.NURSE ---
Pt will go to Rm 205. VSS at this time.
[2025-03-19 00:20] VITALS: BP 107/71; PULSE 74; RESP 20; O2SAT 97
[2025-03-19 00:30] VITALS: BP 101/68; PULSE 96; RESP 20; TEMP 36.9; O2SAT 96
[2025-03-19 00:35] VITALS: BMI 18.7
[2025-03-19] MEDS: DEXTROSE 5%/0.9% SOD CHL 1,000 ML 100 ML IV CONT (00:44)
[2025-03-19 01:15] VITALS: PULSE 96; RESP 20; O2SAT 96
--- NOTE | 2025-03-19 02:08 | ADMGEN ---
This patient, Aubrey Garcia, was admitted to 2nd Floor Room 205-1. Patient/family oriented to hospital policies and general routines including ID bracelet, bed and alarms, pain management, procedures, bathroom and other care routines, personal items, smoking policy, room service/diet, and visiting hours. Information on how to activate the Rapid Response Team has been discussed. Patient/Family are encouraged to report perceived risks to care and to ask questions if they do not understand what they are told or what they should do.
--- OUTSIDE RECORDS SUMMARY | 2025-03-19 07:17 | XMS_ITS | Clinical Summary ---
Author Organization [facility] Address [facility] [place] [address] Care Team Providers Care Tail Board Man Name Role Phone Flaco Kelly MD Primary [...] Department Care Team Description 02/04/2025 12:30 PM HOISTMAN - 02/04/2025 11:59 PM [facility] Hospital Encounter [facility] [address] [place] [address] Travis Ratliff MD Discharge Disposition: Home or [...] Sex Assigned at Male 04/20/2024 8:37 AM HOISTMAN Legal Sex Male 9:40 AM CDT Gender Identity Not on file Sexual Orientation Not on file Last Filed Vital Signs Vital Sign Reading Time Taken Comments Blood Pressure 126/75 11/28/2024 8:59 AM CDT Pulse 71 11/28/2024 8:59 AM CDT Temperature 36.6 C (97.8 F) 03/18/2023 12:49 PM HOISTMAN Respiratory Rate 14 11/28/2024 8:59 AM CDT [...] Annual Medicare Wellness Visit 02/01/2024 PHQ-2 (Physician [place]) 04/04/2024 COVID-19 Vaccine (3 - season) 2024 [...] ABD WWO CON Routine 02/04/2025 1:47 PM HOISTMAN Prostate cancer (CMS/HCC HHS/HCC) Rectal cancer metastasized to liver (CMS/HCC HHS/HCC) CT CHEST W CON Routine 02/04/2025 1:03 PM HOISTMAN Prostate cancer (CMS/HCC HHS/HCC) Rectal cancer metastasized to liver (CMS/HCC HHS/HCC) from Last 3 Months Results * MRI ABD WWO CON (02/04/2025 1:47 PM HOISTMAN) Anatomical Region Laterality Modality Abdomen Magnetic Resonan ce 02/05/2025 9:24 AM HOISTMAN Impressions 02/05/2025 9:59 AM HOISTMAN Impression: 1. Interval increase in size of [...] been sent initially to TRAVIS MCKEONvia the Pins system on 02/05/2025 9:59 AM, Message ID [id number]. Receipt of this communication by the appropriate provider/service will be electronically recorded and documented by Pins upon receiving acknowledgement. Ordered By: TRAVIS RATLIFF Interpreted By: Luther Mathis MD, 02/05/2025 9:24 AM Narrative 02/05/2025 9:59 AM HOISTMAN [address] [place] [address] Examination: MR abdomen without and with contrast. [...] Procedure Note Luther Mathis MD - 02/05/2025 [facility] [address] [place] [address] Examination: MR abdomen without and with contrast. [...] 7.2 x 4.8 cm on this exam ([id number] image 29), increased since prior. An adjacent smaller metastasis isagain noted in the right dome of the liver, now measuring 1.5 cm (vveqyt69 image 20), previously 0.5 cm. Redemonstrated metastatic [...] [place] 2. Redemonstrated infiltrative metastasis involving [...] been sent initially to TRAVIS WILLIAMSONvia the Pins system on02/05/2025 9:59 AM, Message ID [id number]. Receipt of this communication bythe appropriate provider/service will be electronically recorded anddocumented by Nuance PowerConnect Actionable Findings upon receivingacknowledgement. Ordered By: TRAVIS RATLIFF Interpreted By: Luther Mathis MD, 02/05/2025 9:24 AM Travis Ratliff MD MRI Final Result * CT CHEST W CON (02/04/2025 1:03 PM HOISTMAN) Anatomical Region Laterality Modality Chest Computed Tomogra phy 02/05/2025 8:41 AM HOISTMAN Impressions 02/05/2025 9:04 AM HOISTMAN IMPRESSION: 1. Findings compatible with disease progression as described. See text. 2. Incompletely imaged new mild obstructive uropathy on the right. Consider follow-up CT of the abdomen and pelvis. 3. Additional chronic/nonurgent findings as described. Ordered By: TRAVIS RATLIFF Interpreted By: Unruly Allan MD, 02/05/2025 8:41 AM Narrative 02/05/2025 9:04 AM HOISTMAN [address] [place] [address] Examination: CT of the chest with contrast. [...] 98 for example) are suspicious for necrotic mana metastasis. There is new incompletely imaged mild right hydronephrosis and hydroureter. Procedure Note Unruly Allan MD - 02/05/[address] [place] [address] Examination: CT of the chest with contrast. [...] By: Unruly Allan MD, 02/05/2025 8:41 AM Travsi Ratliff MD CT Final Result from Last 3 Months Insurance [facility]ID [facility] [place] [place] [id number] [place] [address] [place] [address] Care Teams Tail Board Man Relationship Specialty Start Date End Date Flaco Kelly MD [address] [place] [address] PCP - General FAMILY PRACTICE 01/03/23
[2025-03-19 08:00] VITALS: BP 103/63; PULSE 99; RESP 18; TEMP 36.3; O2SAT 97
--- NOTE | 2025-03-19 09:55 | PM.IMHP2 ---
H&P: HPI History of Present Illness Date/Time: 03/19/25 09:55 Chief Complaint: rectal bleeding Narrative: Patient is a 65 year old male with PMH of atrial fibrillation, BPH and stage 4 rectal cancer. Patient presented to the ER from home with complaints of rectal bleeding. Patient is not a candidate for further treatment for his cancer. In the ER the patient's vital signs showed a stable blood pressure and tachycardia. Patient's labs showed a Hgb 11.6, bilirubin 2.7. Patient and family requested for patient to be made comfort measures only and a hospice consult. Patient was admitted for further evaluation and treatment. Patient had complaints of mouth sores to the roof of his mouth and was started on magic mouthwash. Patient will discharge home today if hospice is able to accept and deliver equipment to the house. Patient was given IV fluids for dehydration due to poor po intake and is more awake per family. Review of Systems Review of Systems: All systems reviewed & are unremarkable except as noted in HPI and below PMFSH Surgical History Surgical History History of hernia repair Family History Family History (Updated 03/19/25 @ 01:16 by Hawa Hunt RN) Father Colon cancer Social History Social History Smoking packs per day: 1 Smoking cigarettes per day: 20.0 Years smoked: 50 Smoking pack-years: 50.00 Smoking status: Current every day smoker Tobacco type: cigarettes Additional smoking assessment comments: uNABLE TO SMOKE MUCH NOW, DUE TO WEAKNESS. Alcohol intake: former Substance use: current Substance use type: marijuana Other substance usage details: 10 mg gummy a day; will sometimes smoke it. Lack of Transportation: No Lack of Food: Sometimes True Current Housing: I Have Housing Concerned About Future Housing: No Difficulty Paying Gas/Electric Bills: No Difficulty Paying for Meds: No Currently Unemployed: No Education: High School Diploma/GED Difficulty w/ Childcare or Family Care: No Spiritual care concerns: No Meds Home Medications and Allergies Home Medications ?Medication ?Instructions ?Recorded ?Confirmed ?Type metoprolol succinate 50 mg 50 mg PO DAILY 06/05/24 03/19/25 History tablet,extended release 24 hr tamsulosin 0.4 mg capsule 0.4 mg PO DAILY 06/05/24 03/19/25 History ondansetron 8 mg disintegrating 8 mg translingual Q8H PRN nausea 08/13/24 03/19/25 History tablet and vomiting lorazepam 1 mg tablet 1 mg PO Q8H PRN anxiety 01/21/25 03/18/25 History mirtazapine 15 mg tablet 15 mg PO QHS 01/21/25 03/19/25 History Allergies Allergy/AdvReac Type Severity Reaction Status Date / Time codeine AdvReac Vomiting Verified 03/19/25 01:33 Vital Signs Vital Signs - 24 hr 03/18/25 21:55 03/18/25 22:00 03/18/25 22:21 Temperature 97.1 F L Pulse Rate 119 H 120 H 120 H Respiratory Rate 15 15 28 H Blood Pressure 150/131 H 98/75 L Pulse Oximetry 94 94 94 Oxygen Delivery Room Air 03/18/25 22:30 03/18/25 22:45 03/18/25 23:00 Temperature Pulse Rate 116 H 104 H 107 H Respiratory Rate 25 H 25 H 26 H Blood Pressure 103/77 101/72 104/71 Pulse Oximetry 96 96 Oxygen Delivery 03/18/25 23:15 03/18/25 23:30 03/18/25 23:45 Temperature Pulse Rate 105 H 104 H 102 H Respiratory Rate 23 H 25 H 27 H Blood Pressure 92/71 L 99/74 L 95/78 L Pulse Oximetry 95 95 96 Oxygen Delivery 03/19/25 00:20 03/19/25 00:30 03/19/25 01:15 Temperature 98.4 F Pulse Rate 74 96 96 Respiratory Rate 20 20 20 Blood Pressure 107/71 101/68 Pulse Oximetry 97 96 96 Oxygen Delivery Room Air Room Air Room Air 03/19/25 08:00 03/19/25 08:00 Temperature 97.4 F L Pulse Rate 99 99 Respiratory Rate 18 18 Blood Pressure 103/63 Pulse Oximetry 97 97 Oxygen Delivery Room Air Room Air Exam Const: General: comfortable and no acute distress Other: frail, debilitated HENMT: Face/Nose/Sinus: Normal nares present Mouth: Yes dry mucous membranes Other: small open areas noted to roof of mouth without signs of infection Eyes: General: appearance normal, both eyes and all related structures Sclera: sclerae normal Neck: Neck: supple Resp: Effort & Inspection: normal respiratory effort Auscultation: clear to auscultation bilaterally Cardio: Rate: regular rate Rhythm: regular rhythm GI: GI Palp: Yes Soft to palpation Auscultation: normal bowel sounds Skin: General skin exam: no rashes or lesions noted Other: pale Neuro: Speech: normal speech Motor exam (neuro): 5/5 motor strength present throughout Sensory Exam: normal sensation Extrem: General: normal to inspection Psych: Mental Status: mental status grossly normal Affect: normal affect Results Labs Labs: Short CBC 03/18/25 Range/Units 22:29 WBC 14.3 H (4.8-10.8) K/mm3 Hgb 11.6 L (12.4-15.3) g/dL Hct 36.3 L (37.0-46.0) % Plt Count 375 (150-420) K/mm3 BMP 03/18/25 22:29 Sodium 132 L Potassium 3.8 Chloride 97 L Carbon Dioxide 25 BUN 31 H D Creatinine 1.11 Glucose 151 H Calcium 8.3 L Liver Function 03/18/25 Range/Units 22:29 Total Bilirubin 2.7 H (0.2-1.3) mg/dL AST 93 H (17-59) U/L ALT 77 H (6-50) U/L Alkaline Phosphatase 832 H (38-126) U/L Albumin 3.2 L (3.5-5.1) g/dL Quality VTE Prophylaxis VTE prophylaxis: mechanical ordered Assessment and Plan Assessment and plan (1) Weakness: Code(s): R53.1 - Weakness Status: Acute Assessment and Plan: patient with increased debility due to stage 4 rectal cancer patient not a candidate for further treatment patient with episode of rectal bleeding prior to presentation patient agreeable to comfort measures and hospice consult fall precautions (2) Colorectal cancer, stage IV: Code(s): C19 - Malignant neoplasm of rectosigmoid junction Status: Acute Assessment and Plan: patient not a candidate for further treatment patient with episode of rectal bleeding prior to presentation patient and family agreeable to comfort measures and hospice consult patient with complaints of sores on roof of mouth, magic mouthwash started care coordination consulted patient will discharge home today if hospice is arranged (3) Admission for hospice care: Code(s): Z51.5 - Encounter for palliative care Status: Acute Assessment and Plan: see above
[2025-03-19] MEDS: MORPHINE SULFATE (*CRX) 4 MG/ML INJ IV PUSH (10:53)
[2025-03-19] MEDS: LIDOCAINE 2% VISC SOLN 30 ML, ALUMINUM/MAGNESIUM/SIMETH SUSP 30 ML, diphenhydrAMINE HCl... PO ×2 (12:05→16:03)
[2025-03-19 16:00] VITALS: BP 99/59; PULSE 102; RESP 17; TEMP 36.4; O2SAT 96
--- NOTE | 2025-03-19 18:00 | PC.NURSE ---
Ambulance here to transport patient home, with 3 vegetable sorter, daughter to ride in ambulance with patient. Discharge instructions given to daughter, states understanding.
--- NOTE | 2025-03-22 09:41 | PC.NURSE ---
Discharge call back: Care coordination spoke with family, hospice set up and doing well, much more comfortable at home with hospice services.
--- NOTE | 2025-04-08 | PM.DS ---
DS: Admitting Diagnosis Discharge Date 03/19/25 Admitting Diagnosis Weakness Colorectal cancer, stage IV Admission for hospice care DS: Discharge Diagnosis Discharge Diagnosis (1) Weakness: Code(s): R53.1 - Weakness Status: Acute (2) Colorectal cancer, stage IV: Code(s): C19 - Malignant neoplasm of rectosigmoid junction Status: Acute (3) Admission for hospice care: Code(s): Z51.5 - Encounter for palliative care Status: Acute DS: Summary Hospital Course Reason for hospitalization: rectal bleeding Hospital Course: Weakness patient with increased debility due to stage 4 rectal cancer patient not a candidate for further treatment patient with episode of rectal bleeding prior to presentation patient agreeable to comfort measures and hospice consult fall precautions Colorectal cancer, stage IV patient not a candidate for further treatment patient with episode of rectal bleeding prior to presentation patient and family agreeable to comfort measures and hospice consult patient with complaints of sores on roof of mouth, magic mouthwash started care coordination consulted patient will discharge home today if hospice is arranged hospice is arranged, discharge orders placed hospice will order comfort medications after patient arrives home Admission for hospice care see above Time Spent with Patient Time attestation: Total time spent providing and/or coordinating discharge services: 40 Minutes Exam Const: General: comfortable and no acute distress Other: frail, debilitated HENMT: Face/Nose/Sinus: Normal nares present Mouth: Yes dry mucous membranes Other: small open areas noted to roof of mouth without signs of infection Eyes: General: appearance normal, both eyes and all related structures Sclera: sclerae normal Neck: Neck: supple Resp: Effort & Inspection: normal respiratory effort Auscultation: clear to auscultation bilaterally Cardio: Rate: regular rate Rhythm: regular rhythm GI: Auscultation: normal bowel sounds Skin: General skin exam: no rashes or lesions noted Other: pale Neuro: Speech: normal speech Motor exam (neuro): 5/5 motor strength present throughout Sensory Exam: normal sensation Extrem: General: normal to inspection Psych: Mental Status: mental status grossly normal Affect: normal affect Discharge Plan Discharge Attending physician on discharge: Kingsley Quinn Consulting providers: Radha oS Discharging Clinician: Radha So Patient Disposition: Hospice - Home Activity: as tolerated Diet: as tolerated Discharge Instructions: Per Care Coordination: [facility] will follow you at discharge. If you have any questions, their phone number is [phone]. Thank you. [facility] will adjust medication orders including adding comfort medications once you are admitted to their service on return home. Patient Instructions: Dehydration (ED), Hospice Care (GEN), Fall Prevention for Older Adults (DC), Weakness (ED) Patient Language: Lao Stand Alone Forms: General Discharge Information Discharge Medications: Continued metoprolol succinate 50 mg tablet extended release 24 hr 50 mg PO DAILY tamsulosin 0.4 mg capsule 0.4 mg PO DAILY ondansetron 8 mg tablet,disintegrating 8 mg translingual Q8H PRN (Reason: nausea and vomiting) mirtazapine 15 mg tablet 15 mg PO QHS lorazepam 1 mg tablet 1 mg PO Q8H PRN (Reason: anxiety) Date of admission: 03/18/25 23:41 Primary Care Provider: JermainFlaco Admitting Provider: Kingsley Quinn Attending physician on admission: Kingsley Quinn Condition: Stable Quality VTE Prophylaxis VTE prophylaxis: mechanical ordered
== END 2025-03-19 18:00 | disposition hospice, home (50) ==
LOC: CHSED 22:39 → CHS2ND 03-19 00:12
PROVIDERS: Admitting Provider Internal Medicine; Emergency Provider Emergency Medicine; PCP Family Medicine; Visit Provider Internal Medicine
DX: R53.1 Weakness (principal); C19 Malignant neoplasm of rectosigmoid junction; F12.90 Cannabis use, unspecified, uncomplicated; F17.210 Nicotine dependence, cigarettes, uncomplicated; Z51.5 Encounter for palliative care; Z59.48 Other specified lack of adequate food; Z80.0 Family history of malignant neoplasm of digestive organs
CPT/HCPCS: 36415; 80053; 85025; 85610; 85730; 86850; 86900; 86901; 96360; 96361; 99199; 99285; A9270; G0378; J2270; J7030; J7042